=== PATIENT | male | born 1950 | race Caucasian/White ===

== ENCOUNTER 2023-05-04 10:33 | Outpatient (OUT) | payer MEDICARE, SELFPAY ==
--- NOTE | 2023-05-04 10:51 | XR_ITS ---
The [address] [address] Patient Name: RON LITTLE MRN: [id number] date: 1950 Sex: M Assigned Patient Location: RAD Current Patient Location: LAB Accession/Order Number: [id number] Exam Date: 05/04/2023 10:55 Report Date: 05/04/2023 13:53 At the request of: RADHA NESS Procedure: XR hand RT min 3V PROCEDURE: XR hand RT min 3V COMPARISON: None. HISTORY: Right Hand Pain M79.641 FINDINGS: BONES:No acute fracture or dislocation. Severe degenerative changes of the medial carpus most significant along the scaphoid trapezoid and scaphoid trapezial joints SOFT TISSUES:Negative. No visible soft tissue swelling. EFFUSION:None visible. OTHER: Negative. XR/XR hand RT min 3V IMPRESSION: Severe osteoarthritis medial carpus Electronically authenticated by: CLIFF OCHOA Date: 05/04/2023 13:53
== END 2023-05-04 10:34 | disposition home or self-care (01) ==
LOC: RAD 10:34
PROVIDERS: Visit Provider Orthopaedic Surgery
DX: M79.641 Pain in right hand (principal); M19.041 Primary osteoarthritis, right hand
CPT/HCPCS: 73130

== ENCOUNTER 2023-05-04 11:15 | Outpatient (OUT) | payer MEDICARE, SELFPAY ==
[2023-05-04 11:41] LABS: Basophils Percent Auto 0.6 % (0.2-2.0); Eosinophils Absolute Auto 0.1 10^3/uL (0.0-0.7); Eosinophils Percent Auto 1.7 % (0.9-7.0); Hematocrit 39.7 % (42.0-54.0); Hemoglobin 13.6 g/dL (14.0-18.0); Immature Granulocytes Abs Auto 0.01 10^3/uL (0.00-0.03); Immature Granulocytes Pct Auto 0.3 % (0.0-0.5); Lymphocytes Absolute Auto 0.8 10^3/uL (1.2-3.8); Lymphocytes Percent Auto 23.6 % (20.5-60.0); Mean Corpuscular HGB Conc 34.3 g/dL (29.9-35.2); Mean Corpuscular Hemoglobin 37.5 pg (25.9-34.0); Mean Corpuscular Volume 109.4 fL (80.0-94.0); Monocytes Absolute Auto 0.4 10^3/uL (0.3-0.8); Monocytes Percent Auto 11.2 % (1.7-12.0); Neutrophils Absolute Auto 2.2 10^3/uL (1.4-6.5); Neutrophils Percent Auto 62.6 % (43.0-75.0); Platelet Count 145 10^3/uL (150-450); Red Blood Count 3.63 10^6/uL (4.70-6.10); Red Cell Distribution Width 15.2 % (11.0-15.0); White Blood Count 3.5 10^3/uL (4.0-11.0)
[2023-05-04 12:21] LABS: Estimated Average Glucose 120 mg/dL; Glycohemoglobin A1C 5.8 % (4.5-6.2)
[2023-05-04 13:11] LABS: Alanine Aminotransferase 21 U/L (16-63); Albumin Globulin Ratio 0.9; Albumin Level 3.3 g/dL (3.4-5.0); Alkaline Phosphatase 47 U/L (46-116); Anion Gap 10.4; Aspartate Amino Transferase 29 U/L (15-37); BUN Creatinine Ratio 10.7; Calcium 8.8 mg/dL (8.5-10.1); Carbon Dioxide 28.8 mmol/L (21.0-32.0); Chloride 105 mmol/L (98-107); Chol HDL Ratio 3.3; Cholesterol 199 mg/dL (<=200); Estimated GFR (African America >60 (>=60); Estimated GFR (Non-African Ame 50 (>=60); Free T3 2.64 pg/mL (2.18-3.98); Globulin 3.8 g/dL; Glucose 104 mg/dL (74-106); HDL Cholesterol 60 mg/dL (40-60); LDL Cholesterol Calculated 115.6 mg/dL; Potassium 4.2 mmol/L (3.5-5.1); Sodium 140 mmol/L (136-145); Thyroid Stimulating Hormone 1.775 uIU/mL (0.358-3.740); Total Protein 7.1 g/dL (6.4-8.2); Triglycerides 117 mg/dL (<=150); Uric Acid 5.8 mg/dL (3.5-7.2); VLDL CHOLESTEROL 23.4 mg/dL
[2023-05-04 13:13] LABS: Prostate Specific Antigen Scrn 0.67 ng/mL (<=4.00)
[2023-05-05 20:44] LABS: Occult Blood Positive
== END 2023-05-04 11:16 | disposition home or self-care (01) ==
LOC: LAB 11:17
PROVIDERS: PCP Family Medicine; Visit Provider Family Medicine
DX: D64.9 Anemia, unspecified (principal); R79.9 Abnormal finding of blood chemistry, unspecified
CPT/HCPCS: 36415; 80053; 80061; 83036; 84436; 84443; 84481; 84550; 85025; G0103; G0328

== ENCOUNTER 2023-05-24 12:46 | Emergency (ER) | payer MEDICARE, SELFPAY ==
[2023-05-24 12:51] VITALS: BP 199/100; PULSE 70; RESP 20; TEMP 38.3; O2SAT 97; BMI 34.5
[2023-05-24 12:53] VITALS: BP 199/100; O2SAT 98
[2023-05-24 12:58] VITALS: BP 172/89; PULSE 74; RESP 21; O2SAT 96
--- NOTE | 2023-05-24 13:05 | XR_ITS ---
The [address] [address] Patient Name: RON LITTLE MRN: [id number] date: 1950 Sex: M Assigned Patient Location: ER Current Patient Location: ER Accession/Order Number: [id number] Exam Date: 05/24/2023 13:20 Report Date: 05/24/2023 13:52 At the request of: MELODIE MCELROY Procedure: XR chest 1V EXAMINATION: XR chest 1V HISTORY: fever, cough COMPARISON: XR chest 09/14/2021 FINDINGS: LUNGS: No significant pulmonary parenchymal abnormalities. VASCULATURE: No increased pulmonary vasculature. PLEURA: No pneumothorax, effusion, or pleural thickening. CARDIAC: No cardiomegaly or cardiac silhouette abnormality. MEDIASTINUM: No visible mass or adenopathy. BONES: No fracture or visible bone lesion. OTHER: Prior sternotomy. XR/XR chest 1V IMPRESSION: 1. No acute cardiopulmonary process. Electronically authenticated by: RADHA GRACE Date: 05/24/2023 13:52
--- NOTE | 2023-05-24 13:05 | ECG_ITS ---
The [facility] Test Date: 2023-05-24 Pat Name: RON LITTLE Department: Room: - Gender: Male [employer]: : 1950 Requested By: MIKE MACKAY Order Number: [id number] Reading MD: MIKE MACKAY Measurements Intervals [place] Rate: 70 P: 36 CT: 164 QRS: 24 QRSD: 116 T: 24 QT: 376 QTc: 396 Interpretive Statements 1100 Sinus rhythm 2320 Nonspecific intraventricular conduction delay [address] depression [address] & [place] abnormality 9150 abnormal ECG No previous ECG available for comparison Electronically Signed On 05-26-2023 6:27:59 EST by MIKE MACKAY
--- NOTE | 2023-05-24 13:07 | ED_ITS ---
HPI - Altered Mental Status General Chief Complaint: Altered Mental Status Stated Complaint: CONFUSION/ FEVER Time Seen by Provider: 05/24/23 12:56 Source: patient Mode of arrival: walk-in Limitations: no limitations History of Present Illness HPI narrative: 2 days ago the patient developed a cough. He also had some nasal congestion. He then developed a fever at home. This morning he became more confused than normal - he has dementia. No vomiting or diarrhea. said that he ate this morning but got confused and did not take his morning meds. No known ill exposures. No flank pain or abdominal pain. Related Data Allergies Allergy/AdvReac Type Severity Reaction Status Date / Time ciprofloxacin [From Cipro] Allergy Severe Verified 05/24/23 12:57 Penicillins Allergy Severe Verified 05/24/23 12:57 PFSH PFSH Social History Smoking status: Former smoker Exam Narrative Exam Narrative: Nurses notes and vital signs reviewed and patient is not hypoxic. febrile T100.9F General: Well-appearing and in no apparent distress. Skin: Warm, dry, no pallor noted. No rash. Head: Normocephalic, atraumatic. Neck: Supple, non-tender. No meningismus. No cervical lymphadenopathy. Eye: Pupils are equal, round and EOMI. No scleral icterus. Cardiovascular: Regular Rate and Rhythm without murmur, gallop or rub. Respiratory: No accessory muscle use or respiratory distress. Lungs are clear to auscultation, no wheezing, rales or rhonchi Chest Wall: no tenderness Back: No midline thoracic or lumbar vertebral tenderness. No CVA tenderness Musculoskeletal: normal ROM, no calf or popliteal tenderness, no lower extremity edema/swelling GI: Abdomen is soft, non-distended. Normal bowel sounds. No masses appreciated. No tenderness to palpation. No rebound, guarding, or rigidity noted. Neurological: Awake and alert. Disoriented to time. Understands that he is in the hospital and why. No cranial nerve dysfunction observed. No truncal ataxia. Moves all extremities. Sensation intact. Psychiatric: Cooperative and interactive. Normal mood and affect. Constitutional Vital Signs, click to edit/add: Last Vital Signs Temp 100.9 F H 05/24/23 12:51 Pulse 74 05/24/23 12:58 Resp 21 05/24/23 12:58 BP 172/89 H 05/24/23 12:58 Pulse Ox 96 05/24/23 12:58 O2 Del Method Room Air 05/24/23 12:51 Course Vital Signs Vital signs: Vital Signs Temperature 100.9 F H 05/24/23 12:51 Pulse Rate 70 05/24/23 12:51 Respiratory Rate 20 05/24/23 12:51 Blood Pressure 199/100 H 05/24/23 12:51 Pulse Oximetry 97 05/24/23 12:51 Oxygen Delivery Method Room Air 05/24/23 12:51 Temperature 100.9 F H 05/24/23 12:51 Pulse Rate 74 05/24/23 12:58 Respiratory Rate 21 05/24/23 12:58 Blood Pressure 172/89 H 05/24/23 12:58 Pulse Oximetry 96 05/24/23 12:58 Oxygen Delivery Method Room Air 05/24/23 12:51 MDM - Altered Mental Status MDM Narrative Medical decision making narrative: Patient was placed on hospital monitor and EKG obtained. Blood drawn and sent for evaluation, including blood cultures and lactate per sepsis protocol. CXR obtained along with swabs for Covid and influenza. Patient tested positive for Covid. CXR unremarkable. Blood testing without any worrisome findings. Results explained to the patient's . Will discharge home Patient advised to rest, stay at home, practice social distancing, take Motrin and Tylenol for pain and fever if not allergic, stay well hydrated with Gatorade or similar drinks if vomiting or eat as tolerated if not and take any meds as prescribed. Reviewed reasons to return including rapid increase in respiratory rate, shortness of breath, confusion, inability to keep down sips of swallowed liquids for more than 24 hours. Asked patient to encourage any ill contacts to stay home and practice similar advice. Lab Data Attestation: I reviewed the patient's lab results. Labs: Lab Results 05/24/23 05/24/23 Range/Units 13:20 13:41 WBC 5.7 (4.0-11.0) 10^3/uL RBC 3.58 L (4.70-6.10) 10^6/uL Hgb 13.6 L (14.0-18.0) g/dL Hct 39.9 L (42.0-54.0) % MCV 111.5 H (80.0-94.0) fL MCH 38.0 H (25.9-34.0) pg MCHC 34.1 (29.9-35.2) g/dL RDW 15.8 H (11.0-15.0) % Plt Count 146 L (150-450) 10^3/uL MPV 11.2 (9.5-13.5) fL Neut % (Auto) 83.6 H (43.0-75.0) % Lymph % (Auto) 5.3 L (20.5-60.0) % [place] % (Auto) 10.1 (1.7-12.0) % Eos % (Auto) 0.4 L (0.9-7.0) % Baso % (Auto) 0.2 (0.2-2.0) % Neut # (Auto) 4.7 (1.4-6.5) 10^3/uL Lymph # (Auto) 0.3 L (1.2-3.8) 10^3/uL [place] # (Auto) 0.6 (0.3-0.8) 10^3/uL Eos # (Auto) 0.0 (0.0-0.7) 10^3/uL Baso # (Auto) 0.0 (0.0-0.1) 10^3/uL Abs Immat Gran (auto) 0.02 (0.00-0.03) 10^3/uL Imm/Tot Granulo (auto) 0.4 (0.0-0.5) % Sodium 139 (136-145) mmol/L Potassium 3.6 (3.5-5.1) mmol/L Chloride 104 (98-107) mmol/L Carbon Dioxide 25.8 (21.0-32.0) mmol/L Anion Gap 12.8 BUN 16.0 (7.0-18.0) mg/dL Creatinine 1.61 H (0.70-1.30) mg/dL Est GFR ( Amer) 51 L (>=60) Est GFR (Non-Af Amer) 42 L (>=60) BUN/Creatinine Ratio 9.9 Glucose 117 H (74-106) mg/dL Lactate 1.0 (0.4-2.0) mmol/L Calcium 8.9 (8.5-10.1) mg/dL Total Bilirubin 1.2 H (0.2-1.0) mg/dL AST 24 (15-37) U/L ALT 20 (16-63) U/L Alkaline Phosphatase 52 (46-116) U/L Total Protein 7.3 (6.4-8.2) g/dL Albumin 3.3 L (3.4-5.0) g/dL Globulin 4.0 g/dL Albumin/Globulin Ratio 0.8 Procalcitonin <0.05 (0.00-0.50) ng/mL SARS-CoV-2 (PCR) Positive A (NEGATIVE) Influenza Type A Ag Negative Influenza Type B Ag Negative Imaging Data Chest x-ray: Radiologist's impression: Patient Name: RON LITTLE MRN: [facility]:[id number] date: 1950 Sex: M Assigned Patient Location: ER Current Patient Location: ER Accession/Order Number: [id number] Exam Date: 05/24/2023 13:20 Report Date: 05/24/2023 13:52 At the request of: MELODIE MCELROY Procedure: XR chest 1V EXAMINATION: XR chest 1V HISTORY: fever, cough COMPARISON: XR chest 09/14/2021 FINDINGS: LUNGS: No significant pulmonary parenchymal abnormalities. VASCULATURE: No increased pulmonary vasculature. PLEURA: No pneumothorax, effusion, or pleural thickening. CARDIAC: No cardiomegaly or cardiac silhouette abnormality. MEDIASTINUM: No visible mass or adenopathy. BONES: No fracture or visible bone lesion. OTHER: Prior sternotomy. IMPRESSION: 1. No acute cardiopulmonary process. Electronically authenticated by: RADHA GRACE Date: 05/24/2023 13:52 ECG Data Attestation: I personally reviewed and interpreted this ECG as follows: Interpretation: EKG interpretation: Emergency Department physician interpretation. Normal sinus rhythm at 70bpm. Nonspecific T wave changes. No ST segment elevation or depression. Discharge Plan Discharge Chief Complaint: Altered Mental Status Clinical Impression: COVID Patient Disposition: Home, Self-Care Time of Disposition Decision: 14:50 Instructions: COVID-19 (Coronavirus Disease 2019) (ED), Face Coverings (Masks) and COVID-19 (ED) Stand Alone Forms: Portal Instructions Referrals: Guevara Montoya MD [Primary Care Provider] - 1 week
[2023-05-24] MEDS: 0.9 % SODIUM CHLORIDE 1,000 ML 1000 ML IV (13:35)
[2023-05-24] MEDS: ACETAMINOPHEN 500 MG TABLET 1000 MG PO (13:36)
[2023-05-24 13:55] LABS: Alanine Aminotransferase 20 U/L (16-63); Albumin Globulin Ratio 0.8; Albumin Level 3.3 g/dL (3.4-5.0); Alkaline Phosphatase 52 U/L (46-116); Anion Gap 12.8; Aspartate Amino Transferase 24 U/L (15-37); BUN Creatinine Ratio 9.9; Bilirubin Total 1.2 mg/dL (0.2-1.0); Calcium 8.9 mg/dL (8.5-10.1); Carbon Dioxide 25.8 mmol/L (21.0-32.0); Chloride 104 mmol/L (98-107); Estimated GFR (African America 51 (>=60); Estimated GFR (Non-African Ame 42 (>=60); Glucose 117 mg/dL (74-106); Potassium 3.6 mmol/L (3.5-5.1); Sodium 139 mmol/L (136-145); Total Protein 7.3 g/dL (6.4-8.2)
[2023-05-24 13:57] LABS: Basophils Percent Auto 0.2 % (0.2-2.0); Eosinophils Percent Auto 0.4 % (0.9-7.0); Hematocrit 39.9 % (42.0-54.0); Hemoglobin 13.6 g/dL (14.0-18.0); Immature Granulocytes Abs Auto 0.02 10^3/uL (0.00-0.03); Immature Granulocytes Pct Auto 0.4 % (0.0-0.5); Lymphocytes Absolute Auto 0.3 10^3/uL (1.2-3.8); Lymphocytes Percent Auto 5.3 % (20.5-60.0); Mean Corpuscular HGB Conc 34.1 g/dL (29.9-35.2); Mean Corpuscular Volume 111.5 fL (80.0-94.0); Mean Platelet Volume 11.2 fL (9.5-13.5); Monocytes Absolute Auto 0.6 10^3/uL (0.3-0.8); Monocytes Percent Auto 10.1 % (1.7-12.0); Neutrophils Absolute Auto 4.7 10^3/uL (1.4-6.5); Neutrophils Percent Auto 83.6 % (43.0-75.0); Platelet Count 146 10^3/uL (150-450); Red Blood Count 3.58 10^6/uL (4.70-6.10); Red Cell Distribution Width 15.8 % (11.0-15.0); White Blood Count 5.7 10^3/uL (4.0-11.0)
[2023-05-24 14:15] LABS: Influenza Virus A Antigen Negative; Influenza Virus B Antigen Negative; Internal Control Within Normal Limits; SARS-CoV-2 Ag POSITIVE (NEGATIVE)
[2023-05-24 14:39] LABS: PROCALCITONIN <0.05 ng/mL (0.00-0.50)
--- OUTSIDE RECORDS SUMMARY | 2023-05-24 15:03 | XMS_ITS | CCD ---
Author Name Unknown Address [address] [place] [address] Organization [facility] Care Team Providers Care Overlock Operator Name Role Phone Guevara Mackay Primary Care Provider ÁNGEL FENTON Referring Unavailab GUEVARA Calvo Primary Care Unavailable ÁNGEL FENTON Admitting Unavailab ÁNGEL Alvarado Attending Unavailab GUEVARA Calvo Primary Care Unavailable DOC HART Referring Unavailable GUEVARA MACKAY Primary Care Unavailable Guevara Carrasco Unavailable Unavailable Guevara Mackay Unavailable Unavailable Guevara Mackay Primary Care Provider Guevara Mackay Unavailable Unavailable Unavailable Guevara Mackay Primary Care Physician Guevara Mackay MD Primary Care Provider Cliff Leon Unavailable Guevara Mackay MD Primary Care Provider [phone] Guevara Mackay MD Primary Care Provider [phone] Guevara Mackay MD Primary Care Provider Guevara Mackay MD Primary Care Provider THOMPSON ., DR MCKEON Admitting Unavailable HOY ., DR MCKEON Attending Unavailable HOY ., DR MCKEON Primary Care Unavailable HOY ., DR MCKEON Consulting Unavailable HOY ., DR MCKEON Admitting Unavailable HOY ., DR MCKEON Attending Unavailable HOY ., DR MCKEON Primary Care Unavailable HOY ., DR MCKEON Consulting Unavailable HOY ., DR MCKEON Admitting Unavailable HOY ., DR MCKEON Attending Unavailable HOY ., DR MCKEON Primary Care Unavailable HOY ., DR MCKEON Consulting Unavailable HOY ., DR MCKEON Admitting Unavailable HOY ., DR MCKEON Attending Unavailable HOY ., DR MCKEON Primary Care Unavailable HOY ., DR MCKEON Consulting Unavailable [place], DR CLIFF Downs Consulting Unavailable TORRES JR ., DR TERE Moyer Admitting Unavaila ble TORRES JR ., DR TERE Moyer Attending Unavaila ble HOY ., DR MCKEON Primary Care Unavailable TORRES JR ., DR TERE Moyer Consulting Unavaila ble HOY ., DR MCKEON Primary Care Unavailable TORRES, DR ASHA Manuel Admitting Unavailable TORRES, DR ASHA Manuel Attending Unavailable TORRES, DR ASHA Manuel Consulting Unavailable HOY ., DR MCKEON Admitting Unavailable HOY ., DR MCKEON Attending Unavailable HOY ., DR MCKEON Primary Care Unavailable HOY ., DR MCKEON Admitting Unavailable HOY ., DR MCKEON Attending Unavailable HOY ., DR MCKEON Primary Care Unavailable HOY ., DR MCKEON Consulting Unavailable Guevara Carrasco Attending Unavailable Thompson, Dr. Guevara Manzanares Primary Care Unavail able Guevara Carrasco Referring Unavailable Guevara Carrasco Attending Unavailable Thompson, Dr. Guevara Manzanares Primary Care Unavail able Guevara Carrasco Referring Unavailable Guevara Carrasco Attending Unavailable Thompson, Dr. Guevara Manzanares Primary Care Unavail able Guevara Carrasco Referring Unavailable Thompson, Dr. Guevara Manzanares Primary Care Unavail able Guevara aCrrasco Attending Unavailable Guevara Carrasco Referring Unavailable ADAMSLAUREN Raman Attending Unavailable THOMPSON, GUEVARA M Primary Care Unavailable ADAMSLAUREN Referring Unavailable HOY GUEVARA M Primary Care Unavailable ADAMSVIOLETLAUREN Referring Unavailable HOY, GUEVARA M Primary Care Unavailable ARASELI CAMACHO Attending Unavailable ADAMS, LAUREN Referring Unavailable HOY, GUEVARA M Primary Care Unavailable CHANDNI METZGER Attending Unavailable HOY, GUEVARA M Primary Care Unavailable CHANDNI METZGER Referring Unavailable CHANDNI METZGER Attending Unavailable ADAMS, LAUREN Referring Unavailable HOY, GUEVARA M Primary Care Unavailable HOY, GUEVARA M Primary Care Unavailable KATIA JEREZ Attending Unavailable ADAMS, LAUREN Referring Unavailable INGA TOURE Attending Unavailable GELY BLAKE Attending Unavailable GELY BLAKE Attending Unavailable Leighton MARIE Attending Unavailable Hoy, Guevara Referring Unavailable GELY BLAKE Attending Unavailable GUEVARA CARRASCO Attending Unavailable GUEVARA MACKAY Primary Care Unavailable GUEVARA CARRASCO Attending Unavailable GUEVARA MACKAY Primary Care Unavailable GUEVARA CARRASCO Attending Unavailable GUEVARA MACKAY Primary Care Unavailable Allergies Allergy Classification Reported Allergen(s) Allergy Type Date of Onset Reaction(s) Facility (20 sources) Ciprofloxacin; Translations: [ciprofloxacin] Drug Allergy 04-04-20 12 Rash, Eruption of skin (disorder), Unknown -[facility] Work Phone: (10 sources) Penicillins; Translations: [penicillins] Propensity to adverse reactions to drug 01-22-20 04 Rash, Eruption of skin (disorder) [place], [place] (7 sources) Penicillins; Translations: [facility] ([facility] sources) Penicillins Propensity to adverse reactions 01-22-20 04 [facility] (17 sources) Penicillins Propensity to adverse reactions 01-22-20 04 [facility] (1 source) Penicillin G Drug Allergy Unknown [employer] Other (1 source) Ciprofloxacin Drug Allergy 09-12-19 14 [facility] (1 source) Penicillins Drug allergy (disorder) 09-12-19 14 [facility] Medications Current Medications Medication Drug Class(es) Dates Sig (Normalized) Sig (Original) Acetaminophen / HYDROcodone (1 source) Opioid Agonist Start: 10-16-2019 End: 10-16-2019 HYDROcodone-aceta minophen (NORCO) 5-325 MG per tablet 1 tablet acetaminophen 325 mg / oxyCODONE hydrochloride 5 mg oral tablet (2 sources) Opioid Agonist Start: 10-16-2019 End: 10-23-2019 take 1 tablet by mouth every six hours as needed for pain, then take 1 tablet by mouth as needed for pain oxyCODONE-acetami nophen (PERCOCET) 5-325 MG per tablet Indications: Basal cell carcinoma (BCC) of left side of nose Take 1 tablet by mouth every 6 hours as needed for Pain for up to 7 days. Intended supply: 7 days. Take lowest dose possible to manage pain 28 tablet 0 10/16/2019 10/23/2019 Active azaTHIOprine 50 mg oral tablet (20 sources) Purine Antimetabolite Start: 12-05-2022 End: 12-05-2023 take 1 tablet by mouth twice daily azaTHIOprine (IMURAN) 50 mg tablet Indications: Myasthenia gravis (HCC) Take 1 tablet by mouth twice daily. 180 tablet 3 12/05/2022 12/05/2023 Active Start: 07-16-2018 End: 02-14-2020 azaTHIOprine (IMURAN) 50 MG tablet Take 25 mg by mouth 2 times daily 0 07/16/2018 02/14/2020 Active Start: 04-29-2016 End: 02-14-2020 azaTHIOprine 50 MG Oral Tabl et Quantity: 100 Refills: 0 Ordered: 29-Apr-2016 DO Start : 29-Apr-2016 Active Start: 04-29-2016 End: 11-23-2022 azaTHIOprine 50 MG Oral Tabl et Quantity: 100 Refills: 0 Ordered: 29-Apr-2016 DO Start : 29-Apr-2016 Active azaTHIOprine 100 MG Orally Active Comment on above: Take 1 tablet by [facility] twice daily. calcium chloride 0.0014 meq/ml / potassium chloride 0.004 meq/ml / sodium chloride 0.103 meq/ml / sodium lactate 0.028 meq/ml injectable solution (1 source) Start: 10-16-2019 lactated ringers infusion celecoxib 200 mg oral capsule (20 sources) Nonsteroidal Anti-inflammatory Drug Start: 11-05-2018 take 1 capsule by mouth once daily CeleBREX 200 mg Cap 200 mg = 1 cap(s), Oral, Daily Start Date: 04/03/19 Status: Ordered take 1 capsule by mouth twice da fatimah celecoxib (CELEBREX) 200 mg capsule Take 200 mg by mouth twice daily. 0 Active Comment on above: Take 200 mg by mouth twice daily. cephalexin 500 mg oral capsule (2 sources) Cephalosporin Antibacterial Start: End: take 1 capsule by mouth three times daily, then take 1 capsule by mouth three times daily cephALEXin (KEFLEX) 500 MG capsule Take 1 capsule by mouth 3 times daily for 15 doses Take 1 tablet 3 times a day for 5 days 15 capsule 0 10/16/2019 10/21/2019 Active Copper Sulfate (1 source) Start: copper sulfate See Instructions, Refills(s) 0 Start Date: 09/28/21 Status: Ordered 1 ml diphenhydrAMINE hydrochloride 50 mg/ml cartridge (1 source) Histamine-1 Receptor Antagonist Start: End: diphenhydrAMINE (BENADRYL) injection 12.5 mg 2 ml fentaNYL 0.05 mg/ml injection (1 source) Opioid Agonist Start: fentaNYL (SUBLIMAZE) injection 25 mcg 1 ml hydrALAZINE hydrochloride 20 mg/ml injection (1 source) Arteriolar Vasodilator Start: hydrALAZINE (APRESOLINE) injection 5 mg 1 ml HYDROmorphone hydrochloride 1 mg/ml cartridge (1 source) Opioid Agonist Start: HYDROmorphone (DILAUDID) injection 0.5 mg 0.5 ml meperidine hydrochloride 50 mg/ml injection (1 source) Opioid Agonist Start: meperidine (DEMEROL) injection SOLN 12.5 mg 2 ml midazolam 1 mg/ml injection (1 source) Benzodiazepine Start: End: midazolam (VERSED) injection 2 mg 30 ml morphine sulfate 1 mg/ml injection (1 source) Opioid Agonist Start: morphine (PF) injection 1 mg ondansetron 4 mg disintegrating oral tablet (2 sources) Serotonin-3 Receptor Antagonist Start: take 1 tablet by mouth every eight hours as needed Ondansetron 4 MG 1 tablet on the tongue and allow to dissolve Orally every 8 hours as needed for 7 days Apr, Active Start: 10-16-2019 End: 10-16-2019 ondansetron (ZOFRAN) injecti on 4 mg pantoprazole 40 mg extended release oral tablet (8 sources) Proton Pump Inhibitor Start: 09-28-2021 take 1 tablet by mouth once daily pantoprazole 40 mg Oral EC Tab 40 mg = 1 tab(s), Oral, Daily Start Date: 09/28/21 Status: Ordered Start: 06-18-2021 take 2 tablets by [facility] once daily Pantoprazole Sodium 40 MG Oral Tablet Delayed Release TAKE 2 TABLETS BY MOUTH ONCE DAILY Quantity: 60 Refills: 0 Ordered: 27-Jan-2022 DO Start : 18-Jun-2021 Active take 1 tablet by zulma th every twenty-four hours Protonix 40 MG 1 tablet Orally Once a day Active 1 ml promethazine hydrochloride 25 mg/ml injection (1 source) Phenothiazine Start: 10-16-2019 End: 10-16-2019 promethazine (PHENERGAN) injection 6.25 mg pyridostigmine bromide 60 mg oral tablet (20 sources) Start: 09-28-2021 take 1 tablet by mouth twice daily pyridostigmine 60 mg Tab 60 mg = 1 tab(s), Oral, BID Start Date: 09/28/21 Status: Ordered Start: 07-12-2021 End: 04-15-2023 take 1 tablet by mouth three times daily pyridostigmine (MESTINON) 60 mg tablet Take 1 tablet by mouth three times daily. 90 tablet 11 04/15/2022 04/15/2023 Active take 1 tablet by zulma th every four hours Pyridostigmine Maxatawny 60 MG 1 tablet Orally every 4 hrs Active Comment on above: Take 1 tablet by zulma th three times daily. 1000 ml sodium chloride 9 mg/ml injection (3 sources) Start: 10-16-2019 0.9 % sodium chloride infusion Start: 10-16-2019 sodium chlorid e flush 0.9 % injection 10 mL sucralfate 1000 mg oral tablet (1 source) Aluminum Complex Start: 09-08-2021 take 1 tablet by mouth every six hours Sucralfate 1 GM 1 tablet on an empty stomach Orally qid for 30 day(s) Aug, Active Timolol (20 sources) beta-Adrenergic Michael Start: 09-28-2021 Betimol 0.5% ophthalmic solution See Instructions, Refill(s) 0, 1 drop(s) Start Date: 09/28/21 Status: Ordered take 1 drop(s) into the eye(s) once daily timolol 0.5 % ophthalmic solution Use 1 Drop in both eyes once daily. 0 Active take 1 drop(s) into the eye(s) once daily timolol 0.5 % ophthalmic solution Use 1 Drop in both eyes once daily. 0 Active take 1 drop(s) into the eye(s) once daily Timolol Hemihydrate 0.5 % 1 drop into affected eye Ophthalmic Once a day Active Comment on above: Use 1 Drop in both e yes once daily. Completed/Discontinued Medications Medication Drug Class(es) Dates Sig (Normalized) Sig (Original) carvedilol 12.5 mg oral tablet (20 sources) alpha-Adrenergic Michael, beta-Adrenergic Michael Start: 05-05-2021 take 1 tablet by mouth twice daily Carvedilol 12.5 MG Oral Tablet TAKE 1 TABLET BY MOUTH TWICE DAILY Quantity: 180 Refills: 0 Ordered: 05-Feb-2022 DO Start : 05-May-2021 Active Start: 04-03-2019 carvedilol 6.2 5 mg Tab 12.5 mg = 2 tab(s), Oral Start Date: 04/03/19 Status: Ordered Start: 03-08-2017 Carvedilol 6.2 5 MG Oral Tablet Quantity: 60 Refills: 0 Start : 08-Mar-2017 Active Start: 03-08-2017 Carvedilol 6.2 5 MG Oral Tablet Quantity: 60 Refills: 0 Ordered: 08-Mar-2017 DO Start : 08-Mar-2017 Active Comment on above: Take 6.25 mg by mout h twice daily with meals. Take 12.5 mg by mout h twice daily with meals. 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 0 08/04/2022 Active Donepezil HCl - 10 MG Oral Tablet Quantity: 0 Refills: 0 Ordered: 31-Oct-2022 DO Active Comment on above: Take half a tablet d aily in the morning (can be with food) for 4 weeks, if tolerating, can increase to one tablet a day. ezetimibe 10 mg oral tablet (20 sources) Dietary Cholesterol Absorption Inhibitor Start: 07-07-2019 take 1 tablet by mouth once daily ezetimibe (ZETIA) 10 mg tablet Take 1 tablet by mouth once daily. 0 07/26/2019 Active Ezetimibe 10 MG Oral Tablet Quantity: 0 Refills: 0 Ordered: 14-Jun-2019 DO Active Ezetimibe Active Ezetimibe 10 MG Oral Tablet Refills: 0 Active Comment on above: Take 1 tablet by zulma once daily. hydroCHLOROthiazide 25 mg oral tablet (2 sources) Thiazide Diuretic Start: 09-06-19 17 hydroCHLOROthiazide 25 MG Oral Tablet Quantity: 90 Refills: 0 Start : 05-Sep-2016 Active ibuprofen 800 mg oral tablet (5 sources) Nonsteroidal Anti-inflammatory Drug Start: 07-22-19 17 Ibuprofen 800 MG Oral Tablet Quantity: 100 Refills: 0 Ordered: 22-Jul-2016 DO Start : 22-Jul-2016 Active Start: 07-22-2016 Ibuprofen 800 MG Oral Tablet Quantity: 100 Refills: 0 Start : 22-Jul-2016 Active imipramine hydrochloride 50 mg oral tablet (20 sources) Tricyclic Antidepressant Start: 06-07-2022 take 1 tablet by mouth twice daily at bedtime imipramine 50 mg oral tablet 50 mg = 1 tab(s), Oral, BID, Take 1 tablet in the morning, and 1 tablet at bedtime., # 60 tab(s), Refills(s) 11, Pharmacy: [id number], 168, cm, 06/07/22 10:05:00 EST, Height/Length Dosing, 105, kg, 06/07/22 10:05:00 EST, Weight Dosing Start Date: 06/07/22 Status: Ordered Start: 04-23-2022 take 1 tablet by zulma th twice daily imipramine HCl (TOFRANIL) 25 mg tablet Take 25 mg by mouth twice daily. 0 04/23/2022 Active Start: 09-28-2021 take 1 tablet by zulma th twice daily imipramine 25 mg Tab 25 mg = 1 tab(s), Oral, BID, # 60 tab(s), Refills(s) 5, Pharmacy: [id number], 168, cm, 09/28/21 10:51:00 EDT, Height/Length Dosing, 105.1, kg, 09/28/21 10:51:00 EDT, Weight Dosing Start Date: 09/28/21 Status: Ordered Imipramine HCl - 25 MG Oral Tablet Quantity: 0 Refills: 0 Ordered: 28-Dec-2017 DO Active imipramine (TOFR DEONDRE) 25 MG tablet Take 25 mg by mouth 0 Active Comment on above: Take 25 mg by mouth twice daily. irbesartan 300 mg oral tablet (1 source) Angiotensin 2 Receptor Michael Start: 12-12-2016 Irbesartan 300 MG Oral Tablet Quantity: 30 Refills: 0 Start : 12-Dec-2016 Active latanoprost (20 sources) Prostaglandin Analog Start: 09-28-2021 latanoprost ophthalmic 0.005% solution 1 drop(s), OPTH, Once a day (at bedtime) Start Date: 09/28/21 Status: Ordered Start: 08-21-2021 take 1 drop(s) into the eye(s) at bedtime Latanoprost 0.005 % Ophthalmic Solution Instill 1 drop into left eye at bedtime Quantity: 9 Refills: 2 Ordered: 21-Nov-2022 Guevara Carrasco MD Start : 21-Aug-2021 Active latanoprost (XAL ATAN) 0.005 % ophthalmic solution Use in both eyes daily at bedtime. 0 Active take 1 drop(s) into the eye(s) at bedtime Latanoprost 0.005 % Ophthalmic Solution INSTILL 1 DROP TO THE LEFT EYE AT BEDTIME. Quantity: 3 Refills: 3 Ordered: 17-Aug-2020 Guevara Carrasco MD Active Comment on above: Use in both eyes tg ly at bedtime. lifitegrast 50 mg/ml ophthalmic solution (5 sources) Lymphocyte Function-Associated Antigen-1 Antagonist Start: 02-09-2016 take 1 drop(s) into the eye(s) every week Xiidra 5 % Ophthalmic Solution Instill 1 (ONE) drop IN BOTH EYES ONCE A WEEK Quantity: 60 Refills: 0 Ordered: 10-Feb-2016 DO Start : 09-Feb-2016 Active lovastatin 20 mg oral tablet (20 sources) HMG-CoA Reductase Inhibitor Start: 04-06-2016 Lovastatin 20 MG Oral Tablet Quantity: 30 Refills: 0 Ordered: 06-Apr-2016 DO Start : 06-Apr-2016 Active Start: 05-08-2007 lovastatin(MEV ACOR 20 MG TAB) Take one(1) tablet daily at bedtime. 0 05/08/2007 Active Comment on above: Take one(1) tablet d aily at bedtime. Metoclopramide (4 sources) Dopamine-2 Receptor Antagonist Metoclopramide HCl TABS Quantity: 0 Refills: 0 Ordered: 09-Jul-2021 DO Active terbinafine 250 mg oral tablet (20 sources) Allylamine Antifungal Start: 07-07-19 End: 07-20-19 23 take 1 tablet by mouth once daily terbinafine HCl (LAMISIL) 250 mg tablet Take 1 tablet by mouth once daily. 0 07/26/2019 07/20/2022 Discontinued Terbinafine HCl - 250 MG Oral Tablet Quantity: 0 Refills: 0 Ordered: 14-Jun-2019 DO Active Terbinafine HCl - 250 MG Oral Tablet Refills: 0 Active Comment on above: Take 1 tablet by zulma th once daily. True Metrix Meter w/Device Kit (1 source) Start: 03-15-2016 True Metrix Meter w/Device Kit use to test BLOOD SUGAR DAILY Quantity: 1 Refills: 0 Start : 15-Mar-2016 Active Problems Active Problems Problem Classification Problem Date Documented Date Episodic/Chronic Allergic reactions (4 sources) Eczema 04-03-2019 Episodic Cataract (20 sources) Nuclear sclerotic cataract; Translations: [Pseudophakia] Onset: 11-20-2017 Chronic Congestive heart failure; nonhypertensive (1 source) Unspecified diastolic (congestive) heart failure; Translations: [UNSPECIFIED DIASTOLIC HEART FAILURE] Onset: 09-02-2022 Chronic Delirium, dementia, and amnestic and other cognitive disorders (15 sources) Cognitive disorder; Translations: [Unspecified mental disorder due to known physiological condition] Onset: 06-17-2022 Chronic Diabetes mellitus without complication (20 sources) Steroid-induced diabetes; 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] Onset: 07-03-2012 07-03-2012 Chronic Diabetes mellitus without complication (1 source) Other abnormal glucose; Translations: [OTHER ABNORMAL GLUCOSE] Onset: 09-02-2022 Episodic Disorders of lipid metabolism (5 sources) Hyperlipidemia, unspecified; Translations: [HYPERLIPIDEMIA UNSPECIFIED] Onset: 08-18-2022 Chronic Esophageal disorders (1 source) Gastro-esophageal reflux disease with esophagitis; Translations: [Gastroesophageal reflux disease with esophagitis without hemorrhage] Chronic Essential hypertension (20 sources) Hypertensive disorder; Translations: [Benign essential hypertension] Onset: 03-23-2005 04-03-2019 Chronic Genitourinary symptoms and ill-defined conditions (7 sources) Urge incontinence of urine; Translations: [Urge incontinence] Onset: 06-07-2022 08-27-2020 Chronic Genitourinary symptoms and ill-defined conditions (17 sources) Urgent desire to urinate; Translations: [Urgency of urination] Onset: 09-28-2021 Episodic Glaucoma (20 sources) Primary open angle glaucoma; Translations: [Primary open angle glaucoma] Onset: 06-21-2017 04-03-2019 Chronic Heart valve disorders (1 source) Combined rheumatic disorders of mitral, aortic and tricuspid valves; Translations: [COMB RHEUMAT D/O MITRL AORTC TRICSP] Onset: 10-09-2022 Chronic Hyperplasia of prostate (20 sources) Benign prostatic hypertrophy with outflow obstruction; Translations: [Benign prostatic hyperplasia with lower urinary tract symptoms] Onset: 06-26-2012 Chronic Hypertension with complications and secondary hypertension (1 source) Hypertensive heart disease with heart failure; Translations: [HTN HEART DISEASE W/HEART FAIL] Onset: 09-02-2022 Chronic Inflammation; infection of eye (except that caused by tuberculosis or sexually transmitteddisease) (7 sources) Blepharitis; Translations: [Blepharitis, unspecified] Episodic Melanomas of skin (4 sources) Malignant melanoma 06-23-2020 Chronic Mood disorders (1 source) Depressive disorder; Translations: [Depression, unspecified depression type] Chronic Noninfectious gastroenteritis (4 sources) Gastroenteritis 04-03-2019 Episodic Nutritional deficiencies (1 source) Vitamin D deficiency, unspecified; Translations: [VITAMIN D DEFICIENCY UNSPECIFIED] Onset: 08-26-2022 Chronic Osteoarthritis (20 sources) Osteoarthritis; Translations: [Unspecified osteoarthritis, unspecified site] Onset: 03-23-2005 03-18-2010 Chronic Other aftercare (5 sources) Other residential (current) drug therapy; Translations: [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 THERAPY] Onset: 08-21-2022 Episodic Other and ill-defined heart disease (4 sources) Cardiomegaly; Translations: [CARDIOMEGALY] Onset: 10-06-2022 Chronic Other circulatory disease (7 sources) H/O: hypertension; Translations: [Personal history of other diseases of circulatory system] Episodic Other diseases of kidney and ureters (2 sources) Urinary tract obstruction; Translations: [Other obstructive and reflux uropathy] Onset: 09-28-2021 Episodic Other diseases of kidney and ureters (4 sources) Cyst of kidney 04-03-2019 Episodic Other disorders of stomach and duodenum (3 sources) Gastroparesis syndrome; Translations: [Gastroparesis] Episodic Other eye disorders (14 sources) Chalazion left upper eyelid; Translations: [Chalazion of left upper eyelid] Onset: 11-20-2017 Episodic Other eye disorders (7 sources) Dry eyes; Translations: [Tear film insufficiency, unspecified] Episodic Other eye disorders (2 sources) Dry eye syndrome of bilateral lacrimal glands; Translations: [Dry eye syndrome of bilateral lacrimal glands] Onset: 01-16-2023 Episodic Other male genital disorders (6 sources) Male erectile dysfunction, unspecified; Translations: [Erectile dysfunction] Onset: 06-07-2022 Chronic Other nervous system disorders (8 sources) Myasthenia gravis; Translations: [Myasthenia gravis without (acute) exacerbation] 04-03-2019 Chronic Other nervous system disorders (20 sources) Myasthenia gravis with exacerbation; Translations: [Myasthenia gravis with (acute) exacerbation] Onset: 10-22-2003 Chronic Other nervous system disorders (1 source) Disorder of autonomic nervous system; Translations: [Disorder of the autonomic nervous system, unspecified] Chronic Other nervous system disorders (5 sources) Myasthenia gravis without (acute) exacerbation; Translations: [MYASTHENIA GRAVIS W/O AC EXACERBAT] Onset: 09-08-2021 Resolved: 09-08-2021 Chronic Other nervous system disorders (1 source) Cognitive deficit in communication skills; Translations: [Cognitive communication deficit] Chronic Other nervous system disorders (1 source) Myasthenia gravis with (acute) exacerbation; Translations: [Myasthenia gravis with exacerbation (HCC)] Onset: 05-24-2021 Chronic Other non-epithelial cancer of skin (1 source) Basal cell carcinoma of nose; Translations: [Basal cell carcinoma (BCC) of left side of nose] Chronic Other non-epithelial cancer of skin (4 sources) Basal cell carcinoma of skin 04-03-2019 Episodic Other nutritional; endocrine; and metabolic disorders (3 sources) Obese class II; Translations: [Obesity, unspecified] Onset: 10-13-2022 10-13-2022 Chronic Other nutritional; endocrine; and metabolic disorders (7 sources) History of hypercholesterolemia; Translations: [Personal history of other endocrine, metabolic, and immunity disorders] Episodic Other screening for suspected conditions (not mental disorders or infectious disease) (11 sources) Raised prostate specific antigen; Translations: [Encounter for screening for malignant neoplasm of prostate] Onset: 04-04-2022 04-03-2019 Episodic Other upper respiratory disease (4 sources) Seasonal allergy 04-03-2019 Chronic Residual codes; unclassified (20 sources) Obstructive sleep apnea syndrome; Translations: [Obstructive sleep apnea (adult) (pediatric)] Onset: 04-11-2012 Chronic Residual codes; unclassified (2 sources) Obstructive sleep apnea (adult) (pediatric); Translations: [ERIS on CPAP] Onset: 04-17-2012 Chronic Residual codes; unclassified (1 source) Dependence on other enabling machines and devices; Translations: [ERIS on CPAP] Onset: 04-17-2012 Chronic Residual codes; unclassified (1 source) Amnesia; Translations: [Other amnesia] Episodic Residual codes; unclassified (4 sources) Altered mental status, unspecified; Translations: [ALTERED MENTAL STATUS UNSPECIFIED] Onset: 08-26-2022 Episodic Residual codes; unclassified (1 source) Other amnesia; Translations: [OTHER AMNESIA] Onset: 09-02-2022 Episodic Spondylosis; intervertebral disc disorders; other back problems (20 sources) Lumbar spondylosis; Translations: [Spondylosis without myelopathy or radiculopathy, lumbar region] Onset: 04-10-2012 Chronic Unclassified (20 sources) ASA CLASS III Onset: 08-10-2004 03-18-2010 Unclassified (3 sources) Patient encounter status 06-07-2022 Past or Other Problems Problem Classification Problem Date Documented Da te Episodic/Chronic Cataract (1 source) Pseudophakia of right eye; Translations: [History of Pseudophakia of right eye] E Codes: Fall (1 source) Fall on same level from slipping, tripping and stumbling with subsequent striking against other object, initial encounter; Translations: [FALL SAME LVL SLIP STRK OTH OBJ INT] Onset: 01-10-2022 Episodic Esophageal disorders (1 source) Esophageal disorders Onset: 09-08-2021 Resolved: 09-08-2021 Immunizations and screening for infectious disease (1 source) Encounter for immunization; Translations: [ENCOUNTER FOR IMMUNIZATION] Onset: 01-10-2022 Episodic Open wounds of head; neck; and trunk (5 sources) Facial laceration ; Translations: [Facial laceration] Onset: 01-06-2022 Episodic Other acquired deformities (20 sources) Spondylolisthesis; Translations: [Spondylolisthesis, site unspecified] Onset: 11-09-2011 11-09-2011 Episodic Other disorders of stomach and duodenum (1 source) Gastroparesis Onset: 09-08-2021 Resolved: 09-08-2021 Episodic Other gastrointestinal disorders (20 sources) Dysphagia; Translations: [Dysphagia, unspecified] Onset: 06-29-2012 Episodic Other nervous system disorders (20 sources) H/O: musculoskeletal disease; Translations: [Personal history of other diseases of the nervous system and sense organs] Onset: 04-10-2012 Episodic Spondylosis; intervertebral disc disorders; other back problems (20 sources) Backache; Translations: [Back pain, lumbosacral] Onset: 12-13-2011 12-13-2011 Episodic NEGATED: Highlighted row has not occurred!Residual codes; unclassified (15 sources) Disease Episodic Results Test Name Value Interpretation Reference Range Facility Physician Referralon 023 Physician Referral [id number]#1.0 0TIFF [facility] Transfer Inon 05-18-2023 Transfer In [id number]. 00TIFF [facility] CNPNon 05-10-2023 CNPN Telephone (NENMMN) RON WELCH ([id number]) 1950 M Date Time Provider Department 05/10/23 DAYSI URIBE NENMMN During your visit today, we recorded the following information about you: Teja Bower 05/10/2023 2:49 PM Signed Lab results received and scanned in for review. Lore Maynard RN 05/10/2023 3:[address] Uribe aware of outside medical records available in scanned documents Lore Maynard RN BSN [facility] Daysi Uribe MD 05/11/2023 9:01 AM Signed Labs Reviewed: Na+ 140 K+ 4.2 Cr 1.4 (nl 0.7-1.3) Glucose 104 AST 29 ALT 21 WBC 3.5 (nl 4-11) Hgb 13.6 (nl 14-18) Plt 145 (nl 150-450) Uric acid 5.8 TSH 1.775 T4 6.7 Free T3 2.64 HbA1c 5.8 Allergies As of Date: 05/10/2023 Noted Allergy Reaction CIPROFLOXACIN 04/04/2012 16 - Unknown PENICILLINS 01/22/2004 4 - Hives Date Reviewed: 01/11/2023 Reviewed by: Viky Carias LPN - Fully Assessed Reason for Visit: Received Outside Medical Records [[id number]] Prescriptions as of 05/11/2023 - azaTHIOprine (IMURAN) 50 mg tablet Take 1 tablet by mouth twice daily. - donepezil (ARICEPT) 10 mg tablet Take half a tablet daily in the morning (can be with food) for 4 weeks, if tolerating, can increase to one tablet a day. - imipramine HCl (TOFRANIL) 25 mg tablet Take 25 mg by mouth twice daily. - ezetimibe (ZETIA) 10 mg tablet Take 1 tablet by mouth once daily. - celecoxib (CELEBREX) 200 mg capsule Take 200 mg by mouth twice daily. - carvedilol (COREG) 6.25 mg tablet Take 12.5 mg by mouth twice daily with meals. - latanoprost (XALATAN) 0.005 % ophthalmic solution Use in both eyes daily at bedtime. - timolol 0.5 % ophthalmic solution Use 1 Drop in both eyes once daily. - lovastatin(MEVACOR 20 MG TAB) Take one(1) tablet daily at bedtime. Meds Comments as of 07/31/2012: r Problem List As Of Date 05/10/2023 Noted Resolved MYASTHENIA GRAVIS [G70.01] 10/22/2003 ASA CLASS III [1003] 08/10/2004 OSTEOARTHROS NOS-OTHER SITE [M19.90] 03/23/2005 BENIGN HYPERTENSION [I10] 03/23/2005 NEONAT MYASTHENIA GRAVIS [P94.0] 01/24/2006 05/08/2007 Spondylolisthesis [M43.10] 11/09/2011 Back pain, lumbosacral [M54.50] 12/13/2011 Spinal stenosis [M48.00] 02/17/2012 Anterolisthesis [M43.10] 04/10/2012 Lumbar spondylosis [M47.816] 04/10/2012 Bulging lumbar disc [M51.36] 04/10/2012 History of myasthenia gravis [Z86.69] 04/10/2012 ERIS on CPAP [G47.33] 04/11/2012 Acute postoperative pain [G89.18] 04/11/2012 04/17/2012 HTN (hypertension) [I10] 04/17/2012 06/29/2012 Acute respiratory failure (HCC) [J96.00] 06/23/2012 06/26/2012 Obstructive sleep apnea [G47.33] 06/25/2012 Swallowing impairment [R13.10] 06/25/2012 06/29/2012 BPH (benign prostatic hyperplasia) [N40.0] 06/26/2012 Dysphagia [R13.10] 06/29/2012 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, T38.0X5A] 07/03/2012 Obesity, Class II, BMI 35-39.9 [E66.9] 10/13/2022 Encounter Status:Closed by DAYSI URIBE on 05/11/23 [facility] [place] 01-11-2023 CNOV Office Visit (NEBT ) RON WELCH ([id number]) 1950 M Date Time Provider Department 01/11/23 1:00 PM CHANDNI METZGER During your visit today, we recorded the following information about you: Pulse Blood pressure Weight 56/minute 152/79 101.2 kg Chandni Metzger APRN.PUBLIC INFORMATION SPECIALIST 01/17/2023 1:01 PM Signed [facility] - Follow-up Visit Date: January 11, 2023 Patient Name: Ron Welch Reason for Visit: follow-up visit Accompanied by: SUBJECTIVE: HPI/interval history: Patient is a 72 year old male being followed for vascular dementia, possibly mixed AD with history of Myasthenia Gravis and ERIS (on CPAP), HTN, and HLD. MRI brain on 06/17/2022 showed mild to moderate cortical atrophy, with hippocampal volume loss, and significant chronic small vessel ischemic disease. Neuropsychology testing on 06/17/2022 showed deficits in memory, processing speed, executive function and visuospatial difficulties, meeting criteria for dementia. Last seen in September 2022. At that time, patient had been doing well on donepezil, some sundowning and wandering prior to starting cholinesterase inhibitor. 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 Today, they report for a follow up. He is still confused, but no Capgras syndrome. Has not been confused about who people are once donepezil was started. Trying to keep busy this summer with going camping in the camper. Driving golf carts in controlled area, did get lost once but it was OK. During the night, if he gets up and goes to the bathroom, he will occasionally get confused and think he is somewhere else but is very easily direct able. Not napping as much throughout the day. Some difficulty occasionally with getting dressed. Having difficulty with remote and phone. Re-started wearing CPAP. Going on cruise in July. OBJECTIVE: Current Outpatient Medications on File Prior to Visit Medication Sig azaTHIOprine (IMURAN) 50 mg tablet Take 1 tablet by mouth twice daily. donepezil (ARICEPT) 10 mg tablet Take half a tablet daily in the morning (can be with food) for 4 weeks, if tolerating, can increase to one tablet a day. imipramine HCl (TOFRANIL) 25 mg tablet Take 25 mg by mouth twice daily. (Patient not taking: Reported on 10/07/2022) pyridostigmine (MESTINON) 60 mg tablet Take 1 tablet by mouth three times daily. (Patient taking differently: Take 60 mg by mouth once daily.) ezetimibe (ZETIA) 10 mg tablet Take 1 tablet by mouth once daily. celecoxib (CELEBREX) 200 mg capsule Take 200 mg by mouth twice daily. (Patient not taking: Reported on 04/29/2022) carvedilol (COREG) 6.25 mg tablet Take 12.5 mg by mouth twice daily with meals. latanoprost (XALATAN) 0.005 % ophthalmic solution Use in both eyes daily at bedtime. timolol 0.5 % ophthalmic solution Use 1 Drop in both eyes once daily. lovastatin(MEVACOR 20 MG TAB) Take one(1) tablet daily at bedtime. No current facility-administered medications on file prior to visit. MoCA Past Scores MoCA 04/29/2022 MOCA TOTAL SCORE 18 out of 30 Visuospatial/ Executive 0 Naming 3 Attention 6 Language 2 Abstraction 0 Delayed Recall 0 Orientation 6 Education Level 1 Vital Signs: BP 152/79 Pulse (!) 56 Wt 101.2 kg (223 lb) BMI 35.99 kg/m? General Medical Exam: General: Well-nourished appearing, NAD. Awake, alert. HEENT: Normocephalic/atraumat ic. Neurological Exam: Cognition: alert and cooperative Orientation: alert, confused Appearance: well-groomed Eye contact: normal Facial expression: appropriate Psychomotor: normal Speech/Language: unremarkable -can name, repeat with no dysarthria Affect: pleasant Emotional state: calm, cooperative Thought Process: logical Thought Content: delusions: possible? Hallucinations:unsure but possible, denies auditory or visual Judgment: impaired due to lack of insight Insight: poor LABS/DATA: NPT 06/17/2022: IMPRESSIONS/SUMMARY Abnormal cognitive profile with deficits in memory, processing speed, executive functions, and visuospatial abilities. Dementia Unclear/multifactorial etiology: vascular disease, myasthenia gravis, r/o a movement disorder. Ron Welch is a 72-year-old male with a history of myasthenia gravis, sleep apnea (on BiPAP), hypertension, hyperlipidemia, lumbar spondylosis, and steroid-induced diabetes who presents with an approximately 2-year history of cognitive concerns with insidious onset and declining course. Functionally, his has begun to manage iADLs and he occasionally requires assistance with trimming his rosen. He drives, though this is (more content not included)... Normal [facility] [place] 11-16-2022 Screens [id number]. 00CD:127 Normal [facility] Ambulatory Visit Summaryon 0 11-15-2022 Ambulatory Visit Summary RON WELCH :1950 Visit Date:11/15/2022 Ambulatory Visit Instructions Your Diagnosis Urge incontinence Elevated PSA ED (erectile dysfunction) Tests Performed Urnls Dip Stick Auto w/o Microscopy POC 55295 Your Care Team Attending Physician - GELY BLAKE PA-C Primary Care Physician - Guevara Mackay MD This Is Your Medications List Contact prescribing physician if questions or concerns azathioprine (azaTHIOprine 50 mg Tab) carvedilol (carvedilol 6.25 mg Tab) donepezil (donepezil 10 mg Tab) ezetimibe (ezetimibe 10 mg Tab) latanoprost ophthalmic (latanoprost ophthalmic 0.005% solution) pantoprazole (pantoprazole 40 mg Oral EC Tab) pyridostigmine (pyridostigmine 60 mg Tab) timolol ophthalmic (Betimol 0.5% ophthalmic solution) Procedures Performed Cystoscopy (10/25/2017), Green laser light (07/12/2017), Urodynamics (08/16/2012), Arthroscopy of knee, Back, Cataract, Knee replacement, Melanoma, Thymectomy. Discharge Vitals Heart Rate (Peripheral) 68 Blood Pressure 130/68 Height 168 cm Height 66 in Weight 102 kg Weight 224.4 lb BMI 36.14 What to do next You Need to Schedule the Following Appointments Follow Up with REEMA CRUM, PORTER MCKEE When: Only if needed Where: [address] [place] [address] Business (1) Medications What How Much When Instructions Unchanged azathioprine (azaTHIOprine 50 mg Tab) 1 Tablets By Mouth Every day Contact prescribing physician if questions or concerns Unchanged carvedilol (carvedilol 6.25 mg Tab) 2 Tablets By Mouth Contact prescribing physician if questions or concerns Unchanged donepezil (donepezil 10 mg Tab) Contact prescribing physician if questions or concerns Unchanged ezetimibe (ezetimibe 10 mg Tab) Contact prescribing physician if questions or concerns Unchanged latanoprost ophthalmic (latanoprost ophthalmic 0.005% solution) 1 Drops Ophthalmic Once a day (at bedtime) Contact prescribing physician if questions or concerns Unchanged pantoprazole (pantoprazole 40 mg Oral EC Tab) 1 Tablets By Mouth Every day Contact prescribing physician if questions or concerns Unchanged pyridostigmine (pyridostigmine 60 mg Tab) 1 Tablets By Mouth 2 times a day Contact prescribing physician if questions or concerns Unchanged timolol ophthalmic (Betimol 0.5% ophthalmic solution) See instructions 1 drop(s) Contact prescribing physician if questions or concerns Test Results Urnls Dip Stick Auto w/o Microscopy POC 12565 (11/15/2022) Bilirubin Urine Dipstick - Negative Blood Urine Dipstick - Negative Glucose Urine Dipstick - Negative Ketones Urine Dipstick - Negative Leukocytes Urine Dipstick - Negative Nitrite Urine Dipstick - Negative Protein Urine Dipstick - 1+ (30 mg/dl) Specific Irvona Urine Dipstick - 1.020 Urine Appearance Urine Dipstick - Clear Urine Color Urine Dipstick - Yellow Urobilinogen Urine Dipstick - Normal 0.2-1 EU/dl pH Urine Dipstick - 5.5 Allergies ciprofloxacin (Rash) penicillins (Rash) Problems Ongoing - Any problem that you are currently receiving treatment for. Basal cell carcinoma (BCC) BPH with urinary obstruction Dementia Eczema ED (erectile dysfunction) Elevated PSA Frequency of urination Gastroenteritis Glaucoma History of urinary tract infection Hypertension Melanoma Microscopic hematuria Myasthenia gravis Prostate cancer screening Renal cyst Seasonal allergies Urge incontinence Urinary urgency Education Materials Erectile Dysfunction Erectile dysfunction (ED) is the inability to get or keep an erection in order to have sexual intercourse. ED is considered a symptom of an underlying disorder and is not considered a disease. ED may include: ? Inability to get an erection. ? Lack of enough hardness of the erection to allow penetration. ? Loss of erection before sex is finished. What are the causes? This condition may be caused by: ? Physical causes, such as: ? Artery problems. This may include heart disease, high blood pressure, atherosclerosis, and diabetes. ? Hormonal problems, such as low testosterone. ? Obesity. ? Nerve problems. This may include back or pelvic injuries, multiple sclerosis, Parkinson's disease, spinal cord injury, and stroke. ? Certain medicines, such as: ? Pain relievers. ? Antidepressants. ? Blood pressure medicines and water pills (diuretics). ? Cancer medicines. ? Antihistamines. ? Muscle relaxants. ? Lifestyle factors, such as: ? Use of drugs such as marijuana, cocaine, or opioids. ? Excessive use of alcohol. ? Smoking. ? Lack of physical activity or exercise. ? Psychological causes, such as: ? Anxiety or stress. ? Sadness or depression. ? Exhaustion. ? Fear about sexual performance. ? Guilt. What are the signs or symptoms? Symptoms of this condition include: (more content not included)... Normal [facility] Patient Educationon 11-16-19 Patient Education Urology Erectile Dysfunction Erectile dysfunction (ED) is the inability to get or keep an erection in order to have sexual intercourse. ED is considered a symptom of an underlying disorder and is not considered a disease. ED may include: ? Inability to get an erection. ? Lack of enough hardness of the erection to allow penetration. ? Loss of erection before sex is finished. What are the causes? This condition may be caused by: ? Physical causes, such as: ? Artery problems. This may include heart disease, high blood pressure, atherosclerosis, and diabetes. ? Hormonal problems, such as low testosterone. ? Obesity. ? Nerve problems. This may include back or pelvic injuries, multiple sclerosis, Parkinson's disease, spinal cord injury, and stroke. ? Certain medicines, such as: ? Pain relievers. ? Antidepressants. ? Blood pressure medicines and water pills (diuretics). ? Cancer medicines. ? Antihistamines. ? Muscle relaxants. ? Lifestyle factors, such as: ? Use of drugs such as marijuana, cocaine, or opioids. ? Excessive use of alcohol. ? Smoking. ? Lack of physical activity or exercise. ? Psychological causes, such as: ? Anxiety or stress. ? Sadness or depression. ? Exhaustion. ? Fear about sexual performance. ? Guilt. What are the signs or symptoms? Symptoms of this condition include: ? Inability to get an erection. ? Lack of enough hardness of the erection to allow penetration. ? Loss of the erection before sex is finished. ? Sometimes having normal erections, but with frequent unsatisfactory episodes. ? Low sexual satisfaction in either partner due to erection problems. ? A curved penis occurring with erection. The curve may cause pain, or the penis may be too curved to allow for intercourse. ? Never having nighttime or morning erections. How is this diagnosed? This condition is often diagnosed by: ? Performing a physical exam to find other diseases or specific problems with the penis. ? Asking you detailed questions about the problem. ? Doing tests, such as: ? Blood tests to check for diabetes mellitus or high cholesterol, or to measure hormone levels. ? Other tests to check for underlying health conditions. ? An ultrasound exam to check for scarring. ? A test to check blood flow to the penis. ? Doing a sleep study at home to measure nighttime erections. How is this treated? This condition may be treated by: ? Medicines, such as: ? Medicine taken by mouth to help you achieve an erection (oral medicine). ? Hormone replacement therapy to replace low testosterone levels. ? Medicine that is injected into the penis. Your health care provider may instruct you how to give yourself these injections at home. ? Medicine that is delivered with a short applicator tube. The tube is inserted into the opening at the tip of the penis, which is the opening of the urethra. A tiny pellet of medicine is put in the urethra. The pellet dissolves and enhances erectile function. This is also called MUSE (medicated urethral system for erections) therapy. ? Vacuum pump. This is a pump with a ring on it. The pump and ring are placed on the penis and used to create pressure that helps the penis become erect. ? Penile implant surgery. In this procedure, you may receive: ? An inflatable implant. This consists of cylinders, a pump, and a reservoir. The cylinders can be inflated with a fluid that helps to create an erection, and they can be deflated after intercourse. ? A semi-rigid implant. This consists of two silicone rubber rods. The rods provide some rigidity. They are also flexible, so the penis can both curve downward in its normal position and become straight for sexual intercourse. ? Blood vessel surgery to improve blood flow to the penis. During this procedure, a blood vessel from a different part of the body is placed into the penis to allow blood to flow around (bypass) damaged or blocked blood vessels. ? Lifestyle changes, such as exercising more, losing weight, and quitting smoking. Follow these instructions at home: Medicines ? Take ghzi-[id number]-rfybvnp and prescription medicines only as told by your health care provider. Do not increase the dosage without first discussing it with your health care provider. ? If you are using self-injections, do injections as directed by your health care provider. Make sure you avoid any veins that are on the surface of the penis. After giving an injection, apply pressure to the injection site for 5 minutes. ? Talk to your health care provider about how to prevent headaches while taking ED medicines. These medicines may cause a sudden headache due to the increase in blood flow in your body. General instructions ? Exercise regularly, as directed by your health care provider. Work with your health care provider to lose weight, if needed. ? Do not use any products that contain nicotine or tobacco. These products include cig (more content not included)... Normal [facility] Provider Letteron 11-15-2022 Provider Letter Guevara Mackay, [address] [place] [address] Re: RON WELCH Date of : [address] Thompson MARTINEZ, RON Neumann was evaluated at [facility] 11/15/2022 As this patient has been stable, they will be released back to your care. We request that you continue to check PSA annually for prostate cancer screening Should the patient develop new symptoms, worsening condition, or abnormal imaging/labs in the future, do not hesitate to refer them back. Thanks! Provider Signature: Gely Blake PA-C Physician Jet Man [facility] [address] [place] [address] Normal [facility] Urology Office/Clinic Noteon 11-15-2022 Urology Office/Clinic Note Chief Complaint 2m to medication change HPI Staff Former DLS pt Here today to follow up to weaning off of Imipramine therapy. DX: Urge Incontinence, BPH & ED Has been weaned off medication for the past 1m. For the past couple weeks, very minimal leaking. Leaking does increase with alcohol assumption. At the moment content with symptoms. Voiding q1-2hrs during day, occasionally 1-2x/night. Moderate intermittent urgency. Wearing 1 little pad, changes daily. Did take Immodium last weekend, noticed that the urgency improved. IPSS 10 Review of Systems PHQ Score Initial Depression Screen Score: 0 no fever, chills, malaise, myalgia. no rash/lesions. no chest pain, palpitations, or SOB. no abdominal pain, nausea, vomiting. no unilateral calf swelling, redness, pain Physical Exam Vitals & Measurements HR: 68(Peripheral) BP: 130/68 HT: 66 in HT: 168 cm WT: 102 kg WT: 224.4 lb BMI: 36.14 General: nontoxic, NAD Mouth: moist mucosa Lungs: normal respiratory effort Cardio: regular rate, good distal perfusion Abdomen: nondistended, no suprapubic distention or tenderness, no CVA tenderness Skin: No rashes or suspicious lesions Assessment/Plan 1. Urge incontinence (N39.41: Urge incontinence) weaned off imipramine following last visit. no significant changes in symptoms, IPSS was 11 at last visit and its 10 today. pt actually thinks things have been a little better the past couple weeks. down from 1-2 thicker pads daily to 1 thin pad daily. we discussed how fluid intake, sweating, etc can all affect incontinence. discussed bladder irritants and written education provided. overall pt is content currently and does not wish to pursue additional tx options at this time. will contact office if this changes. Ordered: E&M of Est. Patient Low 20-29 Min 66091 Urnls Dip Stick Auto w/o Microscopy POC 09819 2. Elevated PSA (R97.20: Elevated prostate specific antigen [PSA]) jumped to 2.97 in 2016 S/p PVP 06/2017 has been low/stable since 07/2020 - 0.56 04/04/22 -0.72 due again in Mar of this year. will have PCP continue to follow Ordered: E&M of Est. Patient Low 20-29 Min 83576 3. ED (erectile dysfunction) (N52.9: Male erectile dysfunction, unspecified) LORIE (5) at last visit pt & his did not want to pursue any medications. Penile pump was discussed and pamphlet provided at that time. Ordered: E&M of Est. Patient Low 20-29 Min 86067 offered scheduled follow up vs f/u PRN with urology and continue care with PCP. pt prefers the latter. will send letter to PCP so they are aware of the plan. pt understands if anything worsens or new symptoms arise to contact our office. Follow-up With When Contact Information REEMA CRUM, GELY Ch, URL Only if needed [address] [place] [address] Business (1) Additional Instructions: Patient Education Erectile Dysfunction Problem List/Past Medical History Ongoing Basal cell carcinoma (BCC) BPH with urinary obstruction Dementia Eczema ED (erectile dysfunction) Elevated PSA Frequency of urination Gastroenteritis Glaucoma History of urinary tract infection Hypertension Melanoma Microscopic hematuria Myasthenia gravis Prostate cancer screening Renal cyst Seasonal allergies Urge incontinence Urinary urgency Historical No qualifying data Procedure/Surgical History Cystoscopy (10/25/2017), Green laser light (07/12/2017), Urodynamics (08/16/2012), Arthroscopy of knee, Back, Cataract, Knee replacement, Melanoma, Thymectomy. Medications azaTHIOprine 50 mg Tab, 50 mg= 1 tab(s), Oral, Daily Betimol 0.5% ophthalmic solution, See Instructions carvedilol 6.25 mg Tab, 12.5 mg= 2 tab(s), Oral donepezil 10 mg Tab ezetimibe 10 mg Tab latanoprost ophthalmic 0.005% solution, 1 drop(s), OPTH, Once a day (at bedtime) pantoprazole 40 mg Oral EC Tab, 40 mg= 1 tab(s), Oral, Daily pyridostigmine 60 mg Tab, 60 mg= 1 tab(s), Oral, BID Allergies ciprofloxacin (Rash) penicillins (Rash) Social History Alcohol - Low Risk, 06/25/2019 Current, Beer, 1-2 times per month, 06/23/2020 Substance Abuse - Denies Substance Abuse, 06/23/2020 Tobacco - Denies Tobacco Use, 06/23/2020 Former smoker, quit more than 30 days ago Tobacco Use:. Never Smokeless Tobacco Use:. Cigarettes, Cigars, Household tobacco concerns: No. Yes, 11/15/2022 Family History Hypertension: Mother and Father. Stroke: Mother and Father. Immunizations Vaccine Date Status Comments SARS-CoV-2 (COVID-19) mRNAMUL.ORD![id number] 05/11/2022 Recorded influenza virus vaccine, inactivated 03/21/2022 Recorded SARSCoV2 mRNA(qkubqgjqx-ylao-mh cros) vac 09/23/2021 Recorded SARS-CoV-2 (COVID-19) mRNA-1273 vaccine 08/2021 Recorded SARS-CoV-2 (COVID-19) mRNA BNT-162b2 vax 03/14/2021 Recorded SARS-CoV-2 (COVID-19) mRNA-1273 vaccine 09/02/2020 Recorded SARS-CoV-2 (COVID-19) mRNA-1273 vaccine 08/05/2020 Recorded SARS-CoV-2 (COVID-19) mRN (more content not included)... Normal [facility] Comment on above: Result Comment: Elec tronically Signed By: GELY BLAKE PA-C\.br\Date and Time Signed: 11/15/22 13:46 EDT Ophthalmic Eye Examon 2022 Ophthalmic Eye Exam DOCUMENT REVIEWED BY : Guevara Carrasco MD DOCUMENT SIGNED ELECTRONICALLY BY Guevara Carrasco MD ON 10/31/2022 12:09:[address], [facility] [phone] THIS DOCUMENT WAS CREATED ON: 10/31/2022 12:09:27 PM BY: Guevara Carrasco MD Pooja Erick performed URFTJ-Sowh-sm Exam Date: Monday, October 31, 2022 PATIENT NAME: RON WELCH DATE: 1950 AGE: 72 GENDER: Male RACE: PRIMARY CARE PHYSICIAN: Guevara Mackay History Chief Complaint/Reason For Visit: 72yoM here for 4 month F/U for POAG OU, patient using latanoprost QHS OS and timolol Qam OU, no vision changes since LUCY, no floaters, no flahses, no pain, no irritation, no tearing, no discharge, HISTORY OF PRESENT ILLNESS: HPI was performed by Dr. Guevara Carrasco MD and scribed by Neeraj Carrasco MD PAST MEDICAL HISTORY: OCULAR: POAG, IOL OU PROCEDURES : , Yag Capsulotomy OS 10/15/2018 INFECTIOUS: No known previous infections OCULAR SIGNIFICANT: Myasthenia Gravis ILLNESSES: History of hypertension; History of hypercholesterolemia; History of Cataract, nuclear sclerotic, both eyes; History of Primary open angle glaucoma of both eyes, moderate stage; History of Pseudophakia of right eye; History of Primary open-angle glaucoma, bilateral, moderate stage; History of Primary open-angle glaucoma, bilateral, moderate stage; History of Primary open-angle glaucoma, bilateral, moderate stage; History of Primary open-angle glaucoma, bilateral, moderate stage; History of Blepharitis of both upper and lower eyelid; History of Primary open-angle glaucoma, bilateral, moderate stage; History of Chalazion left upper eyelid; SURGERIES: History of Knee Replacement; History of Back Surgery; HEAD/OCULAR TRAUMA: No known history of trauma SOCIAL HISTORY: NOTE: Retired; FAMILY HISTORY: MOTHER: Family history of hypertension CURRENT MEDICATIONS: azaTHIOprine 50 MG Oral Tablet - #100 Tablet, [Reported] Carvedilol 12.5 MG Oral Tablet - #180 Tablet, TAKE 1 TABLET BY MOUTH TWICE DAILY[Reported] Donepezil HCl - 10 MG Oral Tablet - Tablet, [Reported] Drug [facility] Lancets 28G - #100, use to test BLOOD SUGAR DAILY[Reported] Ezetimibe 10 MG Oral Tablet - Tablet, [Reported] Latanoprost 0.005 % Ophthalmic Solution - #9 Milliliter, Solution, INSTILL 1 DROP TO THE LEFT EYE AT BEDTIME, 2 refills, Evaluate: 25-Nov-2022 Lovastatin 20 MG Oral Tablet - #30 Tablet, [Reported] Pantoprazole Sodium 40 MG Oral Tablet Delayed Release - #60 Tablet Delayed Release, TAKE 2 TABLETS BY MOUTH ONCE DAILY[Reported] Pyridostigmine Max[place]wny 60 MG Oral Tablet - #90 Tablet, TAKE 1 TABLET BY MOUTH THREE TIMES DAILY[Reported] Timolol Maleate 0.5 % Ophthalmic Solution - #2 15 ML Bottle, Solution, INSTILL 1 DROP Every morning ou, 3 refills, Evaluate: 23-Feb-2023 True Metrix Blood Glucose Test In Vitro Strip - #100 Strip, use to test BLOOD SUGAR EVERY DAY[Reported] True Metrix Meter w/Device Kit - #1 Kit, use to test BLOOD SUGAR DAILY[Reported] ALLERGIES: ciprofloxacin, Penicillins REVIEW OF SYSTEMS: GENERAL:Denies symptoms All other Review Of Systems negative Exam ORIENTATION, MOOD AND AFFECT: Alert AND oriented x3 RIGHT EYE LEFT EYE UNCORRECTED VA N/A N/A WEARING +0.75 -0.50 x 097 add +2.50 -2.00 SPHER add +2.50 CORRECTED VA 20/20 20/40 PACHYMETRY 551 from 01/06/2017 570 from 01/06/2017 PRESSURE METHOD: Applanation Applanation PRESSURES: 12 15 DATE-TIME: 10/31/2022 11:45:52 AM 10/31/2022 11:45:52 AM 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: [email or web address] ADJUSTED IOP VALUE: 12 14 EXTERNAL EYE EXAM: LID: Good Position Good Position PUPIL: PRRL/no APD PERRL/no APD ADNEXA: Normal Normal MUSCLE BALANCE: Ortho OCULAR MOTILITY: Full ANTERIOR SEGMENT EXAM: TEARFILM: Good Good CONJUNCTIVA: White and quiet White and quiet CORNEA: Clear Clear ANTERIOR CHAMBER: Deep and quiet Deep and quiet IRIS: Round and reactive Round and reactive LENS: PC IOL PC IOL s/p YAG cap ANTERIOR VITREOUS: Clear Clear FUNDUS EXAM: CUP TO DISC: 0.7 0.7 OPTIC DISC: saucerized saucerized VITREOUS: Clear Clear MACULA: poor foveal reflex poor foveal reflex PERIPHERY: inf pavingstone inf pavingstone Impression Plan Last dilated: 02/04/22 1. Primary Open-Angle Glaucoma OU: CCT 550/570 Tm 38/33. h/o intolerance to brimonidine. S/p SLT OD 05/01/17: Pre-op VA 20/30, IOP: 17mmHg -> no effect. s/p combined with trabectome OD (08/02/17): pre-op VA 20/50, IOP 17 mmHg. s/p combined with trabectome OS (11/21/17): pre-op VA 20/30, IOP 23 mmHg. During the time between tests, IOP was not well controlled in early and mid 2018, but now controlled since surgery. IOP remains well controlled OD, bordelrine OS, but do not need to advance at this stage - will follow trend OS Plan: cont latanoprost OS QHS cont timolol OU Qam f/u 4 months (HVF, dilation, RNFL) 2. Pseudophakia (PCIOL) OU: s/p YAG Cap OS with improved VA Plan: monitor 3. Dry Eyes OD Plan: cont (more content not included)... Normal [facility] CNOVon 10-07-2022 CNOV Office Visit (MARICARMEN ) RON WELCH ([id number]) 1950 M Date Time Provider Department 10/07/22 1:30 PM CHANDNI METZGER During your visit today, we recorded the following information about you: Pulse Blood pressure Weight 53/minute 168/94 100.7 kg Chandni Metzger APRN.LUISITO 10/13[facility]20[facility] 12:[facility] Date: October 07, 2022 Patient Name: Ron Moyer Yuri Reason for Visit: follow-up visit Accompanied by: (Hyacinth) SUBJECTIVE: HPI/interval history: Patient is a 72 year old male being followed for vascular dementia, possibly mixed AD with history of Myasthenia Gravis and ERIS (on CPAP), HTN, and HLD. MRI brain on 06/17/2022 showed mild to moderate cortical atrophy, with hippocampal volume loss, and significant chronic small vessel ischemic disease. Neuropsychology testing on 06/17/2022 showed deficits in memory, processing speed, executive function and visuospatial difficulties, meeting criteria for dementia. Last seen by Dr. Lamas in June 2022, at that time, it was recommended he abstain from driving, family oversee medications and finances, cognitive therapy, social work consult and potential CSF analysis. It was also recommended that patient potentially start cholinesterase inhibitor (already on pyridostigmine)-follow up with Neuromuscular. Today, patient reports for a follow up. Doing well on donepezil. Some sundowning and wandering prior to starting donepezil. Had a difficult time noticing , had to show him wedding pictures. Asking to go home when he is home. Sometimes having conversation with someone that is not there, typically reminiscing about what she and his do during the day. Spouse gets his clothes ready (he put 's blouse on). He is rarely left alone (half hour at most). Sleeping about 8-10 hours per night. Wearing CPAP, but will take it off in the middle of the night. Occasionally will sleep in chair during the daytime. OBJECTIVE: Current Outpatient Medications on File Prior to Visit Medication Sig donepezil (ARICEPT) 10 mg tablet Take half a tablet daily in the morning (can be with food) for 4 weeks, if tolerating, can increase to one tablet a day. imipramine HCl (TOFRANIL) 25 mg tablet Take 25 mg by mouth twice daily. pyridostigmine (MESTINON) 60 mg tablet Take 1 tablet by mouth three times daily. (Patient taking differently: Take 60 mg by mouth once daily.) azaTHIOprine (IMURAN) 50 mg tablet Take 1 tablet by mouth twice daily. ezetimibe (ZETIA) 10 mg tablet Take 1 tablet by mouth once daily. celecoxib (CELEBREX) 200 mg capsule Take 200 mg by mouth twice daily. (Patient not taking: Reported on 04/29/2022) carvedilol (COREG) 6.25 mg tablet Take 12.5 mg by mouth twice daily with meals. latanoprost (XALATAN) 0.005 % ophthalmic solution Use in both eyes daily at bedtime. timolol 0.5 % ophthalmic solution Use 1 Drop in both eyes once daily. lovastatin(MEVACOR 20 MG TAB) Take one(1) tablet daily at bedtime. No current facility-administered medications on file prior to visit. MoCA Past Scores MoCA 04/29/2022 MOCA TOTAL SCORE 18 out of 30 Visuospatial/ Executive 0 Naming 3 Attention 6 Language 2 Abstraction 0 Delayed Recall 0 Orientation 6 Education Level 1 Vital Signs: BP 168/94 Pulse (!) 53 Wt 100.7 kg (222 lb) BMI 35.83 kg/m? General Medical Exam: General: Well-nourished appearing, NAD. Awake, alert. Neurological Exam: Cognition: alert and cooperative Orientation: alert, oriented to person and place, 2019 Appearance: well-groomed Eye contact: normal, wearing corrective Facial expression: appropriate Psychomotor: normal Speech/Language: unremarkable -can name, repeat with no dysarthria Affect: pleasant Emotional state: calm, cooperative Thought Process: logical Thought Content: delusions-possible Hallucinations: possible? Judgment: impaired due to lack of insight Insight: poor LABS/DATA: NPT 06/17/2022: IMPRESSIONS/SUMMARY Abnormal cognitive profile with deficits in memory, processing speed, executive functions, and visuospatial abilities. Dementia Unclear/multifactorial etiology: vascular disease, myasthenia gravis, r/o a movement disorder. Ron Welch is a 72-year-old male with a history of myasthenia gravis, sleep apnea (on BiPAP), hypertension, hyperlipidemia, lumbar spondylosis, and steroid-induced diabetes who presents with an approximately 2-year history of cognitive concerns with insidious onset and declining course. Functionally, his has begun to manage iADLs and h (more content not included)... Normal [facility] ECHOCARDIO M/2D COMPLETEon 0 10-06-2022 ECHOCARDIO M/2D COMPLETE Patient: RON WELCH. Exam Date: 10/06/2022 : 1950 Gender:M Ordering : DR GUEVARA MACKAY . Admission #: [id number] Family : Order #: [id number] CLICK HERE TO VIEW EXAM ECHOCARDIOGRAM REPORT PROCEDURE: CARDIO PULMONARY ECHOCARDIO M/2D COMP INDICATIONS: Cardiomegaly, hypertension COMPARISON: None. DESCRIPTION: COMPLETE ECHOCARDIOGRAM Real-time transthoracic echocardiography with 2D, M-mode, spectral and color flow Doppler performed. QUALITY: Technical quality was good. LEFT VENTRICLE: Normal chamber size. Moderate concentric left ventricular hypertrophy. LV EF: Normal left ventricular ejection fraction, (>55%). DIASTOLIC: Grade I, mild diastolic dysfunction. ATRIAL SEPTUM: Visually appears intact. LEFT ATRIUM: Moderate dilatation. RIGHT ATRIUM: Normal chamber size. RIGHT VENTRICLE: Normal chamber size. Normal right ventricular systolic function. TRICUSPID VALVE: Normal mobility and thickness. No stenosis with mild regurgitation. Doppler studies reveal mildly (35-45) elevated right sided pressures. RVSP 42 mmHg MITRAL VALVE: Mildly thickened with normal mobility. No evidence of mitral valve stenosis. Mild mitral annular calcification. Mild mitral regurgitation. AORTIC VALVE: Normal trileaflet appearance. Thickened aortic valve. Normal leaflet mobility. Mild aortic regurgitation. AORTIC ROOT: Normal diameter and appearance. PULMONIC VALVE: Normal thickness and mobility. No stenosis. Trivial regurgitation. PERICARDIUM: No evidence of pericardial effusion. IVC: Collapses with inspirations. CONCLUSION: 1. Global left ventricular systolic function is normal; visually estimated ejection fraction is 60-65%. No significant wall motion abnormalities. 2. Moderately increased left ventricular wall thickness. 3. Grade I, mild diastolic dysfunction. 4. The left atrium is moderately dilated. 5. The right ventricle is normal in size and systolic function. 6. Mild tricuspid regurgitation. 7. Mildly elevated right-sided pressures; RVSP 42 mmHg. 8. Mild mitral regurgitation. 9. Mild aortic regurgitation. Adult Echocardiography Procedure Report Left Ventricle LVEDD (3.7 - 5.6 cm): 4.82 cm LVESD (2.2 - 4.0 cm): 2.82 cm LVIVS thickness (0.6 - 1.2 cm): 1.48 cm LVPW thickness (0.5 - 1.0 cm): 1.35 cm e': 0.07 m/s E - e': 4.38 LVOT Max Gradient: 1.36 mm[Hg] Peak Velocity (LVOT): 0.58 m/s LVOT Diameter 2.46 cm Left Ventricular Ejection Fraction: 72.29 %, 72.29 % Left Atrium LA Volume Index (2D A2C): 89.81 ml, 89.81 ml Left Atrium Systolic Dimension: 4.44 cm Mitral Valve MV E to A Ratio: 0.59 Mitral Valve A-Wave Peak Velocity: 0.55 m/s Mitral Valve E-Wave Peak Velocity: 0.32 m/s Right Ventricle Aorta AO Root Diam: 3.46 cm Ascending Ao Diam: 3.30 cm Aortic Valve AoV Area (Peak Jimbo): 2.12 cm2, 2.12 cm2 Peak Velocity(Antegrade Flow): 1.30 m/s Peak Gradient(Antegrade Flow): 6.81 mm[Hg] Tricuspid Valve Peak Velocity (Regurgitant Flow): 3.11 m/s Peak Velocity: 0.68 m/s Pulmonic Valve Mean Gradient: 3.16 mm[Hg] Mean Velocity: 0.83 m/s Peak Velocity: 1.35 m/s, 1.19 m/s Peak Gradient: 7.32 mm[Hg], 5.68 mm[Hg] Right Atrium Right Atrium Systolic Pressure: 21.39 ml, 21.39 ml Dictated by: Hue Godinez M.D. on 10/06/2022 at 15:17 Approved by: Hue Godinez M.D. on 10/06/2022 at 15:22 Normal [facility] 09-14-2022 Screens [id number] Normal [facility] Ambulatory Visit Summaryon 0 09-06-2022 Ambulatory Visit Summary RON WELCH :1950 Visit Date:09/06/2022 Ambulatory Visit Instructions Your Diagnosis Urge incontinence BPH with urinary obstruction ED (erectile dysfunction) Tests Performed Urnls Dip Stick Auto w/o Microscopy POC 18170 Your Care Team Attending Physician - GELY BLAKE PA-C Primary Care Physician - Guevara Mackay MD This Is Your Medications List Contact prescribing physician if questions or concerns azathioprine (azaTHIOprine 50 mg Tab) carvedilol (carvedilol 6.25 mg Tab) donepezil (donepezil 10 mg Tab) ezetimibe (ezetimibe 10 mg Tab) latanoprost ophthalmic (latanoprost ophthalmic 0.005% solution) lovastatin (lovastatin 20 mg Tab) pantoprazole (pantoprazole 40 mg Oral EC Tab) pyridostigmine (pyridostigmine 60 mg Tab) timolol ophthalmic (Betimol 0.5% ophthalmic solution) [Image Removed: STOP]Stop taking these medications imipramine (imipramine 50 mg oral tablet) Procedures Performed Cystoscopy (10/25/2017), Green laser light (07/12/2017), Urodynamics (08/16/2012), Arthroscopy of knee, Back, Cataract, Knee replacement, Melanoma, Thymectomy. Discharge Vitals Heart Rate (Peripheral) 68 Respiratory Rate 16 Blood Pressure 129/78 Height 168 cm Height 66 in Weight 105 kg Weight 231 lb BMI 37.2 What to do next Scheduled Follow-Up Appointments Monday 1:00 PM EDT With: GELY BLAKE PA-C Where: [facility] Patient Educationon 09-07-19 23 Patient Education Urology Urinary Incontinence Urinary incontinence refers to a condition in which a person is unable to control where and when to pass urine. A person with this condition will urinate when he or she does not mean to (involuntarily). What are the causes? This condition may be caused by: ? Medicines. ? Infections. ? Constipation. ? Overactive bladder muscles. ? Weak bladder muscles. ? Weak pelvic floor muscles. These muscles provide support for the bladder, intestine, and, in women, the uterus. ? Enlarged prostate in men. The prostate is a gland near the bladder. When it gets too big, it can pinch the urethra. With the urethra blocked, the bladder can weaken and lose the ability to empty properly. ? Surgery. ? Emotional factors, such as anxiety, stress, or post-traumatic stress disorder (PTSD). ? Pelvic organ prolapse. This happens in women when organs shift out of place and into the vagina. This shift can prevent the bladder and urethra from working properly. What increases the risk? The following factors may make you more likely to develop this condition: ? Older age. ? Obesity and physical inactivity. ? and childbirth. ? Menopause. ? Diseases that affect the nerves or spinal cord (neurological diseases). ? Long-term (chronic) coughing. This can increase pressure on the bladder and pelvic floor muscles. What are the signs or symptoms? Symptoms may vary depending on the type of urinary incontinence you have. They include: ? A sudden urge to urinate, but passing urine involuntarily before you can get to a bathroom (urge incontinence). ? Suddenly passing urine with any activity that forces urine to pass, such as coughing, laughing, exercise, or sneezing (stress incontinence). ? Needing to urinate often, but urinating only a small amount, or constantly dribbling urine (overflow incontinence). ? Urinating because you cannot get to the bathroom in time due to a physical disability, such as arthritis or injury, or communication and thinking problems, such as Alzheimer disease (functional incontinence). How is this diagnosed? This condition may be diagnosed based on: ? Your medical history. ? A physical exam. ? Tests, such as: ? Urine tests. ? X-rays of your kidney and bladder. ? Ultrasound. ? CT scan. ? Cystoscopy. In this procedure, a health care provider inserts a tube with a light and camera (cystoscope) through the urethra and into the bladder in order to check for problems. ? Urodynamic testing. These tests assess how well the bladder, urethra, and sphincter can store and release urine. There are different types of urodynamic tests, and they vary depending on what the test is measuring. To help diagnose your condition, your health care provider may recommend that you keep a log of when you urinate and how much you urinate. How is this treated? Treatment for this condition depends on the type of incontinence that you have and its cause. Treatment may include: ? Lifestyle changes, such as: ? Quitting smoking. ? Maintaining a healthy weight. ? Staying active. Try to get 150 minutes of moderate-intensity exercise every week. Ask your health care provider which activities are safe for you. ? Eating a healthy diet. ? Avoid high-fat foods, like fried foods. ? Avoid refined carbohydrates like white bread and white rice. ? Limit how much alcohol and caffeine you drink. ? Increase your fiber intake. Foods such as fresh fruits, vegetables, beans, and whole grains are healthy sources of fiber. ? Pelvic floor muscle exercises. ? Bladder training, such as lengthening the amount of time between bathroom breaks, or using the bathroom at regular intervals. ? Using techniques to suppress bladder urges. This can include distraction techniques or controlled breathing exercises. ? Medicines to relax the bladder muscles and prevent bladder spasms. ? Medicines to help slow or prevent the growth of a man's prostate. ? Botox injections. These can help relax the bladder muscles. ? Using pulses of electricity to help change bladder reflexes (electrical nerve stimulation). ? For women, using a medical laboratory technician to prevent urine leaks. This is a small, tampon-like, disposable device that is inserted into the urethra. ? Injecting collagen or carbon beads (bulking agents) into the urinary sphincter. These can help thicken tissue and close the bladder opening. ? Surgery. Follow these instructions at home: Lifestyle ? Limit alcohol and caffeine. These can fill your bladder quickly and irritate it. ? Keep yourself clean to help prevent odors and skin damage. Ask your doctor about special skin creams and cleansers that can protect the skin from urine. ? Consider wearing pads or adult diapers. Make sure to change them regularly, and always change them right after experiencing incontinence. General instructions ? Take [id number]-[id number] and prescription medicines only as (more content not included)... Normal [facility] Urology Office/Clinic Noteon 09-06-2022 Urology Office/Clinic Note Chief Complaint 3m HPI Staff Former DLS pt here for 3m follow up to increasing Imipramine dosage from 25mg BID to 50mg BID for Tx of urge incontinence. Additional DX: BPH & ED Pt has been DX'd w/Dementia since last encounter. States he has not noticed a change since increase in medication. Pt's has questions about medication. Still going through 2 pads/day. Biggest urinary concern is the leaking, would like to see it improve without having to have operation. Still having urgency. Ongoing weak stream. Still getting up 3x/night to void. Denies all other urinary complaints. IPSS 11 PVR 56ml History of Present Illness staff HPI reviewed and agree. Review of Systems PHQ Score Initial Depression Screen Score: 0 no fever, chills, malaise, myalgia. no rash/lesions. no chest pain, palpitations, or SOB. no abdominal pain, nausea, vomiting. no unilateral calf swelling, redness, pain Physical Exam Vitals & Measurements HR: 68(Peripheral) RR: 16 BP: 129/78 HT: 66 in HT: 168 cm WT: 105 kg WT: 231 lb BMI: 37.2 General: nontoxic, NAD Mouth: moist mucosa Lungs: normal respiratory effort Cardio: regular rate, good distal perfusion Abdomen: nondistended, no suprapubic distention or tenderness, no CVA tenderness Skin: No rashes or suspicious lesions Assessment/Plan Patient has been diagnosed with dementia since last encounter. 1. Urge incontinence (N39.41: Urge incontinence) PVR 56 cc has been on imipramine for several years. increase to 50mg BID at last visit. still going through 1-2 pads daily, has not noticed a major improvement since change w/ medication. shares leakage is most bothersome to him. states amount of leakage changes, intermittently pads will be saturated. has noticed his confusion has worsened over the last few months, which we discussed can certainly be a side effect from medication. pt directed to wean off medication to eventually d/c altogether -reduce by 25mg each week (start with 50mg in the AM and 25mg PM, 25am & 25pm, and 25mg once) re-visit other options after staying off medication for at least one month. follow up in 8 weeks to reassess (avoid anticholinergics due to dementia dx. could try to get myrbetriq covered. or could discuss botox) 2. BPH with urinary obstruction (N40.1: Benign prostatic hyperplasia with lower urinary tract symptoms) PSA 07/2020 - 0.56 04/04/22 -0.72 S/p PVP 06/2017 IPSS (11) QOL (3) ongoing weak stream, nocturia x3, and urgency Currently not on any BPH medications at this time. UA today neg for infection or blood -Patient due for PSA in fall of this year 3. ED (erectile dysfunction) (N52.9: Male erectile dysfunction, unspecified) LORIE (5) at last visit pt & his did not want to pursue any medications. Penile pump was discussed and pamphlet provided at that time. Follow-up With When Contact Information REEMA CRUM, GELY Ch, URL [address] [place] [address] Additional Instructions: 8 weeks Patient Education Urinary Incontinence Documentation recorded by the oscar Steen accurately reflects the services(s) I performed and decisions made by me. Authenticated by Gely Blake PA-C on 09/06/2022 13:49:34. I, Arianna Steen, personally scribed for Gely Blake PA-C on 09/06/2022 13:37:01. . Problem List/Past Medical History Ongoing Basal cell carcinoma (BCC) BPH with urinary obstruction Dementia Eczema ED (erectile dysfunction) Elevated PSA Frequency of urination Gastroenteritis Glaucoma History of urinary tract infection Hypertension Melanoma Microscopic hematuria Myasthenia gravis Prostate cancer screening Renal cyst Seasonal allergies Urge incontinence Urinary urgency Historical No qualifying data Procedure/Surgical History Cystoscopy (10/25/2017), Green laser light (07/12/2017), Urodynamics (08/16/2012), Arthroscopy of knee, Back, Cataract, Knee replacement, Melanoma, Thymectomy. Medications azaTHIOprine 50 mg Tab, 50 mg= 1 tab(s), Oral, Daily Betimol 0.5% ophthalmic solution, See Instructions carvedilol 6.25 mg Tab, 12.5 mg= 2 tab(s), Oral donepezil 10 mg Tab ezetimibe 10 mg Tab imipramine 50 mg oral tablet, 50 mg= 1 tab(s), Oral, BID, 11 refills latanoprost ophthalmic 0.005% solution, 1 drop(s), OPTH, Once a day (at bedtime) lovastatin 20 mg Tab pantoprazole 40 mg Oral EC Tab, 40 mg= 1 tab(s), Oral, Daily pyridostigmine 60 mg Tab, 60 mg= 1 tab(s), Oral, BID Allergies ciprofloxacin (Rash) penicillins (Rash) Social History Alcohol - Low Risk, 06/25/2019 Current, Beer, 1-2 times per month, 06/23/2020 Substance Abuse - Denies Substance Abuse, 06/23/2020 Tobacco - Denies Tobacco Use, 06/23/2020 Former smoker, quit more than 30 days ago Tobacco Use:. Never Smokeless Tobacco Use:. Cigarettes, Cigars, 09/06/2022 Family History Hypertension: Mother (more content not included)... Normal [facility] Comment on above: Result Comment: Elec tronically Signed By: GELY BLAKE PA-C\.br\Date and Time Signed: 09/06/22 13:49 EDT\.br\Electronically Co-Signed By: Arianna Steen\.br\Date and Time Co-Signed: 09/06/22 13:37 EDT CREATININEon 09-01-2022 Creatinine [Mass/Vol] 1.49 mg/dL Critically high 0.70-1.30 [facility] Comment on above: Performed By: #### C NGHIA #### [facility] [address] [address] [address] Ragini Storm EGFR-AF [place] 56 mL/min/1.73m2 Critically low >=60 [facility] Comment on above: Performed By: #### C NGHIA #### [facility] [address] [address] [address] Ragini Storm EGFR-NON AF [place] 46 mL/min/1.73m2 Critically low >=60 [facility] Comment on above: Performed By: #### C NGHIA #### [facility] [address] [address] CHEST W CONon 09-01-2022 CT CHEST W CON EXAMINATION: CT CHES T W CON HISTORY: Myasthenia gravis without exacerbation COMPARISON: No relevant comparison available. TECHNIQUE: Multi-planar CT images were created with IV contrast. Axial, Coronal, and Sagittal images. Dose reduction techniques were achieved by using automated exposure control and/or adjustment of mA and/or kV according to patient size and/or use of iterative reconstruction technique. FINDINGS: LUNGS: Mild scattered opacities most significant along the left major fissure, atelectasis and/or scar is favored. No significant pulmonary nodule or mass. PLEURA: No mass, effusion, or pneumothorax. VASCULATURE: No abnormality. HAZEL: No mass or adenopathy. MEDIASTINUM: No mass or adenopathy. CARDIAC: Moderate cardiomegaly. Pericardial calcifications. Abnormal extension of contrast cranially from the expected location of the right atrium anterior and separate from the descending thoracic aorta is is seen on axial images 39 through 50. AORTA: Moderate atherosclerosis. No dissection CHEST WALL: No mass or axillary adenopathy. BONES: No bone lesion or fracture. LIMITED ABDOMEN: Contracted gallbladder with layering calcifications likely cholelithiasis without CT evidence of acute cholecystitis. Bilateral renal cortical hypodensities likely cysts. OTHER: Negative. IMPRESSION: Extension of contrast beyond the expected margin of the right atrium, this is indeterminate. The differential diagnosis would include aneurysm/pseudoaneurys m versus developmental variant Extensive pericardial calcifications Cholelithiasis without evidence of acute cholecystitis Electronically authenticated by: CLIFF OCHOA Date: 2022-09-01 15:45 Normal [facility] AMMONIAon 08-26-2022 Ammonia (P) [Moles/Vol] 27 umol/L Normal 11-32 [facility] Comment on above: Performed By: #### A MM #### [facility] [address] [address] [address] Ragini Storm BNPon 08-26-2022 Natriuretic peptide B (Bld) [Mass/Vol] 284.0 pg/mL Normal <=900.0 [facility] Comment on above: Performed By: #### C NGHIA #### [facility] [address] [address] [address] Ragini Storm CBC AUTO DIFFon 08-26-2022 BASO # 0.0 103/ul Normal 0.0-0.1 [facility] Comment on above: Performed By: #### C BC #### [facility] [address] [place] [address] Dr. Ragini Storm Basophils/100 WBC (Bld) 0.5 % Normal 0.2-2.0 [facility] Comment on above: Performed By: #### C BC #### [facility] [address] [place] [address] Dr. Ragini Storm EO # 0.1 103/ul Normal 0.0-0.7 [facility] Comment on above: Performed By: #### C BC #### [facility] [address] [place] [address] Dr. Ragini Storm Eosinophils/100 WBC (Bld) 1.8 % Normal 0.9-7.0 [facility] Comment on above: Performed By: #### C BC #### [facility] [address] [place] [address] Dr. Ragini Storm Erythrocyte distribution width (RBC) [Ratio] 14.4 % Normal 11.0-15.0 [facility] Comment on above: Performed By: #### C BC #### [facility] [address] [place] [address] Dr. Ragini Storm Hematocrit (Bld) [Volume fraction] 46.7 % Normal 42.0-54.0 [facility] Comment on above: Performed By: #### C BC #### [facility] [address] [place] [address] Dr. Ragini Storm Hemoglobin (Bld) [Mass/Vol] 16.2 g/dL Normal 14.0-18.0 [facility] Comment on above: Performed By: #### C BC #### [facility] [address] [place] [address] Dr. Ragini Storm IG # 0.01 10e3/ul Normal 0.00-0.03 [facility] Comment on above: Performed By: #### C BC #### [facility] [address] [place] [address] Dr. Ragini Storm IG % 0.2 % Normal 0.0-0.5 [facility] Comment on above: Performed By: #### C BC #### [facility] [address] [place] [address] Dr. Ragini Storm LYMPH # 0.9 103/ul Critically low 1.2-3.8 [facility] Comment on above: Performed By: #### C BC #### [facility] [address] [place] [address] Dr. Ragini Storm Lymphocytes/100 WBC (Bld) 19.4 % Critically low 20.5-60.0 [facility] Comment on above: Performed By: #### C BC #### [facility] [address] [place] [address] Dr. Ragini Storm MANUAL DIFF REQ NO Normal [facility] Comment on above: Performed By: #### C BC #### [facility] [address] [place] [address] Dr. Ragini Storm MCH (RBC) [Entitic mass] 36.7 pg Critically high 25.9-34.0 [facility] Comment on above: Performed By: #### C BC #### [facility] [address] [place] [address] Dr. Ragini Storm MCHC (RBC) [Mass/Vol] 34.7 g/dL Normal 29.9-35.2 [facility] Comment on above: Performed By: #### C BC #### [facility] [address] [place] [address] Dr. Ragini Storm MCV (RBC) [Entitic vol] 105.7 fL Critically high 80.0-94.0 [facility] Comment on above: Performed By: #### C BC #### [facility] [address] [place] [address] Dr. Ragini Storm MONO # 0.5 103/ul Normal 0.3-0.8 [facility] Comment on above: Performed By: #### C BC #### [facility] [address] [place] [address] Dr. Ragini Storm Monocytes/100 WBC (Bld) 11.2 % Normal 1.7-12.0 [facility] Comment on above: Performed By: #### C BC #### [facility] [address] [place] [address] Dr. Ragini Storm NEUT # 2.9 103/ul Normal 1.4-6.5 [facility] Comment on above: Performed By: #### C BC #### [facility] [address] [place] [address] Dr. Ragini Storm Neutrophils/100 WBC (Bld) 66.9 % Normal 43.0-75.0 [facility] Comment on above: Performed By: #### C BC #### [facility] [address] [place] [address] Dr. Ragini Storm Platelet mean volume (Bld) [Entitic vol] 10.1 fL Normal 9.5-13.5 [facility] Comment on above: Performed By: #### C BC #### [facility] [address] [place] [address] Dr. Ragini Storm PLT 230 103/ul Normal 150-450 [facility] Comment on above: Performed By: #### C BC #### [facility] [address] [place] [address] Dr. Ragini Storm RBC 4.42 106/ul Critically low 4.70-6.10 [facility] Comment on above: Performed By: #### C BC #### [facility] [address] [place] [address] Dr. Ragini Storm WBC 4.4 103/ul Normal 4.0-11.0 [facility] Comment on above: Performed By: #### C BC #### [facility] [address] [place] [address] Dr. Ragini Storm FREE THYROXINE INDEX T7on FTI 2.52 Normal 1.30-4.50 [facility] Comment on above: Performed By: #### C NGHIA #### [facility] [address] [place] [address] Dr. Ragini Storm T3U 35.0 % Normal 33.0-40.0 [facility] Comment on above: Performed By: #### C NGHIA #### [facility] [address] [address] [address] Rgaini Storm T4 [Mass/Vol] 7.20 ug/dL Normal 4.50-12.10 [facility] Comment on above: Performed By: #### C NGHIA #### [facility] [address] [address] [address] Ragini Storm GLYCOHEMOGLOBIN A1Con 2022 ADA RECOMMENDATION SEE BELOW Normal [facility] Comment on above: Result Comment: ADA RECOMMENDED LIMIT 4.0 - 6.0 ADA THERAPEUTIC TARGET < 7.0 ACTION SUGGESTED > 7.0 Performed By: #### A 1C #### [facility] [address] [place] [address] Dr. Ragini Storm Glucose [Mass/Vol] 120 mg/dL Normal [facility] Comment on above: Performed By: #### A 1C #### [facility] [address] [place] [address] Dr. Ragini Storm HbA1c (Bld) [Mass fraction] 5.8 % Normal 4.5-6.2 [facility] Comment on above: Performed By: #### A 1C #### [facility] [address] [place] [address] Dr. Ragini Storm Physician Referralon 023 Physician Referral [id number] Normal [facility] TSHon 08-26-2022 TSH 1.618 uIU/mL Normal 0.358-3.740 [facility] Comment on above: Performed By: #### C NGHIA #### [facility] [address] [place] [address] Dr. Ragini Storm OCC BLD IMMUNO SCREENon 07-28 OCCULT BLOOD Positive Abnormal NEGATIVE [facility] Comment on above: Performed By: #### O BSCRN #### [facility] [address] [place] [address] Dr. Ragini Storm GLYCOHEMOGLOBIN A1Con 2022 ADA RECOMMENDATION SEE BELOW Normal [facility] Comment on above: Result Comment: ADA RECOMMENDED LIMIT 4.0 - 6.0 ADA THERAPEUTIC TARGET < 7.0 ACTION SUGGESTED > 7.0 Performed By: #### C NGHIA #### [facility] [address] [place] [address] Dr. Ragini Storm Glucose [Mass/Vol] 120 mg/dL Normal [facility] Comment on above: Performed By: #### C NGHIA #### [facility] [address] [place] [address] Dr. Ragini Storm HbA1c (Bld) [Mass fraction] 5.8 % Normal 4.5-6.2 [facility] Comment on above: Performed By: #### C NGHIA #### [facility] [address] [place] [address] Dr. Ragini Storm LIPID PROFILEon 08-18-2022 CHOL-HDL RATIO NORM SEE BELOW Normal [facility] Comment on above: Result Comment: 3.3 - 4.4 LOW RISK 4.4 - 7.1 AVERAGE RISK 7.1 - 11.0 MODERATE RISK >11.0 HIGH RISK Performed By: #### C NGHIA #### [facility] [address] [place] [address] Dr. Ragini Storm Cholesterol [Mass/Vol] 161 mg/dL Normal <=200 [facility] Comment on above: Performed By: #### C NGHIA #### [facility] [address] [place] [address] Dr. Ragini Storm Cholesterol in HDL [Mass/Vol] 58 mg/dL Normal 40-60 [facility] Comment on above: Performed By: #### C NGHIA #### [facility] [address] [place] [address] Dr. Ragini Storm Cholesterol in LDL [Mass/Vol] 84.2 mg/dL Normal [facility] Comment on above: Performed By: #### C NGHIA #### [facility] [address] [place] [address] Dr. Ragini Storm Cholesterol.total/Ch olesterol in HDL [Mass ratio] 2.8 {ratio} Normal [facility] Comment on above: Performed By: #### C NGHIA #### [facility] [address] [address] [address] Ragini Storm HDL NORMAL > or = 60 mg/dl - LO W CARDIOVASCULAR RISK <40 mg/dl - HIGH CARDIOVASCULAR RISK Normal [facility] Comment on above: Performed By: #### C NGHIA #### [facility] [address] [place] [address] Dr. Ragini Storm LDL CALC NORMAL SEE BELOW Normal [facility] Comment on above: Result Comment: <100 mg/dl OPTIMAL 100 - 129 mg/dl NEAR OR ABOVE OPTIMAL 130 - 159 mg/dl BORDERLINE HIGH 160 - 189 mg/dl HIGH >190 mg/dl VERY HIGH Performed By: #### C NGHIA #### [facility] [address] [place] [address] Dr. Ragini Storm Triglyceride [Mass/Vol] 94 mg/dL Normal <=150 [facility] Comment on above: Performed By: #### C NGHIA #### [facility] [address] [place] [address] Dr. Ragini Storm VLDL CALC 18.8 mg/dL Normal [facility] Comment on above: Performed By: #### C NGHIA #### [facility] [address] [place] [address] Dr. Ragini Storm VITAMIN D 25 OHon 08-18-2022 VIT D 25-OH 36.3 ng/mL Normal [facility] Comment on above: Performed By: #### P WILEY VITAD #### [facility] [address] [place] [address] Dr. Ragini Storm VIT D RANGES SEE BELOW Normal [facility] Comment on above: Result Comment: <20 ng/mL Vit D deficient 20 - <30 ng/mL Vit D insufficient 30 - 100 ng/mL Vit D sufficient >100 ng/mL Potential Toxicity Performed By: #### P WILEY, VITAD #### [facility] [address] [place] [address] Dr. Ragini Storm CNSWon 08-04-2022 [facility] Social Work ([facility]) RON WELCH ([id number]) 1950 Date Time Provider Department 08/04/22 1:00 PM KATIA JEREZ During your visit today, we recorded the following information about you: YONATAN Frances 08/04/2022 2:05 PM Signed SOCIAL WORK NOTE Ron Welch [address] [place] [address] INFORMATION/REFERRAL: Referral Source: Lauren Lamas MD Pt information: Ron Welch is a 72 year old year old male referred to [facility] social work for the following reason(s): community services/resources Pt present for appointment: Yes Additional Participants: Hyacinth Functional Status: With overall regard to patient functioning, Difficulty with IADL's, independant with ADL's. Living Situation AND Setting: pt and spouse reside in single level with basement. [place], but decided to downsize 6 years ago. Safety Assessment: Is the patient driving? NO Driving Concerns: N/A Is the patient taking medications as prescribed? YES Is the patient left alone? NO Aware of 911: Yes Medical Alert System: No Are there concerns about safety in the home? NO Has the patient gotten lost in familiar places or wandered? NO Are firearms present in the home? NO. If yes, how are they stored? N/A Has the patient experienced unsteadiness or sustained falls? NO Falls: negative EMPLOYMENT/FINANCIAL/I NSURANCE: DPOA health: Yes DPOA finance: Yes Guardian: No Is patient a ?: No LTC Policy: No Agencies involved: PROBLEMS/NEEDS IDENTIFIED: Continue to assess/collaborate Education Information Long-term care plan DISCUSSION: Initial SW assessment to discuss resources and offer support. Spouse reported she feels pt has declined in recent weeks. He does not believe their house is their own, he asks to go home frequently and will get dressed and attempt to leave for work. Discussed communication and sundowning at length. INTERVENTION/PLAN: -Discussed PICK UP WORKER supportive role/availability as member of [facility] care team. -Supportive counseling offered to address caregiver stress, adjustment to caregiver role, caregiver guilt. Discussed the process of identifying a new normal since dementia diagnosis. -Encouraged family to utilize the services offered by The Alzheimer's Association, which is an organization that provides education and support to individuals/caregivers affected by Alzheimer's disease and all forms of dementia. -Discussed potential benefits available through the VA. Provided information for local veterans commission who can assist. For assistance navigating local resources such as entry rep care/caregiver support contact The [place] Office on Aging. -Private Duty Home Health Agencies can provide supportive services. These services may include companionship, assistance with meals, medication management, water quality analyst, transportation and personal care if needed. Services are typically an out of pocket expense. Some long-term care policies or VA benefits may offer reimbursement for services. Local resources provided. [facility] can assist with meals, transportation, home maintenance and activities. Tel: -Obtained copy of pt's healthcare advance directives, Will be faxed to HIM to add to EMR. IMPRESSION: Pleasant 72 year old year old patient. Pt and family appear able and motivated to follow up on recommendations as discussed. PICK UP WORKER will remain available to address any questions/concerns. Contact information was provided. I spent a total of 40 minutes with the patient. Social work assessment/interventio ns rendered under the supervision of Dr. Hyacinth Bernal. YONATAN Frances [facility] YONATAN Frances 08/04/2022 1:37 PM Signed When there is a diagnosis of dementia, no matter the type, we encourage families to educate themselves, learn communication tips, and learn ways to adjust expectations over time. There are many resources available online. Three excellent resources are: The Alzheimer's Association (web site: alz.org) Help Line available 24 hours a day, 7 days per week: 724.329.4210. Call Help Line to learn of local options for support groups and to register. Family Caregiver [place] (web site: Caregiver.org) [facility]- a secure online solution for quality information, support, and resources for family caregivers. Contact: Alzheimers.gov Find Alzheimer disease and related dementias information, resources, research and more We would like to inform you of potential benefits available from the VA. If your family member or the spouse served as active duty during war time, they may be eligible for financial assistance for assisted living. The [place] [employer] Commission of [facility] is an organization that can (more content not included)... 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 - imipramine HCl (TOFRANIL) 25 mg tablet Take 25 mg by mouth twice daily. - pyridostigmine (MESTINON) 60 mg tablet Take 1 tablet by mouth three times daily. - azaTHIOprine (IMURAN) 50 mg tablet Take 1 tablet by mouth twice daily. - ezetimibe (ZETIA) 10 mg tablet Take 1 tablet by mouth once daily. - celecoxib (CELEBREX) 200 mg capsule Take 200 mg by mouth twice daily. - carvedilol (COREG) 6.25 mg tablet Take 12.5 mg by mouth twice daily with meals. - latanoprost (XALATAN) 0.005 % ophthalmic solution Use in both eyes daily at bedtime. - timolol 0.5 % ophthalmic solution Use 1 Drop in both eyes once daily. - lovastatin(MEVACOR 20 MG TAB) Take one(1) tablet daily at bedtime. Meds Comments as of 07/31/2012: r Normal [facility] CNOVon 07-08-2022 CNOV Office Visit ([facility] ) YURIELMERY Comfort ([id number]) 1950 M Date Time Provider Department 07/08/22 3:00 PM LAUREN LAMAS During your visit today, we recorded the following information about you: Pulse Blood pressure Weight 61/minute 137/82 102.1 kg Lauren Lamas MD 07/08/2022 5:13 PM Signed Neurology Return, [facility] Ronrafaela Welch is a 72 year old male whom we initially saw on 04/29/2022 for cognitive concerns. Please see our consultation note for detail. Patient has history of antibody positive Myasthesia gravis, followed by Dr. Uribe at neuromuscular clinic. PMH also includes ERIS on BiPAP, HTN, HLD Patient with about 2years progressive cognitive decline, with short term memory, confusion, not able to do things he used to be able to do, and needs assistance with iADLs, including managing his medications. MoCA was 18/30 Suspect his cognitive changes are multifactorial, with possible vascular burden, poor sleep with sleep apnea, cannot rule out neurodegenerative process due to progressive nature. At his last visit, we had recommended: Serological studies for reversible dementia etiology MRI brain with volumetric analysis Neuropsychology testing Speech pathology for cognitive training Will appreciate if we could have his latest sleep study report, may need to repeat another study, depending on download Will request for BiPAP download; DME: Bettie Bone [phone] Encourage regular physical and mental activity His BiPAP download AirCurve 10 VAuto device From 04/03/2022 to 05/02/2022 Of the30 days, patient used the device every day. Over 4 hour per day usage compliance ratio was 67% Average usage per day used was 5 hous 59 minutes Setting was 19/15 Air leak was frequent and significant, with median 44.8, 95th 72.3 Average AHI 6.7 (5.7 unknown) We have conveyed the information to patient via Propablet, and recommended him to follow up with his sleep provider for residual sleep apnea and also the excessive air leakage. Serological studies 04/29/2022 Creatinine 1.42, otherwise unremarkable CMP, CBC (MCV and MCH elevated) B12 313 TSH 0.972, free T4 6.4 MRI brain with volumetric analysis was performed on 06/17/2022. It did not show any acute process. It showed mild to moderate cortical atrophy, with moderate central and hippocampal volume loss. There is bilateral confluent and patchy white matter abnormalities consistent with moderate chronic small vessel ischemic disease. No significant remote microhemorrhage noted. Total brain volume was at 9th percentile, total hippocampal volume at 1st percentile, temporal lobe 1st, frontal lobe 38th, parietal lobe 52nd, occipital lobe 28th percentile. Inferior lateral ventricular volume 99th (exaggerated), and superior lateral ventricular volume 99th percentile (exaggerated). Neuropsychology study was performed on 06/17/2022. The study showed an abnormal cognitive profile with deficits in memory, processing speed, executive functions and visuospatial abilities, with presentation meeting criteria for dementia. Results of neuropsychological testing revealed an abnormal cognitive profile with deficits in memory, processing speed, executive functions, and visuospatial abilities. Specifically, his memory profile was notable for deficits at the stages of learning and retention with minimal to mild benefit from recognition cues. Processing speed was a consistent weakness. Within executive functions, he was unable to complete tasks of inhibition and divided attention, though everyday problem solving was intact. Visuospatial abilities were also a consistent weakness. Verbal fluencies were low, which was likely related to processing speed/executive functioning demands. Otherwise, language and attention were better preserved. The patient currently meets criteria for dementia. The pattern of his profile is most indicative of frontal-subcortical systems inefficiencies, though this is somewhat complicated by the degree or cognitive impairment. Etiology is unclear. First, his history of movement changes (I.e. wide-based/shuffled gait, imbalance, falls) with cognitive findings, raises concern for a movement disorder. Defer to medical providers to better characterize his movement changes in the context of orthopedic concerns. Second, vascular contributions are also likely based on the severity of white matter disease, vascular risks, and cognitive profile. Myasthenia gravis, sleep apnea, and chronic pain can also be contributory. Finally, another neurodegenerative condition, such as Alzheimer's is less favored based on his language profile but cannot be entirely ruled out, particularly in light of memory concerns and hippocampal volumes. Driving is cognitively contraindicated. Patient-Reported No flowsheet data found. Activi (more content not included)... Normal [facility] Ophthalmic Eye Examon 2022 Ophthalmic Eye Exam DOCUMENT REVIEWED BY : Guevara Carrasco MD DOCUMENT SIGNED ELECTRONICALLY BY Guevara Carrasco MD ON 07/04/2022 11:35:[address], [address] [phone] THIS DOCUMENT WAS CREATED ON: 07/04/2022 11:35:29 AM BY: MD Eliza Kirkland COT performed JKIAR-Mtbs-nm Exam Date: Monday, July 04, 2022 PATIENT NAME: RON WELCH DATE: 1950 AGE: 72 GENDER: Male RACE: PRIMARY CARE PHYSICIAN: Guevara Mackay History Chief Complaint/Reason For Visit: Qdnrueh-Ijkjcy-ll visit for POAG Using Latnaoprost OS PM and timolol AM OU No vision changes or concerns voiced, Context/Onset-several months ago, Location-both eyes, HISTORY OF PRESENT ILLNESS: PROBLEM: Follow-up visit for POAG Using Latnaoprost OS PM and timolol AM OU No vision changes or concerns voiced CONTEXT/ONSET: several months ago LOCATION: both eyes HPI was performed by Dr. Guevara Carrasco MD and scribed by Neeraj Carrasco MD PAST MEDICAL HISTORY: ILLNESSES: History of hypertension; History of hypercholesterolemia; History of Cataract, nuclear sclerotic, both eyes; History of Primary open angle glaucoma of both eyes, moderate stage; History of Pseudophakia of right eye; History of Primary open-angle glaucoma, bilateral, moderate stage; History of Primary open-angle glaucoma, bilateral, moderate stage; History of Primary open-angle glaucoma, bilateral, moderate stage; History of Primary open-angle glaucoma, bilateral, moderate stage; History of Blepharitis of both upper and lower eyelid; History of Primary open-angle glaucoma, bilateral, moderate stage; History of Chalazion left upper eyelid SURGERIES: History of Knee Replacement; History of Back Surgery SOCIAL HISTORY: NOTE: Retired FAMILY HISTORY: MOTHER: Family history of hypertension CURRENT MEDICATIONS: azaTHIOprine 50 MG Oral Tablet - Tablet, [Reported] , Evaluate Carvedilol 12.5 MG Oral Tablet - #180 Tablet, TAKE 1 TABLET BY MOUTH TWICE DAILY[Reported] Carvedilol 6.25 MG Oral Tablet - #60 Tablet, [Reported] Drug [place] Lancets 28G - #100, use to test BLOOD SUGAR DAILY[Reported] Ezetimibe 10 MG Oral Tablet - Tablet, [Reported] Ibuprofen 800 MG Oral Tablet - #100 Tablet, [Reported] Imipramine HCl - 25 MG Oral Tablet - Tablet, [Reported] Latanoprost 0.005 % Ophthalmic Solution - #9 Milliliter, Solution, INSTILL 1 DROP TO THE LEFT EYE AT BEDTIME, 2 refills, Evaluate: 25-Nov-2022 Lovastatin 20 MG Oral Tablet - #30 Tablet, [Reported] Metoclopramide HCl TABS - Tablet, [Reported] Pantoprazole Sodium 40 MG Oral Tablet Delayed Release - #60 Tablet Delayed Release, TAKE 2 TABLETS BY MOUTH ONCE DAILY[Reported] Pyridostigmine Maxatawny 60 MG Oral Tablet - #90 Tablet, TAKE 1 TABLET BY MOUTH THREE TIMES DAILY[Reported] Terbinafine HCl - 250 MG Oral Tablet - Tablet, [Reported] Timolol Maleate 0.5 % Ophthalmic Solution - #2 15 ML Bottle, Solution, INSTILL 1 DROP Every morning ou, 3 refills, Evaluate: 23-Feb-2023 True Metrix Blood Glucose Test In Vitro Strip - #100 Strip, use to test BLOOD SUGAR EVERY DAY[Reported] True Metrix Meter w/Device Kit - #1 Kit, use to test BLOOD SUGAR DAILY[Reported] Xiidra 5 % Ophthalmic Solution - #60 SOLN, Solution, Instill 1 (ONE) drop IN BOTH EYES ONCE A WEEK[Reported] , Evaluate ALLERGIES: ciprofloxacin, Penicillins Exam ORIENTATION, MOOD AND AFFECT: Appropriate for age RIGHT EYE LEFT EYE UNCORRECTED VA N/A N/A WEARING +0.75 -0.50 x 097 add +2.50 -2.00 SPHER add +2.50 CORRECTED VA 20/25 +2 20/30 -2 PACHYMETRY 551 from 01/06/2017 570 from 01/06/2017 PRESSURE METHOD: Applanation Applanation PRESSURES: 14 14 DATE-TIME: 07/04/2022 11:24:57 AM 07/04/2022 11:24:57 AM 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: Santhosh Trevizo ADJUSTED IOP VALUE: 14 13 EXTERNAL EYE EXAM: LID: Good Position Good Position PUPIL: PRRL/no APD PERRL/no APD ADNEXA: Normal Normal MUSCLE BALANCE: Ortho OCULAR MOTILITY: Full ANTERIOR SEGMENT EXAM: TEARFILM: Good Good CONJUNCTIVA: White and quiet White and quiet CORNEA: Clear Clear ANTERIOR CHAMBER: Deep and quiet Deep and quiet IRIS: Round and reactive Round and reactive LENS: PC IOL PC IOL s/p YAG cap ANTERIOR VITREOUS: Clear Clear FUNDUS EXAM: CUP TO DISC: 0.7 0.7 OPTIC DISC: saucerized saucerized VITREOUS: Clear Clear MACULA: poor foveal reflex poor foveal reflex PERIPHERY: inf pavingstone inf pavingstone Impression Plan Last dilated: 02/04/22 1. Primary Open-Angle Glaucoma OU: CCT 550/570 Tm 38/33. h/o intolerance to brimonidine. S/p SLT OD 05/01/17: Pre-op VA 20/30, IOP: 17mmHg -> no effect. s/p combined with trabectome OD (08/02/17): pre-op VA 20/50, IOP 17 mmHg. s/p combined with trabectome OS (11/21/17): pre-op VA 20/30, IOP 23 mmHg. VF OS is a little worse than 2017, but this is the new baseline. During the time between tests, IOP was not well controlled in early and mid 2018, but now controlled since surgery. IOP remains well contro (more content not included)... 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 The assessment consisted of a brief interview with the patient and his (Hyacinth), neurobehavioral examination, and administration of standardized neuropsychological assessments. This report is intended to be considered as only one part of the comprehensive examination. The results will be communicated to the referring physician via shared electronic medical record and in a consensus conference meeting. Of note, the current evaluation took place during the COVID-19 pandemic and thus several safety precautions were in place, including use of a facemask, which can limit the evaluation. ? RELEVANT BACKGROUND: Ron Welch is a 72-year-old male with a history of myasthenia gravis, sleep apnea (on BiPAP), hypertension, hyperlipidemia, lumbar spondylosis, and steroid-induced diabetes who was referred for a neuropsychological evaluation due to cognitive concerns (04/29/2022 MoCA= 18/30). COGNITIVE CONCERNS: The patient and his reported an approximately 2-year history of cognitive concerns with insidious onset and declining course. Specific concerns include confusion, more so within the past week. It was noted that his imipramine dose was increased in the same time frame. His described a few instances where he cannot remember how to use the remote control or play cards. He has had instances at home where he thinks he is on vacation and will make comments that the bedroom looks just like their own bedroom. At one point he thought he and his had not moved in together. He thought his step-daugther was living with him, though she had moved out. They were recently on a cruise ship and he had a hard time understanding that he was on a ship. Other cognitive concerns include poor recall for recent events, conversations, upcoming appointments, and misplacing items. He has word-finding problems. He has difficulty with concentration, indecision, organization, impulsivity, and multitasking. Navigation is poor. Activities of Daily Living: Hygiene: His occasionally helps trim his rosen. There have been instances where has has put his clothes on backwards. 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 Appointments: Reliant on his for the past 2 years . Medications: Reliant on his for the past 6-12 months . It was taking him a very long time to sort his medications and there was confusion surrounding the pills/doses. Finances: Historically managed by his . Driving: Significantly limited over the past 6-12 months. He occasionally drives to a familiar places with his , though it was noted that sometimes he forgets intended destinations or how to get to familiar locations. MEDICAL HISTORY: See records for full review. Relevant diagnoses include myasthenia gravis (well-controlled with medications), sleep apnea (on BiPAP), hypertension, hyperlipidemia, lumbar spondylosis, and steroid-induced diabetes. Neurological history: The patient reported no history of head injury with loss of consciousness, stroke, or seizure. Review of select systems is notable for: Vision: Adequate with glasses. Hearing: Adequate with hearing aids. Gait: uses a cane due to back and knee issues. They described his gait as shuffled. There is imbalance with falls. His most recent fall was approximately 6 months ago. Frequency of falls has reduced since he reduced his typical activities. Swallowing: Occasional difficulties, attributed to myasthenia gravis. Bladder incontinence occurs approximately once per week Chronic pain in his back, which he described as manageable. He sometimes takes tylenol. Sleep: more than in the past, approximately 8-12 hours per night. He has sleep apnea and uses his BiPAP, but they reported some issues and it wakes him at night. Daytime fatigue and he often sleeps throughout much of the day unintentionally. He naps less when there are more activities. Substance use: Consumes alcohol primarily on special occasions and while camping. In the summer, they camp most weekends and he consumes 3-4 beers per day then. He has not consumed alcohol in months. No current recreatio (more content not included)... Normal [facility] MRI 3D POST PROCESSINGon MRI 3D POST PROCESSING * * *Final Report* * * DATE OF EXAM: Jun 17 2022 2:34PM [facility] 0280 - MRI 3D POST PROCESSING / PROCEDURE REASON: multiple diagnoses * * * * Physician Interpretation * * * * EXAMINATION: MRI BRAIN W QUANT WO IVCON, MRI 3D POST PROCESSING CLINICAL HISTORY: Myasthenia gravis, cognitive dysfunction, obstructive sleep apnea TECHNIQUE: Axial HENRIK FLAIR, HENRIK T2, diffusion and susceptibility weighted imaging without contrast, using the ADNI dementia protocol and 3-D post-processing using the NeuroQuant software at an independent workstation with concurrent physician supervision and images were created, reviewed and archived. MQ: [id number] COMPARISON: None RESULT: QUALITATIVE: Acute Intracranial Process: None. Chronic Intracranial Process: There is a moderate-severe burden of nonspecific white matter change, likely the sequela of chronic small vessel ischemia.. Age related white matter changes (ARWMC) rating: White matter lesions: 3 Basal ganglia lesions: 2 Prior intracranial hemorrhage: Parenchymal microhemorrhages: 0 Other (siderosis/macrohemorr hages (>10mm): Not Applicable Amyloid Related Imaging Abnormalities: ARIA-E: None ARIA-H Microhemorrhage: None ARIA-H Siderosis: None Qualitative brain and hippocampal volume: There is mild cortical volume loss in view of the enlargement of the cortical sulci for age. There is mild central white matter volume loss in view of the enlargement of the ventricular system for age. There is mild hippocampal volume loss relative to the parenchymal volume loss elsewhere based on visual inspection. Ventricles: Commensurate with volume loss. Brain Parenchymal Signal and Morphology: The brain parenchyma is otherwise within normal limits of signal and morphology. There is no evidence of an intracranial mass or extraaxial fluid collection. Other Significant Findings: None. QUANTITATIVE: Exam Quality: Adequate for volumetric analysis. Segmentation: Considerable mismapping by visual inspection. Also segmentation for the hippocampi are adequate, there are segmentation errors of the lateral ventricles extending into adjacent periventricular white matter. There are some segmentation air is similarly with cortex into White matter change. Quantitative Data: Total Hippocampal Volume: Percentile for Age: 9 Asymmetry Index: -2.44 Inferior Lateral Vent Volume: Percentile for age: 99 (exaggerated due to segmentation errors) Asymmetry Index: -25.43 Superior Lateral Vent Volume: Percentile for age: 99 (exaggerated due to segmentation errors) Asymmetry Index: 7.18 Temporal Lobe Volume: Temporal Lobe Percentile for Age: 1 Temporal Lobe Asymmetry Percentile: 82 Frontal Lobe Volume: Frontal Lobe Percentile for Age: 38 Frontal Lobe Asymmetry Percentile: 89 Parietal Lobe Volume: Parietal Lobe Percentile for Age: 52 Occipital Lobe Volume: Occipital Lobe Percentile for Age: 28 Whole Brain Volume Brain Percentile for Age: 1 Concordance between qualitative and quantitative hippocampal volume assessment: Concordant Change in brain volumes:No previous volumetric study for comparison Brain Volume Change: N/A Hippocampal Volume Change: N/A Superior Lateral Ventricle Volume Change: N/A Inferior Lateral Ventricle Volume Change: N/A Mean hippocampal volume loss among normal elderly: 0.7% per year, (-0.3 to 1.7; Ani 2008; also Jc 2010). IMPRESSION: 1. WHOLE BRAIN VOLUME LOSS WITH TREND TOWARDS ABNORMAL HIPPOCAMPAL VOLUME LOSS, ACCOUNTING FOR SOME SEGMENTATION ERRORS 2. SEVERE NONSPECIFIC WHITE MATTER CHANGE 3. NO CHRONIC MICROHEMORRHAGES REFERENCES: White Matter Lesions: 0 = No lesions, including symmetrical, well-defined caps or bands 1 = Focal Lesions 2 = Beginning of [place] 3 = Diffuse Involvement of Entire Region Basal Ganglia Lesions: 0 = No Lesions 1 = 1 Focal Lesion (>5mm) 2 = >1 Focal Lesion (>5mm) 3 = Confluent Lesions Jc Lomeli, et al. The clinical use of structural MRI in Alzheimer disease. Nature Reviews Neurology 6;67 (2009). Ani et al. Validation of a fully automated 3D hippocampal segmentation method using subjects with Alzheimer's disease mild cognitive impairment, and elderly controls. Neuroimage 43;59 (2008). Tate et al. A New Rating Scale for Age-Related White Matter Changes Applicable to MRI and CT. Stroke. 32:1318 (2001). * Asymmetry index defined as difference between left and right volumes divided by mean or [(L-R/Mean) x 100] (%). Age-matched reference charts measure total hippocampal volume (% of intracranial volume). See results from the analysis charts for details. Hydrotherapist: PSCB Transcribe Date/Time: Jun 17 2022 2:50P Dictated by : ANTONIO GUILLERMO MD This examination was interpreted and the report reviewed and electronically signed by: ANTONIO GUILLERMO MD on Jun 17 2022 3:16PM EST [id number] Normal [facility] MRI BRAIN W QUANT WO IVCONon 06-17-2022 MRI BRAIN W QUANT WO IVCON * * *Final Report* * * DATE OF EXAM: Jun 17 2022 2:34PM [facility] 3015 - MRI BRAIN W QUANT WO IVCON / PROCEDURE REASON: multiple diagnoses * * * * Physician Interpretation * * * * EXAMINATION: MRI BRAIN W QUANT WO IVCON, MRI 3D POST PROCESSING CLINICAL HISTORY: Myasthenia gravis, cognitive dysfunction, obstructive sleep apnea TECHNIQUE: Axial HENRIK FLAIR, HENRIK T2, diffusion and susceptibility weighted imaging without contrast, using the ADNI dementia protocol and 3-D post-processing using the NeuroQuant software at an independent workstation with concurrent physician supervision and images were created, reviewed and archived. MQ: [id number] COMPARISON: None RESULT: QUALITATIVE: Acute Intracranial Process: None. Chronic Intracranial Process: There is a moderate-severe burden of nonspecific white matter change, likely the sequela of chronic small vessel ischemia.. Age related white matter changes (ARWMC) rating: White matter lesions: 3 Basal ganglia lesions: 2 Prior intracranial hemorrhage: Parenchymal microhemorrhages: 0 Other (siderosis/macrohemorr hages (>10mm): Not Applicable Amyloid Related Imaging Abnormalities: ARIA-E: None ARIA-H Microhemorrhage: None ARIA-H Siderosis: None Qualitative brain and hippocampal volume: There is mild cortical volume loss in view of the enlargement of the cortical sulci for age. There is mild central white matter volume loss in view of the enlargement of the ventricular system for age. There is mild hippocampal volume loss relative to the parenchymal volume loss elsewhere based on visual inspection. Ventricles: Commensurate with volume loss. Brain Parenchymal Signal and Morphology: The brain parenchyma is otherwise within normal limits of signal and morphology. There is no evidence of an intracranial mass or extraaxial fluid collection. Other Significant Findings: None. QUANTITATIVE: Exam Quality: Adequate for volumetric analysis. Segmentation: Considerable mismapping by visual inspection. Also segmentation for the hippocampi are adequate, there are segmentation errors of the lateral ventricles extending into adjacent periventricular white matter. There are some segmentation air is similarly with cortex into White matter change. Quantitative Data: Total Hippocampal Volume: Percentile for Age: 9 Asymmetry Index: -2.44 Inferior Lateral Vent Volume: Percentile for age: 99 (exaggerated due to segmentation errors) Asymmetry Index: -25.43 Superior Lateral Vent Volume: Percentile for age: 99 (exaggerated due to segmentation errors) Asymmetry Index: 7.18 Temporal Lobe Volume: Temporal Lobe Percentile for Age: 1 Temporal Lobe Asymmetry Percentile: 82 Frontal Lobe Volume: Frontal Lobe Percentile for Age: 38 Frontal Lobe Asymmetry Percentile: 89 Parietal Lobe Volume: Parietal Lobe Percentile for Age: 52 Occipital Lobe Volume: Occipital Lobe Percentile for Age: 28 Whole Brain Volume Brain Percentile for Age: 1 Concordance between qualitative and quantitative hippocampal volume assessment: Concordant Change in brain volumes:No previous volumetric study for comparison Brain Volume Change: N/A Hippocampal Volume Change: N/A Superior Lateral Ventricle Volume Change: N/A Inferior Lateral Ventricle Volume Change: N/A Mean hippocampal volume loss among normal elderly: 0.7% per year, (-0.3 to 1.7; Ani 2008; also Jc 2010). IMPRESSION: 1. WHOLE BRAIN VOLUME LOSS WITH TREND TOWARDS ABNORMAL HIPPOCAMPAL VOLUME LOSS, ACCOUNTING FOR SOME SEGMENTATION ERRORS 2. SEVERE NONSPECIFIC WHITE MATTER CHANGE 3. NO CHRONIC MICROHEMORRHAGES REFERENCES: White Matter Lesions: 0 = No lesions, including symmetrical, well-defined caps or bands 1 = Focal Lesions 2 = Beginning of [place] 3 = Diffuse Involvement of Entire Region Basal Ganglia Lesions: 0 = No Lesions 1 = 1 Focal Lesion (>5mm) 2 = >1 Focal Lesion (>5mm) 3 = Confluent Lesions Jc Lomeli et al. The clinical use of structural MRI in Alzheimer disease. Nature Reviews Neurology 6;67 (2010). Ani et al. Validation of a fully automated 3D hippocampal segmentation method using subjects with Alzheimer's disease mild cognitive impairment, and elderly controls. Neuroimage 43;59 (2008). Tate et al. A New Rating Scale for Age-Related White Matter Changes Applicable to MRI and CT. Stroke. 32:1318 (2001). * Asymmetry index defined as difference between left and right volumes divided by mean or [(L-R/Mean) x 100] (%). Age-matched reference charts measure total hippocampal volume (% of intracranial volume). See results from the analysis charts for details. Hydrotherapist: PSCYani Transcribe Date/Time: Jun 17 2022 2:50P Dictated by : ANTONIO GUILLERMO MD This examination was interpreted and the report reviewed and electronically signed by: ANTONIO GUILLERMO MD on Jun 17 2022 3:16PM EST [id number] Normal [facility] No Panel Informationon 06-17 [facility] Screenson 06-08-2022 Screens [id number]:127 Normal [facility] Screens [id number]:127 Normal [facility] Ambulatory Visit Summaryon 0 06-07-2022 Ambulatory Visit Summary RON WELCH :1950 Visit Date:06/07/2022 Ambulatory Visit Instructions Your Diagnosis Urge incontinence BPH with urinary obstruction ED (erectile dysfunction) Other obstructive and reflux uropathy Your Care Team Attending Physician - GELY BLAKE PA-C Primary Care Physician - Guevara Mackay MD This Is Your Medications List imipramine (imipramine 25 mg Tab) Contact prescribing physician if questions or concerns azathioprine (azaTHIOprine 50 mg Tab) carvedilol (carvedilol 6.25 mg Tab) ezetimibe (ezetimibe 10 mg Tab) latanoprost ophthalmic (latanoprost ophthalmic 0.005% solution) lovastatin (lovastatin 20 mg Tab) pantoprazole (pantoprazole 40 mg Oral EC Tab) pyridostigmine (pyridostigmine 60 mg Tab) timolol ophthalmic (Betimol 0.5% ophthalmic solution) Procedures Performed Cystoscopy (10/25/2017), Green laser light (07/12/2017), Urodynamics (08/16/2012), Arthroscopy of knee, Back, Cataract, Knee replacement, Melanoma, Thymectomy. Discharge Vitals Height 168 cm Height 66 in Weight 105 kg Weight 231 lb BMI 37.2 What to do next Scheduled Follow-Up Appointments Monday 1:00 PM EDT With: GELY BLAKE PA-C Where: [facility] Patient Educationon 06-07-19 Patient Education Obstetrics and Gynecology Kegel Exercises Kegel exercises can help strengthen your pelvic floor muscles. The pelvic floor is a group of muscles that support your rectum, small intestine, and bladder. In females, pelvic floor muscles also help support the womb (uterus). These muscles help you control the flow of urine and stool. Kegel exercises are painless and simple, and they do not require any equipment. Your provider may suggest Kegel exercises to: ? Improve bladder and bowel control. ? Improve sexual response. ? Improve weak pelvic floor muscles after surgery to remove the uterus (hysterectomy) or (females). ? Improve weak pelvic floor muscles after prostate gland removal or surgery (males). Kegel exercises involve squeezing your pelvic floor muscles, which are the same muscles you squeeze when you try to stop the flow of urine or keep from passing gas. The exercises can be done while sitting, standing, or lying down, but it is best to vary your position. Exercises How to do Kegel exercises: 1. Squeeze your pelvic floor muscles tight. You should feel a tight lift in your rectal area. If you are a female, you should also feel a tightness in your vaginal area. Keep your stomach, buttocks, and legs relaxed. 2. Hold the muscles tight for up to 10 seconds. 3. Breathe normally. 4. Relax your muscles. 5. Repeat as told by your health care provider. Repeat this exercise daily as told by your health care provider. Continue to do this exercise for at least 4?6 weeks, or for as long as told by your health care provider. You may be referred to a physical therapist who can help you learn more about how to do Kegel exercises. Depending on your condition, your health care provider may recommend: ? Varying how long you squeeze your muscles. ? Doing several sets of exercises every day. ? Doing exercises for several weeks. ? Making Kegel exercises a part of your regular exercise routine. This information is not intended to replace advice given to you by your health care provider. Make sure you discuss any questions you have with your health care provider. Document Released: 05/01/2013 Document Revised: 01/02/2019 Document Reviewed: 01/02/2019 [employer] Patient Education ? 2019 [employer]. [facility] Urology Office/Clinic Noteon 06-07-2022 Urology Office/Clinic Note Chief Complaint 8m PSA HPI Staff DLS pt here for 8m PSA. DX Urgency & BPH *Imipramine was increased to 25mg BID at last encounter. PSA done 04/04/22- 0.72 Pt unable to provide urine specimen today. Pt is concerned with current medication. Some discrepancy in dosage. Since he has been taking 25mg BID, urgency has increased. Occasional incontinence when he can't get there quick enough. Does wear a pad, changes 2x/a day. PVR today is 20ml. IPSS 20 History of Present Illness staff HPI reviewed and agree. Review of Systems PHQ Score Initial Depression Screen Score: 0 no fever, chills, malaise, myalgia. no rash/lesions. no chest pain, palpitations, or SOB. no abdominal pain, nausea, vomiting. no unilateral calf swelling, redness, pain Physical Exam Vitals & Measurements HT: 66 in HT: 168 cm WT: 105 kg WT: 231 lb BMI: 37.2 General: nontoxic, NAD Mouth: moist mucosa Lungs: normal respiratory effort Cardio: regular rate, good distal perfusion Abdomen: nondistended, no suprapubic distention or tenderness, no CVA tenderness Neurologic: Grossly normal Skin: No rashes or suspicious lesions Assessment/Plan PVR 20mL no issues w BMs. soft and regular. Pt was unable to leave a urine sample today. 1. Urge incontinence (N39.41: Urge incontinence) c/o bothersome leakage - changes pads 2x a day. There was some confusion at previous visit. Pt had been taking 50mg am and 25mg pm. was still having bothersome sx so DLS was going to increase the dose. however the script and note had him increasing to 25mg BID instead of 50mg BID. so actually for the past 8 mos pt has been at a *reduced* dose of 25mg BID. His sx have worsened significantly. Therefore we will increase to 50mg BID today. new Rx sent. f/u in 3 mo to reassess sx. Ordered: Measure Post Void residual urine and/or bladder capacity by US- non-imaging [id number] 2. BPH with urinary obstruction (N40.1: Benign prostatic hyperplasia with lower urinary tract symptoms) IPSS(20) QoL(4) - noct (5), freq (3), urge (3), incom emptying (4), weak stream (1), intermittency (1), straining (3) s/p PVP Jun 2017 Currently not on any BPH medications at this time. see #1. Ordered: PSA Total 3. ED (erectile dysfunction) (N52.9: Male erectile dysfunction, unspecified) LORIE(5) Discussed options for ED - pt/ don't want to pursue any medications. We did discuss penile pumps and provided pamphlet to review at home. 4. Prostate cancer screening (Z12.5: Encounter for screening for malignant neoplasm of prostate) PSA 04/04/22-0.72 07/2020- 0.56 PSA is stable within normal range. We will continue to monitor with a repeat PSA in a year. Both pt and his agrees with this plan. Follow-up With When Contact Information REEMA CRUM, GELY Ch, URL Within 3 months [address] [place] [address] Additional Instructions: Lmipramine f/u Patient Education Kegel Maya Gautam, Margi Lopez, personally scribed for Gely Blake PA-C on 06/07/2022 10:52:13. . Documentation recorded by the scribdima Lopez accurately reflects the services(s) I performed and decisions made by me. Authenticated by Gely Blake PA-C on 06/07/2022 11:07:29. Problem List/Past Medical History Ongoing Basal cell carcinoma (BCC) BPH with urinary obstruction Eczema ED (erectile dysfunction) Elevated PSA Frequency of urination Gastroenteritis Glaucoma History of urinary tract infection Hypertension Melanoma Microscopic hematuria Myasthenia gravis Renal cyst Seasonal allergies Urge incontinence Urinary urgency Historical No qualifying data Procedure/Surgical History Cystoscopy (10/25/2017), Green laser light (07/12/2017), Urodynamics (08/16/2012), Arthroscopy of knee, Back, Cataract, Knee replacement, Melanoma, Thymectomy. Medications azaTHIOprine 50 mg Tab, 50 mg= 1 tab(s), Oral, Daily Betimol 0.5% ophthalmic solution, See Instructions carvedilol 6.25 mg Tab, 12.5 mg= 2 tab(s), Oral ezetimibe 10 mg Tab imipramine 25 mg Tab, 25 mg= 1 tab(s), Oral, BID, 5 refills latanoprost ophthalmic 0.005% solution, 1 drop(s), OPTH, Once a day (at bedtime) lovastatin 20 mg Tab pantoprazole 40 mg Oral EC Tab, 40 mg= 1 tab(s), Oral, Daily pyridostigmine 60 mg Tab, 60 mg= 1 tab(s), Oral, BID Allergies ciprofloxacin (Rash) penicillins (Rash) Social History Alcohol - Low Risk, 06/25/2019 Current, Beer, 1-2 times per month, 06/23/2020 Substance Abuse - Denies Substance Abuse, 06/23/2020 Tobacco - Denies Tobacco Use, 06/23/2020 Former smoker, quit more than 30 days ago Tobacco Use:. Never Smokeless Tobacco Use:. Cigarettes, Cigars, 06/07/2022 Family History Hypertension: Mother and Father. Stroke: Mother and Father. Immunizations Vaccine Date Status Comments SARS-CoV-2 (COVID-19) [id number] 05/11/2022 Recorded influenza virus vaccine, (more content not included)... Normal [facility] Comment on above: Result Comment: Elec tronically Signed By: GELY BLAKE PA-C\.br\Date and Time Signed: 06/07/22 11:11 EST\.br\Electronically Co-Signed By: Margi Lopez\.br\Date and Time Co-Signed: 06/07/22 10:52 EST Ophthalmic Eye Examon 2021 Ophthalmic Eye Exam DOCUMENT REVIEWED BY : Guevara Carrasco MD DOCUMENT SIGNED ELECTRONICALLY BY Guevara Carrasco MD ON 02/28/2022 11:45:50 AM [place] [id number] [phone] THIS DOCUMENT WAS CREATED ON: 02/28/2022 11:45:43 AM BY: MD Lainey Kirklande Silvina performed [id number] Exam Date: Monday, February 28, 2022 PATIENT NAME: RON WELCH DATE: 1950 AGE: 71 GENDER: Male RACE: PRIMARY CARE PHYSICIAN: Guevara Mackay History Chief Complaint/Reason For Visit: 71 year old male presents for 1 month IOP check (POAG management) per Dr. Carrasco. At the last visit, patient was told to restart Latanoprost in the OS instead of OD. Pt states vision is unchanged, denies any pain, watering or irritation. Ocular meds: Latanoprost: QHS OS Timolol: QAM OU HISTORY OF PRESENT ILLNESS: PROBLEM: IOP check (POAG mgmt) CONTEXT/ONSET: gradual LOCATION: both eyes QUALITY: stable vision TIMING: constant HPI was performed by Dr. Guevara Carrasco MD and scribed by Neeraj Carrasco MD PAST MEDICAL HISTORY: OCULAR: POAG, IOL OU PROCEDURES : , Yag Capsulotomy OS 10/15/2018 INFECTIOUS: No known previous infections OCULAR SIGNIFICANT: Myasthenia Gravis ILLNESSES: History of hypertension; History of hypercholesterolemia; History of Cataract, nuclear sclerotic, both eyes; History of Primary open angle glaucoma of both eyes, moderate stage; History of Pseudophakia of right eye; History of Primary open-angle glaucoma, bilateral, moderate stage; History of Primary open-angle glaucoma, bilateral, moderate stage; History of Primary open-angle glaucoma, bilateral, moderate stage; History of Primary open-angle glaucoma, bilateral, moderate stage; History of Blepharitis of both upper and lower eyelid; History of Primary open-angle glaucoma, bilateral, moderate stage; History of Chalazion left upper eyelid; SURGERIES: History of Knee Replacement; History of Back Surgery; HEAD/OCULAR TRAUMA: No known history of trauma SOCIAL HISTORY: NOTE: Retired; FAMILY HISTORY: MOTHER: Family history of hypertension CURRENT MEDICATIONS: azaTHIOprine 50 MG Oral Tablet - Tablet, [Reported] , Evaluate Carvedilol 6.25 MG Oral Tablet - #60 Tablet, [Reported] Drug [place] [facility] Lancets 28G - #100, use to test BLOOD SUGAR DAILY[Reported] Ezetimibe 10 MG Oral Tablet - Tablet, [Reported] Ibuprofen 800 MG Oral Tablet - #100 Tablet, [Reported] Imipramine HCl - 25 MG Oral Tablet - Tablet, [Reported] Latanoprost 0.005 % Ophthalmic Solution - #9 Milliliter, Solution, INSTILL 1 DROP TO THE LEFT EYE AT BEDTIME, 2 refills, Evaluate: 01-Nov-2022 Lovastatin 20 MG Oral Tablet - #30 Tablet, [Reported] Metoclopramide HCl TABS - Tablet, [Reported] Terbinafine HCl - 250 MG Oral Tablet - Tablet, [Reported] Timolol Maleate 0.5 % Ophthalmic Solution - #2 15 ML Bottle, Solution, INSTILL 1 DROP Every morning ou, 3 refills, Evaluate: 30-Jan-2023 True Metrix Blood Glucose Test In Vitro Strip - #100 Strip, use to test BLOOD SUGAR EVERY DAY[Reported] True Metrix Meter w/Device Kit - #1 Kit, use to test BLOOD SUGAR DAILY[Reported] Xiidra 5 % Ophthalmic Solution - #60 SOLN, Solution, Instill 1 (ONE) drop IN BOTH EYES ONCE A WEEK[Reported] , Evaluate ALLERGIES: ciprofloxacin, Penicillins REVIEW OF SYSTEMS: GENERAL:Denies symptoms All other Review Of Systems negative Exam ORIENTATION, MOOD AND AFFECT: Alert AND oriented x3 RIGHT EYE LEFT EYE UNCORRECTED VA N/A N/A WEARING +0.75 -0.50 x 097 add +2.50 -2.00 SPHER add +2.50 CORRECTED VA 20/25+1 20/25 PACHYMETRY 551 from 01/06/2017 570 from 01/06/2017 PRESSURE METHOD: Applanation Applanation PRESSURES: 15 18 DATE-TIME: 02/28/2022 11:44:04 AM 02/28/2022 11:44:04 AM 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: [email or web address] ADJUSTED IOP VALUE: 15 17 EXTERNAL EYE EXAM: LID: Good Position Good Position PUPIL: PRRL/no APD PERRL/no APD ADNEXA: Normal Normal MUSCLE BALANCE: Ortho OCULAR MOTILITY: Full ANTERIOR SEGMENT EXAM: TEARFILM: Good Good CONJUNCTIVA: White and quiet White and quiet CORNEA: Clear Clear ANTERIOR CHAMBER: Deep and quiet Deep and quiet IRIS: Round and reactive Round and reactive LENS: PC IOL PC IOL s/p YAG cap ANTERIOR VITREOUS: Clear Clear FUNDUS EXAM: CUP TO DISC: 0.7 0.7 OPTIC DISC: saucerized saucerized VITREOUS: Clear Clear MACULA: poor foveal reflex poor foveal reflex PERIPHERY: inf pavingstone inf pavingstone Impression Plan Last dilated: 02/04/22 1. Primary Open-Angle Glaucoma OU: CCT 550/570 Tm 38/33. h/o intolerance to brimonidine. S/p SLT OD 05/01/17: Pre-op VA 20/30, IOP: 17mmHg -> no effect. s/p combined with trabectome OD (08/02/17): pre-op VA 20/50, IOP 17 mmHg. s/p combined with trabectome OS (11/21/17): pre-op VA 20/30, IOP 23 mmHg. VF OS is a little worse than 2017, but this is the new baseline. During the time between tests, IOP was not well controlled in early and mid 2018, but now controlled since surg (more content not included)... Normal [facility] Ophthalmic Eye Examon 2021 Ophthalmic Eye Exam DOCUMENT REVIEWED BY : Guevara Carrasco MD DOCUMENT SIGNED ELECTRONICALLY BY Guevara Carrasco MD ON 02/04/2022 11:47:57 AM [facility] [address] [id number] [facility] [place], [address] THIS DOCUMENT WAS CREATED ON: 02/04/2022 11:47:46 AM BY: MD Pooja Kirkland performed [id number] Exam Date: Friday, February 04, 2022 PATIENT NAME: RON WELCH DATE: 1950 AGE: 71 GENDER: Male RACE: PRIMARY CARE PHYSICIAN: Guevara Mackay History Chief Complaint/Reason For Visit: 71yoM here for 4 month F/U for POAG OU, patient using latanoprost QHS OS and timolol Qam OU, patient needs refills of both drops, no vision changes since LUCY, no floaters, no flashes, no pain, no irritation, no tearing, no discharge, HISTORY OF PRESENT ILLNESS: HPI was performed by Dr. Guevara Carrasco MD and scribed by Neeraj Carrasco MD PAST MEDICAL HISTORY: OCULAR: POAG, IOL OU PROCEDURES : , Yag Capsulotomy OS 10/15/2018 INFECTIOUS: No known previous infections OCULAR SIGNIFICANT: Myasthenia Gravis ILLNESSES: History of hypertension; History of hypercholesterolemia; History of Cataract, nuclear sclerotic, both eyes; History of Primary open angle glaucoma of both eyes, moderate stage; History of Pseudophakia of right eye; History of Primary open-angle glaucoma, bilateral, moderate stage; History of Primary open-angle glaucoma, bilateral, moderate stage; History of Primary open-angle glaucoma, bilateral, moderate stage; History of Primary open-angle glaucoma, bilateral, moderate stage; History of Blepharitis of both upper and lower eyelid; History of Primary open-angle glaucoma, bilateral, moderate stage; History of Chalazion left upper eyelid; SURGERIES: History of Knee Replacement; History of Back Surgery; HEAD/OCULAR TRAUMA: No known history of trauma SOCIAL HISTORY: NOTE: Retired; FAMILY HISTORY: MOTHER: Family history of hypertension CURRENT MEDICATIONS: azaTHIOprine 50 MG Oral Tablet - Tablet, [Reported] , Evaluate Carvedilol 6.25 MG Oral Tablet - #60 Tablet, [Reported] Drug [place] [facility] Lancets 28G - #100, use to test BLOOD SUGAR DAILY[Reported] Ezetimibe 10 MG Oral Tablet - Tablet, [Reported] Ibuprofen 800 MG Oral Tablet - #100 Tablet, [Reported] Imipramine HCl - 25 MG Oral Tablet - Tablet, [Reported] Latanoprost 0.005 % Ophthalmic Solution - #9 Milliliter, Solution, INSTILL 1 DROP TO THE LEFT EYE AT BEDTIME, 2 refills, Evaluate: 18-May-2022 Lovastatin 20 MG Oral Tablet - #30 Tablet, [Reported] Metoclopramide HCl TABS - Tablet, [Reported] Terbinafine HCl - 250 MG Oral Tablet - Tablet, [Reported] Timolol Maleate 0.5 % Ophthalmic Solution - #2 15 ML Bottle, Solution, INSTILL 1 DROP Every morning ou, 3 refills, Evaluate: 12-Aug-2021 True Metrix Blood Glucose Test In Vitro Strip - #100 Strip, use to test BLOOD SUGAR EVERY DAY[Reported] True Metrix Meter w/Device Kit - #1 Kit, use to test BLOOD SUGAR DAILY[Reported] Xiidra 5 % Ophthalmic Solution - #60 SOLN, Solution, Instill 1 (ONE) drop IN BOTH EYES ONCE A WEEK[Reported] , Evaluate ALLERGIES: ciprofloxacin, Penicillins REVIEW OF SYSTEMS: GENERAL:Denies symptoms All other Review Of Systems negative Exam ORIENTATION, MOOD AND AFFECT: Alert AND oriented x3 RIGHT EYE LEFT EYE UNCORRECTED VA N/A N/A WEARING +0.75 -0.50 x 097 add +2.50 -2.00 SPHER add +2.50 PINHOLE 20/25-2 CORRECTED VA 20/25 20/40-1 PACHYMETRY 551 from 01/06/2017 570 from 01/06/2017 PRESSURE METHOD: Applanation Applanation PRESSURES: 11 22 DATE-TIME: 02/04/2022 10:43:27 AM 02/04/2022 10:43:27 AM 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: kyle [email or web address] ADJUSTED IOP VALUE: 11 21 CONFRONTATION VF see HVF see HVF EXTERNAL EYE EXAM: LID: Good Position Good Position PUPIL: PRRL/no APD PERRL/no APD ADNEXA: Normal Normal MUSCLE BALANCE: Ortho OCULAR MOTILITY: Full ANTERIOR SEGMENT EXAM: TEARFILM: Good Good CONJUNCTIVA: White and quiet White and quiet CORNEA: Clear Clear ANTERIOR CHAMBER: Deep and quiet Deep and quiet IRIS: Round and reactive Round and reactive LENS: PC IOL PC IOL s/p YAG cap ANTERIOR VITREOUS: Clear Clear FUNDUS EXAM: CUP TO DISC: 0.7 0.7 OPTIC DISC: saucerized saucerized VITREOUS: Clear Clear MACULA: poor foveal reflex poor foveal reflex VESSELS: Normal Normal PERIPHERY: inf pavingstone inf pavingstone Impression Plan TODAY (OU) - OCT RNFL By:Guevara Carrasco MD TODAY (OU) - Visual Field 24-2 SMITHA STD By:Guevara Carrasco MD Last dilated: 02/04/22 HVF OD: dense inf arcuate - stable from 2019 and 2018 OS: dense inf nasal step - stable RNFL OD: sup and inf loss OS: sup and inf loss 1. Primary Open-Angle Glaucoma OU: CCT 550/570 Tm 38/33. h/o intolerance to brimonidine. S/p SLT OD 05/01/17: Pre-op VA 20/30, IOP: 17mmHg -> no effect. s/p combined with trabectome OD (08/02/17): pre-op VA 20/50, IOP 17 mmHg. s/p combined with trabectome OS (11/21/17): pre-op VA 20/30, IOP 23 mmHg. VF OS is a little wors (more content not included)... Normal [facility] OPERATIVE REPORTon 0 OPERATIVE REPORT [address] [address] OPERATIVE REPORT PATIENT NAME: RON WELCH : 1950 MED REC NO: [id number] ROOM: ACCOUNT NO: [id number] ADMIT DATE: 10/16/2019 PROVIDER: Ángel Fenton DATE OF PROCEDURE: 10/16/2019 PREOPERATIVE DIAGNOSIS: Basal cell carcinoma, left nasal ala. POSTOPERATIVE DIAGNOSIS: Basal cell carcinoma, left nasal ala. PROCEDURES: 1. Excision of left nasal ala basal cell carcinoma with frozen section control. 2. Dorsal nasal sliding flap, V-Y flap advancement closure. SURGEON: nÁgel Fenton MD ANESTHESIA: General. INDICATIONS: This is a 69-year-old gentleman with biopsy-positive basal cell carcinoma, left side of the nose. He was scheduled for removal of this with frozen section control and closure of the defect. FINDINGS: First frozen section was positive between the 2 and 4 o'clock position, requiring a second excision and re-examination. DESCRIPTION OF PROCEDURE: With the patient supine, general anesthesia was induced via posterior pharyngeal LMA intubation. The patient's face was prepped and draped in sterile fashion. A complete informal time-out was performed. The perinasal area was injected 0.5% Marcaine, 1:200,000 epinephrine local. After appropriate prep and drape, this lesion was marked for oval excision paralleling the nasal alar crease. This was removed at the lower lateral cartilage-perichondriu m level and sent for frozen section, which proved to have positive margins along the 3 and 4 o'clock area. A re-excision was performed and proved to be completely negative on the re-excision. This was approximately a dime-sized defect that was oblong, paralleling the alar crease in an ovoid configuration. Using gentian juanito, dorsal nasal sliding V-Y flap was designed and checked for its accuracy. This was then incised and elevated as a nasal skin flap based laterally. The flap, itself, was then elevated with Burow's triangle removed at the rotation point. The area was sculpted and inset with deep sutures of 4-0 Monocryl followed by interrupted and running 6-0 Prolene with excellent configuration and re-draping. Steri-Strips were applied. Tolerated the procedure well. Went to recovery in excellent condition. No complication. Needle and sponge counts correct. Estimated blood loss was 5 mL. ÁNGEL FENTON [id number] Doc#: [id number] CC: Normal [facility] Surgical Pathologyon 020 Surgical Pathology (NOTE) -- Diagnosis -- 1. SKIN, NOSE (LEFT), EXCISION: - NODULAR BASAL CELL CARCINOMA, EXTENDING TO 12 TO 3:00 (SUPERIOR LATERAL) PERIPHERAL MARGINS. 2. SKIN, LEFT NOSE, ADDITIONAL 9:00-4:00 EDGE, RE-EXCISION: - NEW TRUE MARGIN NEGATIVE FOR MALIGNANCY. Juan C Pagan M.D. Electronically Signed Out 10/17/2019 Clinical Information Pre-op Diagnosis: HISTORY OF NODULAR BASAL CELL CARCINOMA WITH POSITIVE MARGINS Operative Findings: BASAL CELL NOSE SUTURE TAG SHORT AT SUPERIOR AND LONG AT LATERAL; RE-EXCISION BASAL CELL CARCINOMA LEFT NOSE (ANGLE IS LATERAL) (PER DR. FENTON, SPECIMEN IS 9:00-4:00 EDGE, NEW MARGIN. ANGLE IS 3:00) Operation Performed: NASAL LESION BIOPSY EXCISION (LEFT PER EMR OPERATIVE NOTE), BASAL CELL NOSE WITH FLAP CLOSURE AND FROZEN SECTION Source of Specimen 1: BASAL CELL - NOSE (LEFT) 2: RE-EXCISION BASAL CELL LEFT NOSE (ANGLE IS LATERAL) Gross Description 1. RON WELCH, BASAL CELL NOSE Received fresh is an oriented jenkins-pink skin ellipse, 1.0 x 0.5 x 0.3 cm with short suture superior (12:00), long suture lateral (3:00). The 9-12-3:00 half is inked blue, 3-6-9:00 black. Serially sectioned from 9:00 tip towards 3:00 tip. FS x 2. Cassette summary: FSA 9:00 half, FSB 3:00 half. Tissue exhausted for frozen section. 2. RON WELCH, RE-EXCISION BASAL CELL CARCINOMA LEFT NOSE Received fresh and oriented per surgeon is a 1.5 x 1.0 x 0.3 cm jenkins upside down L-shaped excision representing new 9-3-4:00 margin. The angle of the L of the excision is 3:00. The 9-3:00 new margin is inked blue, 3-4:00 inked black. 3:00 angle is over-inked red. The 9-3:00 en face true margin in FSA. 3-4:00 en face true margin in FSB, 2cs. tm Intraoperative Diagnosis 1. FSDX: Nodular basal cell carcinoma 12:00-3:00 (superior lateral margin) peripheral margin positive for tumor. (9:49) 2. FSDX: Negative for malignancy. (JET) Microscopic Description 1. The frozen section levels show a nodular basal cell carcinoma extending into the dermis and focally extending to the inked 12 to 3:00 peripheral margins (1B). The tissue is submitted entirely for frozen section and no permanent remnant remains. 2. Sections show skin to the skeletal muscle and fat with sebaceous hyperplasia. The new true margin appears negative for malignancy. (En face true margins are represented in initial levels, with deeper levels extending towards old margin). SURGICAL PATHOLOGY CONSULTATION Patient Name: RON WELCH [facility] Rec: [id number] Path Number: [id number] [facility] [employer] [facility] ANATOMIC PATHOLOGY [address] [place] [id number] Normal [facility] Comment on above: Performed By: #### P PPVDP #### [facility] [employer] [address] [place] [id number] Clinical Investigator: Gilles Chahal MD COVID-19on 10-15-2019 SARS-CoV-2 [place], [place] SARS-CoV-2, PCR Not Detected Not Detected [place], [place] Comment on above: (NOTE) The [employer] RealTime SARS-CoV-2 assay is a real-time (rt) reverse transcriptase (RT) polymerase chain reaction (PCR) test intended for the Parkya[employer] system. The SARS-CoV-2 primer and probe sets are designed to detect RNA from SARS-CoV-2 in nasopharyngeal (OUTCOMES ANALYST) and oropharyngeal (OP) swabs from patients with signs and symptoms of infection who are suspected of COVID-19. Results are for the identification of SARS-CoV-2 RNA. The SARS-CoV-2 RNA is generally detectable in a nasopharyngeal and oropharyngeal swabs during the acute phase of infection. The [employer] RealTime SARS-CoV-2 assay is intended for use by qualified and trained clinical laboratory personnel specifically instructed and trained in the techniques of real-time PCR and in vitro diagnostic procedures. The [employer] RealTime SARS-CoV-2 assay is only for use under the Food and Drug Administration Emergency Use Authorization. Testing is limited to laboratories certified under the Clinical Laboratory Improvement Amendments of 1988 (CLIA), 42 U.S.C. 263a, to perform high complexity tests. Not Detected: Not detected does not preclude SARS-CoV-2 infection and should not be used as the sole basis for patient management decisions. Not detected results must be combined with clinical observations, patient history, and epidemiological information. The above 1 analytes were performed by [address] [place] [address] SARS-CoV-2, [place], [place] Source .NASOPHARYNGEAL SWAB [place], [place] [id number] 10-15-2019 SARS-CoV-2 Not Detected Normal Not Detected [facility] Comment on above: Result Comment: (NOT E) The [employer]agland RealTime SARS-CoV-2 assay is a real-time (rt) reverse transcriptase (RT) polymerase chain reaction (PCR) test intended for the Parkya000 system. The SARS-CoV-2 primer and probe sets are designed to detect RNA from SARS-CoV-2 in nasopharyngeal (OUTCOMES ANALYST) and oropharyngeal (OP) swabs from patients with signs and symptoms of infection who are suspected of COVID-19. Results are for the identification of SARS-CoV-2 RNA. The SARS-CoV-2 RNA is generally detectable in a nasopharyngeal and oropharyngeal swabs during the acute phase of infection. The [employer]agland RealTime SARS-CoV-2 assay is intended for use by qualified and trained clinical laboratory personnel specifically instructed and trained in the techniques of real-time PCR and in vitro diagnostic procedures. The Ragland RealTime SARS-CoV-2 assay is only for use under the Food and Drug Administration Emergency Use Authorization. Testing is limited to laboratories certified under the Clinical Laboratory Improvement Amendments of 1988 (CLIA), 42 U.S.C. 263a, to perform high complexity tests. Not Detected: Not detected does not preclude SARS-CoV-2 infection and should not be used as the sole basis for patient management decisions. Not detected results must be combined with clinical observations, patient history, and epidemiological information. The above 1 analytes were performed by [address] [address] Performed By: #### C OVID #### [facility] [address] [place] [address] Clinical Investigator: Antonio Hodgson MD [address] [address] Clinical Investigator: Gilles Chahal MD [facility] [address] [place] [address] Clinical Investigator: Dontrell James MD [id number] 10-14-2019 SARS-CoV-2,Rapid Normal [facility] Comment on above: Performed By: #### C OVID #### [facility] [address] [place] [address] Clinical Investigator: Antonio Hodgson MD [address] [address] Clinical Investigator: Gilles Chahal MD [facility] [address] [place] [address] Clinical Investigator: Dontrell James MD SARS-CoV-2 [facility] Comment on above: Performed By: #### C OVID #### [facility] [address] [place] [address] Clinical Investigator: Antonio Hodgson MD [address] [place] [address] Clinical Investigator: Gilles Chahal MD [facility] [address] [place] [address] Clinical Investigator: Dontrell James MD SARS-CoV-2 Source .NASOPHARYNGEAL SWAB Normal [facility] Comment on above: Performed By: #### C OVID #### [facility] [address] [place] [address] Clinical Investigator: Antonio Hodgson MD [facility] [employer] [address] [place] [address] Clinical Investigator: Gilles Chahal MD [facility] [address] [place] [address] Clinical Investigator: Dontrell James MD EKG 12 [place] 08-01-2019 Atrial Rate 67 BPM [facility], [place] 39 degrees [facility], [place] P-R Interval 170 ms [facility] Q-T Interval 384 ms [facility] QRS Duration 110 ms [facility] QTc Calculation (Bazett) 405 ms [facility], [place] R [place] -22 degrees [facility]- [place], [place] 7 degrees [facility], [place] Ventricular Rate 67 BPM [facility] Sinus rhythm with occasional Premature ventricular complexes Possible Left atrial enlargement Left ventricular hypertrophy Abnormal ECG No previous ECGs available [facility], [place] Jonh, Mhpn Incoming E kg Results From [facility] [place] - 08/01/2019 1:29 PM EST Sinus rhythm with occasional Premature ventricular complexes Possible Left atrial enlargement Left ventricular hypertrophy Abnormal ECG No previous ECGs available [facility], [place] Vital Signs Date Time Vital Sign Value Performing Clinician Facility 01-11-2023 12:50-0400 Body weight 101.15 kg Chandni Metzger APRN.CNP Work Phone: [facility] 01-11-2023 12:50-0400 Diastolic blood pressure 79 mm[Hg] Chandni Metzger APRN.CNP Work Phone: [facility] 01-11-2023 12:50-0400 Heart rate 56 /min Chandni Rhoten MOBILE MARKETING SPECIALIST.PUBLIC INFORMATION SPECIALIST Work Phone: [facility] 01-11-2023 12:50-0400 Systolic blood pressure 152 mm[Hg] Chandni Rhoten MOBILE MARKETING SPECIALIST.PUBLIC INFORMATION SPECIALIST Work Phone: [facility] 11-15-2022 12:54-0400 Blood Pressure Location GELY BLAKE [facility] 11-15-2022 12:54-0400 Diastolic blood pressure 68 mm[Hg] GELY REEMA [facility] 11-15-2022 12:54-0400 Heart rate 68 /min GELY REEMA [facility] 11-15-2022 12:54-0400 Systolic blood pressure 130 mm[Hg] GELY REEMA [facility] 10-07-2022 13:25-0400 Body weight 100.7 kg Chandni Rhoten MOBILE MARKETING SPECIALIST.PUBLIC INFORMATION SPECIALIST Work Phone: [facility] 10-07-2022 13:25-0400 Diastolic blood pressure 94 mm[Hg] Chandni Rhoten MOBILE MARKETING SPECIALIST.PUBLIC INFORMATION SPECIALIST Work Phone: [facility] 10-07-2022 13:25-0400 Heart rate 53 /min Chandni Rhoten MOBILE MARKETING SPECIALIST.PUBLIC INFORMATION SPECIALIST Work Phone: [facility] 10-07-2022 13:25-0400 Systolic blood pressure 168 mm[Hg] Chandni Rhoten MOBILE MARKETING SPECIALIST.PUBLIC INFORMATION SPECIALIST Work Phone: [facility] 09-06-2022 13:03-0400 Blood Pressure Location GELY BLAKE [facility] 09-06-2022 13:03-0400 Diastolic blood pressure 78 mm[Hg] GELY BLAKE [facility] 09-06-2022 13:03-0400 Heart rate 68 /min GELY BLAKE [facility] 09-06-2022 13:03-0400 Respiratory rate 16 /min GELY BLAKE [facility] 09-06-2022 13:03-0400 Systolic blood pressure 129 mm[Hg] GELY BLAKE [facility] 04-27-2022 14:58-0500 Body height 167.6 cm Daysi Uribe MD Work Phone: [facility] 04-27-2022 14:58-0500 Body weight 101.15 kg Daysi Uribe MD Work Phone: [facility] 04-27-2022 14:58-0500 Diastolic blood pressure 73 mm[Hg] Daysi Uribe MD Work Phone: [facility] 04-27-2022 14:58-0500 Heart rate 68 /min Daysi Uribe MD Work Phone: [facility] 04-27-2022 14:58-0500 SaO2% (BldA) [Mass fraction] 98 % Daysi Uribe MD Work Phone: [facility] 04-27-2022 14:58-0500 Systolic blood pressure 139 mm[Hg] Daysi Uribe MD Work Phone: [facility] 10-21-2021 10:50-0400 Body height 167.6 cm Daysi Uribe MD Work Phone: [facility] 10-21-2021 10:50-0400 Body weight 97.52 kg Daysi Uribe MD Work Phone: [facility] 10-21-2021 10:50-0400 Diastolic blood pressure 86 mm[Hg] Daysi Uribe MD Work Phone: [facility] 10-21-2021 10:50-0400 Heart rate 83 /min Daysi Uribe MD Work Phone: [facility] 10-21-2021 10:50-0400 Systolic blood pressure 163 mm[Hg] Daysi Uribe MD Work Phone: [facility] 09-28-2021 10:47-0400 Blood Pressure Location Tere Torres Jr. [facility] 09-28-2021 10:47-0400 Diastolic blood pressure 64 mm[Hg] Tere Torres Jr. [facility] 09-28-2021 10:47-0400 Heart rate 62 /min Tere Torres Jr. [facility] 09-28-2021 10:47-0400 Respiratory rate 18 /min Tere Torres . [facility] 09-28-2021 10:47-0400 Systolic blood pressure 129 mm[Hg] Tere Torres Jr. [facility] 09-08-2021 14:00-0400 Body height 170.18 cm Cliff Leon Other [employer] Other 09-08-2021 14:00-0400 Body mass index (BMI) [Ratio] 35.39 kg/m2 Cliff Leon Other [employer] Other 09-08-2021 14:00-0400 Body weight 102.51 kg Cliff Leon Other [employer] Other 10-16-2019 11:15-0400 Body Temperature 99.1 [degF] [facility]ngel [facility] [place] 10-16-2019 11:15-0400 BP Diastolic 80 mm[Hg] Ángel [facility] [place] , [place] 10-16-2019 11:15-0400 BP Systolic 119 mm[Hg] Ángel [facility] [place] , [place] 10-16-2019 11:15-0400 Pulse (Heart Rate) 86 /min [facility]ngel [facility] [place] 10-16-2019 11:15-0400 Pulse Oximetry 96 % Ángel [facility] [place], [place] 10-16-2019 11:15-0400 Respiratory Rate 25 /min Ángel [employer] [place] 10-16-2019 08:12-0400 BMI (Body Mass Index) 36.26 kg/m2 [facility]ngel [facility] [place] 10-16-2019 08:12-0400 Body weight 105.01 kg [facility]ngel [facility] [place] 10-16-2019 08:12-0400 Height 170.2 cm [facility] 07-31-2019 11:58-0500 BMI (Body Mass Index) 37.06 kg/m2 [facility] [place] [place] 07-31-2019 11:58-0500 Body Temperature 97.9 [degF] Stvz Schedule [facility], [place] 07-31-2019 11:58-0500 Body weight 104.15 kg [facility] [place] [facility] [place] 07-31-2019 11:58-0500 Height 167.6 cm Stvz Schedule [employer] [place] Encounters Encounter Date Encounter Type Care Provider Facility Start: 05-31-2023 ambulatory Leighton MARIE Facility : [facility] Start: 05-17-2023 End: 05-17-2023 ambulatory [facility] Start: 05-11-2023 End: 05-11-2023 ambulatory INGA TOURE Not Available Start: 05-08-2023 ambulatory Daysi flannery MD Work Phone: [facility] Start: 05-08-2023 Patient encounter procedure Daysi Uribe MD Work Phone: Neurology Comment on above: Appointment request because of blood test results Start: 04-14-2023 End: 04-14-2023 ambulatory [facility] Start: 02-27-2023 End: 02-27-2023 ambulatory [facility] Start: 01-11-2023 End: 01-11-2023 ambulatory GUEVARA MACKAY Facility:[facility] Start: 01-11-2023 End: 01-11-2023 Patient encounter procedure Chandni Metzger APRN.PUBLIC INFORMATION SPECIALIST Work Phone: Neurology Comment on above: 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 (HCC) (Primary Dx); ERIS on CPAP Start: 12-02-2022 Refill Penny Kaufman MD Work Phone: Neurology Comment on above: Refill Request Start: 11-21-2022 Rx Renewal Guevara Mackay Work Phone: DY-Lhokfwbkrzgzc-Lyeaxoux ook Work Phone: Start: 11-15-2022 End: 11-16-2022 ambulatory GELY BLAKE Facility:[facility] Start: 11-15-2022 End: 11-15-2022 Patient encounter procedure GELY BLAKE [facility] Start: 10-31-2022 Patient encounter procedure Guevara Mackay Work Phone: QY-Rqfiengzlbhsu-Tltbkynd B102 Work Phone: Start: 10-31-[address] 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 Facility: Start: 09-06-2022 End: 09-07-2022 ambulatory GELY BLAKE Facility:[facility] Start: 09-06-2022 End: 09-06-2022 Patient encounter procedure GELY BLAKE [facility] Start: 09-01-2022 End: 09-02-[address] GUEVARA MACKAY . Facility: Start: 08-26-2022 End: 08-27-[address] GUEVARA MACKAY . Facility: Start: 08-24-2022 ambulatory GELY BLAKE Facility :[facility] Start: 08-23-2022 End: 08-23-[address] GUEVARA MACKAY . Facility: Start: 08-18-2022 End: 08-19-[address] GUEVARA MACKAY . Facility: Start: 08-04-2022 End: 08-04-2022 Social Work Katia CALDERONW Work Phone: Neurology Comment on above: Dementia due to medi sherrill condition without behavioral disturbance (HCC) (Primary Dx) Orders (Starting paxton cept) Cognitive communicat ion deficit (Primary Dx); 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); MYASTHENIA GRAVIS; ERIS on CPAP; Vascular dementia without behavioral disturbance, psychotic disturbance, mood disturbance, or anxiety, unspecified dementia severity (HCC) Start: 07-19-2022 ambulatory Daysi flannery MD Work Phone: Neurology Comment on above: Adding Aricept for d ementia Start: 07-08-2022 End: 07-08-2022 ambulatory LAUREN LAMAS Facility:[facility] Start: 07-04-2022 ambulatory Guevara Carrasco Facility:[id number] Start: 06-17-2022 End: 06-17-2022 Subsequent hospital visit by physician Cesilia Bustillos (I-Stat/3t) Work Phone: Radiology Comment on above: Myasthenia gravis wi th exacerbation (HCC) [G70.01] Start: 06-17-2022 End: 06-17-2022 ambulatory GUEVARA MACKAY Facility:[facility] Start: 06-17-2022 End: 06-17-2022 Patient encounter procedure Araseli Camacho PhD Work Phone: Neuropyschology Comment on above: Major neurocognitive disorder (HCC) (Primary Dx); Obstructive sleep apnea; MYASTHENIA GRAVIS; Depression, unspecified depression type Start: 06-07-2022 End: 06-08-2022 ambulatory GELY BLAKE Facility:[facility] Start: 06-07-2022 End: 06-07-2022 Patient encounter procedure GELY BLAKE [facility] Start: 05-30-[address] GUEVARA MACKAY . Facili ty:H1 Start: 05-12-2022 Chart abstracting Lauren Granda Work Phone: Neurology Comment on above: Results (BiPAP downl oad 04/03-05/02/2022) Start: 05-03-2022 Telephone encounter Lauren Lamas MD Work Phone: Neurology Comment on above: PAP Therapy Follow U p (DOWNLOAD) Start: 04-29-2022 Telephone encounter Lauren Lamas MD Work Phone: Neurology Comment on above: 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 - O ther (Download MSC) Start: 04-27-2022 End: 04-27-2022 Patient encounter procedure Daysi Uribe MD Work Phone: Neurology Comment on above: Myasthenia gravis (H CC) (Primary Dx); Memory loss Start: 04-14-2022 Refill Daysi flannery MD Work Phone: Neurology Comment on above: Refill Request Start: 04-04-2022 End: 04-05-[address] TERE Hare Facility: Start: 02-28-2022 Patient encounter procedure Guevara Mackay Work Phone: BR-Ovvwziemhlhef-Ozvrubrx B102 Work Phone: Start: 02-28-2022 ambulatory Guevara Danilo Facility:[id number] Start: 02-04-2022 Patient encounter procedure Guevara Mackay Work Phone: UH-Lnhlnvthfuzra-Lcsmadoi B102 Work Phone: Start: 02-04-2022 ambulatory Guevara Carrasco Facility:[id number] Start: 01-06-2022 End: 01-06-[address] GUEVARA MACKAY . 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 [facility] Start: 09-08-2021 End: 09-08-2021 ambulatory Cliff Leon Other [facility] [employer] Other Start: 09-08-2021 Office outpatient ne w 45 minutes Cliff Leon [facility] Gastroenterology Start: 08-21-2021 Rx Renewal Guevara Mackay Work Phone: UX-Ywahbpvvyxdcr-Scfpactl B102 Work Phone: Start: 08-06-2021 Telephone encounter Leighton Brambila Work Phone: Gastroenterology Comment on above: Appointment Start: 07-09-2021 Patient encounter procedure Guevara Mackay Work Phone: FG-Lhagurzpilhyc-Ewaexhrf B102 Work Phone: Start: 10-16-2019 End: 10-16-2019 [facility] Start: 10-16-2019 End: 10-16-2019 Subsequent hospital visit by physician Ángel Fenton Work Phone: [facility] [place] Comment on above: Basal cell carcinoma (BCC) of left side of nose (Primary Dx) Start: 10-14-2019 End: 10-19-2019 Patient encounter procedure [facility] Start: 10-14-2019 End: 10-18-2019 Subsequent hospital visit by physician Brigido Potts 4 DEYSI PRE-ADMIT TESTING Start: 07-31-2019 End: 08-05-2019 Patient encounter procedure ÁNGEL FENTON [facility] Start: 07-31-2019 End: 08-04-2019 Subsequent hospital visit by physician Sukhwinder [facility] Pat Schedule [facility] Pre-Admit Testing Start: 06-14-2019 Patient encounter procedure Guevara Carrasco YK-Cbvsscwznieko-Pjnodbnd B102 Work Phone: Start: 02-08-2019 Patient encounter procedure Guevara Carrasco JE-Kmorsxharmzpa-Zvukubea B102 Work Phone: Start: 11-01-2018 Patient encounter procedure Guevara Danilo DE-Etrnusmvntpqg-Tslbboht B102 Work Phone: Start: 10-15-2018 Patient encounter procedure Guevara Danilo SJ-Itslezxdisgfq-Ypvujpfu B102 Work Phone: Start: 09-07-2018 Patient encounter procedure Guevara Danilo LT-Quodlkgqfpehs-Jroiztal B102 Work Phone: Start: 12-28-2017 Patient encounter procedure Guevara Danilo IZ-Ntwfpirqjxhpq-Mcsijznt B102 Work Phone: Start: 12-22-2017 Patient encounter procedure Guevara Danilo PJ-Itnckljmyrpyg-Wawfyrkj B102 Work Phone: Start: 12-01-2017 Patient encounter procedure Guevara Danilo ZI-Wimdvblmsxbsv-Atlyurmp B102 Work Phone: Start: 11-22-2017 Patient encounter procedure Guevara Danilo SR-Qzmicasbejcxm-Qyqcsiwy B102 Work Phone: Start: 11-20-2017 Patient encounter procedure Guevara Danilo QB-Olkgypzqgoptu-Vllhjxmo B102 Work Phone: Start: 11-08-2017 Patient encounter procedure Guevara Danilo AF-Fhprpvmnrjaux-Kkththgd B102 Work Phone: Start: 09-06-2017 Patient encounter procedure Guevara Danilo UH-Fzkhwgprmrppo-Pslkycuw B102 Work Phone: Start: 08-11-2017 Patient encounter procedure Guevara Danilo MP-Tefdbbhtckbja-Ozrrcjxu B102 Work Phone: Start: 08-02-2017 Patient encounter procedure Guevara Danilo UV-Kggehjuvhivhe-Yyhacrps B102 Work Phone: Start: 06-21-2017 Patient encounter procedure Guevara Danilo BP-Iwbyzkolmxofu-Apwouvfb B102 Work Phone: Procedures Date Procedure Procedure Detail Performing Clinician Start: 02-27-2023 DE LEON VISUAL FIEL D - OU - BOTH EYES GUEVARA DANILO Start: 02-27-2023 OCT, OPTIC NERVE - O U - BOTH EYES GUEVARA DANILO Start: 08-18-[address] RADHA MACKAY . Comment on above: Performed By: #### P SASC, VITAD #### [facility] [id number] Ragini Storm Start: 06-17-2022 MRI 3D POST PROCESSING Lauren Lamas MD Work Phone: Start: 06-17-2022 Mri brain brain stem w/o contrast material Lauren Lamas MD Work Phone: Start: 04-04-[address] RADHA MACKAY . Comment on above: Performed By: #### P SAD #### [facility] [address] [address] [address] Ragini Storm Start: 10-16-2019 DISCHARGE PATIENT ÁNGEL FENTON Start: 10-16-2019 Level iv surg pathol ogy gross&microscopic exam ÁNGEL FENTON Start: 10-16-2019 ASSESS ÁNGEL Manuel Start: 10-16-2019 BEDREST ÁNGEL Manuel Start: 10-16-2019 ENCOURAGE DEEP BREAT CEASAR AND COUGHING ÁNGEL FENTON Start: 10-16-2019 INITIATE OXYGEN THER APY PROTOCOL ÁNGEL FENTON Start: 10-16-2019 NEURO/VASCULAR CHECKS C MAGNUS FENTON Start: 10-16-2019 NURSING COMMUNICATION C MAGNUS FENTON Start: 10-16-2019 REMOVE IV ÁNGEL Manuel Start: 10-16-2019 NOTIFY PHYSICIAN (SPECIFY) ÁNGEL FENTON Start: 10-16-2019 TELEMETRY MONITORING CA RL ELICEO Start: 10-16-2019 Gluc bld gluc mntr d ev cleared fda spec home use ÁNGEL FENTON Start: 10-16-2019 Urine test visual color cmprsn meths ÁNGEL FENTON Start: 10-16-2019 VITAL SIGNS ÁNGEL Manuel Start: 10-14-2019 COVID-19 DOCLEOPOLDO SERRANO RAVEN Start: 10-14-2019 COVID-19 Doc garcia Work Phone: Start: 10-14-2019 COVID-19 DOC SERRANO RAVEN Start: 07-31-2019 Ecg routine ecg w/le ast 12 lds w/i&r ÁNGEL FENTON Start: 07-31-2019 EKG REPORT ÁNGEL Manuel Start: 07-31-2019 Ecg routine ecg w/le ast 12 lds trcg only w/o i&r Ángel Leivasler Work Phone: Start: 07-31-2019 EKG REPORT Hpf Elias ng Start: 07-26-2019 Adult depression scr eening assessment [facility] Start: 12-13-2018 Colonoscopy [facility] Start: 10-25-2017 Cystoscopy Tere salas Jr. Comment on above: 08/13/2012 Start: 07-12-2017 Green laser light (p hysical force) Tere Torres Jr. Start: 08-16-2012 Urodynamic studies Margarita Torres Jr. Arthroplasty of knee Tere Torres Jr. Arthroscopy of knee Tere augustine Jr. Back structure, excl uding neck (body structure) Tere Torres Jr. Cataract (disorder) Tere augustine Jr. History of Back Surgery Pablo las Danilo Malignant melanoma, no ICD-O subtype (morphologic abnormality) Tere Torres Jr. Comment on above: removal from nose Total knee replacement Dougl as Danilo Total thymectomy Tere mittal Jr. Plan of Treatment Date Care Activity Detail Author Start: 01-07-2032 Urine microalbumin profile DTaP,Tdap,Td Vaccine (2 - Tdap) [facility] Start: 04-29-2025 DIABETES SCREEN DIABETES SCREEN [facility] Start: 04-29-2025 Diabetes Screening Diabetes Screenin g [facility] Start: 09-10-2023 DIABETES SCREEN DIABETES SCREEN [facility] Start: 02-27-2023 EPVDILATED, Provider : Guevara Carrasco, Status: Pen, Time: 9:00 AM EPVDILATED, Provider: Guevara Carrasco, Status: Pen, Time: 9:00 AM GZ-Cdwzvsqwpvjou-Bgl tlake B102 Work Phone: Start: 01-27-2023 Covid-19 Vaccine ( season) Covid-19 Vaccine ( season) [facility] Start: 01-27-2023 Influenza vaccination [facility] Start: 07-06-2022 COVID-19 VACCINE (8 - Mixed Product risk series) COVID-19 VACCINE (8 - Mixed Product risk series) [facility] Start: 07-04-2022 EPVGLAUC, Provider: Guevara Carrasco, Status: Pen, Time: 11:15 AM EPVGLAUC, Provider: Guevara Carrasco, Status: Pen, Time: 11:15 AM NU-Yxlfagqihsgbp-Jvw tlake B102 Work Phone: Start: 05-29-2022 ADVANCE DIRECTIVE DISCUSSION ADVANCE DIRECTIVE DISCUSSION [facility] Start: 05-29-2022 [facility] Start: 02-28-2022 EPVGLAUC, Provider: Guevara Carrasco, Status: Pen, Time: 10:30 AM EPVGLAUC, Provider: Guevara Carrasco, Status: Pen, Time: 10:30 AM UX-Yhfzlakgghjls-Izn tlake B102 Work Phone: Start: 01-27-2022 Influenza vaccination [facility] Start: 09-27-2021 EPVGLAUC, Provider: Guevara Carrasco, Status: Pen, Time: 11:15 AM EPVGLAUC, Provider: Guevara Carrasco, Status: Pen, Time: 11:15 AM MC-Emksauwtojssw-Xfm tlake B102 Work Phone: Start: 05-29-2021 ADVANCE DIRECTIVE DISCUSSION ADVANCE DIRECTIVE DISCUSSION [facility] Start: 05-29-2021 DEPRESSION ASSESSMENT DEPRESSION ASS ESSMENT [facility] Start: 07-26-2020 Adult depression screening assessment DEPRESSION SCREENING [facility] Start: 01-28-2020 Influenza vaccination Flu vacc ine (Season Ended) [facility] [place] Start: 12-14-2019 Colonoscopy COLONOSCOPY [facility] Start: 12-14-2019 COLORECTAL CANCER SCREENING COLORECTAL CANCER SCREENING [facility] Start: 12-14-2019 Screening for malign ant neoplasm of colon [facility] Start: 10-23-2019 End: 10-23-2019 Office Visit 10/23/2019 Office Visit Plastic Surgery Ángel Fenton MD [address] [place] [address] [phone] Verified [facility] Start: 08-28-2019 End: 08-28-2019 Office Visit 08/28/2019 Office Visit Plastic Surgery Ángel Fenton MD [address] [place] [address] [phone] Verified Person [facility] Start: 08-14-2019 End: 08-14-2019 Hospital Encounter [facility] [place] Comment on above: NASAL LESION BIOPSY EXCISION - BASAL CELL WITH FROZEN SECTION REQUIRED AND FLAP CLOSURE Start: 07-03-2019 Annual Wellness Visi t (AWV) Annual Wellness Visit (AWV) [place], [place] Start: 01-27-2019 Influenza vaccination Flu vaccine (# 1) [place], [place] Start: 2016 Pneumococcal 65+ yea rs Vaccine (1 of 1 - PPSV23) Pneumococcal 65+ years Vaccine (1 of 1 - PPSV23) [place] Start: 06-29-2013 Pneumococcal Vaccine : 65+ (2 - PCV) Pneumococcal Vaccine: 65+ (2 - PCV) [facility] Start: 06-29-2013 PNEUMOCOCCAL: 65+ (2 - PCV) PNEUMOCOCCAL: 65+ (2 - PCV) [facility] Start: 2011 RSV Vaccine (1 - 1-d ose 60+ series) RSV Vaccine (1 - 1-dose 60+ series) [facility] Start: 2001 Colon cancer screen colonoscopy Colon cancer screen colonoscopy [place], [place] Start: 2001 Screening for malign ant neoplasm of colon Colon cancer screen colonoscopy [place] Start: 2001 Shingles Vaccine (1 of 2) Shingles Vaccine (1 of 2) [place] Start: 2001 SHINGRIX VACCINE (1 of 2) SHINGRIX VACCINE (1 of 2) [facility] Start: 1996 COLOGUARD (FIT-DNA) COLOGUARD (FIT-D NA) [facility] Start: [address] [facility] Start: 1996 FECAL OCCULT BLOOD FECAL OCCULT BLOO D [facility] Start: 1996 Screening for malign ant neoplasm of colon [facility] Start: 1996 [facility] Start: 1991 Diabetes screen Diabetes screen [place], [place] Start: 1986 Lipid panel Lipid Screening [facility] Start: 1986 LIPID SCREEN LIPID SCREEN [facility] Start: 1970 DTaP/Tdap/Td vaccine (1 - Tdap) DTaP/Tdap/Td vaccine (1 - Tdap) [place] Start: 1970 SHINGRIX VACCINE (1 of 2) SHINGRIX VACCINE (1 of 2) [facility] Start: 1970 Urine microalbumin profile DTAP,TDAP,TD (1 - Tdap) [facility] Start: 1969 ANNUAL PCP TEAM HOOKER UP JORDYN DISEASE VISIT ANNUAL PCP TEAM CHRONIC DISEASE VISIT [facility] Start: 1969 BP CONTROLLED (<130/80) BP CONTROLLE D (<130/80) [facility] Start: 1969 HEPATITIS C SCREENING HEPATITIS C [facility] Start: 1969 Hepatitis C screening Hepatitis C [facility] Start: 1962 DTaP/Tdap/Td vaccine (1 - Tdap) DTaP/Tdap/Td vaccine (1 - Tdap) [place] Start: 1961 Lipid panel Lipid screen [place], [place] Start: 1961 Lipid screen Lipid screen [place], [place] Start: 1951 AAA screen AAA screen [place] Start: 1951 Abdominal aortic aneurysm screening [facility] Start: 1951 ABDOMINAL AORTIC ANEURYSM SCREENING ABDOMINAL AORTIC ANEURYSM SCREENING [facility] Start: 1951 Hepatitis C screen Hepatitis C ellen davis [place], [place] Start: 1951 Hepatitis C screening Hepatitis C michelle sykes [place] End: 10-16-2019 Blood glucose - POCT Blood glucose - POCT Point of Care Testing Routine One Time for 1 Occurrences starting 10/16/2019 until 10/16/2019 [place] Comment on above: One Time for 1 Occur rences starting 10/16/2019 until 10/16/2019 End: 10-14-2019 COVID-19 COVID-19 Lab Routine One Time for 1 Occurrences starting 10/14/2019 until 10/14/2019 [place] Comment on above: One Time for 1 Occur rences starting 10/14/2019 until 10/14/2019 Initiate Oxygen Ther apy Protocol Initiate Oxygen Therapy Protocol Respiratory Care Routine Daily until discontinued starting 10/16/2019 [place] Comment on above: Daily until disconti nued starting 10/16/2019 Phase I & II - meter ed glucose Phase I & II - metered glucose Point of Care Testing Routine As Needed until discontinued starting 10/16/2019 [place] Comment on above: As Needed until disc ontinued starting 10/16/2019 End: 10-16-2019 , urine POCT , urine POCT Point of Care Testing Routine One Time for 1 Occurrences starting 10/16/2019 until 10/16/2019 [place] Comment on above: One Time for 1 Occur rences starting 10/16/2019 until 10/16/2019 SPEECH PLAN OF CARE CERTIFICATION SPEECH PLAN OF CARE CERTIFICATION Procedures Routine 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) MYASTHENIA GRAVIS ERIS on CPAP Vascular dementia without behavioral disturbance, psychotic disturbance, mood disturbance, or anxiety, unspecified dementia severity (HCC) Cognitive communication deficit Ordered: 08/04/2022 [facility] Work Phone: Comment on above: Ordered: 08/04/2022 Surgical Pathology Surgical Path ology Lab Routine Release Upon Ordering for 1 Occurrences starting 10/16/2019 [place] Comment on above: Release Upon Orderin g for 1 Occurrences starting 10/16/2019 [facility] Immunizations Immunization Date Immunization Notes Care Provider Ulises fong 05-11-2022 SARS-CoV-2 (COVID-19 ) [id number] GELY BLAKE [facility] 03-21-2022 influenza virus vacc ine, unspecified formulation GELY BLAKE [facility] 09-23-2021 SARS-CoV-2 mRNA (buxpyliwxam-pbdo-yidthb e) vaccine GELY BLAKE [facility] 08-27-2021 SARS-CoV-2 (COVID-19 ) mRNA-1273 vaccine Tere Torres Jr. [facility] 03-14-2021 SARS-CoV-2 (COVID-19 ) mRNA BNT-162b2 vax GELY BLAKE [facility] 09-02-2020 SARS-CoV-2 (COVID-19 ) mRNA-1273 vaccine Tere Torres Jr. [facility] 08-05-2020 SARS-CoV-2 (COVID-19 ) mRNA-1273 vaccine Tere Torres Jr. [facility] 07-26-2020 SARS-CoV-2 (COVID-19 ) mRNA BNT-162b2 vax GELY BLAKE [facility] Comment on above: Result Comment: 2022: [id number] 07-04-2020 SARS-CoV-2 (COVID-19 ) mRNA BNT-162b2 vax GELY BLAKE [facility] Comment on above: Result Comment: 2022: [id number] 03-03-2020 influenza virus vacc ine, unspecified formulation GELY BLAKE [facility] 02-27-2020 influenza virus vacc ine, unspecified formulation Tere Torres [facility] 03-08-2017 influenza virus vacc ine, unspecified formulation GELY BLAKE [facility] 03-07-2016 influenza, unspecifi ed formulation GELY BLAKE [facility] 05-10-2013 influenza virus vacc ine, unspecified formulation [facility] 06-29-2012 pneumococcal polysaccharide vaccine, 23 valent [facility] 04-11-2012 influenza virus vacc ine, unspecified formulation [facility] Payers Date Payer Category Payer Medicare [id number] 2017 Private Health Insurance [facility] AARP SUPPLEMENT [id number] 2017-Present [phone] [address] [place] [address] Indemnity [id number] 2017 Private Health Insurance [facility] [facility] A[employer] SUPPLEMENT [id number] 2017-Present [phone] [address] [place] [address] Indemnity [id number] 2016 Medicare MEDICARE MEDICAR E A AND B [id number] 2016-Present [phone] [address] [address] [place] [address] Medicare [id number] 2016 Medicare MEDICARE MEDICAR E A AND B [id number] 2016-Present [phone] [place] [address] Medicare [id number] 1959 Medicare [id number] 1959 Private Health Insurance [facility] [id number] 1959 Self-pay 1950 Unknown [id number] [id number] .175 1951 Unknown [id number] 2.16.840.1.611113.3.579.2 .175 1951 Unknown [id number] 2.16.840.1.997993.3.579.2 .177 1951 Unknown [id number] 2.16.840.1.428024.3.579.2 .593 1951 Unknown [id number] 2.16.840.1.815073.3.579.2 .593 1951 Unknown [id number] 2.16.840.1.364356.3.579.2 .593 1951 Unknown [id number] 2.16.840.1.005675.3.579.2 .593 1951 Unknown [id number] 2.16.840.1.090277.3.579.2 .593 1951 Unknown [id number] 2.16.840.1.939358.3.579.2 .593 1951 Unknown [id number] 2.16.840.1.775021.3.579.2 .593 1951 Unknown [id number] 2.16.840.1.690974.3.579.2 .593 1951 Unknown [id number] 2.16.840.1.022290.3.579.2 .356 1951 Unknown [id number] 2.16.840.1.090136.3.579.2 .356 1951 Unknown [id number] 2.16.840.1.363496.3.579.2 .356 1951 Unknown [id number] 2.16.840.1.043439.3.579.2 .356 1951 Unknown [id number] 2.16.840.1.066927.3.579.2 .1259 1951 Unknown [id number] 2.16.840.1.821925.3.579.2 .727 1951 Unknown [id number] 2.16.840.1.214547.3.579.2 .727 1951 Unknown [id number] 2.16.840.1.464079.3.579.2 .727 1951 Unknown [id number] 2.16.840.1.096798.3.579.2 .727 1951 Unknown [id number] 2.16.840.1.214620.3.579.2 .1244 1951 Unknown [id number] 2.16.840.1.018793.3.579.2 .1244 1950 Unknown [id number] 2.16.840.1.608194.3.579.2 .1244 Medicare [id number] Unknown Unknown [id number] 2.16.840.1.412379.19 Social History Date Type Detail Facility Start: 07-31-2019 End: 04-27-2022 Tobacco smoking status NHIS Former smoker [facility] End: 05-29-1990 History of tobacco use Current smoker [place] End: 05-29-1990 History of tobacco use Cigar [place] Start: 07-31-2019 End: 01-11-2023 Alcohol intake Current drinker of alcohol (finding) [place] Start: 07-17-2019 History SDOH [facility] Start: 07-31-2019 Alcohol Comment Occas beer [facility] Start: 1950 Sex Assigned At Not on file [facility] Exposure to SARS-CoV -2 (event) Unable to assess [facility] Start: 07-26-2019 End: 10-07-2022 Retired Retired [facility] Start: 10-01-2020 Tobacco smoking status Never s moked tobacco (finding) [facility] Tobacco smoking status Never [facility] Start: 07-26-2019 End: 10-07-2022 Sex Assigned At Male [facility]ly [facility] [employer] Other Start: 10-11-2021 End: 04-29-2022 Exposure to SARS-CoV-2 (event) Not sure [facility] Start: 04-04-2012 End: 04-27-2022 Tobacco use and exposure Smokeless tobacco non-user [facility] Medical Equipment Procedure Code Equipment Code Equipment Origin al Text Equipment Identifier Dates Drug [place] Unilet Lancets 28G use to test BLOOD SUGAR DAILY Quantity: 100 Refills: 0 Start : 15-Mar-2016 Active Start: 03-15-2016 True Metrix Bloo d Glucose Test In Vitro Strip use to test BLOOD SUGAR EVERY DAY Quantity: 100 Refills: 0 Start : 31-Mar-2016 Active Start: 03-31-2016 Graft Bn Infs Rgbmp Lg Kt Cspn - [id number] Start: 04-10-2012 Xlz-Ns-H-Kind Implant - [id number] Start: 04-10-2012 Comment on above: Description: taryn scr ew [id number] Michael Taryn 3 Ti - [id number] Start: 04-10-2012 Comment on above: Description: Michael s Rrn-Sq-Z-Kind Implant - [id number] Start: 04-10-2012 Comment on above: Description: taryn scr ew 8.5x50mm Qmt-Ag-T-Kind Implant - [id number] Start: 04-10-2012 Comment on above: Description: Emerson 5.5 x110mm Aie-Zt-P-Kind Implant - [id number] Start: 04-10-2012 Comment on above: Description: Emerson 5.5 x120mm Pff-St-A-Kind Implant - [id number] Start: 04-10-2012 Comment on above: Description: screw 6 .[id number] Skz-Xa-S-Kind Implant - [id number] Start: 04-10-2012 Comment on above: Description: screw 7 .[id number] Tit-Xo-V-Kind Implant - [id number] Start: 04-10-2012 Comment on above: Description: neutral offset Screw Taryn 3 Ti P a 5.5x50 Mm - [id number] Start: 04-10-2012 Functional Status Date Assessment Result Facility 11-15-2022 Functional Status N/A [facility] 09-06-2022 Functional Status N/A [facility] 06-07-2022 Functional Status N/A [facility] NEGATED: Highlighted row Functional performance Functional status health issues are not documented Disease [facility] [place] [address] Work Phone: Mental Status Date Assessment Result Facility NEGATED: Highlighted row Cognitive function [Interpretation] Cognitive status health issues are not documented Disease FI-G[facility]ry[facility]q-[facility] [address] Work Phone: Clinical Notes 06-25-2012 to 01-11-2023 Patient InstructionsViky Carias LPN - 01/11/2023 12:53 PM Chandni Guerrero APRN.CNP - 01/11/2023 12:33 PM EDTTelephone Luis Antonio - Daysi Uribe MD - 12/05/2022 12:13 PM EDT Note Date & Type Note Facility 01-11-2023 Note HNO ID: [id number] Author: Chandni Metzger APRN.PUBLIC INFORMATION SPECIALIST Service: ? Author Type: Nurse Practitioner Type: Progress Notes Filed: 01/17/2023 1:01 PM Note Text: [facility] - Follow-up Visit Date: January 11, 2023 Patient Name: Ron Welch Reason for Visit: follow-up visit Accompanied by: ------- - SUBJECTIVE: HPI/interval history: Patient is a 72 year old male being followed for vascular dementia, possibly mixed AD with history of Myasthenia Gravis and ERIS (on CPAP), HTN, and HLD. MRI brain on 06/17/2022 showed mild to moderate cortical atrophy, with hippocampal volume loss, and significant chronic small vessel ischemic disease. Neuropsychology testing on 06/17/2022 showed deficits in memory, processing speed, executive function and visuospatial difficulties, meeting criteria for dementia. Last seen in September 2022. At that time, patient had been doing well on donepezil, some sundowning and wandering prior to starting cholinesterase inhibitor. 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 Today, they report for a follow up. He is still confused, but no Capgras syndrome. Has not been confused about who people are once donepezil was started. Trying to keep busy this summer with going camping in the [facility]. Driving golf carts in controlled area, did get lost once but it was OK. During the night, if he gets up and goes to the bathroom, he will occasionally get confused and think he is somewhere else but is very easily direct able. Not napping as much throughout the day. Some difficulty occasionally with getting dressed. Having difficulty with remote and phone. Re-started wearing CPAP. Going on cruise in July. ------- - ------- - OBJECTIVE: Current Outpatient Medications on File Prior to Visit Medication Sig azaTHIOprine (IMURAN) 50 mg tablet Take 1 tablet by mouth twice daily. donepezil (ARICEPT) 10 mg tablet Take half a tablet daily in the morning (can be with food) for 4 weeks, if tolerating, can increase to one tablet a day. imipramine HCl (TOFRANIL) 25 mg tablet Take 25 mg by mouth twice daily. (Patient not taking: Reported on 10/07/2022) pyridostigmine (MESTINON) 60 mg tablet Take 1 tablet by mouth three times daily. (Patient taking differently: Take 60 mg by mouth once daily.) ezetimibe (ZETIA) 10 mg tablet Take 1 tablet by mouth once daily. celecoxib (CELEBREX) 200 mg capsule Take 200 mg by mouth twice daily. (Patient not taking: Reported on 04/29/2022) carvedilol (COREG) 6.25 mg tablet Take 12.5 mg by mouth twice daily with meals. latanoprost (XALATAN) 0.005 % ophthalmic solution Use in both eyes daily at bedtime. timolol 0.5 % ophthalmic solution Use 1 Drop in both eyes once daily. lovastatin(MEVACOR 20 MG TAB) Take one(1) tablet daily at bedtime. No current facility-administered medications on file prior to visit. [facility] Past Scores [facility] 04/29/2022 MOCA TOTAL SCORE 18 out of 30 Visuospatial/ Executive 0 Naming 3 Attention 6 Language 2 Abstraction 0 Delayed Recall 0 Orientation 6 Education Level 1 Vital Signs: BP 152/79 Pulse (!) 56 Wt 101.2 kg (223 lb) BMI 35.99 kg/m? General Medical Exam: General: Well-nourished appearing, NAD. Awake, alert. HEENT: Normocephalic/atraumatic. Neurological Exam: Cognition: alert and cooperative Orientation: alert, confused Appearance: well-groomed Eye contact: normal Facial expression: appropriate Psychomotor: normal Speech/Language: unremarkable -can name, repeat with no dysarthria Affect: pleasant Emotional state: calm, cooperative Thought Process: logical Thought Content: delusions: possible? Hallucinations:unsure but possible, denies auditory or visual Judgment: impaired due to lack of insight Insight: poor LABS/DATA: NPT 06/17/2022: IMPRESSIONS/SUMMARY Abnormal cognitive profile with deficits in memory, processing speed, executive functions, and visuospatial abilities. Dementia Unclear/multifactorial etiology: vascular disease, myasthenia gravis, r/o a movement disorder. Ron Welch is a 72-year-old male with a history of myasthenia gravis, sleep apnea (on BiPAP), hypertension, hyperlipidemia, lumbar spondylosis, and steroid-induced diabetes who presents with an approximately 2-year history of cognitive concerns with insidious onset and declining course. Functionally, his has begun to manage iADLs and he occasionally requires assistance with trimming his rosen. He drives, though this is significantly limited. Results of neuropsychological testing revealed an abnormal cognitive profile with deficits in memory, processing speed, executive functions, and visuospatial abilities. Specifically, his memory profil (more content not included)... [facility] 01-11-2023 Instructions Chandni Metzger APRN.[facility] - 01/11/2023 1:38 PM EDT PLAN: -Wear CPAP every night! -Please make sure to incorporate walking or some sort of physical activity on a weekly basis! -Continue to be mindful of any delusions or hallucinations and/or sundowning. Let me know if it is getting worse! -Follow up before your cruise trip in July! Ways to keep your brain healthy: -Stay social. Staying social and connected is extremely important for brain health. Having a rich social network has been shown to provide sources of support as well as reduce stress, combat depression, and enhance intellectual stimulation. Some studies have shown that those with significant social interaction have experienced a slower rate of memory decline. -Stay active. Regular exercise has been shown to be helpful for the brain as well as the body! There is no specific activity in particular (ex. walking, swimming, elliptical machine, cycling, Fermin Chi, etc.). We recommend maintaining your target heart rate for about 30 minutes with aerobic exercise, three or more days per week. Even regular walking is good exercise! Working out with other people may help you stay on track and allow you to maintain being social! -Eat a healthy diet. Poor nutrition may contribute to problems with thinking. Make sure you get a balanced diet with fruits and vegetables, not too much red meat, and some fish (Mediterranean diet has proven to be very effective). Eating meals with others is a great social activity. -Keep your brain active. Brain activity is very important and may help your nerve cell connect with each other better. It also makes for a healthier, happier lifestyle. Some things that can keep your brain active include: Reading Playing cards Brain games or apps such as [employer] Puzzles, word Tianshengmble games Hobbies Listening to music, going to concerts (if able) Going to art museums and galleries -Get good sleep. Sleep is important in forming new memories. We recommend avoiding medicines for sleep due to side effects. If you snore excessively, if your body jerks at night, or if you have what appears to be bad dreams frequently, getting a sleep evaluation may be useful. Some of these problems of sleep can be treated. -Keeping a daily calendar in one place may be helpful, especially having a standard schedule that does not change too much. -Learning something new. Learning something new can help create new neural pathways in your brain. Some examples can be learning a new language, taking up painting, gardening, knitting, etc. documented in this encounter [facility] 01-11-2023 Nurse Note Ron Welch is a 72 year old year old man accompanied by: spouse. Do you have any changes or new concerns you would like to address at the visit today? No new issues or concerns. Vital Signs: BP 152/79 Pulse (!) 56 Wt 101.2 kg (223 lb) BMI 35.99 kg/m documented in this encounter [facility] 01-11-2023 History of Present illness Narrative Images from the original note were not included. [facility] - Follow-up Visit Date: January 11, 2023 Patient Name: Ron Welch Reason for Visit: follow-up visit Accompanied by: -------- SUBJECTIVE: HPI/interval history: Patient is a 72 year old male being followed for vascular dementia, possibly mixed AD with history of Myasthenia Gravis and ERIS (on CPAP), HTN, and HLD. MRI brain on 06/17/2022 showed mild to moderate cortical atrophy, with hippocampal volume loss, and significant chronic small vessel ischemic disease. Neuropsychology testing on 06/17/2022 showed deficits in memory, processing speed, executive function and visuospatial difficulties, meeting criteria for dementia. Last seen in September 2022. At that time, patient had been doing well on donepezil, some sundowning and wandering prior to starting cholinesterase inhibitor. 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 Today, they report for a follow up. He is still confused, but no Capgras syndrome. Has not been confused about who people are once donepezil was started. Trying to keep busy this summer with going camping in the [place]. Driving golf carts in controlled area, did get lost once but it was OK. During the night, if he gets up and goes to the bathroom, he will occasionally get confused and think he is somewhere else but is very easily direct able. Not napping as much throughout the day. Some difficulty occasionally with getting dressed. Having difficulty with remote and phone. Re-started wearing CPAP. Going on cruise in July. -------- -------- OBJECTIVE: Current Outpatient Medications on File Prior to Visit Medication Sig azaTHIOprine (IMURAN) 50 mg tablet Take 1 tablet by mouth twice daily. donepezil (ARICEPT) 10 mg tablet Take half a tablet daily in the morning (can be with food) for 4 weeks, if tolerating, can increase to one tablet a day. imipramine HCl (TOFRANIL) 25 mg tablet Take 25 mg by mouth twice daily. (Patient not taking: Reported on 10/07/2022) pyridostigmine (MESTINON) 60 mg tablet Take 1 tablet by mouth three times daily. (Patient taking differently: Take 60 mg by mouth once daily.) ezetimibe (ZETIA) 10 mg tablet Take 1 tablet by mouth once daily. celecoxib (CELEBREX) 200 mg capsule Take 200 mg by mouth twice daily. (Patient not taking: Reported on 04/29/2022) carvedilol (COREG) 6.25 mg tablet Take 12.5 mg by mouth twice daily with meals. latanoprost (XALATAN) 0.005 % ophthalmic solution Use in both eyes daily at bedtime. timolol 0.5 % ophthalmic solution Use 1 Drop in both eyes once daily. lovastatin(MEVACOR 20 MG TAB) Take one(1) tablet daily at bedtime. No current facility-administered medications on file prior to visit. MoCA Past Scores MoCA 04/29/2022 MOCA TOTAL SCORE 18 out of 30 Visuospatial/ Executive 0 Naming 3 Attention 6 Language 2 Abstraction 0 Delayed Recall 0 Orientation 6 Education Level 1 Vital Signs: BP 152/79 Pulse (!) 56 Wt 101.2 kg (223 lb) BMI 35.99 kg/m General Medical Exam: General: Well-nourished appearing, NAD. Awake, alert. HEENT: Normocephalic/atraumatic. Neurological Exam: Cognition: alert and cooperative Orientation: alert, confused Appearance: well-groomed Eye contact: normal Facial expression: appropriate Psychomotor: normal Speech/Language: unremarkable -can name, repeat with no dysarthria Affect: pleasant Emotional state: calm, cooperative Thought Process: logical Thought Content: delusions: possible? Hallucinations:unsure but possible, denies auditory or visual Judgment: impaired due to lack of insight Insight: poor LABS/DATA: NPT 06/17/2022: IMPRESSIONS/SUMMARY Abnormal cognitive profile with deficits in memory, processing speed, executive functions, and visuospatial abilities. Dementia Unclear/multifactorial etiology: vascular disease, myasthenia gravis, r/o a movement disorder. Ron Welch is a 72-year-old male with a history of myasthenia gravis, sleep apnea (on BiPAP), hypertension, hyperlipidemia, lumbar spondylosis, and steroid-induced diabetes who presents with an approximately 2-year history of cognitive concerns with insidious onset and declining course. Functionally, his has begun to manage iADLs and he occasionally requires assistance with trimming his rosen. He drives, though this is significantly limited. Results of neuropsychological testing revealed an abnormal cognitive profile with deficits in memory, processing speed, executive functions, and visuospatial abilities. Specifically, his memory profile was notable for deficits at the stages of learning and retention with minimal to mild benefit from recognition cues. Processing speed was a consistent weakness. Within executive functions, he was unable to complete tasks of inhibition and divided attention, though everyday problem solving was intact. Visuospatial abilities were also a consistent weakness. Verbal fluencies were low, which was likely related to processing speed/executive functioning demands. Otherwise, language and attention were better preserved. The patient currently meets criteria for dementia. The pattern of his profile is most indicative of frontal-subcortical systems inefficiencies, though this is somewhat complicated by the degree or cognitive impairment. Etiology is unclear. First, his history of movement changes (I.e. wide-based/shuffled gait, imbalance, falls) with cognitive findings, raises concern for a movement disorder. Defer to medical providers to better characterize his movement changes in the context of orthopedic concerns. Second, vascular contributions are also likely based on the severity of white matter disease, vascular risks, and cognitive profile. Myasthenia gravis, sleep apnea, and chronic pain can also be contributory. Finally, another neurodegenerative condition, such as Alzheimer's is less favored based on his language profile but cannot be entirely ruled out, particularly in light of memory concerns and hippocampal volumes. OVERVIEW The graph below shows performance in different areas of cognitive function. The shaded area in the middle represents average range performance for individuals of similar age. Very Superior Superior High Average Average X Low Average X X Moderately Low X X X X X Fluencies Extremely Low X Estimated IQ Learning Recall Recognition Attention Processing Speed Executive Language Visuospatial Memory *see description IMAGING REVIEW: MRI BRAIN 05/2022: IMPRESSION: 1. WHOLE BRAIN VOLUME LOSS WITH TREND TOWARDS ABNORMAL HIPPOCAMPAL VOLUME LOSS, ACCOUNTING FOR SOME SEGMENTATION ERRORS 2. SEVERE NONSPECIFIC WHITE MATTER CHANGE 3. NO CHRONIC MICROHEMORRHAGES QUANTITATIVE: Exam Quality: Adequate for volumetric analysis. Segmentation: Considerable mismapping by visual inspection. Also segmentation for the hippocampi are adequate, there are segmentation errors of the lateral ventricles extending into adjacent periventricular white matter. There are some segmentation air is similarly with cortex into White matter change. Quantitative Data: Total Hippocampal Volume: Percentile for Age: 9 Asymmetry Index: -2.44 Inferior Lateral Vent Volume: Percentile for age: 99 (exaggerated due to segmentation errors) Asymmetry Index: -25.43 Superior Lateral Vent Volume: Percentile for age: 99 (exaggerated due to segmentation errors) Asymmetry Index: 7.18 Temporal Lobe Volume: Temporal Lobe Percentile for Age: 1 Temporal Lobe Asymmetry Percentile: 82 Frontal Lobe Volume: Frontal Lobe Percentile for Age: 38 Frontal Lobe Asymmetry Percentile: 89 Parietal Lobe Volume: Parietal Lobe Percentile for Age: 52 Occipital Lobe Volume: Occipital Lobe Percentile for Age: 28 Whole Brain Volume Brain Percentile for Age: 1 Concordance between qualitative and quantitative hippocampal volume assessment: Concordant Change in brain volumes:No previous volumetric study for comparison Brain Volume Change: N/A Hippocampal Volume Change: N/A Superior Lateral Ventricle Volume Change: N/A Inferior Lateral Ventricle Volume Change: N/A INTERNAL RECORDS: The patient's electronic medical record was reviewed. The relevant details are summarized as above. -------- ASSESSMENT: (F01.B18) 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) (primary encounter diagnosis) (G47.33) ERIS on CPAP PLAN: -Wear CPAP every night! -Please make sure to incorporate walking or some sort of physical activity on a weekly basis! -Continue to be mindful of any delusions or hallucinations and/or sundowning. Let me know if it is getting worse! -Follow up before your cruise trip in July! Ways to keep your brain healthy: -Stay social. Staying social and connected is extremely important for brain health. Having a rich social network has been shown to provide sources of support as well as reduce stress, combat depression, and enhance intellectual stimulation. Some studies have shown that those with significant social interaction have experienced a slower rate of memory decline. -Stay active. Regular exercise has been shown to be helpful for the brain as well as the body! There is no specific activity in particular (ex. walking, swimming, elliptical machine, cycling, Fermin Chi, etc.). We recommend maintaining your target heart rate for about 30 minutes with aerobic exercise, three or more days per week. Even regular walking is good exercise! Working out with other people may help you stay on track and allow you to maintain being social! -Eat a healthy diet. Poor nutrition may contribute to problems with thinking. Make sure you get a balanced diet with fruits and vegetables, not too much red meat, and some fish (Mediterranean diet has proven to be very effective). Eating meals with others is a great social activity. -Keep your brain active. Brain activity is very important and may help your nerve cell connect with each other better. It also makes for a healthier, happier lifestyle. Some things that can keep your brain active include: Reading Playing cards Brain games or apps such as Lumosity Puzzles, word jumble games Hobbies Listening to music, going to concerts (if able) Going to art museums and galleries -Get good sleep. Sleep is important in forming new memories. We recommend avoiding medicines for sleep due to side effects. If you snore excessively, if your body jerks at night, or if you have what appears to be bad dreams frequently, getting a sleep evaluation may be useful. Some of these problems of sleep can be treated. -Keeping a daily calendar in one place may be helpful, especially having a standard schedule that does not change too much. -Learning something new. Learning something new can help create new neural pathways in your brain. Some examples can be learning a new language, taking up painting, gardening, knitting, etc. I spent a total of 30 minutes on the date of the service which included preparing to see the patient, [id number] patient care, obtaining and/or reviewing separately obtained history, and counseling and educating the patient/family/caregiver. -------- Chandni Metzger APRN.[facility], [place], [facility] 01/11/2023 12:33 PM CC: Referring Physician: SELF PCP: Guevara Mackay [address] [place] [id number] Patient Entered Data: Patient-Reported No flowsheet data found. Activities of Daily Living (ADL) No flowsheet data found. PROMIS-10 No flowsheet data found. PHQ-9 PHQ-9 All Questions 07/26/2019 12/11/2017 Little interest or pleasure in doing things 1 0 Feeling down, depressed, or hopeless 0 0 Trouble falling or staying asleep, or sleeping too much 1 1 Feeling tired or having little energy 1 1 Poor appetite or overeating 1 0 Feeling bad about yourself - or that you are a failure or have let yourself or your family down 0 0 Trouble concentrating on things, such as reading the newspaper or watching television 1 1 Moving or speaking so slowly that other people could have noticed. Or the opposite - being so fidgety or restless that you have been moving around a lot more than usual 0 0 Thoughts that you would be better off , or of hurting yourself in some way 0 0 PHQ-9 Score 5 3 (0-4) minimal depression (5-9) mild depression (10-14) moderate depression (15-19) moderately severe depression (20-27) severe depression Full History of PHQ-9 Scores PHQ-9 Score 07/26/2019 5 12/11/2017 3 12/13/2016 4 06/15/2016 8 06/22/2015 4 06/22/2015 4 06/22/2015 4 03/04/2015 4 03/04/2015 4 09/08/2014 2 Sleep No flowsheet data found. No flowsheet data found. Caregiver-Reported No flowsheet data found. Dementia Severity Rating Scale (DSRS) No flowsheet data found. documented in this encounter [facility] 12-05-2022 Miscellaneous Notes The following approved medication requests have been transmitted electronically. Requested Prescriptions Signed Prescriptions Disp Refills azaTHIOprine (IMURAN) 50 mg tablet 180 tablet 3 Sig: Take 1 tablet by mouth twice daily. Authorizing Provider: DAYSI URIBE MD documented in this encounter [facility] 11-15-2022 Hospital Discharge instructions Patient Education 11/15/2022 13:46:22 Erectile Dysfunction Erectile Dysfunction Erectile dysfunction (ED) is the inability to get or keep an erection in order to have sexual intercourse. ED is considered a symptom of an underlying disorder and is not considered a disease. ED may include: Inability to get an erection. Lack of enough hardness of the erection to allow penetration. Loss of erection before sex is finished. What are the causes? This condition may be caused by: Physical causes, such as: ?Artery problems. This may include heart disease, high blood pressure, atherosclerosis, and diabetes. ?Hormonal problems, such as low testosterone. ?Obesity. ?Nerve problems. This may include back or pelvic injuries, multiple sclerosis, Parkinson's disease, spinal cord injury, and stroke. Certain medicines, such as: ?Pain relievers. ?Antidepressants. ?Blood pressure medicines and water pills (diuretics). ?Cancer medicines. ?Antihistamines. ?Muscle relaxants. Lifestyle factors, such as: ?Use of drugs such as marijuana, cocaine, or opioids. ?Excessive use of alcohol. ?Smoking. ?Lack of physical activity or exercise. Psychological causes, such as: ?Anxiety or stress. ?Sadness or depression. ?Exhaustion. ?Fear about sexual performance. ?Guilt. What are the signs or symptoms? Symptoms of this condition include: Inability to get an erection. Lack of enough hardness of the erection to allow penetration. Loss of the erection before sex is finished. Sometimes having normal erections, but with frequent unsatisfactory episodes. Low sexual satisfaction in either partner due to erection problems. A curved penis occurring with erection. The curve may cause pain, or the penis may be too curved to allow for intercourse. Never having nighttime or morning erections. How is this diagnosed? This condition is often diagnosed by: Performing a physical exam to find other diseases or specific problems with the penis. Asking you detailed questions about the problem. Doing tests, such as: ?Blood tests to check for diabetes mellitus or high cholesterol, or to measure hormone levels. ?Other tests to check for underlying health conditions. ?An ultrasound exam to check for scarring. ?A test to check blood flow to the penis. Doing a sleep study at home to measure nighttime erections. How is this treated? This condition may be treated by: Medicines, such as: ?Medicine taken by mouth to help you achieve an erection (oral medicine). ?Hormone replacement therapy to replace low testosterone levels. ?Medicine that is injected into the penis. Your health care provider may instruct you how to give yourself these injections at home. ?Medicine that is delivered with a short applicator tube. The tube is inserted into the opening at the tip of the penis, which is the opening of the urethra. A tiny pellet of medicine is put in the urethra. The pellet dissolves and enhances erectile function. This is also called MUSE (medicated urethral system for erections) therapy. Vacuum pump. This is a pump with a ring on it. The pump and ring are placed on the penis and used to create pressure that helps the penis become erect. Penile implant surgery. In this procedure, you may receive: ?An inflatable implant. This consists of cylinders, a pump, and a reservoir. The cylinders can be inflated with a fluid that helps to create an erection, and they can be deflated after intercourse. ?A semi-rigid implant. This consists of two silicone rubber rods. The rods provide some rigidity. They are also flexible, so the penis can both curve downward in its normal position and become straight for sexual intercourse. Blood vessel surgery to improve blood flow to the penis. During this procedure, a blood vessel from a different part of the body is placed into the penis to allow blood to flow around (bypass) damaged or blocked blood vessels. Lifestyle changes, such as exercising more, losing weight, and quitting smoking. Follow these instructions at home: Medicines Take llyy-pel-hldiivd and prescription medicines only as told by your health care provider. Do not increase the dosage without first discussing it with your health care provider. If you are using self-injections, do injections as directed by your health care provider. Make sure you avoid any veins that are on the surface of the penis. After giving an injection, apply pressure to the injection site for 5 minutes. Talk to your health care provider about how to prevent headaches while taking ED medicines. These medicines may cause a sudden headache due to the increase in blood flow in your body. General instructions Exercise regularly, as directed by your health care provider. Work with your health care provider to lose weight, if needed. Do not use any products that contain nicotine or tobacco. These products include cigarettes, chewing tobacco, and vaping devices, such as e-cigarettes. If you need help quitting, ask your health care provider. Before using a vacuum pump, read the instructions that come with the pump and discuss any questions with your health care provider. Keep all follow-up visits. This is important. Contact a health care provider if: You feel nauseous. You are vomiting. You get sudden headaches while taking ED medicines. You have any concerns about your sexual health. Get help right away if: You are taking oral or injectable medicines and you have an erection that lasts longer than 4 hours. If your health care provider is unavailable, go to the nearest emergency room for evaluation. An erection that lasts much longer than 4 hours can result in permanent damage to your penis. You have severe pain in your groin or abdomen. You develop redness or severe swelling of your penis. You have redness spreading at your groin or lower abdomen. You are unable to urinate. You experience chest pain or a rapid heartbeat (palpitations) after taking oral medicines. These symptoms may represent a serious problem that is an emergency. Do not wait to see if the symptoms will go away. Get medical help right away. Call your local emergency services (911 in the [place] Do not drive yourself to the hospital. Summary Erectile dysfunction (ED) is the inability to get or keep an erection during sexual intercourse. This condition is diagnosed based on a physical exam, your symptoms, and tests to determine the cause. Treatment varies depending on the cause and may include medicines, hormone therapy, surgery, or a vacuum pump. You may need follow-up visits to make sure that you are using your medicines or devices correctly. Get help right away if you are taking or injecting medicines and you have an erection that lasts longer than 4 hours. This information is not intended to replace advice given to you by your health care provider. Make sure you discuss any questions you have with your health care provider. Document Revised: 08/11/2021 Document Reviewed: 08/11/2021 [employer] Patient Education 2022 [employer]. Follow Up Care 09/06/2022 13:43:11 With:REEMA CRUM, GELY Ch, URL Address: [address] [place] [address] Business (1) When: only if needed [facility] [employer] 10-07-2022 Note HNO ID: [id number] Author: Chandni Metzger APRN.PUBLIC INFORMATION SPECIALIST Service: ? Author Type: Nurse Practitioner Type: Progress Notes Filed: 10/13/2022 12:33 PM Note Text: [facility] - Follow-up Visit Date: October 07, 2022 Patient Name: Ron Welch Reason for Visit: follow-up visit Accompanied by: (Hyacinth) ------- - SUBJECTIVE: HPI/interval history: Patient is a 72 year old male being followed for vascular dementia, possibly mixed AD with history of Myasthenia Gravis and ERIS (on CPAP), HTN, and HLD. MRI brain on 06/17/2022 showed mild to moderate cortical atrophy, with hippocampal volume loss, and significant chronic small vessel ischemic disease. Neuropsychology testing on 06/17/2022 showed deficits in memory, processing speed, executive function and visuospatial difficulties, meeting criteria for dementia. Last seen by Dr. Lamas in June 2022, at that time, it was recommended he abstain from driving, family oversee medications and finances, cognitive therapy, social work consult and potential CSF analysis. It was also recommended that patient potentially start cholinesterase inhibitor (already on pyridostigmine)-follow up with Neuromuscular. Today, patient reports for a follow up. Doing well on donepezil. Some sundowning and wandering prior to starting donepezil. Had a difficult time noticing , had to show him wedding pictures. Asking to go home when he is home. Sometimes having conversation with someone that is not there, typically reminiscing about what she and his do during the day. Spouse gets his clothes ready (he put 's blouse on). He is rarely left alone (half hour at most). Sleeping about 8-10 hours per night. Wearing CPAP, but will take it off in the middle of the night. Occasionally will sleep in chair during the daytime. ------- - ------- - OBJECTIVE: Current Outpatient Medications on File Prior to Visit Medication Sig donepezil (ARICEPT) 10 mg tablet Take half a tablet daily in the morning (can be with food) for 4 weeks, if tolerating, can increase to one tablet a day. imipramine HCl (TOFRANIL) 25 mg tablet Take 25 mg by mouth twice daily. pyridostigmine (MESTINON) 60 mg tablet Take 1 tablet by mouth three times daily. (Patient taking differently: Take 60 mg by mouth once daily.) azaTHIOprine (IMURAN) 50 mg tablet Take 1 tablet by mouth twice daily. ezetimibe (ZETIA) 10 mg tablet Take 1 tablet by mouth once daily. celecoxib (CELEBREX) 200 mg capsule Take 200 mg by mouth twice daily. (Patient not taking: Reported on 04/29/2022) carvedilol (COREG) 6.25 mg tablet Take 12.5 mg by mouth twice daily with meals. latanoprost (XALATAN) 0.005 % ophthalmic solution Use in both eyes daily at bedtime. timolol 0.5 % ophthalmic solution Use 1 Drop in both eyes once daily. lovastatin(MEVACOR 20 MG TAB) Take one(1) tablet daily at bedtime. No current facility-administered medications on file prior to visit. [facility] Past Scores [facility] 04/29/2022 MOCA TOTAL SCORE 18 out of 30 Visuospatial/ Executive 0 Naming 3 Attention 6 Language 2 Abstraction 0 Delayed Recall 0 Orientation 6 Education Level 1 Vital Signs: BP 168/94 Pulse (!) 53 Wt 100.7 kg (222 lb) BMI 35.83 kg/m? General Medical Exam: General: Well-nourished appearing, NAD. Awake, alert. Neurological Exam: Cognition: alert and cooperative Orientation: alert, oriented to person and place, 2019 Appearance: well-groomed Eye contact: normal, wearing corrective Facial expression: appropriate Psychomotor: normal Speech/Language: unremarkable -can name, repeat with no dysarthria Affect: pleasant Emotional state: calm, cooperative Thought Process: logical Thought Content: delusions-possible Hallucinations: possible? Judgment: impaired due to lack of insight Insight: poor LABS/DATA: NPT 06/17/2022: IMPRESSIONS/SUMMARY Abnormal cognitive profile with deficits in memory, processing speed, executive functions, and visuospatial abilities. Dementia Unclear/multifactorial etiology: vascular disease, myasthenia gravis, r/o a movement disorder. Ron Welch is a 72-year-old male with a history of myasthenia gravis, sleep apnea (on BiPAP), hypertension, hyperlipidemia, lumbar spondylosis, and steroid-induced diabetes who presents with an approximately 2-year history of cognitive concerns with insidious onset and declining course. Functionally, his has begun to manage iADLs and he occasionally requires assistance with trimming his rosen. He drives, though this is significantly limited. Results of neuropsychological testing revealed an abnormal cognitive profile with deficits in memory, processing spe (more content not included)... [facility] 10-07-2022 Instructions Chandni Metzger APRN.[facility] - 10/07/2022 1:55 PM EDT PLAN: -Try to limit naps after 3 PM! -Sent prescription for donepezil for 90 days with refills! -Increase physical exercise! This is so good for you! -Keep an eye on the wandering, let me know if this is becoming an issue! -Also--keep an eye on the delusions/hallucinations/ and behavior. If it seems to be worsening or seems distressing, please let me know!! -Follow up with me in the fall! Ways to keep your brain healthy: -Stay social. Staying social and connected is extremely important for brain health. Having a rich social network has been shown to provide sources of support as well as reduce stress, combat depression, and enhance intellectual stimulation. Some studies have shown that those with significant social interaction have experienced a slower rate of memory decline. -Stay active. Regular exercise has been shown to be helpful for the brain as well as the body! There is no specific activity in particular (ex. walking, swimming, elliptical machine, cycling, Fermin Chi, etc.). We recommend maintaining your target heart rate for about 30 minutes with aerobic exercise, three or more days per week. Even regular walking is good exercise! Working out with other people may help you stay on track and allow you to maintain being social! -Eat a healthy diet. Poor nutrition may contribute to problems with thinking. Make sure you get a balanced diet with fruits and vegetables, not too much red meat, and some fish (Mediterranean diet has proven to be very effective). Eating meals with others is a great social activity. -Keep your brain active. Brain activity is very important and may help your nerve cell connect with each other better. It also makes for a healthier, happier lifestyle. Some things that can keep your brain active include: Reading Playing cards Brain games or apps such as Lumosity Puzzles, word jumble games Hobbies Listening to music, going to concerts (if able) Going to art museums and galleries -Get good sleep. Sleep is important in forming new memories. We recommend avoiding medicines for sleep due to side effects. If you snore excessively, if your body jerks at night, or if you have what appears to be bad dreams frequently, getting a sleep evaluation may be useful. Some of these problems of sleep can be treated. -Keeping a daily calendar in one place may be helpful, especially having a standard schedule that does not change too much. -Learning something new. Learning something new can help create new neural pathways in your brain. Some examples can be learning a new language, taking up painting, gardening, knitting, etc. documented in this encounter [facility] 10-07-2022 Nurse Note Ron Welch is a 72 year old year old man accompanied by: spouse. Do you have any changes or new concerns you would like to address at the visit today? I think he has gotten a little worse, not remembering our house, or that we are . Vital Signs: BP 168/94 Pulse (!) 53 Wt 100.7 kg (222 lb) BMI 35.83 kg/m documented in this encounter [facility] 10-07-2022 History of Present illness Narrative Images from the original note were not included. [facility] - Follow-up Visit Date: October 07, 2022 Patient Name: Ron Welch Reason for Visit: follow-up visit Accompanied by: (Hyacinth) -------- SUBJECTIVE: HPI/interval history: Patient is a 72 year old male being followed for vascular dementia, possibly mixed AD with history of Myasthenia Gravis and ERIS (on CPAP), HTN, and HLD. MRI brain on 06/17/2022 showed mild to moderate cortical atrophy, with hippocampal volume loss, and significant chronic small vessel ischemic disease. Neuropsychology testing on 06/17/2022 showed deficits in memory, processing speed, executive function and visuospatial difficulties, meeting criteria for dementia. Last seen by Dr. Lamas in June 2022, at that time, it was recommended he abstain from driving, family oversee medications and finances, cognitive therapy, social work consult and potential CSF analysis. It was also recommended that patient potentially start cholinesterase inhibitor (already on pyridostigmine)-follow up with Neuromuscular. Today, patient reports for a follow up. Doing well on donepezil. Some sundowning and wandering prior to starting donepezil. Had a difficult time noticing , had to show him wedding pictures. Asking to go home when he is home. Sometimes having conversation with someone that is not there, typically reminiscing about what she and his do during the day. Spouse gets his clothes ready (he put 's blouse on). He is rarely left alone (half hour at most). Sleeping about 8-10 hours per night. Wearing CPAP, but will take it off in the middle of the night. Occasionally will sleep in chair during the daytime. -------- -------- OBJECTIVE: Current Outpatient Medications on File Prior to Visit Medication Sig donepezil (ARICEPT) 10 mg tablet Take half a tablet daily in the morning (can be with food) for 4 weeks, if tolerating, can increase to one tablet a day. imipramine HCl (TOFRANIL) 25 mg tablet Take 25 mg by mouth twice daily. pyridostigmine (MESTINON) 60 mg tablet Take 1 tablet by mouth three times daily. (Patient taking differently: Take 60 mg by mouth once daily.) azaTHIOprine (IMURAN) 50 mg tablet Take 1 tablet by mouth twice daily. ezetimibe (ZETIA) 10 mg tablet Take 1 tablet by mouth once daily. celecoxib (CELEBREX) 200 mg capsule Take 200 mg by mouth twice daily. (Patient not taking: Reported on 04/29/2022) carvedilol (COREG) 6.25 mg tablet Take 12.5 mg by mouth twice daily with meals. latanoprost (XALATAN) 0.005 % ophthalmic solution Use in both eyes daily at bedtime. timolol 0.5 % ophthalmic solution Use 1 Drop in both eyes once daily. lovastatin(MEVACOR 20 MG TAB) Take one(1) tablet daily at bedtime. No current facility-administered medications on file prior to visit. MoCA Past Scores MoCA 04/29/2022 MOCA TOTAL SCORE 18 out of 30 Visuospatial/ Executive 0 Naming 3 Attention 6 Language 2 Abstraction 0 Delayed Recall 0 Orientation 6 Education Level 1 Vital Signs: BP 168/94 Pulse (!) 53 Wt 100.7 kg (222 lb) BMI 35.83 kg/m General Medical Exam: General: Well-nourished appearing, NAD. Awake, alert. Neurological Exam: Cognition: alert and cooperative Orientation: alert, oriented to person and place, 2019 Appearance: well-groomed Eye contact: normal, wearing corrective Facial expression: appropriate Psychomotor: normal Speech/Language: unremarkable -can name, repeat with no dysarthria Affect: pleasant Emotional state: calm, cooperative Thought Process: logical Thought Content: delusions-possible Hallucinations: possible? Judgment: impaired due to lack of insight Insight: poor LABS/DATA: NPT 06/17/2022: IMPRESSIONS/SUMMARY Abnormal cognitive profile with deficits in memory, processing speed, executive functions, and visuospatial abilities. Dementia Unclear/multifactorial etiology: vascular disease, myasthenia gravis, r/o a movement disorder. Ron Welch is a 72-year-old male with a history of myasthenia gravis, sleep apnea (on BiPAP), hypertension, hyperlipidemia, lumbar spondylosis, and steroid-induced diabetes who presents with an approximately 2-year history of cognitive concerns with insidious onset and declining course. Functionally, his has begun to manage iADLs and he occasionally requires assistance with trimming his rosen. He drives, though this is significantly limited. Results of neuropsychological testing revealed an abnormal cognitive profile with deficits in memory, processing speed, executive functions, and visuospatial abilities. Specifically, his memory profile was notable for deficits at the stages of learning and retention with minimal to mild benefit from recognition cues. Processing speed was a consistent weakness. Within executive functions, he was unable to complete tasks of inhibition and divided attention, though everyday problem solving was intact. Visuospatial abilities were also a consistent weakness. Verbal fluencies were low, which was likely related to processing speed/executive functioning demands. Otherwise, language and attention were better preserved. The patient currently meets criteria for dementia. The pattern of his profile is most indicative of frontal-subcortical systems inefficiencies, though this is somewhat complicated by the degree or cognitive impairment. Etiology is unclear. First, his history of movement changes (I.e. wide-based/shuffled gait, imbalance, falls) with cognitive findings, raises concern for a movement disorder. Defer to medical providers to better characterize his movement changes in the context of orthopedic concerns. Second, vascular contributions are also likely based on the severity of white matter disease, vascular risks, and cognitive profile. Myasthenia gravis, sleep apnea, and chronic pain can also be contributory. Finally, another neurodegenerative condition, such as Alzheimer's is less favored based on his language profile but cannot be entirely ruled out, particularly in light of memory concerns and hippocampal volumes. OVERVIEW The graph below shows performance in different areas of cognitive function. The shaded area in the middle represents average range performance for individuals of similar age. Very Superior Superior High Average Average X Low Average X X Moderately Low X X X X X Fluencies Extremely Low X Estimated IQ Learning Recall Recognition Attention Processing Speed Executive Language Visuospatial Memory *see description IMAGING REVIEW: MRI BRAIN 05/2022: IMPRESSION: 1. WHOLE BRAIN VOLUME LOSS WITH TREND TOWARDS ABNORMAL HIPPOCAMPAL VOLUME LOSS, ACCOUNTING FOR SOME SEGMENTATION ERRORS 2. SEVERE NONSPECIFIC WHITE MATTER CHANGE 3. NO CHRONIC MICROHEMORRHAGES QUANTITATIVE: Exam Quality: Adequate for volumetric analysis. Segmentation: Considerable mismapping by visual inspection. Also segmentation for the hippocampi are adequate, there are segmentation errors of the lateral ventricles extending into adjacent periventricular white matter. There are some segmentation air is similarly with cortex into White matter change. Quantitative Data: Total Hippocampal Volume: Percentile for Age: 9 Asymmetry Index: -2.44 Inferior Lateral Vent Volume: Percentile for age: 99 (exaggerated due to segmentation errors) Asymmetry Index: -25.43 Superior Lateral Vent Volume: Percentile for age: 99 (exaggerated due to segmentation errors) Asymmetry Index: 7.18 Temporal Lobe Volume: Temporal Lobe Percentile for Age: 1 Temporal Lobe Asymmetry Percentile: 82 Frontal Lobe Volume: Frontal Lobe Percentile for Age: 38 Frontal Lobe Asymmetry Percentile: 89 Parietal Lobe Volume: Parietal Lobe Percentile for Age: 52 Occipital Lobe Volume: Occipital Lobe Percentile for Age: 28 Whole Brain Volume Brain Percentile for Age: 1 Concordance between qualitative and quantitative hippocampal volume assessment: Concordant Change in brain volumes:No previous volumetric study for comparison Brain Volume Change: N/A Hippocampal Volume Change: N/A Superior Lateral Ventricle Volume Change: N/A Inferior Lateral Ventricle Volume Change: N/A INTERNAL RECORDS: The patient's electronic medical record was reviewed. The relevant details are summarized as above. 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 Seemed to improve with donepezil. --improvement seen with donepezil in regards to confusion, wandering, sundowning --follow up in three months can be virtual PLAN: -Try to limit naps after 3 PM! -Sent prescription for donepezil for 90 days with refills! -Increase physical exercise! This is so good for you! -Keep an eye on the wandering, let me know if this is becoming an issue! -Also--keep an eye on the delusions/hallucinations/ and behavior. If it seems to be worsening or seems distressing, please let me know!! -Follow up with me in the fall! Ways to keep your brain healthy: -Stay social. Staying social and connected is extremely important for brain health. Having a rich social network has been shown to provide sources of support as well as reduce stress, combat depression, and enhance intellectual stimulation. Some studies have shown that those with significant social interaction have experienced a slower rate of memory decline. -Stay active. Regular exercise has been shown to be helpful for the brain as well as the body! There is no specific activity in particular (ex. walking, swimming, elliptical machine, cycling, Fermin Chi, etc.). We recommend maintaining your target heart rate for about 30 minutes with aerobic exercise, three or more days per week. Even regular walking is good exercise! Working out with other people may help you stay on track and allow you to maintain being social! -Eat a healthy diet. Poor nutrition may contribute to problems with thinking. Make sure you get a balanced diet with fruits and vegetables, not too much red meat, and some fish (Mediterranean diet has proven to be very effective). Eating meals with others is a great social activity. -Keep your brain active. Brain activity is very important and may help your nerve cell connect with each other better. It also makes for a healthier, happier lifestyle. Some things that can keep your brain active include: Reading Playing cards Brain games or apps such as [employer] Puzzles, word Tianshengmble games Hobbies Listening to music, going to concerts (if able) Going to art museums and galleries -Get good sleep. Sleep is important in forming new memories. We recommend avoiding medicines for sleep due to side effects. If you snore excessively, if your body jerks at night, or if you have what appears to be bad dreams frequently, getting a sleep evaluation may be useful. Some of these problems of sleep can be treated. -Keeping a daily calendar in one place may be helpful, especially having a standard schedule that does not change too much. -Learning something new. Learning something new can help create new neural pathways in your brain. Some examples can be learning a new language, taking up painting, gardening, knitting, etc. I spent a total of 30 minutes on the date of the service which included preparing to see the patient, [id number] patient care, obtaining and/or reviewing separately obtained history, counseling and educating the patient/family/caregiver, and communicating results to the patient/family/caregiver. -------- Chandni Metzger APRN.[facility] 10/07/2022 1:15 PM CC: Referring Physician: Chandni Metzger [address] [facility] [id number] PCP: Guevara Mackay [address] [place] [address] Patient Entered Data: Patient-Reported No flowsheet data found. Activities of Daily Living (ADL) No flowsheet data found. PROMIS-10 No flowsheet data found. PHQ-9 PHQ-9 All Questions 07/26/2019 12/11/2017 Little interest or pleasure in doing things 1 0 Feeling down, depressed, or hopeless 0 0 Trouble falling or staying asleep, or sleeping too much 1 1 Feeling tired or having little energy 1 1 Poor appetite or overeating 1 0 Feeling bad about yourself - or that you are a failure or have let yourself or your family down 0 0 Trouble concentrating on things, such as reading the newspaper or watching television 1 1 Moving or speaking so slowly that other people could have noticed. Or the opposite - being so fidgety or restless that you have been moving around a lot more than usual 0 0 Thoughts that you would be better off , or of hurting yourself in some way 0 0 PHQ-9 Score 5 3 (0-4) minimal depression (5-9) mild depression (10-14) moderate depression (15-19) moderately severe depression (20-27) severe depression Full History of PHQ-9 Scores PHQ-9 Score 07/26/2019 5 12/11/2017 3 12/13/2016 4 06/15/2016 8 06/22/2015 4 06/22/2015 4 06/22/2015 4 03/04/2015 4 03/04/2015 4 09/08/2014 2 Sleep No flowsheet data found. No flowsheet data found. Caregiver-Reported No flowsheet data found. Dementia Severity Rating Scale (DSRS) No flowsheet data found. documented in this encounter [facility] 09-06-2022 Hospital Discharge instructions Patient Education 09/06/2022 13:06:12 Urinary Incontinence Urinary Incontinence Urinary incontinence refers to a condition in which a person is unable to control where and when to pass urine. A person with this condition will urinate when he or she does not mean to (involuntarily). What are the causes? This condition may be caused by: Medicines. Infections. Constipation. Overactive bladder muscles. Weak bladder muscles. Weak pelvic floor muscles. These muscles provide support for the bladder, intestine, and, in women, the uterus. Enlarged prostate in men. The prostate is a gland near the bladder. When it gets too big, it can pinch the urethra. With the urethra blocked, the bladder can weaken and lose the ability to empty properly. Surgery. Emotional factors, such as anxiety, stress, or post-traumatic stress disorder (PTSD). Pelvic organ prolapse. This happens in women when organs shift out of place and into the vagina. This shift can prevent the bladder and urethra from working properly. What increases the risk? The following factors may make you more likely to develop this condition: Older age. Obesity and physical inactivity. and childbirth. Menopause. Diseases that affect the nerves or spinal cord (neurological diseases). Long-term (chronic) coughing. This can increase pressure on the bladder and pelvic floor muscles. What are the signs or symptoms? Symptoms may vary depending on the type of urinary incontinence you have. They include: A sudden urge to urinate, but passing urine involuntarily before you can get to a bathroom (urge incontinence). Suddenly passing urine with any activity that forces urine to pass, such as coughing, laughing, exercise, or sneezing (stress incontinence). Needing to urinate often, but urinating only a small amount, or constantly dribbling urine (overflow incontinence). Urinating because you cannot get to the bathroom in time due to a physical disability, such as arthritis or injury, or communication and thinking problems, such as Alzheimer disease (functional incontinence). How is this diagnosed? This condition may be diagnosed based on: Your medical history. A physical exam. Tests, such as: ?Urine tests. ?X-rays of your kidney and bladder. ?Ultrasound. ?CT scan. ?Cystoscopy. In this procedure, a health care provider inserts a tube with a light and camera (cystoscope) through the urethra and into the bladder in order to check for problems. ?Urodynamic testing. These tests assess how well the bladder, urethra, and sphincter can store and release urine. There are different types of urodynamic tests, and they vary depending on what the test is measuring. To help diagnose your condition, your health care provider may recommend that you keep a log of when you urinate and how much you urinate. How is this treated? Treatment for this condition depends on the type of incontinence that you have and its cause. Treatment may include: Lifestyle changes, such as: ?Quitting smoking. ?Maintaining a healthy weight. ?Staying active. Try to get 150 minutes of moderate-intensity exercise every week. Ask your health care provider which activities are safe for you. ?Eating a healthy diet. ?Avoid high-fat foods, like fried foods. ?Avoid refined carbohydrates like white bread and white rice. ?Limit how much alcohol and caffeine you drink. ?Increase your fiber intake. Foods such as fresh fruits, vegetables, beans, and whole grains are healthy sources of fiber. Pelvic floor muscle exercises. Bladder training, such as lengthening the amount of time between bathroom breaks, or using the bathroom at regular intervals. Using techniques to suppress bladder urges. This can include distraction techniques or controlled breathing exercises. Medicines to relax the bladder muscles and prevent bladder spasms. Medicines to help slow or prevent the growth of a man's prostate. Botox injections. These can help relax the bladder muscles. Using pulses of electricity to help change bladder reflexes (electrical nerve stimulation). For women, using a medical laboratory technician to prevent urine leaks. This is a small, tampon-like, disposable device that is inserted into the urethra. Injecting collagen or carbon beads (bulking agents) into the urinary sphincter. These can help thicken tissue and close the bladder opening. Surgery. Follow these instructions at home: Lifestyle Limit alcohol and caffeine. These can fill your bladder quickly and irritate it. Keep yourself clean to help prevent odors and skin damage. Ask your doctor about special skin creams and cleansers that can protect the skin from urine. Consider wearing pads or adult diapers. Make sure to change them regularly, and always change them right after experiencing incontinence. General instructions Take [id number]-ehhsevc and prescription medicines only as told by your health care provider. Use the bathroom about every 3 4 hours, even if you do not feel the need to urinate. Try to empty your bladder completely every time. After urinating, wait a minute. Then try to urinate again. Make sure you are in a relaxed position while urinating. If your incontinence is caused by nerve problems, keep a log of the medicines you take and the times you go to the bathroom. Keep all follow-up visits as told by your health care provider. This is important. Contact a health care provider if: You have pain that gets worse. Your incontinence gets worse. Get help right away if: You have a fever or chills. You are unable to urinate. You have redness in your groin area or down your legs. Summary Urinary incontinence refers to a condition in which a person is unable to control where and when to pass urine. This condition may be caused by medicines, infection, weak bladder muscles, weak pelvic floor muscles, enlargement of the prostate (in men), or surgery. The following factors increase your risk for developing this condition: older age, obesity, and childbirth, menopause, neurological diseases, and chronic coughing. There are several types of urinary incontinence. They include urge incontinence, stress incontinence, overflow incontinence, and functional incontinence. This condition is usually treated first with lifestyle and behavioral changes, such as quitting smoking, eating a healthier diet, and doing regular pelvic floor exercises. Other treatment options include medicines, bulking agents, medical devices, electrical nerve stimulation, or surgery. This information is not intended to replace advice given to you by your health care provider. Make sure you discuss any questions you have with your health care provider. Document Released: 06/22/2005 Document Revised: 05/25/2018 Document Reviewed: 08/24/2017 [employer] Patient Education 2020 [employer]. Follow Up Care 06/07/2022 10:48:01 With:GELY BLAKE PA-C, URL Address: [address] [place] [address] When: Unknown [facility] 08-04-2022 Note HNO ID: [id number] Author: Lauren Lamas MD Service: ? Author Type: Physician Type: Progress Notes Filed: 08/04/2022 2:25 PM Note Text: Patient's informed us that his neurologist treating his myasthenia gravis is fine with him starting aricept. Will start with 5 mg daily in the morning for 4 weeks, if tolerating then 10 mg daily. Will have our nursing staff communicate and discuss with patient's about medication side effects first, which include but not limited to GI problem, nocturnal leg cramps, nightmares, can potentially affect heart rhythm, and they need to let us know if his heart rate is below 50 This might also help with his confusion, or even wandering. He is to return to see our [facility] as planned. [facility] 08-04-2022 Note HNO ID: [id number] Author: Love Toure CCC-POLLS OR SURVEYS INTERVIEWER Service: ? Author Type: Speech Language Pathologist Type: Progress Notes Filed: 08/04/2022 3:38 PM Note Text: Episode Visit Count: 1 Therapist That Will Accept/Oversee The Plan Of Care: Love Toure MA CCC-POLLS OR SURVEYS INTERVIEWER Start of Care Date: 08/04/22 Onset Date: 07/08/22 Plan of Care Certification Date: 08/04/22 Next Certification Due Date: 08/04/22 Patient Identified by Name and Date of : Yes [facility] COGNITIVE LINGUISTIC EVALUATION PLAN OF CARE: Impression: Communication deficits identified: Cognitive deficits RECOMMENDATION: 1.) Outpatient speech therapy recommended for cognitive-linguistic re-education. Patient plans to receive services closer to home. 2.) Initiate home exercise program: -implement external memory strategies, such as: use of sticky notes, calendar/project planner, timer/alarm, etc. To facilitate improved recall of functional information -implement internal memory strategies, such as: association, visualization, and active repetition /spaced retrieval -implement expressive language skills, such as: trying to describe a word or identify a synonym/antonym of a target word when having difficulties retrieving the word you want to use -daily cognitive-linguistic stimulation tasks, such as reading, crossword puzzles, word searches, or cognitive tasks/exercises on your phone/computer, such as Lumosity, Elevate, and Brain HQ. -create a memory book to review important information, such as address, important dates, friends/family, etc. -review and discuss pictures from important events for reminiscing Results and Recommendations Discussed With: Significant Other, Patient Goals for Episode of Care: created on 08/04/2022 through 08/04/22 COGNITIVE GOALS 1.) Patient and caregiver will demonstrate understanding of recommendations related to treatment/plan of care, compensatory strategies, and home programming in 95% of opportunities. GOAL MET. Planned Interventions, Frequency, and Duration: Current Frequency: Discontinue Therapy Services Patient demonstrates good understanding of plan of care and treatment. The above goals and plan of care were discussed and agreed upon by patient/family. SUBJECTIVE: Ron Welch is a 72 year old male seen today for a diagnostic. He was referred by Dr. Lamas for a cognitive-linguistic evaluation. Pertinent medical diagnoses include: antibody positive Myasthenia Gravis, ERIS on BiPap, HTN, HLD. Neuropsychological testing completed 06/17/22, which revealed: abnormal cognitive profile with deficits in memory, processing speed, executive function, and visuospatial abilities . Brain MRI done on 06/17/22, which revealed: whole brain volume loss with trend towards abnormal hippocampal volume loss, accounting for some segmentation errors; severe nonspecific white matter change; no chronic or microhemorrhages . He is accompanied to visit by his spouse. They both report progressive memory difficulties. He will think that their house belongs to someone else and will sometimes forget that he retired. He did not remember much from his wedding, but was able to jog his memory some by looking at old pictures. . OBJECTIVE MEASURES WITH LEVEL OF FUNCTION: Portions of the following standardized testing were utilized in the evaluation of the patient: Clinician directed non-standardized probes along with portions of standardized assessments were utilized to assess patient. . Speech/Voice/Language Expressive and Receptive Language: Within Functional Limits Except Verbal Expression Deficits: Verbal Expression Deficit Comments Verbal Expression Deficit Comments: Patient presents with anomia at the conversational level, characterized by delayed and failed word selection. COGNITIVE-LINGUISTIC SKILLS Cognition Cognitive Status: Within Functional Limits For Current Session Except Cognitive Deficits: Attention Deficit, Memory Deficits, Executive Function Deficit, Orientation Deficits Orientation Deficits: Time Attention Deficit: Alternating, Divided, Selective, Sustained Memory Deficits: Functional, Short Term, Immediate, Correction Executive Function Deficits: Math Calculations, Time/Money Management, Divergent Naming, Problem Solving (Insight) Cognitive Clinical Tests and Screens: SLUMS SLUMS Level of Education: High school Orientation (week): 0 Orientation (year): 1 Orientation (state): 1 Calculations: 0 Namin Short-Term Memory: 1 Attention/Sequencin Visual-Spatial Skills (clock): 0 Visual-Spatial Skills: 2 Attention/Memory: 2 SLUMS Total Score ( /30): 9 Patient completed the Multifactorial Memory Questionnaire a self report tool to measure patient complaints and benchmark progress as a result of therapy. Scale Raw Score T-Score Interpretation Memory Mistakes 38 40 Average Use of Strateges 37 50 Average *There i (more content not included)... [facility] 08-04-2022 Note HNO ID: [id number] Author: YONATAN Frances Service: ? Author Type: Insole Coverer Type: Progress Notes Filed: 08/04/2022 2:05 PM Note Text: SOCIAL WORK NOTE Ron Welch [address] [place] [id number] INFORMATION/REFERRAL: Referral Source: Lauren Lamas MD Pt information: Ron Welch is a 72 year old year old male referred to [facility] for the following reason(s): community services/resources Pt present for appointment: Yes Additional Participants: Hyacinth Functional Status: With overall regard to patient functioning, Difficulty with IADL's, independant with ADL's. Living Situation AND Setting: pt and spouse reside in single level with basement. [place], but decided to downsize 6 years ago. Safety Assessment: Is the patient driving? NO Driving Concerns: N/A Is the patient taking medications as prescribed? YES Is the patient left alone? NO Aware of 911: Yes Medical Alert System: No Are there concerns about safety in the home? NO Has the patient gotten lost in familiar places or wandered? NO Are firearms present in the home? NO. If yes, how are they stored? N/A Has the patient experienced unsteadiness or sustained falls? NO Falls: negative EMPLOYMENT/FINANCIAL/INSURANCE: DPOA health: Yes DPOA finance: Yes Guardian: No Is patient a ?: No LTC Policy: No Agencies involved: PROBLEMS/NEEDS IDENTIFIED: Continue to assess/collaborate Education Information Long-term care plan DISCUSSION: Initial SW assessment to discuss resources and offer support. Spouse reported she feels pt has declined in recent weeks. He does not believe their house is their own, he asks to go home frequently and will get dressed and attempt to leave for work. Discussed communication and sundowning at length. INTERVENTION/PLAN: -Discussed PICK UP WORKER supportive role/availability as member of [facility] care team. -Supportive counseling offered to address caregiver stress, adjustment to caregiver role, caregiver guilt. Discussed the process of identifying a new normal since dementia diagnosis. -Encouraged family to utilize the services offered by The Alzheimer's Association, which is an organization that provides education and support to individuals/caregivers affected by Alzheimer's disease and all forms of dementia. -Discussed potential benefits available through the VA. Provided information for local veterans commission who can assist. For assistance navigating local resources such as entry rep care/caregiver support contact The [place] Office on Aging. -Private Duty Home Health Agencies can provide supportive services. These services may include companionship, assistance with meals, medication management, water quality analyst, transportation and personal care if needed. Services are typically an out of pocket expense. Some long-term care policies or VA benefits may offer reimbursement for services. Local resources provided. [facility] can assist with meals, transportation, home maintenance and activities. Tel: -Obtained copy of pt's healthcare advance directives, Will be faxed to HIM to add to EMR. IMPRESSION: Pleasant 72 year old year old patient. Pt and family appear able and motivated to follow up on recommendations as discussed. PICK UP WORKER will remain available to address any questions/concerns. Contact information was provided. I spent a total of 40 minutes with the patient. Social work assessment/interventions rendered under the supervision of Dr. Hyacinth Bernal. YONATAN Frances [facility] 08-04-2022 History of Present illness Narrative Patient's informed us that his neurologist treating his myasthenia gravis is fine with him starting aricept. Will start with 5 mg daily in the morning for 4 weeks, if tolerating then 10 mg daily. Will have our nursing staff communicate and discuss with patient's about medication side effects first, which include but not limited to GI problem, nocturnal leg cramps, nightmares, can potentially affect heart rhythm, and they need to let us know if his heart rate is below 50 This might also help with his confusion, or even wandering. He is to return to see our [facility] MARYANN as planned. documented in this encounter [facility] 08-04-2022 History of Present illness Narrative Episode Visit Count: 1 Therapist That Will Accept/Oversee The Plan Of Care: Love Toure MA CCC-POLLS OR SURVEYS INTERVIEWER Start of Care Date: 08/04/22 Onset Date: 07/08/22 Plan of Care Certification Date: 08/04/22 Next Certification Due Date: 08/04/22 Patient Identified by Name and Date of : Yes [facility] THERAP[facility] COGNITIVE LINGUISTIC EVALUATION PLAN OF CARE: Impression: Communication deficits identified: Cognitive deficits RECOMMENDATION: 1.) Outpatient speech therapy recommended for cognitive-linguistic re-education. Patient plans to receive services closer to home. 2.) Initiate home exercise program: -implement external memory strategies, such as: use of sticky notes, calendar/project planner, timer/alarm, etc. To facilitate improved recall of functional information -implement internal memory strategies, such as: association, visualization, and active repetition /spaced retrieval -implement expressive language skills, such as: trying to describe a word or identify a synonym/antonym of a target word when having difficulties retrieving the word you want to use -daily cognitive-linguistic stimulation tasks, such as reading, crossword puzzles, word searches, or cognitive tasks/exercises on your phone/computer, such as Lumosity, Elevate, and Brain HQ. -create a memory book to review important information, such as address, important dates, friends/family, etc. -review and discuss pictures from important events for reminiscing Results and Recommendations Discussed With: Significant Other, Patient Goals for Episode of Care: created on 08/04/2022 through 08/04/22 COGNITIVE GOALS 1.) Patient and caregiver will demonstrate understanding of recommendations related to treatment/plan of care, compensatory strategies, and home programming in 95% of opportunities. GOAL MET. Planned Interventions, Frequency, and Duration: Current Frequency: Discontinue Therapy Services Patient demonstrates good understanding of plan of care and treatment. The above goals and plan of care were discussed and agreed upon by patient/family. SUBJECTIVE: Ron Welch is a 72 year old male seen today for a diagnostic. He was referred by Dr. Lamas for a cognitive-linguistic evaluation. Pertinent medical diagnoses include: antibody positive Myasthenia Gravis, ERIS on BiPap, HTN, HLD. Neuropsychological testing completed 06/17/22, which revealed: abnormal cognitive profile with deficits in memory, processing speed, executive function, and visuospatial abilities . Brain MRI done on 06/17/22, which revealed: whole brain volume loss with trend towards abnormal hippocampal volume loss, accounting for some segmentation errors; severe nonspecific white matter change; no chronic or microhemorrhages . He is accompanied to visit by his spouse. They both report progressive memory difficulties. He will think that their house belongs to someone else and will sometimes forget that he retired. He did not remember much from his wedding, but was able to jog his memory some by looking at old pictures. . OBJECTIVE MEASURES WITH LEVEL OF FUNCTION: Portions of the following standardized testing were utilized in the evaluation of the patient: Clinician directed non-standardized probes along with portions of standardized assessments were utilized to assess patient. . Speech/Voice/Language Expressive and Receptive Language: Within Functional Limits Except Verbal Expression Deficits: Verbal Expression Deficit Comments Verbal Expression Deficit Comments: Patient presents with anomia at the conversational level, characterized by delayed and failed word selection. COGNITIVE-LINGUISTIC SKILLS Cognition Cognitive Status: Within Functional Limits For Current Session Except Cognitive Deficits: Attention Deficit, Memory Deficits, Executive Function Deficit, Orientation Deficits Orientation Deficits: Time Attention Deficit: Alternating, Divided, Selective, Sustained Memory Deficits: Functional, Short Term, Immediate, Correction Executive Function Deficits: Math Calculations, Time/Money Management, Divergent Naming, Problem Solving (Insight) Cognitive Clinical Tests and Screens: SLUMS SLUMS Level of Education: High school Orientation (week): 0 Orientation (year): 1 Orientation (state): 1 Calculations: 0 Namin Short-Term Memory: 1 Attention/Sequencin Visual-Spatial Skills (clock): 0 Visual-Spatial Skills: 2 Attention/Memory: 2 SLUMS Total Score ( /30): 9 Patient completed the Multifactorial Memory Questionnaire a self report tool to measure patient complaints and benchmark progress as a result of therapy. Scale Raw Score T-Score Interpretation Memory Mistakes 38 40 Average Use of Strateges 37 50 Average *There is a significant discrepancy in objective measures versus patient reported outcome measures, which may indicate poor insight into deficits/abilities. Education: Education Learning Preferences: Explanation, Demonstration, Performance, Printed Materials Barriers: Cognitive Limitations Learning/Educational Needs: Compensatory Strategies, Disease Process, Equipment, Family Education/Training, Plan of Care, Rehabilitation Techniques and Procedures, Cognitive Skills, Home Exercise Program Education Provided: Yes, see treatment interventions for education provided Education Provided To: Patient, Family Education Mode/Type: Demonstration, Explanation/Discussion, Literature/Printed Materials, Performance, Teach Back Response to Education/Teach Back: States/Identifies, Return Demonstration TREATMENT: Evaluation: Eval Sound Production with Language Expression and Gas Cutting Machine Operator (71794) Speech/Language Therapy (12191): Skilled Intervention: reviewed results of evaluation with patient/spouse; provided recommendations related to treatment/plan of care, compensatory strategies, and home programming; assessed the type/frequency of supports required to facilitate accurate return demonstration of information. Current Home Program: see recommendations Billing: Eval Sound Production with Language Expression and Gas Cutting Machine Operator (27251) and Speech Treatment (64379) Total time / Length of visit: 45 minutes Love Toure CCC-POLLS OR SURVEYS INTERVIEWER documented in this encounter [facility] 08-04-2022 Instructions YONATAN Frances - 08/04/2022 1:37 PM EST When there is a diagnosis of dementia, no matter the type, we encourage families to educate themselves, learn communication tips, and learn ways to adjust expectations over time. There are many resources available online. Three excellent resources are: The Alzheimer's Association (web site: alz.org) Help Line available 24 hours a day, 7 days per week: 825.671.7074. Call Help Line to learn of local options for support groups and to register. Family Caregiver [place] (web site: Caregiver.org) [facility]- a secure online solution for quality information, support, and resources for family caregivers. Contact: Alzheimers.gov Find Alzheimer disease and related dementias information, resources, research and more We would like to inform you of potential benefits available from the VA. If your family member or the spouse served as active duty during war time, they may be eligible for financial assistance for assisted living. The [place] [employer] Commission of [facility] is an organization that can give information regarding this benefit. Their number is: 550-808-0794. [facility] Service [address] [place] [address] For assistance navigating local resources such as entry rep care/caregiver support: The [facility] Office on Aging [address] [address] Private Duty Home Health Agencies can provide supportive services. These services may include companionship, assistance with meals, medication management, water quality analyst, transportation and personal care if needed. Services are typically an out of pocket expense. Some long-term care policies or VA benefits may offer reimbursement for services. Local resources provided. When selecting & introducing a caregiver: -Share information about your loved one, this can include their interests, routine, or their views on having care in the home (this can be a hard transition for many). -Refrain from over explaining the reason for the visit. -Allow time for the person living with dementia to build a relationship with the caregiver. -Recognize that it may take time for your loved one to become comfortable with receiving assistance with personal care. -Consider introducing the caregiver alongside a close family member or friend. Other considerations: -Be direct with your expectations for care. -Ask if their staff are trained in working with individuals with memory loss. -Ask how the agency handles scheduling if a caregiver calls off. -Ask about the minimum amount of hours they require. [facility] can assist with meals, transportation, home maintenance and activities. Tel: Please feel free to call or schedule a follow up visit with any questions or concerns. THOMAS Frances LISW Lou Ruvo [facility] [phone] documented in this encounter [facility] 08-04-2022 History of Present illness Narrative Images from the original note were not included. SOCIAL WORK NOTE Ron Welch [address] [place] [id number] INFORMATION/REFERRAL: Referral Source: Lauren Lamas MD Pt information: Ron Welch is a 72 year old year old male [facility] for the following reason(s): community services/resources Pt present for appointment: Yes Additional Participants: Hyacinth Functional Status: With overall regard to patient functioning, Difficulty with IADL's, independant with ADL's. Living Situation & Setting: pt and spouse reside in single level with basement. They previously lived on a large farm, but decided to downsize 6 years ago. Safety Assessment: Is the patient driving? NO Driving Concerns: N/A Is the patient taking medications as prescribed? YES Is the patient left alone? NO Aware of 911: Yes Medical Alert System: No Are there concerns about safety in the home? NO Has the patient gotten lost in familiar places or wandered? NO Are firearms present in the home? NO. If yes, how are they stored? N/A Has the patient experienced unsteadiness or sustained falls? NO Falls: negative EMPLOYMENT/FINANCIAL/INSURANCE: DPOA health: Yes DPOA finance: Yes Guardian: No Is patient a ?: No LTC Policy: No Agencies involved: PROBLEMS/NEEDS IDENTIFIED: Continue to assess/collaborate Education Information Long-term care plan DISCUSSION: Initial SW assessment to discuss resources and offer support. Spouse reported she feels pt has declined in recent weeks. He does not believe their house is their own, he asks to go home frequently and will get dressed and attempt to leave for work. Discussed communication and sundowning at length. INTERVENTION/PLAN: -Discussed PICK UP WORKER supportive role/availability as member of [facility] care team. -Supportive counseling offered to address caregiver stress, adjustment to caregiver role, caregiver guilt. Discussed the process of identifying a new normal since dementia diagnosis. -Encouraged family to utilize the services offered by The Alzheimer's Association, which is an organization that provides education and support to individuals/caregivers affected by Alzheimer's disease and all forms of dementia. -Discussed potential benefits available through the VA. Provided information for local veterans commission who can assist. For assistance navigating local resources such as entry rep care/caregiver support contact The Area Office on Aging. -Private Duty Home Health Agencies can provide supportive services. These services may include companionship, assistance with meals, medication management, water quality analyst, transportation and personal care if needed. Services are typically an out of pocket expense. Some long-term care policies or VA benefits may offer reimbursement for services. Local resources provided. [facility] can assist with meals, transportation, home maintenance and activities. Tel: -Obtained copy of pt's healthcare advance directives, Will be faxed to HIM to add to EMR. IMPRESSION: Pleasant 72 year old year old patient. Pt and family appear able and motivated to follow up on recommendations as discussed. PICK UP WORKER will remain available to address any questions/concerns. Contact information was provided. I spent a total of 40 minutes with the patient. Social work assessment/interventions rendered under the supervision of Dr. Hyacinth Bernal. YONATAN Frances [facility] documented in this encounter [facility] 07-20-2022 Miscellaneous Notes RMK, Pt to saw Dr. Lauren Lamas at [facility] for cognitive issues. Was dx with dementia and would like him started on Aricept. Asks if this is ok with MG or the meds he takes (imuran and mestinon)? Per Lex[employer]: Aricept and imuran do not have any known interactions Aricept and Mestinon have a monitor therapy symbol as they can both cause bradycardia. Fara Kaur RN, BSN, BA documented in this encounter [facility] 07-08-2022 Note HNO ID: [id number] Author: Lauren Lamas MD Service: ? Author Type: Physician Type: Progress Notes Filed: 07/08/2022 5:13 PM Note Text: Neurology Return, [facility] Ron Welch is a 72 year old male whom we initially saw on 04/29/2022 for cognitive concerns. Please see our consultation note for detail. Patient has history of antibody positive Myasthesia gravis, followed by Dr. Uribe at neuromuscular clinic. PMH also includes ERIS on BiPAP, HTN, HLD Patient with about 2years progressive cognitive decline, with short term memory, confusion, not able to do things he used to be able to do, and needs assistance with iADLs, including managing his medications. MoCA was 18/30 Suspect his cognitive changes are multifactorial, with possible vascular burden, poor sleep with sleep apnea, cannot rule out neurodegenerative process due to progressive nature. At his last visit, we had recommended: Serological studies for reversible dementia etiology MRI brain with volumetric analysis Neuropsychology testing Speech pathology for cognitive training Will appreciate if we could have his latest sleep study report, may need to repeat another study, depending on download Will request for BiPAP download; DME: Jasen Martinez [facility] [phone] Encourage regular physical and mental activity His BiPAP download AirCurve 10 VAuto device From 04/03/2022 to 05/02/2022 Of the30 days, patient used the device every day. Over 4 hour per day usage compliance ratio was 67% Average usage per day used was 5 hous 59 minutes Setting was 19/15 Air leak was frequent and significant, with median 44.8, 95th 72.3 Average AHI 6.7 (5.7 unknown) We have conveyed the information to patient via [place], and recommended him to follow up with his sleep provider for residual sleep apnea and also the excessive air leakage. Serological studies 04/29/2022 Creatinine 1.42, otherwise unremarkable CMP, CBC (MCV and MCH elevated) B12 313 TSH 0.972, free T4 6.4 MRI brain with volumetric analysis was performed on 06/17/2022. It did not show any acute process. It showed mild to moderate cortical atrophy, with moderate central and hippocampal volume loss. There is bilateral confluent and patchy white matter abnormalities consistent with moderate chronic small vessel ischemic disease. No significant remote microhemorrhage noted. Total brain volume was at 9th percentile, total hippocampal volume at 1st percentile, temporal lobe 1st, frontal lobe 38th, parietal lobe 52nd, occipital lobe 28th percentile. Inferior lateral ventricular volume 99th (exaggerated), and superior lateral ventricular volume 99th percentile (exaggerated). Neuropsychology study was performed on 06/17/2022. The study showed an abnormal cognitive profile with deficits in memory, processing speed, executive functions and visuospatial abilities, with presentation meeting criteria for dementia. Results of neuropsychological testing revealed an abnormal cognitive profile with deficits in memory, processing speed, executive functions, and visuospatial abilities. Specifically, his memory profile was notable for deficits at the stages of learning and retention with minimal to mild benefit from recognition cues. Processing speed was a consistent weakness. Within executive functions, he was unable to complete tasks of inhibition and divided attention, though everyday problem solving was intact. Visuospatial abilities were also a consistent weakness. Verbal fluencies were low, which was likely related to processing speed/executive functioning demands. Otherwise, language and attention were better preserved. The patient currently meets criteria for dementia. The pattern of his profile is most indicative of frontal-subcortical systems inefficiencies, though this is somewhat complicated by the degree or cognitive impairment. Etiology is unclear. First, his history of movement changes (I.e. wide-based/shuffled gait, imbalance, falls) with cognitive findings, raises concern for a movement disorder. Defer to medical providers to better characterize his movement changes in the context of orthopedic concerns. Second, vascular contributions are also likely based on the severity of white matter disease, vascular risks, and cognitive profile. Myasthenia gravis, sleep apnea, and chronic pain can also be contributory. Finally, another neurodegenerative condition, such as Alzheimer's is less favored based on his language profile but cannot be entirely ruled out, particularly in light of memory concerns and hippocampal volumes. Driving is cognitively contraindicated. Patient-Reported No flowsheet data found. Activities of Daily Living (ADL) No flowsheet data found. PROMIS-10 No flowsheet data found. PHQ-9 PHQ-9 All Questions 07/26/2019 12/11/2017 Little interest or pleasure in doing things 1 0 Feeling down, depressed, or hopeless 0 0 Tr (more content not included)... [facility] 06-17-2022 Note HNO ID: [id number] Author: RT Sara(R) Service: Radiology Author Type: Technologist Type: Progress Notes Filed: 06/17/2022 2:28 PM Note Text: Radiology Service Progress Note PATIENT NAME: Ron Welch DATE OF SERVICE: June 17, 2022 TIME: 2:27 PM PATIENT IDENTITY VERIFICATION COMPLETED USING TWO (2) IDENTIFIERS: Name and Date of confirmed by patient verbally. FALL SCREENING: Has the patient had 2 falls in the last year or 1 fall with injury or currently using an Ambulatory Assistive Device (Walker, Cane, Wheelchair, Crutches, etc.)? No PATIENT GENDER DATA: Male PATIENT RELEVANT IMPLANT DATA REVIEWED: Yes RADIOLOGY DEPARTMENT: Memory Loss/ADNI PERIPHERAL IV DATA: Not applicable SIGNED BY: RT Sara(R) June 17, 2022 2:27 PM [facility] 06-17-2022 History of Present illness Narrative Radiology Service Progress Note PATIENT NAME: Ron Welch DATE OF SERVICE: June 17, 2022 TIME: 2:27 PM PATIENT IDENTITY VERIFICATION COMPLETED USING TWO (2) IDENTIFIERS: Name and Date of confirmed by patient verbally. FALL SCREENING: Has the patient had 2 falls in the last year or 1 fall with injury or currently using an Ambulatory Assistive Device (Walker, Cane, Wheelchair, Crutches, etc.)? No PATIENT GENDER DATA: Male PATIENT RELEVANT IMPLANT DATA REVIEWED: Yes RADIOLOGY DEPARTMENT: Memory Loss/ADNI PERIPHERAL IV DATA: Not applicable SIGNED BY: RT Sara(R) June 17, 2022 2:27 PM documented in this encounter [facility] 06-17-2022 Note HNO ID: [id number] Author: Araseli Camacho, PhD Service: ? 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 The assessment consisted of a brief interview with the patient and his (Hyacinth), neurobehavioral examination, and administration of standardized neuropsychological assessments. This report is intended to be considered as only one part of the comprehensive examination. The results will be communicated to the referring physician via shared electronic medical record and in a consensus conference meeting. Of note, the current evaluation took place during the COVID-19 pandemic and thus several safety precautions were in place, including use of a facemask, which can limit the evaluation. ? RELEVANT BACKGROUND: Ron Welch is a 72-year-old male with a history of myasthenia gravis, sleep apnea (on BiPAP), hypertension, hyperlipidemia, lumbar spondylosis, and steroid-induced diabetes who was referred for a neuropsychological evaluation due to cognitive concerns (04/29/2022 MoCA= 18/30). COGNITIVE CONCERNS: The patient and his reported an approximately 2-year history of cognitive concerns with insidious onset and declining course. Specific concerns include confusion, more so within the past week. It was noted that his imipramine dose was increased in the same time frame. His described a few instances where he cannot remember how to use the remote control or play cards. He has had instances at home where he thinks he is on vacation and will make comments that the bedroom looks just like their own bedroom. At one point he thought he and his had not moved in together. He thought his step-daugther was living with him, though she had moved out. They were recently on a cruise ship and he had a hard time understanding that he was on a ship. Other cognitive concerns include poor recall for recent events, conversations, upcoming appointments, and misplacing items. He has word-finding problems. He has difficulty with concentration, indecision, organization, impulsivity, and multitasking. Navigation is poor. Activities of Daily Living: Hygiene: His occasionally helps trim his rosen. There have been instances where has has put his clothes on backwards. 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 Appointments: Reliant on his for the past 2 years . Medications: Reliant on his for the past 6-12 months . It was taking him a very long time to sort his medications and there was confusion surrounding the pills/doses. Finances: Historically managed by his . Driving: Significantly limited over the past 6-12 months. He occasionally drives to a familiar places with his , though it was noted that sometimes he forgets intended destinations or how to get to familiar locations. MEDICAL HISTORY: See records for full review. Relevant diagnoses include myasthenia gravis (well-controlled with medications), sleep apnea (on BiPAP), hypertension, hyperlipidemia, lumbar spondylosis, and steroid-induced diabetes. Neurological history: The patient reported no history of head injury with loss of consciousness, stroke, or seizure. Review of select systems is notable for: Vision: Adequate with glasses. Hearing: Adequate with hearing aids. Gait: uses a cane due to back and knee issues. They described his gait as shuffled. There is imbalance with falls. His most recent fall was approximately 6 months ago. Frequency of falls has reduced since he reduced his typical activities. Swallowing: Occasional difficulties, attributed to myasthenia gravis. Bladder incontinence occurs approximately once per week Chronic pain in his back, which he described as manageable. He sometimes takes tylenol. Sleep: more than in the past, approximately 8-12 hours per night. He has sleep apnea and uses his BiPAP, but they reported some issues and it wakes him at night. Daytime fatigue and he often sleeps throughout much of the day unintentionally. He naps less when there are more activities. Substance use: Consumes alcohol primarily on special occasions and while camping. In the summer, they camp most weekends and he consumes 3-4 beers per day then. He has not consumed alcohol in months. No current recreational drug use. No history of alcohol or drug abuse. Pertinent negatives: tremor, dizziness, headaches, dream-enactment behaviors. Brain MRI (06/17/2022): 1. WHOLE BRAIN VOLU (more content not included)... 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 The assessment consisted of a brief interview with the patient and his (Hyacinth), neurobehavioral examination, and administration of standardized neuropsychological assessments. This report is intended to be considered as only one part of the comprehensive examination. The results will be communicated to the referring physician via shared electronic medical record and in a consensus conference meeting. Of note, the current evaluation took place during the COVID-19 pandemic and thus several safety precautions were in place, including use of a facemask, which can limit the evaluation. ? RELEVANT BACKGROUND: Ron Welch is a 72-year-old male with a history of myasthenia gravis, sleep apnea (on BiPAP), hypertension, hyperlipidemia, lumbar spondylosis, and steroid-induced diabetes who was referred for a neuropsychological evaluation due to cognitive concerns (04/29/2022 MoCA= 18/30). COGNITIVE CONCERNS: The patient and his reported an approximately 2-year history of cognitive concerns with insidious onset and declining course. Specific concerns include confusion, more so within the past week. It was noted that his imipramine dose was increased in the same time frame. His described a few instances where he cannot remember how to use the remote control or play cards. He has had instances at home where he thinks he is on vacation and will make comments that the bedroom looks just like their own bedroom. At one point he thought he and his had not moved in together. He thought his step-daugther was living with him, though she had moved out. They were recently on a cruise ship and he had a hard time understanding that he was on a ship. Other cognitive concerns include poor recall for recent events, conversations, upcoming appointments, and misplacing items. He has word-finding problems. He has difficulty with concentration, indecision, organization, impulsivity, and multitasking. Navigation is poor. Activities of Daily Living: Hygiene: His occasionally helps trim his rosen. There have been instances where has has put his clothes on backwards. 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 Appointments: Reliant on his for the past 2 years . Medications: Reliant on his for the past 6-12 months . It was taking him a very long time to sort his medications and there was confusion surrounding the pills/doses. Finances: Historically managed by his . Driving: Significantly limited over the past 6-12 months. He occasionally drives to a familiar places with his , though it was noted that sometimes he forgets intended destinations or how to get to familiar locations. MEDICAL HISTORY: See records for full review. Relevant diagnoses include myasthenia gravis (well-controlled with medications), sleep apnea (on BiPAP), hypertension, hyperlipidemia, lumbar spondylosis, and steroid-induced diabetes. Neurological history: The patient reported no history of head injury with loss of consciousness, stroke, or seizure. Review of select systems is notable for: Vision: Adequate with glasses. Hearing: Adequate with hearing aids. Gait: uses a cane due to back and knee issues. They described his gait as shuffled. There is imbalance with falls. His most recent fall was approximately 6 months ago. Frequency of falls has reduced since he reduced his typical activities. Swallowing: Occasional difficulties, attributed to myasthenia gravis. Bladder incontinence occurs approximately once per week Chronic pain in his back, which he described as manageable. He sometimes takes tylenol. Sleep: more than in the past, approximately 8-12 hours per night. He has sleep apnea and uses his BiPAP, but they reported some issues and it wakes him at night. Daytime fatigue and he often sleeps throughout much of the day unintentionally. He naps less when there are more activities. Substance use: Consumes alcohol primarily on special occasions and while camping. In the summer, they camp most weekends and he consumes 3-4 beers per day then. He has not consumed alcohol in months. No current recreational drug use. No history of alcohol or drug abuse. Pertinent negatives: tremor, dizziness, headaches, dream-enactment behaviors. Brain MRI (06/17/2022): 1. WHOLE BRAIN VOLUME LOSS WITH TREND TOWARDS ABNORMAL HIPPOCAMPAL VOLUME LOSS, ACCOUNTING FOR SOME SEGMENTATION ERRORS 2. SEVERE NONSPECIFIC WHITE MATTER CHANGE 3. NO CHRONIC MICROHEMORRHAGES Medication List: Current Outpatient Medications on File Prior to Visit Medication Sig imipramine HCl (TOFRANIL) 25 mg tablet Take 25 mg by mouth twice daily. pyridostigmine (MESTINON) 60 mg tablet Take 1 tablet by mouth three times daily. (Patient taking differently: Take 60 mg by mouth once daily.) azaTHIOprine (IMURAN) 50 mg tablet Take 1 tablet by mouth twice daily. terbinafine HCl (LAMISIL) 250 mg tablet Take 1 tablet by mouth once daily. (Patient not taking: Reported on 04/29/2022) ezetimibe (ZETIA) 10 mg tablet Take 1 tablet by mouth once daily. celecoxib (CELEBREX) 200 mg capsule Take 200 mg by mouth twice daily. (Patient not taking: Reported on 04/29/2022) carvedilol (COREG) 6.25 mg tablet Take 12.5 mg by mouth twice daily with meals. latanoprost (XALATAN) 0.005 % ophthalmic solution Use in both eyes daily at bedtime. timolol 0.5 % ophthalmic solution Use 1 Drop in both eyes once daily. lovastatin(MEVACOR 20 MG TAB) Take one(1) tablet daily at bedtime. No current facility-administered medications on file prior to visit. Family neurological history: Suspected memory problems in his father and brother with no known diagnoses. PSYCHIATRIC HISTORY: Currently, the patient and his reported mild irritability and less interest in his typical hobbies. It was also noted that he discontinued some hobbies (I.e. cards) due to cognitive difficulties. He reported no symptoms of sadness, anxiety, suicidal ideation, or auditory/visual hallucinations. They reported no historical concerns with anxiety, depression, or engagement in psychiatric treatment. PSYCHOSOCIAL HISTORY: Education: Completed a high school degree with no early attention/learning concerns. 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 Family: The patient is and has 2 step-children. Living situation: Lives with his . BEHAVIORAL OBSERVATIONS: The patient was accompanied by his , Hyacinth. He was oriented to person, date, past/current president, and aspects of place. However, he incorrectly listed the day as Monday for Monday and the current city as [facility]; however, he listed the current location as [facility]. With glasses and hearing aids, vision and hearing were adequate for testing purposes. Posture was stooped. Gait was wide-based and somewhat shuffled. He appeared unsteady while walking. He forgot his cane in the car. He had difficulty picking up a pencil with his dominant hand. Speech was fluent with no observed word-finding problems or paraphasias in casual conversation. Thought processes were logical and goal-oriented. Affect appeared full in range. Task engagement appeared adequate based on embedded effort measures and the current results are valid for interpretation. COGNITIVE RESULTS: Premorbid abilities are estimated to fall in the low average range based on education/occupational histories and word reading. Memory: Immediate and delayed recall for stories was moderately low and extremely low, respectively. Possible confabulations were observed on delayed recall. Delayed recognition was extremely low. Learning of a word list presented over repeated trials was moderately low (5,5,5 words encoded over the 3 learning trials, respectively). Delayed recall of the list was extremely low (1 word). Delayed recognition was moderately low (correctly identified 9/12 targets and incorrectly endorsed 1 false positive). Learning of designs presented over repeated trials was extremely low. Delayed recall was extremely low. Delayed recognition was moderately low. Attention/working memory: Overall digit repetition was moderately low; forward span was average, backward span was average, and sequencing span was extremely low. Processing speed: Number to symbol transcoding was moderately low. Visual scanning was extremely low. Speeded color naming and word reading were low average and moderately low, respectively. Executive functions: Tasks of inhibition and divided attention were both discontinued. Everyday problem solving was average. Verbal abilities: Verbal abstraction was average. Object naming was average with benefit from phonemic cues (+7/10). Letter and category fluencies were extremely low and moderately low, respectively. Visuospatial abilities: Pattern recognition was extremely low. Judgment of line angles was moderately low. Simple figure copy was grossly intact. A copy of a complex figure revealed multiple visuospatial inaccuracies, including spatial distortions, missing and duplicated items, and inaccuracies. His approach was highly piecemeal with minimal appreciation for the overall gestalt. Mood: The patient endorsed minimal levels of both depression (BDI-II=9) and anxiety (ART=3). IMPRESSIONS/SUMMARY Abnormal cognitive profile with deficits in memory, processing speed, executive functions, and visuospatial abilities. Dementia Unclear/multifactorial etiology: vascular disease, myasthenia gravis, r/o a movement disorder. Ron Welch is a 72-year-old male with a history of myasthenia gravis, sleep apnea (on BiPAP), hypertension, hyperlipidemia, lumbar spondylosis, and steroid-induced diabetes who presents with an approximately 2-year history of cognitive concerns with insidious onset and declining course. Functionally, his has begun to manage iADLs and he occasionally requires assistance with trimming his rosen. He drives, though this is significantly limited. Results of neuropsychological testing revealed an abnormal cognitive profile with deficits in memory, processing speed, executive functions, and visuospatial abilities. Specifically, his memory profile was notable for deficits at the stages of learning and retention with minimal to mild benefit from recognition cues. Processing speed was a consistent weakness. Within executive functions, he was unable to complete tasks of inhibition and divided attention, though everyday problem solving was intact. Visuospatial abilities were also a consistent weakness. Verbal fluencies were low, which was likely related to processing speed/executive functioning demands. Otherwise, language and attention were better preserved. The patient currently meets criteria for dementia. The pattern of his profile is most indicative of frontal-subcortical systems inefficiencies, though this is somewhat complicated by the degree or cognitive impairment. Etiology is unclear. First, his history of movement changes (I.e. wide-based/shuffled gait, imbalance, falls) with cognitive findings, raises concern for a movement disorder. Defer to medical providers to better characterize his movement changes in the context of orthopedic concerns. Second, vascular contributions are also likely based on the severity of white matter disease, vascular risks, and cognitive profile. Myasthenia gravis, sleep apnea, and chronic pain can also be contributory. Finally, another neurodegenerative condition, such as Alzheimer's is less favored based on his language profile but cannot be entirely ruled out, particularly in light of memory concerns and hippocampal volumes. RECOMMENDATIONS Daily activities: To ensure safety, the patient's family is encouraged to monitor medication management, use of appliances, etc. Driving is cognitively contraindicated based on his neuropsychological evaluation and it is encouraged that he discontinue. Should the patient or his family wish for him to continue driving, his medical providers can place a referral for a formal driving evaluation. Advanced planning: If not already in place, the patient and his family may consider planning for the future with advanced directives to document his wishes related to healthcare, finances, etc. in the event that his cognitive concerns are progressive. Social work can assist with completing advanced directives, assessing resources, etc. as needed. Healthy aging practices to maintain cognitive functioning and promote overall wellness: Cognitive: Engage in cognitively stimulating activities that challenge and aid in learning (e.g., reading, puzzle games) while cultivating particular interests. Social: Reconnect and/or maintain relationships with family and friends by scheduling regular meeting times and planned activities around a common interest. Engage in meaningful community activities by volunteering or joining a community group or club. Physical: Regular physical exercise (e.g., walking, stretching), to the extent possible, can bolster cardiovascular health and may provide relief from or prevent worsening of symptoms of chronic pain, arthritis, and depression. Nutrition: Consume a balanced diet of nutrient-dense foods, while avoiding highly sweet, salty, and processed foods. Sleep: Establish a sleep routine waking and going to bed at similar times attaining 7-9 hours of sleep each night. OVERVIEW The graph below shows performance in different areas of cognitive function. The shaded area in the middle represents average range performance for individuals of similar age. Very Superior Superior High Average Average X Low Average X X Moderately Low X X X X X Fluencies Extremely Low X Estimated IQ Learning Recall Recognition Attention Processing Speed Executive Language Visuospatial Memory *see description This table should not be presented separate from the Neuropsychological Evaluation Report dated June 17, 2022. The table is intended to serve as a summary of the data and may not include each individual test score derived. See 'Test Results' and 'Impressions/Summary' section for a comprehensive discussion of all test scores. The current evaluation was performed in the context of medical care and in response to specific internal referral question. It is not meant to constitute a legal or disability evaluation. This report is meant to be considered as only one part of the comprehensive examination. The results will be communicated to the referring physician via shared electronic medical record. Araseli Camacho, Ph.D. Staff Neuropsychologist Time testing and scoring (immigration associate): 3 hours Time completing additional tests, analyzing, interpreting and incorporating other available medical information, clinical data review, and report writing (by neuropsychologist): 3 hours Tests Administered: Nash Anxiety Inventory Nash Depression Inventory [place] Naming Test Brief Visuospatial Memory Test-Revised DKEFS Subtests: Color-Word Interference, Verbal Fluency Rucker Verbal Learning Test Judgment of Line Orientation- Short Form Woody Complex Figure Mulberry Making Test WAIS-IV subtests: Coding, Digit Span, Matrix Reasoning, Similarities WMS-IV Logical Memory WRAT-IV Reading documented in this encounter [facility] 06-07-2022 Hospital Discharge instructions Patient Education 06/07/2022 10:28:02 Kegel Exercises Kegel Exercises Kegel exercises can help strengthen your pelvic floor muscles. The pelvic floor is a group of muscles that support your rectum, small intestine, and bladder. In females, pelvic floor muscles also help support the womb (uterus). These muscles help you control the flow of urine and stool. Kegel exercises are painless and simple, and they do not require any equipment. Your provider may suggest Kegel exercises to: Improve bladder and bowel control. Improve sexual response. Improve weak pelvic floor muscles after surgery to remove the uterus (hysterectomy) or (females). Improve weak pelvic floor muscles after prostate gland removal or surgery (males). Kegel exercises involve squeezing your pelvic floor muscles, which are the same muscles you squeeze when you try to stop the flow of urine or keep from passing gas. The exercises can be done while sitting, standing, or lying down, but it is best to vary your position. Exercises How to do Kegel exercises: 1.Squeeze your pelvic floor muscles tight. You should feel a tight lift in your rectal area. If you are a female, you should also feel a tightness in your vaginal area. Keep your stomach, buttocks, and legs relaxed. 2.Hold the muscles tight for up to 10 seconds. 3.Breathe normally. 4.Relax your muscles. 5.Repeat as told by your health care provider. Repeat this exercise daily as told by your health care provider. Continue to do this exercise for at least 4 6 weeks, or for as long as told by your health care provider. You may be referred to a physical therapist who can help you learn more about how to do Kegel exercises. Depending on your condition, your health care provider may recommend: Varying how long you squeeze your muscles. Doing several sets of exercises every day. Doing exercises for several weeks. Making Kegel exercises a part of your regular exercise routine. This information is not intended to replace advice given to you by your health care provider. Make sure you discuss any questions you have with your health care provider. Document Released: 05/01/2013 Document Revised: 01/02/2019 Document Reviewed: 01/02/2019 [employer] Patient Education 2020 [employer]. Follow Up Care 09/28/2021 11:41:06 With:REEMA CRUM, GELY Ch, URL Address: [address] [place] [address] When:3 months Comments:Travis f/u [facility] 05-12-2022 History of Present illness Narrative We received patient's BiPAP download. It is an AirCurve 10 VAuto device From 04/03/2022 to 05/02/2022 Of the30 days, patient used the device every day. Over 4 hour per day usage compliance ratio was 67% Average usage per day used was 5 hous 59 minutes Settin was Air leak was frequent and significant, with median 44.8, 95th 72.3 Average AHI 6.7 (5.7 unknown) Patient's airleak is known to him. He has tried different masks in the past. Patient will benefit from discussing with his local sleep provider and undergo mask fitting. We will send patient a message via [employer]. documented in this encounter [facility] 05-03-2022 Miscellaneous Notes Images from the original note were not included. documented in this encounter [facility] 04-29-2022 Miscellaneous Notes Images from the original note were not included. Requested download from [employer] to be faxed to office. documented in this encounter [facility] 04-27-2022 Instructions Kaleigh Lance MD - 04/27/2022 4:27 PM EST Continue Mestinon and Azathioprine (Imuran) as prescribed. Referral placed for neuropsychology testing and [facility]. Follow up in 9 months. 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 Will maintain this. Previously discussed taper but patient preferred to stay on this since he has been doing well. Mr. Welch completed autonomic testing today to assess for an etiology of his gastroparesis. Note made that patient was taking Mestinon when he had recent gastric emptying study. Prior AchR ganglionic was negative. QSART today shows minimally reduced sweat response in the foot. ANS shows cardiovagal abnormalities. In absence of significant peripheral changes on QSART, etiology of autonomic issues would be central. No exam findings concerning for Parkinsonism (as would be seen in Multiple Systems Atrophy). Will continue pyridostigmine for symptom management. He is currently taking 30 mg twice daily but could increase up to 60 mg three times daily as needed. Follow up in 6 months. S: Today Ron presents with his . He is tolerating his medications well and has no side effects. No recent infections. Regarding the Mestinon, he takes 1/2 tablet twice a day. MG - Activities of Daily Living (MG-ADL) 1. Talkin=Normal 2. Chewin=Normal 3. Swallowin=Normal 4. Breathin=Normal 5. Impairment of ability to brush teeth or comb hair: 0=None 6. Impairment of ability to arise from a chair: 1=Mild, sometimes uses arms 7. Double vision: 1=Occurs, but not daily When turning head while driving 8. Eyelid droop: 0=None MG-ADL Total Score: 2 His also reports memory issues, which started about 1.5 years ago and are worsening. He doesn't drive frequently. He got lost in a movie theater recently. Today, he did not remember that he had eye surgery in the past. He cannot remember which friends have . He had [employer] testing in 2020, which showed 93% likelihood of dementia. At that time, serum copper was low, so he was started on a copper supplement. Repeat serum studies showed adequate serum copper levels. Since starting copper supplement, memory has continued to worsen. He sleeps 10-11 hours per night and wears his CPAP nightly. No concerns for depression from the patient or his . O: BP 139/73 Pulse 68 Ht 167.6 cm (5' 6 ) Wt 101.2 kg (223 lb) SpO2 98% BMI 35.99 kg/m GENERAL: No acute distress HEENT: Normocephalic, atraumatic RESPIRATORY: No respiratory distress CARDIOVASCULAR: Warm and well-perfused ABDOMEN: Nondistended, no guarding EXTREMITIES: No cyanosis or clubbing SKIN: No visible rashes Detailed neurologic examination: Mental status: Behavior: Appropriate Orientation: Oriented to person and location. Not oriented to date. Affect: Appropriate Cranial Nerves: II: Visual amato intact in all quadrants bilaterally III/IV/: Extraocular movements intact throughout, no nystagmus, consentual light reflex present; no RAPD. V: Facial sensation intact and equal bilaterally VII: Facial movements symmetric; no facial droop or ptosis. No lid lag with upgaze after one minute. VIII: Hearing diminished to voice and finger rub bilaterally IX, X: Symmetric evaluation of palate XI: Shoulder shrug and sternocleidomastoid strength full bilaterally XII: Symmetric protrusion of tongue; symmetric lateral motion of tongue bilaterally Motor: Inspection: Normal bulk, No atrophy, No fasciculations noted throughout. No tremor at rest. Tone: Unremarkable throughout all four extremities. Muscle (Innervation) Left Right Neck Flexors (C1-6) 5/5 5/5 Neck Extensors (C1-T1) 5/5 5/5 Deltoid (C5-6, Axillary n.) 5/5 5/5 Brachioradialis (C5-6, Radial n.) 5/5 5/5 Biceps (C5-6, Musculocutaneous n.) 5/5 5/5 Triceps (C6-8, Radial n.) 5/5 5/5 Wrist extensors (C6-8, Radial n.) 5/5 5/5 Wrist flexors (C6-7, Median/Ulnar n.) 5/5 5/5 Digit Extensors (C6-8, Radial n.) 5/5 5/5 Digit flexors (C7-T1) 5/5 5/5 Finger abductors (C8, T1) 5/5 5/5 Hip Flexors 5/5 5/5 Hip Extensors 5/5 5/5 Knee Flexion 5/5 5/5 Knee Extension 5/5 5/5 Foot Dorsiflexion 5/5 5/5 Foot Plantarflexion 5/5 5/5 Ankle Eversion 5/5 5/5 Ankle Inversion 5/5 5/5 Reflexes: Muscle (Innervation) Left Right Biceps 1+ 0 Triceps 0 0 Brachioradialis 0 0 Patellar tendon 2+ 2+ Ankle 2+ 2+ Cerebellar testing: Krpkak-ad-[id number]: No dysmetria Cgih-dq-Qflk: Deferred Gait: Ability to rise from chair unassisted Normal-based, slightly spastic gait Can walk on heels and toes, but unable to tandem walk Sensory Examination: Light touch: Intact in all extremities Pinprick: Intact in all extremities Vibration: Intact in all extremities Temperature: Intact in all extremities Proprioception: Intact in all extremities Romberg: Negative A/P: Ron Welch is a 72 year-old man with antibody-positive myasthenia gravis, started on Imuran 06/2012 for steroid-sparing effect. He was noted to have low WBC of 2.9 in 02/2015 and Imuran dose was decreased from 200 mg daily to 150 mg daily. He is doing well on his current regimen and reports no subjective symptoms since 07/2012. He has been off prednisone since 03/2013. On AZA 50 mg BID. Will maintain this. Previously discussed taper but patient preferred to stay on this since he has been doing well. Additionally, placed referrals for neuropsychology testing and [facility] due to cognitive issues. Follow up in 6-9 months (so that they can return during the warmer season); after that, consider following up annually. Kaleigh Lance MD Adult Neurology PGY-2 April 27, 2022 Patient was seen with Dr. Uribe. Staff Addendum: I have seen and evaluated the patient and discussed the case with the resident physician. I agree with the assessment and plan as documented in the resident s note. MG is stable - no med changes. Will refer for neuropsych testing and [facility] consult as copper supplementation has not improved cognitive issues. Follow up in late summer 2022, then annually. Daysi Uribe MD documented in this encounter [facility] 04-15-2022 Miscellaneous Notes The following approved medication requests have been transmitted electronically. Requested Prescriptions Signed Prescriptions Disp Refills pyridostigmine (MESTINON) 60 mg tablet 90 tablet 11 Sig: Take 1 tablet by mouth three times daily. 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 Will maintain this. Discussed taper but patient prefers to stay on this since he has been doing well. Etiology of gastroparesis unclear. Will check AchR ganglionic as well as QSART and ANS to assess for autonomic dysfunction. Will also place consult to GI for additional assessment. Patient will consider trial of pyridostigmine for symptom management. Follow up to be determined. S: Met with patient after autonomic studies done this morning. He reports that he is taking Mestinon 30 mg twice daily. He has noted in the last 6 weeks he has less bloating, burping, and vomiting. He had a gastric motility study done locally and he was told this was normal and he says he was taking Mestinon at the time. No MG symptoms. feels memory is still a problem but not changing. He had an episode when he was confused and he was taken to ED. This may have been related to a medication change (something for the stomach) and reduced fluid and food intake. He is using his cane more in the last few months which he reports is due to back pain. He also had a fall when he was working on his deck and fell down 3 broad steps. O: BP 163/86 Pulse 83 Ht 167.6 cm (5' 6 ) Wt 97.5 kg (215 lb) BMI 34.70 kg/m MS: alert and responsive, language intact CN: EOMI Motor: no rigidity Cerebellar: FTN, HTS, and BARBARA intact bilaterally, mild low amplitude high frequency L>R finger tremors Gait: at baseline - slight waddling/hip drop R>L Interval Testing: QSART today: Sweat volumes as measured by QSART responses at the left forearm, proximal leg, and distal leg are normal while the response at the left foot is borderline. Overall there is no evidence of a significant postganglionic sympathetic sudomotor abnormality like that seen in peripheral autonomic/small fiber neuropathies. ANS without tilt today: This is a abnormal cardiovascular autonomic test panel. The reduce heart rate response with deep breathing is consistent with a mild cardiovagal abnormality. There is no evidence of a cardiovascular adrenergic abnormality on the autonomic reflex tests. Ganglionic nAChR Antibody (NOTE) Comment: INTERPRETATION NEGATIVE This test did not detect abnormal levels of anti-ganglionic neuronal acetylcholine receptor antibodies (alpha 3AChR). A/P: Ron Welch is a 71 year-old man with antibody-positive myasthenia gravis, started on Imuran 06/2012 for steroid-sparing effect. He was noted to have low WBC of 2.9 in 02/2015 and Imuran dose was decreased from 200 mg daily to 150 mg daily. He is doing well on his current regimen and reports no subjective symptoms since 07/2012. He has been off prednisone since 03/2013. On AZA 100 mg daily. Will maintain this. Previously discussed taper but patient preferred to stay on this since he has been doing well. Mr. Welch completed autonomic testing today to assess for an etiology of his gastroparesis. Note made that patient was taking Mestinon when he had recent gastric emptying study. Prior AchR ganglionic was negative. QSART today shows minimally reduced sweat response in the foot. ANS shows cardiovagal abnormalities. In absence of significant peripheral changes on QSART, etiology of autonomic issues would be central. No exam findings concerning for Parkinsonism (as would be seen in Multiple Systems Atrophy). Will continue pyridostigmine for symptom management. He is currently taking 30 mg twice daily but could increase up to 60 mg three times daily as needed. Follow up in 6 months. Daysi Uribe MD documented in this encounter [facility] 10-21-2021 History of Present illness Narrative UNIVERSAL PROTOCOL / SAFETY CHECKLIST Procedure to be Performed: Neuro Autonomic ANS without TILT Sign In: A Moment of CARE was completed. Personnel directly involved with the procedure wore the appropriate PPE (Personal Protective Equipment). Patient/Surrogate Stated/Verified: PATIENT VERIFIED(optional for EMERGENT procedures): Patient name, Date of , Relevant allergies and The intended procedure Time Out Communication: Intended patient and procedure match the source documents. Correct side/site marked and visible. Medications required for procedure verified. Sign Out: SIGN OUT (optional for EMERGENT procedures): Post-procedure follow-up management communicated and Plan of Care Visit completed when applicable. Carol Pepe documented in this encounter [facility] 09-28-2021 Hospital Discharge instructions Patient Education 09/28/2021 11:28:29 Benign Prostatic Hyperplasia Benign Prostatic Hyperplasia Benign prostatic hyperplasia (BPH) is an enlarged prostate gland that is caused by the normal aging process and not by cancer. The prostate is a walnut-sized gland that is involved in the production of semen. It is located in front of the rectum and below the bladder. The bladder stores urine and the urethra is the tube that carries the urine out of the body. The prostate may get bigger as a man gets older. An enlarged prostate can press on the urethra. This can make it harder to pass urine. The build-up of urine in the bladder can cause infection. Back pressure and infection may progress to bladder damage and kidney (renal) failure. What are the causes? This condition is part of a normal aging process. However, not all men develop problems from this condition. If the prostate enlarges away from the urethra, urine flow will not be blocked. If it enlarges toward the urethra and compresses it, there will be problems passing urine. What increases the risk? This condition is more likely to develop in men over the age of 50 years. What are the signs or symptoms? Symptoms of this condition include: Getting up often during the night to urinate. Needing to urinate frequently during the day. Difficulty starting urine flow. Decrease in size and strength of your urine stream. Leaking (dribbling) after urinating. Inability to pass urine. This needs immediate treatment. Inability to completely empty your bladder. Pain when you pass urine. This is more common if there is also an infection. Urinary tract infection (UTI). How is this diagnosed? This condition is diagnosed based on your medical history, a physical exam, and your symptoms. Tests will also be done, such as: A post-void bladder scan. This measures any amount of urine that may remain in your bladder after you finish urinating. A digital rectal exam. In a rectal exam, your health care provider checks your prostate by putting a lubricated, gloved finger into your rectum to feel the back of your prostate gland. This exam detects the size of your gland and any abnormal lumps or growths. An exam of your urine (urinalysis). A prostate specific antigen (PSA) screening. This is a blood test used to screen for prostate cancer. An ultrasound. This test uses sound waves to electronically produce a picture of your prostate gland. Your health care provider may refer you to a specialist in kidney and prostate diseases (urologist). How is this treated? Once symptoms begin, your health care provider will monitor your condition (active surveillance or watchful waiting). Treatment for this condition will depend on the severity of your condition. Treatment may include: Observation and yearly exams. This may be the only treatment needed if your condition and symptoms are mild. Medicines to relieve your symptoms, including: ?Medicines to shrink the prostate. ?Medicines to relax the muscle of the prostate. Surgery in severe cases. Surgery may include: ?Prostatectomy. In this procedure, the prostate tissue is removed completely through an open incision or with a laparoscope or robotics. ?Transurethral resection of the prostate (TURP). In this procedure, a tool is inserted through the opening at the tip of the penis (urethra). It is used to cut away tissue of the inner core of the prostate. The pieces are removed through the same opening of the penis. This removes the blockage. ?Transurethral incision (TUIP). In this procedure, small cuts are made in the prostate. This lessens the prostate's pressure on the urethra. ?Transurethral microwave thermotherapy (TUMT). This procedure uses microwaves to create heat. The heat destroys and removes a small amount of prostate tissue. ?Transurethral needle ablation (TUNA). This procedure uses radio frequencies to destroy and remove a small amount of prostate tissue. ?Interstitial laser coagulation (ILC). This procedure uses a laser to destroy and remove a small amount of prostate tissue. ?Transurethral electrovaporization (TUVP). This procedure uses electrodes to destroy and remove a small amount of prostate tissue. ?Prostatic urethral lift. This procedure inserts an implant to push the lobes of the prostate away from the urethra. Follow these instructions at home: Take [id number] and prescription medicines only as told by your health care provider. Monitor your symptoms for any changes. Contact your health care provider with any changes. Avoid drinking large amounts of liquid before going to bed or out in public. Avoid or reduce how much caffeine or alcohol you drink. Give yourself time when you urinate. Keep all follow-up visits as told by your health care provider. This is important. Contact a health care provider if: You have unexplained back pain. Your symptoms do not get better with treatment. You develop side effects from the medicine you are taking. Your urine becomes very dark or has a bad smell. Your lower abdomen becomes distended and you have trouble passing your urine. Get help right away if: You have a fever or chills. You suddenly cannot urinate. You feel lightheaded, or very dizzy, or you faint. There are large amounts of blood or clots in the urine. Your urinary problems become hard to manage. You develop moderate to severe low back or flank pain. The flank is the side of your body between the ribs and the hip. These symptoms may represent a serious problem that is an emergency. Do not wait to see if the symptoms will go away. Get medical help right away. Call your local emergency services (911 in the [place] Do not drive yourself to the hospital. Summary Benign prostatic hyperplasia (BPH) is an enlarged prostate that is caused by the normal aging process and not by cancer. An enlarged prostate can press on the urethra. This can make it hard to pass urine. This condition is part of a normal aging process and is more likely to develop in men over the age of 50 years. Get help right away if you suddenly cannot urinate. This information is not intended to replace advice given to you by your health care provider. Make sure you discuss any questions you have with your health care provider. Document Released: 05/15/2006 Document Revised: 04/09/2019 Document Reviewed: 06/19/2017 [employer] Patient Education 2020 [employer] Follow Up Care 05/13/2021 15:40:48 With:Brian Claire MD, Tere Moyer [facility] Address: [facility] [address], [place] [address]- When:03/31/2022 Comments:with PSA [facility] 09-28-2021 Miscellaneous Notes Mailed patient letter requesting to call office to schedule appointment. 2nd attempt to contact patient to scheduled New GP Consult with Dr. Brambila. Please assist in scheduling Left VM for patient to call office to scheduled with Dr. Brambila for New GP Consult. Per Dr. Brambila the patient can be set up with Steven or himself - Neurology request - no testing that we can find for GP New Consult. Given this is dr herzog patient we can see him either me or [facility] had patients call to set up appointment with you. I can find no testing and questionnaire states no testing can your review and advise? Summary: PSR Questionnaire Referring Physician: Dr Kaleb Uribe Has the patient had a Gastric Emptying Study? No Which facility or hospital was the Gastric Emptying Study done at (please list full name of hospital or facility)? N/A If the patient had a gastric emptying study were the results abnormally delayed? N/A Has the patient had a Smart Pill? No Has the patient had Gastric Bypass? No Has the patient had a Gastric Sleeve? No Has the patient had a Margarette/Hiatal Hernia/Repair? No Has the patient had POP/Pyloroplasty? No Is the patient currently on TPN? No Does the patient have a G/J Tube?No Preferred phone number for contact: [phone] - Ting documented in this encounter [facility] 09-08-2021 Evaluation note Encounter Date Diagnosis Assessment Notes Aug, Gastroparesis (ICD-10 - K31.84) Aug, Gastroesophageal reflux disease with esophagitis without hemorrhage (ICD-10 - K21.00) Aug, Myasthenia gravis (ICD-10 - G70.00) Aug, Other START TRIAL OF CARAFATE 1 GRAM QID GASTRIC EMPTYING STUDY FU HERE AFTER [employer] Other 01-28-2013 History of Past illness Narrative* Problem Noted Date Resolved Date Swallowing impairment 06/25/2012 06/29/2012 Overview: June 25, 2012--> Pt. with weak orobucal mm and unable to safely swallow a meal. Thus continuing enteral nutrition for now. 06/28 passed formal swallow eval for mechanical soft diet Acute respiratory failure 06/23/20122012 Overview: AMET called and intubated on 06/23 for failure to protect airway 06/24 - tolerating PSV, possible extubation today HTN (hypertension) 04/17/2012 06/29/2012 Overview: June 25, 2012--> continuing lisinopril 40/day for BP control. Acute postoperative pain 04/11/2012 012 myasthenia gravis 01/24/200605/08 documented as of this encounter (statuses as of 10/21/2021) [facility] History of Past illness Narrative* Problem Noted Date Resolved Date Swallowing impairment 06/25/2012 06/29/2012 Overview: June 25, 2012--> Pt. with weak orobucal mm and unable to safely swallow a meal. Thus continuing enteral nutrition for now. 06/28 passed formal swallow eval for mechanical soft diet Acute respiratory failure 06/23/20122012 Overview: AMET called and intubated on 06/23 for failure to protect airway 06/24 - tolerating PSV, possible extubation today HTN (hypertension) 04/17/2012 06/29/2012 Overview: June 25, 2012--> continuing lisinopril 40/day for BP control. Acute postoperative pain 04/11/2012 012 myasthenia gravis 01/24/200605/08 documented as of this encounter (statuses as of 10/21/2021) [facility] History of Past illness Narrative* Problem Noted Date Resolved Date Swallowing impairment 06/25/2012 06/29/2012 Overview: June 25, 2012--> Pt. with weak orobucal mm and unable to safely swallow a meal. Thus continuing enteral nutrition for now. 06/28 passed formal swallow eval for mechanical soft diet Acute respiratory failure 06/23/20122012 Overview: AMET called and intubated on 06/23 for failure to protect airway 06/24 - tolerating PSV, possible extubation today HTN (hypertension) 04/17/2012 06/29/2012 Overview: June 25, 2012--> continuing lisinopril 40/day for BP control. Acute postoperative pain 04/11/2012 012 myasthenia gravis 01/24/200605/08 documented as of this encounter (statuses as of 11/23/2021) [facility] History of Past illness Narrative* Problem Noted Date Resolved Date Swallowing impairment 06/25/2012 06/29/2012 Overview: June 25, 2012--> Pt. with weak orobucal mm and unable to safely swallow a meal. Thus continuing enteral nutrition for now. 06/28 passed formal swallow eval for mechanical soft diet Acute respiratory failure 06/23/20122012 Overview: AMET called and intubated on 06/23 for failure to protect airway 06/24 - tolerating PSV, possible extubation today HTN (hypertension) 04/17/2012 06/29/2012 Overview: June 25, 2012--> continuing lisinopril 40/day for BP control. Acute postoperative pain 04/11/2012 012 myasthenia gravis 01/24/200605/08 documented as of this encounter (statuses as of 02/02/2022) [facility] History of Past illness Narrative* Problem Noted Date Resolved Date Swallowing impairment 06/25/2012 06/29/2012 Overview: June 25, 2012--> Pt. with weak orobucal mm and unable to safely swallow a meal. Thus continuing enteral nutrition for now. 06/28 passed formal swallow eval for mechanical soft diet Acute respiratory failure 06/23/20122012 Overview: AMET called and intubated on 06/23 for failure to protect airway 06/24 - tolerating PSV, possible extubation today HTN (hypertension) 04/17/2012 06/29/2012 Overview: June 25, 2012--> continuing lisinopril 40/day for BP control. Acute postoperative pain 04/11/2012 012 myasthenia gravis 01/24/200605/08 documented as of this encounter (statuses as of 04/15/2022) [facility] History of Past illness Narrative* Problem Noted Date Resolved Date Swallowing impairment 06/25/2012 06/29/2012 Overview: June 25, 2012--> Pt. with weak orobucal mm and unable to safely swallow a meal. Thus continuing enteral nutrition for now. 06/28 passed formal swallow eval for mechanical soft diet Acute respiratory failure 06/23/20122012 Overview: AMET called and intubated on 06/23 for failure to protect airway 06/24 - tolerating PSV, possible extubation today HTN (hypertension) 04/17/2012 06/29/2012 Overview: June 25, 2012--> continuing lisinopril 40/day for BP control. Acute postoperative pain 04/11/2012 012 myasthenia gravis 01/24/200605/08 documented as of this encounter (statuses as of 04/28/2022) [facility] History of Past illness Narrative* Problem Noted Date Resolved Date Swallowing impairment 06/25/2012 06/29/2012 Overview: June 25, 2012--> Pt. with weak orobucal mm and unable to safely swallow a meal. Thus continuing enteral nutrition for now. 06/28 passed formal swallow eval for mechanical soft diet Acute respiratory failure 06/23/20122012 Overview: AMET called and intubated on 06/23 for failure to protect airway 06/24 - tolerating PSV, possible extubation today HTN (hypertension) 04/17/2012 06/29/2012 Overview: June 25, 2012--> continuing lisinopril 40/day for BP control. Acute postoperative pain 04/11/2012 012 myasthenia gravis 01/24/200605/08 documented as of this encounter (statuses as of 04/29/2022) [facility] History of Past illness Narrative* Problem Noted Date Resolved Date Swallowing impairment 06/25/2012 06/29/2012 Overview: June 25, 2012--> Pt. with weak orobucal mm and unable to safely swallow a meal. Thus continuing enteral nutrition for now. 06/28 passed formal swallow eval for mechanical soft diet Acute respiratory failure 06/23/20122012 Overview: AMET called and intubated on 06/23 for failure to protect airway 06/24 - tolerating PSV, possible extubation today HTN (hypertension) 04/17/2012 06/29/2012 Overview: June 25, 2012--> continuing lisinopril 40/day for BP control. Acute postoperative pain 04/11/2012 012 myasthenia gravis 01/24/200605/08 documented as of this encounter (statuses as of 05/03/2022) [facility] History of Past illness Narrative* Problem Noted Date Resolved Date Swallowing impairment 06/25/2012 06/29/2012 Overview: June 25, 2012--> Pt. with weak orobucal mm and unable to safely swallow a meal. Thus continuing enteral nutrition for now. 06/28 passed formal swallow eval for mechanical soft diet Acute respiratory failure 06/23/20122012 Overview: AMET called and intubated on 06/23 for failure to protect airway 06/24 - tolerating PSV, possible extubation today HTN (hypertension) 04/17/2012 06/29/2012 Overview: June 25, 2012--> continuing lisinopril 40/day for BP control. Acute postoperative pain 04/11/2012 012 myasthenia gravis 01/24/200605/08 documented as of this encounter (statuses as of 05/12/2022) [facility] History of Past illness Narrative* Problem Noted Date Resolved Date Swallowing impairment 06/25/2012 06/29/2012 Overview: June 25, 2012--> Pt. with weak orobucal mm and unable to safely swallow a meal. Thus continuing enteral nutrition for now. 06/28 passed formal swallow eval for mechanical soft diet Acute respiratory failure 06/23/20122012 Overview: AMET called and intubated on 06/23 for failure to protect airway 06/24 - tolerating PSV, possible extubation today HTN (hypertension) 04/17/2012 06/29/2012 Overview: June 25, 2012--> continuing lisinopril 40/day for BP control. Acute postoperative pain 04/11/2012 012 myasthenia gravis 01/24/200605/08 documented as of this encounter (statuses as of 06/18/2022) [facility] History of Past illness Narrative* Problem Noted Date Resolved Date Swallowing impairment 06/25/2012 06/29/2012 Overview: June 25, 2012--> Pt. with weak orobucal mm and unable to safely swallow a meal. Thus continuing enteral nutrition for now. 06/28 passed formal swallow eval for mechanical soft diet Acute respiratory failure 06/23/20122012 Overview: AMET called and intubated on 06/23 for failure to protect airway 06/24 - tolerating PSV, possible extubation today HTN (hypertension) 04/17/2012 06/29/2012 Overview: June 25, 2012--> continuing lisinopril 40/day for BP control. Acute postoperative pain 04/11/2012 012 myasthenia gravis 01/24/200605/08 documented as of this encounter (statuses as of 06/24/2022) [facility] History of Past illness Narrative* Problem Noted Date Resolved Date Swallowing impairment 06/25/2012 06/29/2012 Overview: June 25, 2012--> Pt. with weak orobucal mm and unable to safely swallow a meal. Thus continuing enteral nutrition for now. 06/28 passed formal swallow eval for mechanical soft diet Acute respiratory failure 06/23/20122012 Overview: AMET called and intubated on 06/23 for failure to protect airway 06/24 - tolerating PSV, possible extubation today HTN (hypertension) 04/17/2012 06/29/2012 Overview: June 25, 2012--> continuing lisinopril 40/day for BP control. Acute postoperative pain 04/11/2012 012 myasthenia gravis 01/24/200605/08 documented as of this encounter (statuses as of 07/21/2022) [facility] History of Past illness Narrative* Problem Noted Date Resolved Date Swallowing impairment 06/25/2012 06/29/2012 Overview: June 25, 2012--> Pt. with weak orobucal mm and unable to safely swallow a meal. Thus continuing enteral nutrition for now. 06/28 passed formal swallow eval for mechanical soft diet Acute respiratory failure 06/23/20122012 Overview: AMET called and intubated on 06/23 for failure to protect airway 06/24 - tolerating PSV, possible extubation today HTN (hypertension) 04/17/2012 06/29/2012 Overview: June 25, 2012--> continuing lisinopril 40/day for BP control. Acute postoperative pain 04/11/2012 012 myasthenia gravis 01/24/200605/08 documented as of this encounter (statuses as of 08/04/2022) [facility] History of Past illness Narrative* Problem Noted Date Resolved Date Swallowing impairment 06/25/2012 06/29/2012 Overview: June 25, 2012--> Pt. with weak orobucal mm and unable to safely swallow a meal. Thus continuing enteral nutrition for now. 06/28 passed formal swallow eval for mechanical soft diet Acute respiratory failure 06/23/20122012 Overview: AMET called and intubated on 06/23 for failure to protect airway 06/24 - tolerating PSV, possible extubation today HTN (hypertension) 04/17/2012 06/29/2012 Overview: June 25, 2012--> continuing lisinopril 40/day for BP control. Acute postoperative pain 04/11/2012 012 myasthenia gravis 01/24/200605/08 documented as of this encounter (statuses as of 08/04/2022) [facility] History of Past illness Narrative* Problem Noted Date Resolved Date Swallowing impairment 06/25/2012 06/29/2012 Overview: June 25, 2012--> Pt. with weak orobucal mm and unable to safely swallow a meal. Thus continuing enteral nutrition for now. 06/28 passed formal swallow eval for mechanical soft diet Acute respiratory failure 06/23/20122012 Overview: AMET called and intubated on 06/23 for failure to protect airway 06/24 - tolerating PSV, possible extubation today HTN (hypertension) 04/17/2012 06/29/2012 Overview: June 25, 2012--> continuing lisinopril 40/day for BP control. Acute postoperative pain 04/11/2012 012 myasthenia gravis 01/24/200605/08 documented as of this encounter (statuses as of 08/04/2022) [facility] History of Past illness Narrative* Problem Noted Date Resolved Date Swallowing impairment 06/25/2012 06/29/2012 Overview: June 25, 2012--> Pt. with weak orobucal mm and unable to safely swallow a meal. Thus continuing enteral nutrition for now. 06/28 passed formal swallow eval for mechanical soft diet Acute respiratory failure 06/23/20122012 Overview: AMET called and intubated on 06/23 for failure to protect airway 06/24 - tolerating PSV, possible extubation today HTN (hypertension) 04/17/2012 06/29/2012 Overview: June 25, 2012--> continuing lisinopril 40/day for BP control. Acute postoperative pain 04/11/2012 012 myasthenia gravis 01/24/200605/08 documented as of this encounter (statuses as of 10/07/2022) [facility] History of Past illness Narrative* Problem Noted Date Diagnosed Date Resolved Date Swallowing impairment 06/25/20122012 Overview: June 25, 2012--> Pt. with weak orobucal mm and unable to safely swallow a meal. Thus continuing enteral nutrition for now. 06/28 passed formal swallow eval for mechanical soft diet Acute respiratory failure 06/23/2012 Overview: AMET called and intubated on 06/23 for failure to protect airway 06/24 - tolerating PSV, possible extubation today HTN (hypertension) 04/17/2012 3 Overview: June 25, 2012--> continuing lisinopril 40/day for BP control. Acute postoperative pain 04/11/2012 myasthenia gravis 01/24/2006 1 07/09/2006 documented as of this encounter (statuses as of 12/05/2022) [facility] History of Past illness Narrative* Problem Noted Date Diagnosed Date Resolved Date Swallowing impairment 06/25/20122012 Overview: June 25, 2012--> Pt. with weak orobucal mm and unable to safely swallow a meal. Thus continuing enteral nutrition for now. 06/28 passed formal swallow eval for mechanical soft diet Acute respiratory failure 06/23/2012 Overview: AMET called and intubated on 06/23 for failure to protect airway 06/24 - tolerating PSV, possible extubation today HTN (hypertension) 04/17/2012 3 Overview: June 25, 2012--> continuing lisinopril 40/day for BP control. Acute postoperative pain 04/11/2012 myasthenia gravis 01/24/2006 1 07/09/2006 documented as of this encounter (statuses as of 01/17/2023) [facility] of Past illness Narrative* Problem Noted Date Diagnosed Date Resolved Date Swallowing impairment 06/25/20122012 Overview: June 25, 2012--> Pt. with weak orobucal mm and unable to safely swallow a meal. Thus continuing enteral nutrition for now. 06/28 passed formal swallow eval for mechanical soft diet Acute respiratory failure 06/23/2012 Overview: AMET called and intubated on 06/23 for failure to protect airway 06/24 - tolerating PSV, possible extubation today HTN (hypertension) 04/17/2012 3 Overview: June 25, 2012--> continuing lisinopril 40/day for BP control. Acute postoperative pain 04/11/2012 myasthenia gravis 01/24/2006 1 07/09/2006 documented as of this encounter (statuses as of 05/10/2023) [facility] Appointment Date:04/12/2022 09:45:00 AM Scheduled Provider:Tere Torres Jr., MD Location:[facility] Appointment Type:URO Office Visit Diagnostic Tests Pending * PSA Total 09/28/21 [facility] evaluation + Plan note Future Appointments Appointment Date:09/06/2022 01:00:00 PM Scheduled Provider:GELY BLAKE PA-C Location:[facility] Appointment Type:URO Office Visit Diagnostic Tests Pending * PSA Total 06/07/22 [facility] evaluation + Plan note Future Appointments Appointment Date:11/15/2022 01:00:00 PM Scheduled Provider:GELY BLAKE PA-C Location:[facility] Appointment Type:URO Office Visit [facility] evaluation note* Diagnosis Gastroparesis- Primary [facility]ares[facility]- Primary [facility] Diagnosis Disorder of autonomic nervous system- Primary Unspecified disorder of autonomic nervous system [facility]* Diagnosis Myasthenia gravis (HCC) Myasthenia gravis without exacerbation [facility]* Diagnosis Myasthenia gravis (HCC)- Primary Myasthenia gravis without exacerbation Memory loss [facility]* Diagnosis MYASTHENIA GRAVIS Myasthenia gravis with exacerbation 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 [294.9AL] Unspecified persistent mental disorders due to conditions classified elsewhere Obstructive sleep apnea Obstructive sleep apnea (adult) (pediatric) [facility] Diagnosis Major neurocognitive disorder (HCC)- Primary Unspecified persistent mental disorders due to conditions classified elsewhere Obstructive sleep apnea Obstructive sleep apnea (adult) (pediatric) MYASTHENIA GRAVIS Myasthenia gravis with exacerbation Depression, unspecified depression type [facility]* Diagnosis 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)- Primary Other persistent mental disorders due to conditions classified elsewhere [facility] Diagnosis 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)- Primary Other persistent mental disorders due to conditions classified elsewhere [facility] Diagnosis Cognitive communication deficit- Primary 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) Other persistent mental disorders due to conditions classified elsewhere MYASTHENIA GRAVIS Myasthenia gravis with exacerbation ERIS on CPAP Obstructive sleep apnea (adult) (pediatric) Vascular dementia without behavioral disturbance, psychotic disturbance, mood disturbance, or anxiety, unspecified dementia severity (HCC) [facility] Diagnosis 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 MYASTHENIA GRAVIS Myasthenia gravis with exacerbation ERIS on CPAP Obstructive sleep apnea (adult) (pediatric) 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) Other persistent mental disorders due to conditions classified elsewhere [facility] Diagnosis Myasthenia gravis (HCC) Myasthenia gravis without exacerbation [facility] Diagnosis 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 ERIS on CPAP Obstructive sleep apnea (adult) (pediatric) [facility] [place] [facility] Narrative - Reported* Type Description Date Medical History HTN (hypertension) Medical History Hypercholesteremia Medical History Seasonal allergies Medical History OAB (overactive bladder) Medical History Glaucoma Surgical History cancer Surgical History knee replacement Surgical History heart surgery due to cancer pérez or removal Hospitalization History see above [employer] Other Hospital course Narrative No data available for this section [facility] No data available for this section [facility] Discharge Instructions * Instructions* Karen Murphy, HELEN - 07/31/2019 Nothing to eat or drink after 12 mid except take your Tofranil,Terbenefine,Zetia,Imuran Coreg with a sip of water & put your eye drops in the morning of surgery. No chewing gum,mints or smoking the morning of your surgery.Dress comfortably,preferably wear a button down shirt. Wear no jewelry & bring no valuables other than your ID & Ins card. Shower the night before or morning of surgery. If you are sick, notify Dr Fenton. Have your stay in the [facility].Report to [facility] 7:00 AM on August 13. documented in this encounter* Instructions* Susanna Torres RN - 10/16/2019 Activity You have had anesthesia today Do not drive, operate heavy equipment, consume alcoholic beverages, or make any important decisionsfor 24 hours If you are taking pain medication: Do not drive or consume alcohol. Take your time changing positions today. You may feel light headed or dizzy if you move too quickly. Continue your home medications as ordered by your physician. Diet You can eat your normal diet when you feel well. You should start off with bland foods like chickensoup, toast, or yogurt. Then advance as tolerated. Drink plenty of fluids (unless your doctor tells you not to). Your urine should be very lightly colored without a strong odor. Plastic Surgery Instructions: -Activity as tolerated -Keep dressing clean and dry. Maintain adhesive dressing to surgical site until follow up visit. Okif this were to fall off on own prior to office visit. -Call the office or come to Emergency Room if signs of infection appear (hot, swollen, red, draining pus, fever) -Take medications as prescribed. Don't drive, consume alcohol, or operate heavy machinery while taking pain medications. -Should urinate within 8 hours of surgery -Follow up with Dr. Fenton in 10-14 days after surgery, call [phone] to schedule an appointment. 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 Instr on NPO after 12 mid on 10-15-19, except take Imuran & Carvedilol with a sip of water the morning of surgery & use the Latanoprost eye drops,dress in a button down shirt,report any illness' wear no jewelry or bring any valuables other than Ins card & ID,shower the AM of surgery & report to [facility] On same meds & states his Myasthenia Gravis is well controlled. With Covid the importance of social distancing & good hand washing was stressed.Pt was informed his should stay in car with her cell phone turned on & she will be called by Dr Fenton after your surgery. Any questions, feel free to call Dr Fenton's office.Pt verbalizes comprehension. documented in this encounter Assessments Diagnosis Basal cell carcinoma (BCC) of left side of nose Summary Purpose Family History No Family History Records Found Mother Name Dates Details Family history of hypertensi on(V17.49, Z82.49) Status:Active Unknown Family Member Name Dates Details Family history of hypertensi on: Mother(V17.49, Z82.49) Status:Active Unknown Family Member Name Dates Details Family history of hypertensi on: Mother(V17.49, Z82.49) Status:Active Unknown Family Member Name Dates Details Family history of hypertensi on: Mother(V17.49, Z82.49) Status:Active Unknown Family Member Name Dates Details Family history of hypertensi on: Mother(V17.49, Z82.49) Status:Active Unknown Family Member Name Dates Details Family history of hypertensi on: Mother(V17.49, Z82.49) Status:Active Medications Administered Section Inactive Administered Medications - up to 3 most recent administrations Medication Order MAR Action Action Date Dose Rate Site acetylcholine 10% solution - cchs compounding 20 mL, IRRIGATION, ONE TIME, 1 dose, Starting on Mon07/14/21 at 1439, Until Swapna 10/21/21 at 0945, Protect from Light. Refrigerate Given 10/21/2021 9:45 AM EDT 20 mL Reason for Referral Specialty Diagnoses / Procedures Referred By Contac t Referred To Contact MR IMAGING Diagnoses Myasthenia gravis with exacerbation (HCC) Cognitive dysfunction Obstructive sleep apnea Procedures MRI 3D POST PROCESSING 3D RENDERING W/INTERP&POSTPROC DIFF WORK STATION Lauren Lamas MD [address] [place] [address] Mr Imaging Referral ID Status Reason Start Date Expiration Date V isits Requested Visits Authorized [id number] Closed Auto-Generate d Referral 04/29/2022 05/29/2023 1 1 Specialty Diagnoses / Procedures Referred By Contac t Referred To Contact MR IMAGING Diagnoses Myasthenia gravis with exacerbation (HCC) Cognitive dysfunction Obstructive sleep apnea Procedures MRI BRAIN W QUANT WO IVCON MRI BRAIN BRAIN STEM W/O CONTRAST MATERIAL Lauren Lamas MD [address] [place] [address] Mr Imaging Referral ID Status Reason Start Date Expiration Date V isits Requested Visits Authorized [id number] Closed Auto-Generate d Referral 04/29/2022 05/29/2023 1 1 Specialty Diagnoses / Procedures Referred By Contac t Referred To Contact Neurology Diagnoses Memory loss Procedures CONSULT TO NEUROLOGY OFFICE/OUTPATIENT NEW HIGH MDM 60-74 MINUTES Daysi Uribe MD [address] [place] [address] Referral ID Status Reason Start Date Expiration Date Visits Requested Visits Authorized [id number] Authorized PCP Requested Referral 04/27/2023 1 1 Additional Source Comments Reason for Visit (unrecogniz ed section and content) Status Reason Specialty Diagnoses / Procedures Referre d By Contact Referred To Contact Diagnoses Basal cell carcinoma of skin of nose BASAL CELL - NOSE Procedures ND OFFICE/OUTPT VISIT,PROCEDURE ONLY ND ADJ TISS XFER LID,NOS,EAR <10SQCM NASAL LESION BIOPSY EXCISION - BASAL CELL NOSE WITH FLAP CLOSURE ADN FROZEN SECTION *PATHOLOGY REQUIRED* Ángel Fenton MD [address] [place] [address] [facility] Reason Comments Procedure Reason Comments Follow Up Reason Onset Date Comments Refill Request 11/19/2021 Reason Comments Appointment Reason Onset Date Comments Refill Request 04/14/2022 Reason Comments Established Patient Reason Comments 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 - Other Download MSC Reason Comments PAP Therapy Follow Up DOWNLOAD Reason Comments Results BiPAP download 04/03- 05/02/2022 Specialty Diagnoses / Procedures Referred By Liliana jesus Referred To Contact MR IMAGING Diagnoses Myasthenia gravis with exacerbation (HCC) Cognitive dysfunction Obstructive sleep apnea Procedures MRI BRAIN W QUANT WO IVCON MRI BRAIN BRAIN STEM W/O CONTRAST MATERIAL Lauren Lamas MD [address] [place] [address] Mr Imaging Referral ID Status Reason Start Date Expiration Date V isits Requested Visits Authorized [id number] Closed Auto-Generate d Referral 04/29/2022 05/29/2023 1 1 Reason Comments Orders Starting aricept Reason Comments Speech Evaluation Speech Discharge Specialty Diagnoses / Procedures Referred By Liliana jesus Referred To Contact [facility] Diagnoses 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) Myasthenia gravis with exacerbation (HCC) ERIS on CPAP Vascular dementia without behavioral disturbance, psychotic disturbance, mood disturbance, or anxiety, unspecified dementia severity (HCC) Procedures CONSULT TO SPEECH THERAPY OFFICE/OUTPATIENT [facility] MDM 60-74 MINUTES Lauren Lamas MD [address] [place] [address] [facility] [place] [address] [place] [address] Referral ID Status Reason Start Date Expiration Date Visits Requested Visits Authorized [id number] Authorized Auto-Generat ed Referral 07/08/2022 07/08/2023 99 99 Reason Comments Established Patient Reason Onset Date Comments Refill Request 12/02/2022 (unrecognized sect ion and content) No Status Records FoundNo Status Records FoundNo Status Records FoundNo Status Records FoundNo Status Records FoundNo Status Records FoundNo Status Records FoundNo Status Records FoundNo Status Records Found INFORMATION SOURCE (unrecogn ized section and content) DATE CREATED AUTHOR [facility] DATE CREATED AUTHOR AUTHOR'S ORGANIZ ATION 10/19[facility]2019 [facility] DATE CREATED AUTHOR AUTHOR'S ORGANIZ ATION 10/10/2022 [facility] DATE CREATED AUTHOR AUTHOR'S ORGANIZ ATION 11/06/2022 [employer] DATE CREATED AUTHOR AUTHOR'S ORGANIZ ATION 11/06/2022 [facility] DATE CREATED AUTHOR AUTHOR'S ORGANIZ ATION 05/13/2023 [facility] DATE CREATED AUTHOR AUTHOR'S ORGANIZ ATION 05/13/2023 [facility] EPIC DATE CREATED AUTHOR AUTHOR'S ORGANIZ ATION 05/19/2023 [facility] ical [facility] DATE CREATED AUTHOR AUTHOR'S ORGANIZ ATION 05/20/2023 [facility] Comments (unrecognize d section and content) In the event this informatio n is protected by the Federal Confidentiality of Alcohol and Drug Abuse Patient Records regulations: The Federal rules restrict any use of the information to criminally investigate or prosecute any alcohol or drug abuse patient.[facility] the event this information is protected by the Federal Confidentiality of Alcohol and Drug Abuse Patient Records regulations: The Federal rules restrict any use of the information to criminally investigate or prosecute any alcohol or drug abuse patient.[facility] Hospital[facility] the event this information is protected by the Federal Confidentiality of Alcohol and Drug Abuse Patient Records regulations: The Federal rules restrict any use of the information to criminally investigate or prosecute any alcohol or drug abuse patient.[facility] the event this information is protected by the Federal Confidentiality of Alcohol and Drug Abuse Patient Records regulations: The Federal rules restrict any use of the information to criminally investigate or prosecute any alcohol or drug abuse patient.[facility] Hospital[facility] the event this information is protected by the Federal Confidentiality of Alcohol and Drug Abuse Patient Records regulations: The Federal rules restrict any use of the information to criminally investigate or prosecute any alcohol or drug abuse patient.[facility] HospitalIn the event this information is protected by the Federal Confidentiality of Alcohol and Drug Abuse Patient Records regulations: The Federal rules restrict any use of the information to criminally investigate or prosecute any alcohol or drug abuse patient.[facility] Hospital[facility] the event this information is protected by the Federal Confidentiality of Alcohol and Drug Abuse Patient Records regulations: The Federal rules restrict any use of the information to criminally investigate or prosecute any alcohol or drug abuse patient.[facility] HospitalIn the event this information is protected by the Federal Confidentiality of Alcohol and Drug Abuse Patient Records regulations: The Federal rules restrict any use of the information to criminally investigate or prosecute any alcohol or drug abuse patient.[facility] HospitalIn the event this information is protected by the Federal Confidentiality of Alcohol and Drug Abuse Patient Records regulations: The Federal rules restrict any use of the information to criminally investigate or prosecute any alcohol or drug abuse patient.[facility] HospitalIn the event this information is protected by the Federal Confidentiality of Alcohol and Drug Abuse Patient Records regulations: The Federal rules restrict any use of the information to criminally investigate or prosecute any alcohol or drug abuse patient.[facility] HospitalIn the event this information is protected by the Federal Confidentiality of Alcohol and Drug Abuse Patient Records regulations: The Federal rules restrict any use of the information to criminally investigate or prosecute any alcohol or drug abuse patient.[facility] HospitalIn the event this information is protected by the Federal Confidentiality of Alcohol and Drug Abuse Patient Records regulations: The Federal rules restrict any use of the information to criminally investigate or prosecute any alcohol or drug abuse patient.[facility] HospitalIn the event this information is protected by the Federal Confidentiality of Alcohol and Drug Abuse Patient Records regulations: The Federal rules restrict any use of the information to criminally investigate or prosecute any alcohol or drug abuse patient.[facility] HospitalIn the event this information is protected by the Federal Confidentiality of Alcohol and Drug Abuse Patient Records regulations: The Federal rules restrict any use of the information to criminally investigate or prosecute any alcohol or drug abuse patient.[facility] HospitalIn the event this information is protected by the Federal Confidentiality of Alcohol and Drug Abuse Patient Records regulations: The Federal rules restrict any use of the information to criminally investigate or prosecute any alcohol or drug abuse patient.[facility] HospitalIn the event this information is protected by the Federal Confidentiality of Alcohol and Drug Abuse Patient Records regulations: The Federal rules restrict any use of the information to criminally investigate or prosecute any alcohol or drug abuse patient.[facility] HospitalIn the event this information is protected by the Federal Confidentiality of Alcohol and Drug Abuse Patient Records regulations: The Federal rules restrict any use of the information to criminally investigate or prosecute any alcohol or drug abuse patient.[facility] HospitalIn the event this information is protected by the Federal Confidentiality of Alcohol and Drug Abuse Patient Records regulations: The Federal rules restrict any use of the information to criminally investigate or prosecute any alcohol or drug abuse patient.[facility] HospitalIn the event this information is protected by the Federal Confidentiality of Alcohol and Drug Abuse Patient Records regulations: The Federal rules restrict any use of the information to criminally investigate or prosecute any alcohol or drug abuse patient.[facility] HospitalIn the event this information is protected by the Federal Confidentiality of Alcohol and Drug Abuse Patient Records regulations: The Federal rules restrict any use of the information to criminally investigate or prosecute any alcohol or drug abuse patient.[facility] Care Teams (unrecognized sec tion and content) Overlock Operator Relationship Specialty Start Date End Date Guevara Mackay MD [address] [phone] PCP - General 09/07/00 Overlock Operator Relationship Specialty Start Date End Date Guevara Mackay MD [address] [id number] PCP - General 09/07/00 Overlock Operator Relationship Specialty Start Date End Date Guevara Mackay MD [address] [id number] PCP - General 09/07/00 Overlock Operator Relationship Specialty Start Date End Date Guevara Mackay MD [address] [place] [address] PCP - General 09/07/00 Overlock Operator Relationship Specialty Start Date End Date Guevara Mackay MD [address] [place] [address] PCP - General 09/07/00 Overlock Operator Relationship Specialty Start Date End Date Guevara Mackay MD [address] [place] [address] PCP - General 09/07/00 Overlock Operator Relationship Specialty Start Date End Date Guevara Mackay MD [address] [place] [address] PCP - General 09/07/00 Overlock Operator Relationship Specialty Start Date End Date Guevara Mackay MD [address] [place] [address] PCP - General 09/07/00 Overlock Operator Relationship Specialty Start Date End Date Guevara Mackay MD [address] [place] [address] PCP - General 09/07/00 Overlock Operator Relationship Specialty Start Date End Date Guevara Mackay MD [address] [place] [address] PCP - General 09/07/00 FOR RECORDS PERTAINING TO PATIENTS WHO ARE OR HAVE BEEN ENROLLED IN A CHEMICAL DEPENDENCY/SUBSTANCEABUSE PROGRAM, SOME INFORMATION MAY BE OMITTED. This clinical summary was aggregated from multiple sources. Caution should be exercised in using it in the provision of clinical care. This summary normalizes information from multiple sources, and as a consequence, information in this document may materially change the coding, format and clinical context of patient data. In addition, data may be omitted in some cases. CLINICAL DECISIONS SHOULD BE BASED ON THE PRIMARY CLINICAL RECORDS. [facility] [employer] [facility]. provides no warranty or guarantee of the accuracy or completeness of information in this document.
== END 2023-05-24 15:18 | disposition home or self-care (01) ==
PROVIDERS: Emergency Provider Emergency Medicine; PCP Family Medicine
DX: U07.1 COVID-19 (principal); F03.90 Unspecified dementia, unspecified severity, without behavioral disturbance, psychotic disturbance, mood disturbance, and anxiety; Z87.891 Personal history of nicotine dependence; R50.9 Fever, unspecified
CPT/HCPCS: 36415; 71045; 80053; 83605; 84145; 85025; 87040; 87804; 87811; 93005; 99285

== ENCOUNTER 2023-07-11 14:01 | Outpatient (OUT) | payer MEDICARE, SELFPAY ==
--- OUTSIDE RECORDS SUMMARY | 2023-07-11 14:17 | XMS_ITS | CCD ---
Author Name Unknown Address [address] [place] [address] Organization [facility] Care Team Providers Care Radiological Engineer Name Role Phone Guevara Mackay Primary Care Provider ÁNGEL FENTON Referring Unavailab GUEVARA Calvo Primary Care Unavailable ÁNGEL FENTON Admitting Unavailab ÁNGEL Alvarado Attending Unavailab GUEVARA Calvo Primary Care Unavailable JERAMY HART Referring Unavailable GUEVARA MACKAY Primary Care Unavailable Guevara Carrasco Unavailable Unavailable Guevara Mackay Unavailable Unavailable Guevara Mackay Primary Care Provider Guevara Mackay Unavailable Unavailable Unavailable Gueavra Mackay Primary Care Physician Guevara Mackay MD Primary Care Provider Cliff Leon Unavailable Guevara Mackay MD Primary Care Provider Guevara Mackay MD Primary Care Provider [phone] [...] Unavailable HOY ., DR MCKEON Consulting Unavailable NAKNEK, DR CLIFF Downs Consulting Unavailable TORRES JR [...] Manzanares Primary Care Unavail able Guevara Carrasco Attending Unavailable Guevara Carrasco Referring Unavailable ADAMSLAUREN Raman Attending Unavailable GUEVARA MACKAY Primary Care Unavailable ADAMSLAUREN Referring Unavailable GUEVARA MACKAY Primary Care Unavailable ADAMS, LAUREN Referring Unavailable HOY GUEVARA M Primary Care Unavailable ARASELI CAMACHO Attending Unavailable ADAMS, LAUREN Referring Unavailable HOY, GUEVARA M Primary Care Unavailable CHANDNI METZGER Attending Unavailable MONICAY, GUEVARA M Primary Care Unavailable CHANDNI METZGER Referring Unavailable RHOTENCHANDNI Attending Unavailable ADAMS, LAUREN Referring Unavailable HOY, GUEVARA M Primary Care Unavailable HOY, GUEVARA M Primary Care Unavailable KATIA JEREZ Attending Unavailable ADAMS, LAUREN Referring Unavailable INGA TOURE Attending Unavailable GUEVARA CARRASCO Attending Unavailable GUEVARA MACKAY Primary Care Unavailable GUEVARA CARRASCO Attending Unavailable HOPABLO ChanelLAS SRINIVASAN Primary Care Unavailable GUEVARA CARRASCO Attending Unavailable GUEVARA MACKAY Primary Care Unavailable GELY BLAKE Attending Unavailable GELY BLAKE Attending Unavailable Srinivasan MARIE Attending Unavailable Guevara Mackay Unavailable GELY BLAKE Attending Unavailable Allergies Allergy Classification Reported Allergen(s) Allergy Type Date of Onset Reaction(s) Facility (20 sources) Ciprofloxacin; Translations: [ciprofloxacin] Drug Allergy 04-04-20 12 Rash, Eruption of skin (disorder), Unknown -[facility] [address] Work Phone: (11 sources) Penicillins; Translations: [penicillins] Propensity to adverse reactions to drug 01-22-20 04 Rash, Eruption of skin (disorder) [place] (7 sources) Penicillins; Translations: [Penicillins] [facility] Work Phone: (3 sources) Penicillins Propensity to adverse reactions 01-22-20 04 [facility] (17 sources) Penicillins Propensity to adverse reactions 01-22-20 04 [facility] (1 source) Penicillin G Drug Allergy Unknown [facility] Other (1 source) Ciprofloxacin Drug Allergy 09-12-19 14 [facility] (1 source) Penicillins Drug allergy (disorder) 09-12-19 14 [facility] Medications Current Medications Medication Drug [...] oral tablet (20 sources) Purine Antimetabolite Start: 07-16-2018 End: 02-14-2020 azaTHIOprine (IMURAN) 50 MG tablet Take 25 mg by mouth 2 times daily 0 07/16/2018 02/14/2020 Active Start: 04-29-2016 End: 12-05-2023 take 1 tablet by mouth twice daily azaTHIOprine (IMURAN) 50 mg tablet Indications: Myasthenia gravis (HCC) Take 1 tablet by mouth twice daily. 180 tablet 3 12/05/2022 12/05/2023 Active Start: 04-29-2016 End: 02-14-2020 azaTHIOprine 50 MG Oral Tabl et Quantity: 100 Refills: 0 Ordered: 29-Apr-2016 DO Start : 29-Apr-2016 Active azaTHIOprine 100 MG Orally Active Comment on above: Take 1 tablet by zulma th twice daily. calcium chloride 0.0014 meq/ml / potassium chloride 0.004 meq/ml / sodium chloride 0.103 meq/ml / sodium lactate 0.028 meq/ml injectable solution (1 source) Start: 10-16-2019 lactated ringers infusion carvedilol 12.5 mg oral tablet (20 sources) alpha-Adrenergic Michael, beta-Adrenergic Michael Start: 05-24-2023 take 1 tablet by mouth twice daily carvedilol 12.5 mg Tab 12.5 mg = 1 tab(s), Oral, BID, Refills(s) 0 Start Date: 05/24/23 Status: Ordered Start: 05-05-2021 take 1 tablet by zulma th twice daily Carvedilol 12.5 MG Oral Tablet [...] by mout h twice daily with meals. celecoxib 200 mg oral capsule (20 sources) [...] Start: End: diphenhydrAMINE (BENADRYL) injection 12.5 mg donepezil hydrochloride 10 mg oral tablet (12 sources) Start: End: take 1 tablet by mouth once daily at bedtime donepezil 10 mg Tab 10 mg = 1 tab(s), Oral, Once a day (at bedtime), Refills(s) 0 Start Date: 09/06/22 Status: Ordered Start: 08-04-2022 donepezil (PAXTON CEPT) 10 mg [...] can increase to one tablet a day. dorzolamide 20 mg/ml / timolol 5 mg/ml ophthalmic solution (1 source) Carbonic Anhydrase Inhibitor, beta-Adrenergic Michael Start: 05-24-2023 dorzolamide-timolo l Opth 2%-0.5% Glenna 1 drop(s), Eye-Both, BID, Refill(s) 0 Start Date: 05/24/23 Status: Ordered ezetimibe 10 mg oral tablet (20 sources) Dietary Cholesterol Absorption Inhibitor Start: 07-07-2019 take 1 tablet by mouth once daily ezetimibe 10 mg Tab 10 mg = 1 tab(s), Oral, Daily, Refills(s) 0 Start Date: 06/07/22 Status: Ordered Ezetimibe 10 MG Oral Tablet Quantity: 0 Refills: 0 Ordered: 14-Jun-2019 DO Active Ezetimibe Active Ezetimibe 10 MG Oral Tablet Refills: 0 Active Comment on above: Take 1 tablet by zulma th once daily. 2 ml fentaNYL 0.05 mg/ml injection (1 source) Opioid Agonist Start: 10-16-19 fentaNYL (SUBLIMAZE) injection 25 mcg 1 ml hydrALAZINE hydrochloride 20 mg/ml injection (1 source) Arteriolar Vasodilator Start: 10-16-19 hydrALAZINE (APRESOLINE) injection 5 mg 1 ml HYDROmorphone hydrochloride 1 mg/ml cartridge (1 source) Opioid Agonist Start: 10-16-19 HYDROmorphone (DILAUDID) injection 0.5 mg 0.5 ml meperidine hydrochloride 50 mg/ml injection (1 source) Opioid Agonist Start: 10-16-19 20 meperidine (DEMEROL) injection SOLN 12.5 mg 2 ml midazolam 1 mg/ml injection (1 source) Benzodiazepine Start: 10-16-19 End: 10-16-19 midazolam (VERSED) injection 2 mg 30 ml morphine sulfate 1 mg/ml injection (1 source) Opioid Agonist Start: 10-16-19 morphine (PF) injection 1 mg ondansetron 4 mg disintegrating oral tablet (2 sources) Serotonin-3 Receptor Antagonist Start: 05-27-20 take 1 tablet by mouth every eight hours as needed Ondansetron 4 MG 1 tablet on the tongue and allow to dissolve Orally every 8 hours as needed for 7 days Apr, Active Start: 10-16-2019 End: 10-16-2019 ondansetron (ZOFRAN) injecti on 4 mg pantoprazole 40 mg extended release oral tablet (9 sources) Proton Pump Inhibitor Start: 09-28-2021 take 1 tablet by mouth once daily pantoprazole 40 mg Oral EC Tab 40 mg = 1 tab(s), Oral, Daily Start Date: 09/28/21 Status: Ordered Start: 06-18-2021 take 2 tablets by mo [facility] once daily Pantoprazole Sodium 40 MG [...] tablet by mouth three times daily pyridostigmine 60 mg Tab 60 mg = 1 tab(s), Oral, TID Start Date: 09/28/21 Status: Ordered take 1 tablet by zulma th every four hours Pyridostigmine [place] 60 MG 1 tablet Orally every 4 [...] Drug Class(es) Dates Sig (Normalized) Sig (Original) doxycycline hyclate 100 mg oral tablet (1 source) Tetracycline-cla ss Drug Start: 4 doxycycline hyclate 100 mg Tab 100 mg = 1 tab(s), Oral, As Directed, Pt to take 1 tab the day before procedure and the 2nd tab the day of procedure once completed., # 2 tab(s), Refills(s) 0, Pharmacy: [id number], 168, cm, 06/06/23 13:20:00 EST, Height/Length Dosing, 102, kg, 06/06/23 13:20:00 EST, Weight Dosing Start Date: 06/06/23 Status: Ordered hydroCHLOROthiazide 25 mg oral tablet (2 sources) Thiazide Diuretic Start: 7 hydroCHLOROthiazide 25 MG Oral Tablet Quantity: 90 Refills: 0 Start : 05-Sep-2016 Active ibuprofen 800 mg oral tablet (5 sources) Nonsteroidal Anti-inflammator y Drug Start: 7 Ibuprofen 800 MG Oral Tablet Quantity: 100 [...] bedtime., # 60 tab(s), Refills(s) 11, Pharmacy: [facility], 168, cm, 06/07/22 10:05:00 EST, [...] BID, # 60 tab(s), Refills(s) 5, Pharmacy: [facility], 168, cm, 09/28/21 10:51:00 EDT, [...] Problem Date Documented Date Episodic/Chronic Allergic reactions (5 sources) Eczema 04-03-2019 Episodic Cataract (20 sources) Nuclear sclerotic cataract; Translations: [Pseudophakia] Onset: 11-20-2017 Chronic Congestive heart failure; nonhypertensive (1 source) Unspecified diastolic (congestive) heart failure; Translations: [UNSPECIFIED DIASTOLIC HEART FAILURE] Onset: 09-02-2022 Chronic Delirium, dementia, and amnestic and other cognitive disorders (16 sources) Cognitive disorder; Translations: [Unspecified mental disorder due to known physiological condition] Onset: 06-17-2022 Chronic Diabetes mellitus without complication (20 sources) Steroid-induced diabetes; 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] Onset: 07-03-2012 07-03-2012 Chronic Diabetes mellitus without complication (1 source) Other abnormal glucose; Translations: [OTHER ABNORMAL GLUCOSE] Onset: 09-02-2022 Episodic Diseases of white blood cells (1 source) Leukopenia 05-24-2023 Chronic Disorders of lipid metabolism (6 sources) Hyperlipidemia, unspecified; Translations: [Hyperlipidemia] Onset: 08-18-2022 Chronic Esophageal disorders (1 source) Gastro-esophageal reflux disease with esophagitis; Translations: [Gastroesophageal reflux disease with esophagitis without hemorrhage] Chronic Essential hypertension (20 sources) Hypertensive disorder; Translations: [Benign essential hypertension] Onset: 03-23-2005 04-03-2019 Chronic Genitourinary symptoms and ill-defined conditions (9 sources) Urge incontinence of urine; Translations: [Urge incontinence] Onset: 06-07-2022 08-27-2020 Chronic Genitourinary symptoms and ill-defined conditions (20 sources) Urgent desire to urinate; Translations: [Urgency [...] Translations: [Blepharitis, unspecified] Episodic Melanomas of skin (5 sources) Malignant melanoma 06-23-2020 Chronic Mood disorders (1 source) Depressive disorder; Translations: [Depression, unspecified depression type] Chronic Noninfectious gastroenteritis (5 sources) Gastroenteritis 04-03-2019 Episodic Nutritional deficiencies (1 source) Vitamin D deficiency, unspecified; Translations: [VITAMIN D DEFICIENCY UNSPECIFIED] Onset: 08-26-2022 Chronic Osteoarthritis (20 sources) Osteoarthritis; Translations: [Unspecified osteoarthritis, unspecified site] Onset: 03-23-2005 03-18-2010 Chronic Other aftercare (5 sources) Other medical terminologist (current) drug therapy; Translations: [OTH FINE ARTS INSTRUCTOR CURRENT DRUG THERAPY] Onset: 08-21-2022 Episodic Other and ill-defined heart disease (4 sources) Cardiomegaly; Translations: [CARDIOMEGALY] Onset: 10-06-2022 Chronic Other and ill-defined heart disease (1 source) Cardiomegaly 05-24-2023 Chronic Other circulatory disease (7 sources) H/O: hypertension; Translations: [Personal history of other diseases of circulatory system] Episodic Other diseases of kidney and ureters (2 sources) Urinary tract obstruction; Translations: [Other obstructive and reflux uropathy] Onset: 09-28-2021 Episodic Other diseases of kidney and ureters (5 sources) Cyst of kidney 04-03-2019 Episodic Other [...] Onset: 01-16-2023 Episodic Other male genital disorders (8 sources) Male erectile dysfunction, unspecified; Translations: [Erectile dysfunction] Onset: 06-07-2022 Chronic Other nervous system disorders (9 sources) Myasthenia gravis; Translations: [Myasthenia gravis without [...] nose] Chronic Other non-epithelial cancer of skin (5 sources) Basal cell carcinoma of skin 04-03-2019 Episodic Other nutritional; endocrine; and metabolic disorders (3 sources) Obese class II; Translations: [Obesity, unspecified] Onset: 10-13-2022 10-13-2022 Chronic Other nutritional; endocrine; and metabolic disorders (1 source) Body mass index 30+ - obesity 06-06-2023 Chronic Other nutritional; endocrine; and metabolic disorders (7 sources) History of hypercholesterolemia; Translations: [Personal history of other endocrine, metabolic, and immunity disorders] Episodic Other screening for suspected conditions (not mental disorders or infectious disease) (13 sources) Raised prostate specific antigen; Translations: [Encounter for screening for malignant neoplasm of prostate] Onset: 04-04-2022 04-03-2019 Episodic Other upper respiratory disease (5 sources) Seasonal allergy 04-03-2019 Chronic Residual codes; unclassified (20 sources) Obstructive sleep apnea syndrome; Translations: [Obstructive sleep apnea (adult) (pediatric)] Onset: 04-11-2012 Chronic Comment on above: Outside Source Comme nt: Overview: Pt. requiring ATC Bipap,and indicated that this was typical, as in the past, he only demonstrated significant improvement in resp fn after 2-3 session sof PPE. June 26, 2012--> slight subjective improvement in resp status. continued frequent suctioning. No hypoxic episodes. 06/27/2012 Still has a great deal of secretions. 06/28/2012 Secretions better today. Residual codes; unclassified (2 sources) Obstructive sleep [...] amnesia; Translations: [OTHER AMNESIA] Onset: 09-02-2022 Episodic Screening and history of mental health and substance abuse codes (1 source) Ex-smoker 06-06-2023 Episodic Spondylosis; intervertebral disc disorders; other back problems (20 sources) Lumbar spondylosis; Translations: [Spondylosis without myelopathy or radiculopathy, lumbar region] Onset: 04-10-2012 Chronic Unclassified (20 sources) ASA CLASS III Onset: 08-10-2004 03-18-2010 Unclassified (4 sources) Patient encounter status 06-07-2022 Past or [...] Test Name Value Interpretation Reference Range Facility Consent for Procedure/Surger yon 07-06-2023 Consent for Procedure/Surgery [id number] Normal [facility] Ambulatory Visit Summaryon 0 07-04-2023 Ambulatory Visit Summary RON WELCH :1950 Visit Date:07/04/2023 Ambulatory Visit Instructions Your Diagnosis Personal history of colonic polyps Your Care Team Attending Physician - Srinivasan MARIE MD Primary Care Physician - Guevara Mackay MD Referring Physician - Guevara Mackay MD This Is Your Medications List Contact prescribing physician if questions or concerns azathioprine (azaTHIOprine 50 mg Tab) carvedilol (carvedilol 12.5 mg Tab) donepezil (donepezil 10 mg Tab) dorzolamide-timolol ophthalmic (dorzolamide-timolol Opth 2%-0.5% Glenna) doxycycline (doxycycline hyclate 100 mg Tab) ezetimibe (ezetimibe 10 mg Tab) latanoprost ophthalmic (latanoprost ophthalmic 0.005% solution) pantoprazole (pantoprazole 40 mg Oral EC Tab) pyridostigmine (pyridostigmine 60 mg Tab) Procedures Performed Colonoscopy (12/13/2018), EGD - esophagogastroduodenoscopy (12/13/2018), Cystoscopy (10/25/2017), Green laser light (07/12/2017), Urodynamics (08/16/2012), Anal fistulotomy, Arthroscopy of knee, Cataract extraction, Excision of basal cell carcinoma, Knee replacement, Laminectomy, Melanoma, TURP - Transurethral resection of prostate. Discharge Vitals Heart Rate (Peripheral) 72 Respiratory Rate 16 Blood Pressure 118/80 Height 170.18 cm Height 67 in Weight 108 kg Weight 237.6 lb BMI 37.29 What to do next Scheduled Follow-Up Appointments Monday 11:30 AM EST Where: [facility] Medications What How Much When Instructions Unchanged azathioprine (azaTHIOprine 50 mg Tab) 1 Tablets By Mouth 2 times a day Contact prescribing physician if questions or concerns Unchanged carvedilol (carvedilol 12.5 mg Tab) 1 Tablets By Mouth 2 times a day Contact prescribing physician if questions or concerns Unchanged donepezil (donepezil 10 mg Tab) 1 Tablets By Mouth Once a day (at bedtime) Contact prescribing physician if questions or concerns Unchanged dorzolamide-timolol ophthalmic (dorzolamide-timolol Opth 2%-0.5% Glenna) 1 Drops Both eyes 2 times a day Contact prescribing physician if questions or concerns Unchanged doxycycline (doxycycline hyclate 100 mg Tab) 1 Tablets By Mouth As Directed Pt to take 1 tab the day before procedure and the 2nd tab the day of procedure once completed. Contact prescribing physician if questions or concerns Unchanged ezetimibe (ezetimibe 10 mg Tab) 1 Tablets By Mouth Every [...] 60 mg Tab) 1 Tablets By Mouth 3 times a day Contact prescribing physician if questions or concerns Medications and Immunizations Administered Not Given influenza virus vaccine, inactivated, Patient Refuses Allergies ciprofloxacin (Rash) penicillins (Rash) Problems Ongoing - Any problem that you are currently receiving treatment for. Basal cell carcinoma (BCC) BMI 37.0-37.9, adult BPH with urinary obstruction Cardiomegaly Dementia Diabetes Eczema ED (erectile dysfunction) Elevated PSA Former smoker Frequency of urination Glaucoma History of urinary tract infection Hyperlipidemia Hypertension Leukopenia Melanoma Microscopic hematuria Myasthenia gravis Obesity Obstructive sleep apnea syndrome Personal history of colonic polyps Prostate cancer screening Renal cyst Seasonal allergies Urge incontinence Urinary urgency Historical - Any problem that you are no longer receiving treatment for. Gastroenteritis Patient Survey You may receive a survey via text or e-mail asking about your office visit. Please share your experience with us by completing your survey. We appreciate your feedback and thank you for choosing us for your care. Normal [facility] Lab Reportson 06-07-2023 Lab Reports [id number] Normal [facility] Screenson 06-07-2023 Screens [id number]#[id number] Normal [facility] Screens [id number]#[id number] [facility] Urology Office/Clinic Noteon 06-06-2023 Urology Office/Clinic Note HPI Staff 73 year old male here for worsening symptoms- pt. last seen IO on 11/15/22 due to urge incontinence, bph with luts, elevated psa, ED pcp gave patient Flomax 0.4mg qd which did not help then switched him to dutasteride, has not noticed an improvement states she did notice demtia has gotten worse with starting the med. recent psa 0.67 done 05/04/23 Dysuria: no Incomplete bladder emptying: no pt. states he feels empty Hematuria: no Frequency: no Urgency: mild Nocturia: 3x Stream: good stream Leaking: severe Post void dripping: no Wearing pads/ Depends: pts. states that pt. is now back to wearing 2 depends, vs last time he saw us it was just 2 small liners a day Urge incontinence: intermittent dribbling Stress incontinence: no Incontinence without Sensory Awareness: yes Abdominal pain: no Flank pain: no Sexual complaints: no History of Present Illness staff HPI reviewed and agree. Review of Systems no fever, chills, malaise, myalgia. no rash/lesions. no chest pain, palpitations, or SOB. no abdominal pain, nausea, vomiting. no unilateral calf swelling, redness, pain Physical Exam Vitals & Measurements HR: 55(Peripheral) BP: 145/72 HT: 66 in HT: 168 cm WT: 102 kg WT: 224.4 lb BMI: 36.14 General: nontoxic, NAD Mouth: moist mucosa Lungs: normal respiratory effort Cardio: regular rate, good distal perfusion Abdomen: nondistended, no suprapubic distention or tenderness, no CVA tenderness Neurologic: Grossly normal Skin: No rashes or suspicious lesions Assessment/Plan is chief historian. Pt has dementia. UA today negative. 1. Urge incontinence (N39.41: Urge incontinence) was on Imipramine for several years per DLS in the past. he was doing well and we ended up weaning off this last year. he was only wearing a thin pad daily for protection and plan was f/u PRN. however now they return as Leakage has worsened since last visit. now changing depends twice per day. /pt not sure if he ever was on any other meds prior to the imipramine and we cannot find in our records. Recently tried Flomax and then Dutasteride per PCP without any changes. will hold off on any other meds at this time until can do further evaluation. -Bladder irritant list provided today. pt to avoid completely. -manage bowels. 2. BPH with urinary obstruction (N40.1: Benign prostatic hyperplasia with lower urinary tract symptoms) S/p greenlight laser [address] Torres. Here today due to worsening urinary sx. see #1 PCP started pt on Flomax a couple mos ago. Did not notice improvement. Was then switched to Dutasteride. Again did not notice improvement. states pt's dementia has worsened since starting medication. -d/c Dutasteride. will schedule cysto to see if prostate obstruction has returned as it's been 6 yrs since Greenlight or whether his urinary sx are more related to his bladder or his dementia. Will schedule cysto w/ PRW. The risks and benefits for cystoscopy have been discussed. The risks include bleeding, infection, and irritation of the bladder and urinary channel, among others. The patient, after being informed of procedural details and after questions have been answered, wishes to proceed. Full informed consent has been obtained. Will order Local anesthesia. Abx sent to pharm on file 3. Elevated PSA (R97.20: Elevated prostate specific antigen [PSA]) jumped to 2.97 in 2016 S/p PVP 06/2017 has been low/stable since 07/2020 - 0.56 04/04/22 -0.72 05/04/23 - 0.67 will have PCP continue to monitor PSA. 4. ED (erectile dysfunction) (N52.9: Male erectile dysfunction, unspecified) LORIE 2 at a previous visit pt & his did not want to pursue any medications. Follow-up With When Contact Information ARACELY MARTINEZ, Cliff Manuel, [place] [id number]- Additional Instructions: Schedule cysto Patient Education Cystoscopy Documentation recorded by the oscar Steen accurately reflects the services(s) I performed and decisions made by me. Authenticated by Gely Blake PA-C on 06/06/2023 14:21:09. IArianna, personally scribed for Gely Blake PA-C on 06/06/2023 13:49:19. . Problem List/Past Medical History Ongoing Basal cell carcinoma (BCC) BMI 36.0-36.9,adult BPH with urinary obstruction Cardiomegaly Dementia Diabetes Eczema ED (erectile dysfunction) Elevated PSA Former smoker Frequency of urination Glaucoma History of urinary tract infection Hyperlipidemia Hypertension Leukopenia Melanoma Microscopic hematuria Myasthenia gravis Obstructive sleep apnea syndrome Prostate cancer screening Renal cyst Seasonal allergies Urge incontinence Urinary urgency Historical Gastroenteritis Procedure/Surgical History Colonoscopy (12/13/2018), EGD - esophagogastroduodenoscopy (12/13/2018), Cystoscopy (10/25/2017), Earl melvin (more content not included)... Normal [facility] Comment on above: Result Comment: Elec tronically Signed By: GELY BLAKE PA-C.aidan\Date and Time Signed: 06/06/23 14:21 EST\.br\Electronically Co-Signed By: Arianna Steen\.br\Date and Time Co-Signed: 06/06/23 13:49 EST Physician Referralon 023 Physician Referral [id number] [facility] Transfer Inon 05-18-2023 Transfer In [id number]#[id number] [facility] CNPNon 05-10-2023 CNPN Telephone (NENCMN) RON WELCH ([id number]) 1950 Date Time Provider Department 05/10/23 DAYSI URIBE [facility] During your visit today, we recorded the following information about you: Teja Bower 05/10/2023 2:49 PM Signed Lab results received and scanned in for review. Lore Maynard RN 05/10/2023 3:[address] Uribe aware of outside medical records available in scanned documents Lore Maynard RN BSN Neurologic Nora Daysi Uribe MD 05/11/2023 9:01 AM Signed [...] - Hives Date Reviewed: 01/11/2023 Reviewed by: Djidonou, Viky, [employer] ELECTRICAL DESIGNER - Fully Assessed Reason for Visit: Received [...] Encounter Status:Closed by DAYSI URIBE on 05/11/23 [facility] CNOVon 01-11-2023 CNOV Office Visit (MARICARMEN ) RON WELCH ([id number]) 1950 M Date Time Provider Department 01/11/23 1:00 PM CHANDNI METZGER During your visit today, we recorded the following information about you: Pulse Blood pressure Weight 56/minute 152/79 101.2 kg Chandni Metzger APRN.EXTERNAL GRINDER TENDER 01/17/2023 1:01 PM [facility] Brain [facility] - Follow-up Visit [...] this [place] with going [place]. 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 Normal [facility] Screenson 11-16-2022 Screens [id number]:127 Normal [facility] Ambulatory Visit Summaryon 0 11-15-2022 Ambulatory Visit Summary RON WELCH :1950 Visit Date:11/15/2022 Ambulatory Visit Instructions Your Diagnosis Urge incontinence Elevated PSA ED (erectile dysfunction) Tests Performed Urnls Dip Stick Auto w/o Microscopy POC 17679 Your Care Team Attending Physician - GELY [...] Schedule the Following Appointments Follow Up with GELY BLAKE PA-C, URL When: Only if needed Where: [address] [place] [address] [facility] (1) Medications What How Much When Instructions [...] Urnls Dip Stick Auto w/o Microscopy POC 28798 (11/15/2022) Bilirubin Urine Dipstick - Negative Blood Urine Dipstick - Negative Glucose Urine Dipstick - Negative Ketones Urine Dipstick - Negative Leukocytes Urine Dipstick - Negative Nitrite Urine Dipstick - Negative Protein Urine Dipstick - 1+ (30 mg/dl) Specific [place] Urine Dipstick - 1.020 Urine Appearance Urine [...] condition include: (more content not included)... Normal [facility] Patient Educationon 11-16-19 Patient Education Urology Erectile [...] these instructions at home: Medicines ? Take mzzn-tqk-piitzhb and prescription medicines only as told by [...] include cig (more content not included)... Normal [facility] Provider Letteron 11-15-2022 Provider Letter (Inserted Image. Lia ble to display) Guevara Mackay, [facility] [place] [address] Re: RON WELCH Date of : [address] Thompson MARTINEZ, ELMER NeumannY Comfort was evaluated at [facility] 11/15/2022 As this patient has been stable, they will be released back to your care. We request that you continue to check PSA annually for prostate cancer screening Should the patient develop new symptoms, worsening condition, or abnormal imaging/labs in the future, do not hesitate to refer them back. Thanks! Provider Signature: Gely Blake PA-C Physician Orthopaedic General [facility] [address] [place] [address] [facility] Urology Office/Clinic Noteon 11-15-2022 Urology Office/Clinic Note [...] E&M of Est. Patient Low 20-29 Min 39888 Urnls Dip Stick Auto w/o Microscopy POC 75763 2. Elevated PSA (R97.20: Elevated prostate specific antigen [PSA]) jumped to 2.97 in 2016 S/p PVP 06/2017 has been low/stable since 07/2020 - 0.56 04/04/22 -0.72 due again in Mar of this year. will have PCP continue to follow Ordered: E&M of Est. Patient Low 20-29 Min 26623 3. ED (erectile dysfunction) (N52.9: Male erectile dysfunction, unspecified) LORIE (5) at last visit pt & his did not want to pursue any medications. Penile pump was discussed and pamphlet provided at that time. Ordered: E&M of Est. Patient Low 20-29 Min 17650 offered scheduled follow up vs f/u PRN with urology and continue care with PCP. pt prefers the latter. will send letter to PCP so they are aware of the plan. pt understands if anything worsens or new symptoms arise to contact our office. Follow-up With When Contact Information GELY BLAKE PA-C, URL Only if needed [address] [place] [address] [facility] (1) Additional Instructions: Patient Education Erectile Dysfunction [...] Immunizations Vaccine Date Status Comments SARS-CoV-2 (COVID-19) mRNAMUL.ORD![id number] 05/11/2022 Recorded influenza virus vaccine, inactivated 03/21/2022 Recorded SARSCoV2 mRNA(pxvrkqgty-rboj-gatiup) vac 09/23/2021 Recorded SARS-CoV-2 (COVID-19) mRNA-1273 vaccine 08/2021 Recorded SARS-CoV-2 (COVID-19) mRNA BNT-162b2 vax 03/14/2021 Recorded SARS-CoV-2 (COVID-19) mRNA-1273 vaccine 09/02/2020 Recorded SARS-CoV-2 (COVID-19) mRNA-1273 vaccine 08/05/2020 Recorded SARS-CoV-2 (COVID-19) mRN (more content not included)... Normal [facility] Comment on above: Result Comment: Elec tronically Signed By: GELY BLAKE PA-C\.br\Date and Time Signed: 11/15/22 13:46 EDT Ophthalmic Eye Examon 2022 Ophthalmic Eye Exam DOCUMENT REVIEWED BY: Guevara Carrasco MD DOCUMENT SIGNED ELECTRONICALLY BY Guevara Carrasco MD ON 10/31/2022 12:09:[address], [facility] [phone] THIS DOCUMENT WAS CREATED ON: 10/31/2022 12:09:27 PM BY: MD Venessa Kirklandrey Erick performed CFJGF-[id number]-us Exam Date: Monday, October 31, 2022 PATIENT [...] MG Oral Tablet - Tablet, [Reported] Drug [place] [facility] Lancets 28G - #100, use to test [...] 2 TABLETS BY MOUTH ONCE DAILY[Reported] Pyridostigmine Crescent 60 MG Oral Tablet - #90 Tablet, [...] DATE-TIME: 10/31/2022 11:45:52 AM 10/31/2022 11:45:52 AM COMPOUNDING AND FINISHING SUPERVISOR: kyle wright ADJUSTED IOP VALUE: 12 14 EXTERNAL EYE [...] (more content not included)... Normal [facility] CNOVon 05-12-2023 CNOV Office Visit ([facility] ) RON WELCH ([id number]) 1950 M Date Time Provider Department 10/07/22 1:30 PM CHANDNI METZGER During your visit today, we recorded the following information about you: Pulse Blood pressure Weight 53/minute 168/94 100.7 kg Chandni Metzger APRN.CNP 10/13/2022 12:33 PM Addendum [facility] Outpatient Clinic - Follow-up [...] and h (more content not included)... Normal [facility] ECHOCARDIO M/2D COMPLETEon 0 10-06-2022 ECHOCARDIO M/2D COMPLETE Patient: RON WELCH. Exam Date: 10/06/2022 : 1950 Gender:M Ordering : DR GUEVARA MACKAY . Admission #: [id number] Family : Order #: [id number] CLICK HERE TO VIEW EXAM ECHOCARDIOGRAM REPORT [...] 3.30 cm Aortic Valve AoV Area (Peak Ijmbo): 2.12 cm2, 2.12 cm2 Peak Velocity(Antegrade Flow): [...] Godinez M.D. on 10/06/2022 at 15:22 Normal [facility] Screenson 09-14-2022 Screens [id number]:127 Normal [facility] Ambulatory Visit Summaryon 0 09-06-2022 Ambulatory Visit Summary RON WELCH :1950 Visit Date:09/06/2022 Ambulatory Visit Instructions Your Diagnosis Urge incontinence BPH with urinary obstruction ED (erectile dysfunction) Tests Performed Urnls Dip Stick Auto w/o Microscopy POC 46905 Your Care Team Attending Physician - GELY [...] GELY BLAKE PA-C Where: [facility] Patient Educationon 09-07-19 23 Patient Education [...] nerve stimulation). ? For women, using a certified medical assistant to prevent urine leaks. This is a [...] after experiencing incontinence. General instructions ? Take dpov-yao-gpfmdyp and prescription medicines only as (more content not included)... Normal [facility] Urology Office/Clinic Noteon 09-06-2022 Urology Office/Clinic Note [...] Contact Information REEMA CRUM, GELY Ch, URL [address] [place] [address] Additional Instructions: 8 weeks Patient Education Urinary Incontinence Documentation recorded by the scribdima Steen accurately reflects the services(s) I performed [...] Hypertension: Mother (more content not included)... Normal [facility] Comment on above: Result Comment: Elec tronically Signed By: REEMA CRUM, GELY Ch\.br\Date and Time Signed: 09/06/22 13:49 EDT\.br\Electronically Co-Signed By: Arianna Steen.aidan\Date and Time Co-Signed: 09/06/22 13:37 EDT CREATININEon 09-01-2022 Creatinine [Mass/Vol] 1.49 mg/dL Critically high 0.70-1.30 [facility] Comment on above: Performed By: #### C NGHIA #### [facility] [address] [address] [address] Ragini Storm EGFR-AF [place]IZ[place] 56 mL/min/1.73m2 Critically low >=60 [facility] Comment on above: Performed By: #### C NGHIA #### [facility] [address] [address] [address] Ragini Storm EGFR-NON AF CITIZEN OF [place] 46 mL/min/1.73m2 Critically low >=60 [facility] Comment on above: Performed By: #### C NGHIA #### [facility] [address] [address] CHEST W CONon [...] is indeterminate. The differential diagnosis would include aneurysm/pseudoaneurysm versus developmental variant Extensive pericardial calcifications Cholelithiasis without evidence of acute cholecystitis Electronically authenticated by: CLIFF OCHOA Date: 2022-09-01 15:45 Normal [facility] AMMONIAon 08-26-2022 Ammonia (P) [Moles/Vol] 27 umol/L Normal 11-32 [facility] Comment on above: Performed By: #### A MM #### [facility] [address] [place] [address] Dr. Ragini Storm BNPon 08-26-2022 Natriuretic peptide B (Bld) [Mass/Vol] 284.0 pg/mL Normal <=900.0 [facility] Comment on above: Performed By: #### C NGHIA #### [facility] [address] [place] [address] Dr. Ragini Storm CBC AUTO DIFFon 08-26-2022 BASO # 0.0 103/ul Normal 0.0-0.1 [facility] Comment on above: Performed By: #### C BC #### [facility] [address] [place] [address] Dr. Ragini Storm Basophils/100 WBC (Bld) 0.5 % Normal 0.2-2.0 [facility] Comment on above: Performed By: #### C BC #### [facility] [address] [place] [address] Dr. Ragini Storm EO # 0.1 103/ul Normal 0.0-0.7 [facility] Comment on above: Performed By: #### C BC #### [facility] [address] [place] [address] Dr. Ragini Storm Eosinophils/100 WBC (Bld) 1.8 % Normal 0.9-7.0 [facility] Comment on above: Performed By: #### C BC #### [facility] [address] [place] [address] Dr. Ragini Storm Erythrocyte distribution width (RBC) [Ratio] 14.4 % Normal 11.0-15.0 [facility] Comment on above: Performed By: #### C BC #### [facility] [address] [address] [address] Ragini Storm Hematocrit (Bld) [Volume fraction] 46.7 % Normal 42.0-54.0 [facility] Comment on above: Performed By: #### C BC #### [facility] [address] [place] [address] Dr. Ragini Storm Hemoglobin (Bld) [Mass/Vol] 16.2 g/dL Normal 14.0-18.0 [facility] Comment on above: Performed By: #### C BC #### [facility] [address] [place] [address] Dr. Ragini Storm IG # 0.01 10e3/ul Normal 0.00-0.03 [facility] Comment on above: Performed By: #### C BC #### [facility] [address] [place] [address] Dr. Ragini Storm IG % 0.2 % Normal 0.0-0.5 [facility] Comment on above: Performed By: #### C BC #### [facility] [address] [place] [address] Dr. Ragini Storm LYMPH # 0.9 103/ul Critically low 1.2-3.8 [facility] Comment on above: Performed By: #### C BC #### [facility] [address] [place] [address] Dr. Ragini Storm Lymphocytes/100 WBC (Bld) 19.4 % Critically low 20.5-60.0 [facility] Comment on above: Performed By: #### C BC #### [facility] [address] [place] [address] Dr. Ragini Storm MANUAL DIFF REQ NO Normal [facility] Comment on above: Performed By: #### C BC #### [facility] [address] [place] [address] Dr. Ragini Storm MCH (RBC) [Entitic mass] 36.7 pg Critically high 25.9-34.0 [facility] Comment on above: Performed By: #### C BC #### [facility] [address] [place] [address] Dr. Ragini Storm MCHC (RBC) [Mass/Vol] 34.7 g/dL Normal 29.9-35.2 [facility] Comment on above: Performed By: #### C BC #### [facility] [address] [place] [address] Dr. Ragini Storm MCV (RBC) [Entitic vol] 105.7 fL Critically high 80.0-94.0 [facility] Comment on above: Performed By: #### C BC #### [facility] [address] [place] [address] Dr. Ragini Storm MONO # 0.5 103/ul Normal 0.3-0.8 [facility] Comment on above: Performed By: #### C BC #### [facility] [address] [place] [address] Dr. Ragini Storm Monocytes/100 WBC (Bld) 11.2 % Normal 1.7-12.0 [facility] Comment on above: Performed By: #### C BC #### [facility] [address] [place] [address] Dr. Ragini Storm NEUT # 2.9 103/ul Normal 1.4-6.5 [facility] Comment on above: Performed By: #### C BC #### [facility] [address] [place] [address] Dr. Ragini Storm Neutrophils/100 WBC (Bld) 66.9 % Normal 43.0-75.0 [facility] Comment on above: Performed By: #### C BC #### [facility] [address] [place] [address] Dr. Ragini Storm Platelet mean volume (Bld) [Entitic vol] 10.1 fL Normal 9.5-13.5 [facility] Comment on above: Performed By: #### C BC #### [facility] [address] [place] [address] Dr. Ragini Storm PLT 230 103/ul Normal 150-450 [facility] Comment on above: Performed By: #### C BC #### [facility] [address] [address] [address] Ragini Storm RBC 4.42 106/ul Critically low 4.70-6.10 [facility] Comment on above: Performed By: #### C BC #### [facility] [address] [address] [address] Ragini Storm WBC 4.4 103/ul Normal 4.0-11.0 [facility] Comment on above: Performed By: #### C BC #### [facility] [address] [address] [address] Ragini Storm FREE THYROXINE INDEX T7on FTI 2.52 Normal 1.30-4.50 [facility] Comment on above: Performed By: #### C NGHIA #### [facility] [address] [place] [address] Dr. Ragini Storm T3U 35.0 % Normal 33.0-40.0 [facility] Comment on above: Performed By: #### C NGHIA #### [facility] [address] [place] [address] Dr. Ragini Storm T4 [Mass/Vol] 7.20 ug/dL Normal 4.50-12.10 [facility] Comment on above: Performed By: #### C NGHIA #### [facility] [address] [place] [address] Dr. Ragini Storm GLYCOHEMOGLOBIN A1Con 2022 ADA RECOMMENDATION SEE BELOW Normal [facility] Comment on above: Result Comment: ADA RECOMMENDED LIMIT 4.0 - 6.0 ADA THERAPEUTIC TARGET < 7.0 ACTION SUGGESTED > 7.0 Performed By: #### A 1C #### [facility] [address] [address] [address] Ragini Storm Glucose [Mass/Vol] 120 mg/dL Normal [facility] Comment on above: Performed By: #### A 1C #### [facility] [address] [place] [address] Dr. Ragini Storm HbA1c (Bld) [Mass fraction] 5.8 % Normal 4.5-6.2 [facility] Comment on above: Performed By: #### A 1C #### [facility] [address] [place] [address] Dr. Ragini Storm Physician Referralon 023 Physician Referral [id number]:127 Normal [facility] TSHon 08-26-2022 TSH 1.618 uIU/mL Normal 0.358-3.[address] [facility] Comment on above: Performed By: #### C NGHIA #### [facility] [address] [place] [address] Dr. Ragini Storm OCC BLD IMMUNO SCREENon 07-28 OCCULT BLOOD Positive Abnormal NEGATIVE [facility] Comment on above: Performed By: #### O BSCRN #### [facility] [address] [place] [address] Dr. Ragini Storm GLYCOHEMOGLOBIN A1Con 2022 ADA RECOMMENDATION SEE BELOW Normal [facility] Comment on above: Result Comment: ADA RECOMMENDED LIMIT 4.0 - 6.0 ADA THERAPEUTIC TARGET < 7.0 ACTION SUGGESTED > 7.0 Performed By: #### C NGHIA #### [facility] [address] [place] [address] Dr. Ragini Storm Glucose [Mass/Vol] 120 mg/dL Normal [facility] Comment on above: Performed By: #### C NGHIA #### [facility] [address] [place] [address] Dr. Ragini Storm HbA1c (Bld) [Mass fraction] 5.8 % Normal 4.5-6.2 [facility] Comment on above: Performed By: #### C NGHIA #### [facility] [address] [place] [address] Dr. Ragini Storm LIPID PROFILEon 08-18-2022 CHOL-HDL RATIO NORM SEE BELOW Normal [facility] Comment on above: Result Comment: 3.3 - 4.4 LOW RISK 4.4 - 7.1 AVERAGE RISK 7.1 - 11.0 MODERATE RISK >11.0 HIGH RISK Performed By: #### C NGHIA #### [facility] [address] [address] [address] Ragini Storm Cholesterol [Mass/Vol] 161 mg/dL Normal <=200 [facility] Comment on above: Performed By: #### C NGHIA #### [facility] [address] [address] [address] Ragini Storm Cholesterol in HDL [Mass/Vol] 58 mg/dL Normal 40-60 [facility] Comment on above: Performed By: #### C NGHIA #### [facility] [address] [address] [address] Ragini Storm Cholesterol in LDL [Mass/Vol] 84.2 mg/dL Normal [facility] Comment on above: Performed By: #### C NGHIA #### [facility] [address] [address] [address] Ragini Storm Cholesterol.total/ Cholesterol in HDL [Mass ratio] 2.8 {ratio} Normal [facility] Comment on above: Performed By: #### C NGHIA #### [facility] [address] [place] [address] Dr. Ragini Storm HDL NORMAL > or = 60 mg/dl - LO W CARDIOVASCULAR RISK <40 mg/dl - HIGH CARDIOVASCULAR RISK Normal [facility] Comment on above: Performed By: #### C NGHIA #### [facility] [address] [address] [address] Ragini Storm LDL CALC NORMAL SEE BELOW Normal [facility] Comment on above: Result Comment: <100 mg/dl OPTIMAL 100 - 129 mg/dl NEAR OR ABOVE OPTIMAL 130 - 159 mg/dl BORDERLINE HIGH 160 - 189 mg/dl HIGH >190 mg/dl VERY HIGH Performed By: #### C NGHIA #### [facility] [address] [address] [address] Ragini Storm Triglyceride [Mass/Vol] 94 mg/dL Normal <=150 [facility] Comment on above: Performed By: #### C NGHIA #### [facility] [address] [address] [address] Ragini Storm VLDL CALC 18.8 mg/dL Normal [facility] Comment on above: Performed By: #### C NGHIA #### [facility] [address] [address] [address] Ragini Storm VITAMIN D 25 OHon 08-18-2022 VIT D 25-OH 36.3 ng/mL Normal [facility] Comment on above: Performed By: #### P SASC, VITAD #### [facility] [address] [address] [address] Ragini Storm VIT D RANGES SEE BELOW Normal [facility] Comment on above: Result Comment: <20 ng/mL Vit D deficient 20 - <30 ng/mL Vit D insufficient 30 - 100 ng/mL Vit D sufficient >100 ng/mL Potential Toxicity Performed By: #### P SASC, VITAD #### [facility] [address] [address] [address] Ragini Storm CNSWon 08-04-2022 [facility] Social Work ([facility]) RON WELCH ([id number]) 1950 Date Time Provider Department 08/04/22 1:00 PM KATIA JEREZ During your visit today, we recorded the following information about you: YONATAN Frances 08/04/2022 2:05 PM Signed SOCIAL WORK NOTE Ron Welch [address] [place] [id number] INFORMATION/REFERRAL: Referral Source: Lauren Lamas MD Pt [...] unsteadiness or sustained falls? NO Falls: negative EMPLOYMENT/FINANCIAL/INSURAN CE: DPOA health: Yes DPOA finance: Yes Guardian: [...] communication and sundowning at length. INTERVENTION/PLAN: -Discussed RECEPTIONIST supportive role/availability as member of [facility] care team. -Supportive counseling offered to address [...] For assistance navigating local resources such as press box custodian care/caregiver support contact The Area Office on Aging. -Private Duty Home Health Agencies can provide supportive services. These services may include companionship, assistance with meals, medication management, asphalt mixing machine operator, transportation and personal care if needed. Services are typically an out of pocket expense. Some long-term care policies or VA benefits may offer reimbursement for services. Local resources provided. [facility] can assist with meals, transportation, home maintenance and activities. Tel: -Obtained copy of pt's healthcare advance directives, Will be faxed to HIM to add to EMR. IMPRESSION: Pleasant 72 year old year old patient. Pt and family appear able and motivated to follow up on recommendations as discussed. RECEPTIONIST will remain available to address any questions/concerns. Contact information was provided. I spent a total of 40 minutes with the patient. Social work assessment/interventions rendered under the supervision of Dr. Hyacinth Bernal. YONAATN Frances [facility] YONATAN Frances 08/04/2022 1:37 PM Signed When there is a diagnosis of dementia, no matter the type, we encourage families to educate themselves, learn communication tips, and learn ways to adjust expectations over time. There are many resources available online. Three excellent resources are: The Alzheimer's Association (web site: alz.org) Help Line available 24 hours a day, 7 days per week: 283.458.8917. Call Help Line to learn of local options for support groups and to register. Family Caregiver [place] (web site: Caregiver.org) [employer]- a secure online solution for quality information, [...] for financial assistance for assisted living. The Veterans Service Commission [place] is an organization that can (more content not included)... Normal [facility] CNTHERAPYon 08-04-2022 CNTHERAPY OT/PT/Speech Visit ( [facility]) RON WELCH ([id number]) 1950 M Date Time Provider Department 08/04/22 2:45 PM [facility] Date Time Provider Department Center 08/04/2022 2:45 PM [id number] TOURE [facility] Mn U Bldg Reason for Visit: Speech Evaluation [1647] Speech Discharge [4208] Primary Visit Diagnosis:Cognitive communication deficit [R41.841] Other [...] Meds Comments as of 07/31/2012: r Normal [facility] CNOVon 07-08-2022 CNOV [facility] RON WELCH ([id number]) 1950 M Date Time Provider Department 07/08/22 3:00 PM LAUREN LAMAS During your visit today, we recorded the following information about you: Pulse Blood pressure Weight 61/minute 137/82 102.1 kg Lauren Lamas MD 07/08/2022 5:13 PM Signed Neurology Return, [facility] Ron Welch is a [...] iADLs, including managing his medications. MoCA was 1830 Suspect his cognitive changes are multifactorial, with [...] download Will request for BiPAP download; DME: [facility] [place] [phone] Encourage regular physical and mental activity His [...] have conveyed the information to patient via EUDOWEB, and recommended him to follow up with [...] found. Activi (more content not included)... Normal [facility] Ophthalmic Eye Examon 2022 Ophthalmic Eye Exam DOCUMENT REVIEWED BY: Guevara Carrasco MD DOCUMENT SIGNED ELECTRONICALLY BY Guevara Carrasco MD ON 07/04/2022 11:35:[address], [id number] THIS DOCUMENT WAS CREATED ON: 07/04/2022 11:35:29 AM BY: MD Eliza Kirkland COT performed [id number]-Gtwi-jz Exam Date: Monday, July 04, 2022 PATIENT NAME: RON WELCH DATE: 1950 AGE: 72 GENDER: Male RACE: PRIMARY CARE PHYSICIAN: Guevara Mackay History Chief Complaint/Reason For Visit: Bcioqam-Jnymia-na visit for POAG Using Latnaoprost OS PM [...] Oral Tablet - #60 Tablet, [Reported] Drug [place] [employer] Lancets 28G - #100, use to [...] 2 TABLETS BY MOUTH ONCE DAILY[Reported] Pyridostigmine Crescent 60 MG Oral Tablet - #90 Tablet, [...] DATE-TIME: 07/04/2022 11:24:57 AM 07/04/2022 11:24:57 AM COMPOUNDING AND FINISHING SUPERVISOR: Santhosh Trevizo ADJUSTED IOP VALUE: 14 13 [...] well contro (more content not included)... 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 The assessment consisted of [...] has has put his clothes on backwards. Industrial Mechanic: Historically managed by his . He previously [...] current recreatio (more content not included)... Normal [facility] MRI 3D POST PROCESSINGon MRI 3D POST PROCESSING * * *Final Report* * * DATE OF EXAM: Jun 17 2022 2:34PM [facility] 0280 - MRI 3D POST PROCESSING [...] dementia protocol and 3-D post-processing using the Campanda software at an independent workstation with concurrent physician supervision and images were created, reviewed and archived. MQ: [id number] COMPARISON: None RESULT: QUALITATIVE: Acute Intracranial Process: None. Chronic Intracranial Process: There is a moderate-severe burden of nonspecific white matter change, likely the sequela of chronic small vessel ischemia.. Age related white matter changes ([facility]) rating: White matter lesions: 3 Basal ganglia lesions: 2 Prior intracranial hemorrhage: Parenchymal microhemorrhages: 0 Other (siderosis/macrohemorrhages (>10mm): Not Applicable Amyloid Related Imaging Abnormalities: [...] = Focal Lesions 2 = Beginning of [place] 3 = Diffuse Involvement of Entire Region [...] impairment, and elderly controls. Neuroimage 43;59 (2008). Wahlund et al. A New Rating Scale for Age-Related White Matter Changes Applicable to MRI and CT. Stroke. 32:1318 (2001). * Asymmetry index defined as difference between left and right volumes divided by mean or [(L-R/Mean) x 100] (%). Age-matched reference charts measure total hippocampal volume (% of intracranial volume). See results from the analysis charts for details. Catering Barista: PSCB Transcribe Date/Time: Jun 17 2022 2:50P Dictated by : ANTONIO GUILLERMO MD This examination was interpreted and the report reviewed and electronically signed by: ANTONIO GUILLERMO MD on Jun 17 2022 3:16PM EST [id number] Normal [facility] MRI BRAIN W QUANT WO IVCONon 06-17-2022 MRI BRAIN W QUANT WO IVCON * * *Final Report* * * DATE OF EXAM: Jun 17 2022 2:34PM [facility] 3015 - MRI BRAIN W QUANT [...] dementia protocol and 3-D post-processing using the Campanda software at an independent workstation with concurrent [...] Prior intracranial hemorrhage: Parenchymal microhemorrhages: 0 Other (siderosis/macrohemorrhages (>10mm): Not Applicable Amyloid Related Imaging Abnormalities: [...] = Focal Lesions 2 = Beginning of [place] 3 = Diffuse Involvement of Entire Region [...] impairment, and elderly controls. Neuroimage 43;59 (2008). Wahlund et al. A New Rating Scale for Age-Related White Matter Changes Applicable to MRI and CT. Stroke. 32:1318 (2001). * Asymmetry index defined as difference between left and right volumes divided by mean or [(L-R/Mean) x 100] (%). Age-matched reference charts measure total hippocampal volume (% of intracranial volume). See results from the analysis charts for details. Catering Barista: TAMMY Transcribe Date/Time: Jun 17 2022 2:50P Dictated by : ANTONIO GUILLERMO MD This examination was interpreted and the report reviewed and electronically signed by: ANTONIO GUILLERMO MD on Jun 17 2022 3:16PM EST [id number] Normal [facility] No Panel Informationon 06-17 [facility] Ophthalmic Eye [place] 2021 Ophthalmic Eye Exam DOCUMENT REVIEWED BY: Guevara Carrasco MD DOCUMENT SIGNED ELECTRONICALLY BY Guevara Carrasco MD ON 02/28/2022 11:45:[address], [id number] THIS DOCUMENT WAS CREATED ON: 02/28/2022 11:45:43 AM BY: MD Lainey Kirkland performed [id number] Exam Date: Monday, February 28, 2022 PATIENT [...] Oral Tablet - #60 Tablet, [Reported] Drug [place] [employer] Lancets 28G - #100, use to [...] DATE-TIME: 02/28/2022 11:44:04 AM 02/28/2022 11:44:04 AM COMPOUNDING AND FINISHING SUPERVISOR: DRheexx1 DRheexx1 ADJUSTED IOP VALUE: 15 17 EXTERNAL EYE [...] since surg (more content not included)... [facility] [place] 2021 Ophthalmic Eye Exam DOCUMENT REVIEWED BY: Guevara Carrasco MD DOCUMENT SIGNED ELECTRONICALLY BY Guevara Carrasco MD ON 02/04/2022 11:47:57 AM [facility] [address] [id number] [facility]. Micky. [address] [place], [address] THIS DOCUMENT WAS CREATED ON: 02/04/2022 11:47:46 AM BY: MD Pooja Kirkland performed PSCLI-Yxjw-id Exam Date: Friday, February 04, 2022 PATIENT [...] Oral Tablet - #60 Tablet, [Reported] Drug [place] [facility] Lancets 28G - #100, use to test [...] DATE-TIME: 02/04/2022 10:43:27 AM 02/04/2022 10:43:27 AM COMPOUNDING AND FINISHING SUPERVISOR: kyle [email or web address] ADJUSTED IOP VALUE: 11 21 CONFRONTATION VF [...] little wors (more content not included)... Normal [facility] OPERATIVE REPORTon 0 OPERATIVE REPORT [address] [address] OPERATIVE REPORT PATIENT NAME: RON WELCH : 1950 MED REC NO: [id number] ROOM: ACCOUNT NO: [id number] ADMIT DATE: 10/16/2019 PROVIDER: Ángel Fenton DATE OF PROCEDURE: 10/16/2019 PREOPERATIVE DIAGNOSIS: Basal cell carcinoma, left nasal ala. POSTOPERATIVE DIAGNOSIS: Basal cell carcinoma, left nasal ala. PROCEDURES: 1. Excision of left nasal ala basal cell carcinoma with frozen section control. 2. Dorsal nasal sliding flap, V-Y flap advancement closure. SURGEON: Ángel Fenton MD ANESTHESIA: General. INDICATIONS: This is [...] This was removed at the lower lateral cartilage-perichondrium level and sent for frozen section, which [...] blood loss was 5 mL. ÁNGEL FENTON [id number] Doc#: [id number] CC: Normal [facility] Surgical Pathologyon 020 Surgical Pathology (NOTE) -- Diagnosis -- 1. SKIN, NOSE (LEFT), EXCISION: - NODULAR BASAL CELL CARCINOMA, EXTENDING TO 12 TO 3:00 (SUPERIOR LATERAL) PERIPHERAL MARGINS. 2. SKIN, LEFT NOSE, ADDITIONAL 9:00-4:00 EDGE, RE-EXCISION: - NEW TRUE MARGIN NEGATIVE FOR MALIGNANCY. Juan C Pagan M.D. Electronically Signed Out jet/10/17/2019 Clinical Information Pre-op Diagnosis: HISTORY OF NODULAR [...] SURGICAL PATHOLOGY CONSULTATION Patient Name: RON WELCH [facility] Rec: [id number] Path Number: [id number] [facility] ANATOMIC PATHOLOGY [address] [place] [id number] Normal [facility] Comment on above: Performed By: #### P PPVDP #### [address] [id number] Marble Coper: Gilles Chahal MD COVID-19on 10-15-2019 SARS-CoV-2 [place], [place] SARS-CoV-2, PCR Not Detected Not Detected [place], [place] Comment on above: (NOTE) The Ragland RealTime SARS-CoV-2 assay is a real-time (rt) reverse transcriptase (RT) polymerase chain reaction (PCR) test intended for the Lobster system. The SARS-CoV-2 primer and probe sets are designed to detect RNA from SARS-CoV-2 in nasopharyngeal (TECHNICAL SUPERVISOR) and oropharyngeal (OP) swabs from patients with [...] The above 1 analytes were performed by [address] [place] [address] SARS-CoV-2, Rapid [place], [place] Source .NASOPHARYNGEAL SWAB [place], [place] [id number] 10-15-2019 SARS-CoV-2 Not Detected Normal Not Detected [facility] Comment on above: Result Comment: (NOT E) The Ragland RealTime SARS-CoV-2 assay is a real-time (rt) reverse transcriptase (RT) polymerase chain reaction (PCR) test intended for the MediKeeper000 system. The SARS-CoV-2 primer and probe sets are designed to detect RNA from SARS-CoV-2 in nasopharyngeal (TECHNICAL SUPERVISOR) and oropharyngeal (OP) swabs from patients with [...] The above 1 analytes were performed by [facility] [address] [place] [address] Performed By: #### C OVID #### [facility] [address] [place] [address] Marble Coper: Antonio Hodgson MD [address] [address] [place] Coper: Gilles Chahal MD [facility] [address] [place] [address] Marble Coper: Dontrell James MD [id number] 10-14-2019 SARS-CoV-2,Rapid Normal [facility] Comment on above: Performed By: #### C OVID #### [facility] [address] [place] [address] Marble Coper: Antonio Hodgson MD [address] [address] Mar[place] Coper: Gilles Chahal MD [facility] [address] [place] [address] Marble Coper: Dontrell James MD SARS-CoV-2 [facility] Comment on above: Performed By: #### C OVID #### [facility] [address] [place] [address] Marble Coper: Antonio Hodgson MD [address] [place] [place] [address] Marble Coper: Gilles Chahal MD [facility] [address] [place] [address] Marble Coper: Dontrell James MD SARS-CoV-2 Source .NASOPHARYNGEAL SWAB Normal [facility] Comment on above: Performed By: #### C OVID #### [facility] [address] [place] [address] Marble Coper: Antonio Hodgson MD [facility] [address] [place] [address] Marble Coper: Gilles Chahal MD [facility] [address] [place] [address] Marble Coper: Dontrell James MD EKG 12 [place] 08-01-2019 Atrial Rate 67 BPM [facility], [place] P [place] 39 degrees [facility] [place] P-R Interval 170 ms [facility] [place] Q-T Interval 384 ms [facility] [place] QRS Duration 110 ms [facility] [place] QTc Calculation (Bazett) 405 ms [facility] [place] R [place] -22 degrees [facility], [place] T [place] 7 degrees [facility] [place] Ventricular Rate 67 BPM [facility] [place] Sinus rhythm with oc casional Premature ventricular complexes Possible Left atrial enlargement Left ventricular hypertrophy Abnormal ECG No previous ECGs available [place], [place] Jonh, Mhpn Incoming E kg Results From [employer] - 08/01/2019 1:29 PM EST Sinus rhythm with occasional Premature ventricular complexes Possible Left atrial enlargement Left ventricular hypertrophy Abnormal ECG No previous ECGs available [place] Vital Signs Date Time Vital Sign Value Performing Clinician Facility 06-06-2023 13:23-0500 Diastolic blood pressure 72 mm[Hg] GELY BLAKE [facility] 06-06-2023 13:23-0500 Mean blood pressure 96 mm[Hg] GELY BLAKE [facility] 06-06-2023 13:23-0500 Systolic blood pressure 145 mm[Hg] GELY BLAKE [facility] 06-06-2023 13:18-0500 Blood Pressure Location GELY REEMA [facility] 06-06-2023 13:18-0500 Diastolic blood pressure 75 mm[Hg] GELY REEMA [facility] 06-06-2023 13:18-0500 Heart rate 55 /min GELY REEMA [facility] 06-06-2023 13:18-0500 Systolic blood pressure 150 mm[Hg] GELY REEMA [facility] 01-11-2023 12:50-0400 Body weight 101.15 kg Chandni Rhoten COMPOUNDING AND FINISHING SUPERVISOR.EXTERNAL GRINDER TENDER Work Phone: [facility] 01-11-2023 12:50-0400 Diastolic blood pressure 79 mm[Hg] Chandni Rhoten COMPOUNDING AND FINISHING SUPERVISOR.EXTERNAL GRINDER TENDER Work Phone: [facility] 01-11-2023 12:50-0400 Heart rate 56 /min Chandni Rhoten COMPOUNDING AND FINISHING SUPERVISOR.EXTERNAL GRINDER TENDER Work Phone: [facility] 01-11-2023 12:50-0400 Systolic blood pressure 152 mm[Hg] Chandni Rhoten COMPOUNDING AND FINISHING SUPERVISOR.EXTERNAL GRINDER TENDER Work Phone: [facility] 11-15-2022 12:54-0400 Blood Pressure Location GELY REEMA [facility] 11-15-2022 12:54-0400 Diastolic blood pressure 68 mm[Hg] GELY REEMA [facility] 11-15-2022 12:54-0400 Heart rate 68 /min GELY REEMA [facility] 11-15-2022 12:54-0400 Systolic blood pressure 130 mm[Hg] GELY REEMA [facility] 10-07-2022 13:25-0400 Body weight 100.7 kg Chandni Metzger COMPOUNDING AND FINISHING SUPERVISOR.EXTERNAL GRINDER TENDER Work Phone: [facility] 10-07-2022 13:25-0400 Diastolic blood pressure 94 mm[Hg] Chandni Rhoten COMPOUNDING AND FINISHING SUPERVISOR.EXTERNAL GRINDER TENDER Work Phone: [facility] 10-07-2022 13:25-0400 Heart rate 53 /min Chandni Rhoten COMPOUNDING AND FINISHING SUPERVISOR.EXTERNAL GRINDER TENDER Work Phone: [facility] 10-07-2022 13:25-0400 Systolic blood pressure 168 mm[Hg] Chandni Rhoten COMPOUNDING AND FINISHING SUPERVISOR.EXTERNAL GRINDER TENDER Work Phone: [facility] 09-06-2022 13:03-0400 Blood Pressure Location GELY REEMA [facility] 09-06-2022 13:03-0400 Diastolic blood pressure 78 mm[Hg] GELY REEMA [facility] 09-06-2022 13:03-0400 Heart rate 68 /min GELY REEMA [facility] 09-06-2022 13:03-0400 Respiratory rate 16 /min GELY REEMA [facility] 09-06-2022 13:03-0400 Systolic blood pressure 129 mm[Hg] GELY REEMA [facility] 04-27-2022 14:58-0500 Body height 167.6 cm Daysi Uribe MD Work Phone: [facility] 04-27-2022 14:58-0500 Body weight 101.15 kg Daysi Uribe MD Work Phone: [facility] 04-27-2022 14:58-0500 Diastolic blood pressure 73 mm[Hg] Daysi Uribe MD Work Phone: [facility] 04-27-2022 14:58-0500 Heart rate 68 /min Daysi Uribe MD Work Phone: [facility] 04-27-2022 14:58-0500 SaO2% (BldA) [Mass fraction] 98 % Daysi Uribe MD Work Phone: [facility] 04-27-2022 14:58-0500 Systolic blood pressure 139 mm[Hg] Daysi Uribe MD Work Phone: [facility] 10-21-2021 10:50-0400 Body height 167.6 cm Daysi Uribe MD Work Phone: [facility] 10-21-2021 10:50-0400 Body weight 97.52 kg Daysi Uribe MD Work Phone: [facility] 10-21-2021 10:50-0400 Diastolic blood pressure 86 mm[Hg] Daysi Uribe MD Work Phone: [facility] 10-21-2021 10:50-0400 Heart rate 83 /min Daysi Uribe MD Work Phone: [facility] 10-21-2021 10:50-0400 Systolic blood pressure 163 mm[Hg] Daysi Uribe MD Work Phone: [facility] 09-28-2021 10:47-0400 Blood Pressure Location Tere Torres Jr. [facility] 09-28-2021 10:47-0400 Diastolic blood pressure 64 mm[Hg] Tere Torres Jr. [facility] 09-28-2021 10:47-0400 Heart rate 62 /min Tere Torres Jr. [facility] 09-28-2021 10:47-0400 Respiratory rate 18 /min Tere Torres Jr. [facility] 09-28-2021 10:47-0400 Systolic blood pressure 129 mm[Hg] Tere Torres Jr. [facility] 09-08-2021 14:00-0400 Body height 170.18 cm Cliff Leon Other [employer] Other 09-08-2021 14:00-0400 Body mass index (BMI) [Ratio] 35.39 kg/m2 Cliff Leon Other [employer] Other 09-08-2021 14:00-0400 Body weight 102.51 kg Cliff Leon Other [employer] Other 10-16-2019 11:15-0400 Body Temperature 99.1 [degF] [facility]el [facility] [place] 10-16-2019 11:15-0400 BP Diastolic 80 mm[Hg] Ángel [facility] , [place] 10-16-2019 11:15-0400 BP Systolic 119 mm[Hg] Ángel [employer] [facility] , [place] 10-16-2019 11:15-0400 Pulse (Heart Rate) 86 /min Ángel [employer] [facility], [place] 10-16-2019 11:15-0400 Pulse Oximetry 96 % Ángel Eliceo [employer] [facility] , [place] 10-16-2019 11:15-0400 Respiratory Rate 25 /min Ángel Liang [facility] , [place] 10-16-2019 08:12-0400 BMI (Body Mass Index) 36.26 kg/m2 Ángel Liang [facility], [place] 10-16-2019 08:12-0400 Body weight 105.01 kg Ángel Liang [facility] , [place] 10-16-2019 08:12-0400 Height 170.2 cm Ángel Liang [facility] , [place] 07-31-2019 11:58-0500 BMI (Body Mass Index) 37.06 kg/m2 Stvz Schedule [facility] [place] 07-31-2019 11:58-0500 Body Temperature 97.9 [degF] Stvz Schedule [employer] [facility], [place] 07-31-2019 11:58-0500 Body weight 104.15 kg Stvz Schedule [facility] [place] 07-31-2019 11:58-0500 Height 167.6 cm Stvz Schedule [facility] [place] Encounters Encounter Date Encounter Type Care Provider Facility Start: 07-04-2023 End: 07-05-2023 ambulatory Srinivasan MARIE Facility:[facility] Start: 06-06-2023 End: 06-07-2023 ambulatory GELY BLAKE Facility:[facility] [place] Start: 06-06-2023 End: 06-06-2023 Patient encounter procedure GELY BLAKE [facility] Start: 05-17-2023 End: 05-17-2023 ambulatory [facility] Start: 05-11-2023 End: 05-11-2023 ambulatory INGA TOURE Not Available Start: 05-08-2023 ambulatory Daysi flannery MD Work Phone: [facility] Start: 05-08-2023 Patient encounter procedure Daysi Uribe MD Work Phone: Neurology Comment on above: Appointment request because of blood test results Start: 04-14-2023 End: 04-14-2023 ambulatory [facility] Start: 02-27-2023 End: 02-27-2023 ambulatory GUEVARA Edouard 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 Start: 10-31-2022 Patient encounter procedure Guevara Mackay Work Phone: FM-Jglsbxpeaxdcf-Usbhujnn B102 Work Phone: Start: 10-31-[address] 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 Facility:[facility] Start: 09-06-2022 End: 09-07-2022 ambulatory GELY BLAKE Facility: [facility] Start: 09-06-2022 End: 09-06-2022 Patient encounter procedure GELY BLAKE [facility] Start: 09-01-2022 End: 09-02-[address] GUEVARA MACKAY . Facility: Start: 08-26-2022 End: 08-27-[address] GUEVARA MACKAY . Facility: Start: 08-24-2022 ambulatory GELY BLAKE Facility : [place] Start: 08-23-2022 End: 08-23-[address] GUEVARA MACKAY . Facility: Start: 08-18-2022 End: 08-19-[address] GUEVARA MACKAY . Facility: Start: 08-04-2022 End: 08-04-2022 Social Work Katia TAM Work Phone: Neurology Comment on above: Dementia [...] Start: 07-08-2022 End: 07-08-2022 ambulatory LAUREN LAMAS Facility:[facility] Start: 07-04-2022 ambulatory Guevara Carrasco Facility:9 [id number] Start: 06-17-2022 End: 06-17-2022 Subsequent hospital visit by physician Cesilia Bustillos (I-Stat/3t) Work Phone: Radiology Comment on above: Myasthenia gravis wi th exacerbation (HCC) [G70.01] Start: 06-17-2022 End: 06-17-2022 ambulatory GUEVARA MACKAY Facility:[facility] Start: 06-17-2022 End: 06-17-2022 Patient encounter procedure Araseli Camacho PhD Work Phone: Neuropyschology Comment on above: Major neurocognitive disorder (HCC) (Primary Dx); Obstructive sleep apnea; MYASTHENIA GRAVIS; Depression, unspecified depression type Start: 06-07-2022 End: 06-07-2022 Patient encounter procedure GELY BLAKE [facility] Start: 05-30-[address] GUEVARA MACKAY . Facili ty:[facility] Start: 05-12-2022 Chart abstracting Lauren Granda Work Phone: Neurology Comment on above: Results (BiPAP downl oad 04/03-05/02/2022) Start: 05-03-2022 Telephone encounter Lauren Lamas MD Work Phone: Neurology Comment on above: PAP Therapy Follow U p (DOWNLOAD) Start: 04-29-2022 Telephone encounter Lauren Lamas MD Work Phone: Neurology Comment on above: Staff Radiation Therapist - O ther (Download MSC) Start: 04-27-2022 End: 04-27-2022 Patient encounter procedure Daysi Uribe MD Work Phone: Neurology Comment on above: Myasthenia gravis (H CC) (Primary Dx); Memory loss Start: 04-14-2022 Refill Daysi flannery MD Work Phone: Neurology Comment on above: Refill Request Start: 04-04-2022 End: 04-05-[address] TERE Hare Facility: Start: 02-28-2022 Patient encounter procedure Guevara Mackay Work Phone: [facility] B102 Work Phone: Start: 02-28-2022 ambulatory Guevara Carrasco Facility:9 [id number] Start: 02-04-2022 Patient encounter procedure Guevara Mackay Work Phone: [facility]Ar[facility]wgh[facility]au-Dednch[facility] B102 Work Phone: Start: 02-04-2022 ambulatory Guevara Carrasco Facility:9 485 Start: 01-06-2022 End: 01-06-[address] GUEVARA MACKAY . 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 [facility] Start: 09-08-2021 End: 09-08-2021 ambulatory Cliff Leon Other [facility] [employer] Other Start: 09-08-2021 Office outpatient ne w 45 minutes Cliff Leon [facility] Start: 08-21-2021 Rx Renewal Guevara Mackay Work Phone: VL-Gmtokeuduzyqg-Gobbtcbl B102 Work Phone: Start: 08-06-2021 Telephone encounter Srinivasan Brambila DO Work Phone: Gastroenterology Comment on above: Appointment Start: 07-09-2021 Patient encounter procedure Guevara Mackay Work Phone: SW-Atkwhbjagvbht-Bdtkjebp B102 Work Phone: Start: 10-16-2019 End: 10-16-2019 Patient encounter procedure [facility] [facility] Start: 10-16-2019 End: 10-16-2019 Subsequent hospital visit by physician Ángel Fenton Work Phone: SUKHWINDER [place] Comment on above: Basal cell carcinoma (BCC) of left side of nose (Primary Dx) Start: 10-14-2019 End: 10-19-2019 [facility]: [facility]-14-2019 End: 10-18-2019 Subsequent hospital visit by physician Brigido Potts 4 STABong PRE-ADMIT TESTING Start: 07-31-2019 End: 08-05-2019 Patient encounter procedure ÁNGEL FERNANDEZ [facility] Start: 07-31-2019 End: 08-04-2019 Subsequent hospital visit by physician Sukhwinder Richardson Pat Schedule SUKHWINDER Richardson Pre-Admit Testing Start: 06-14-2019 Patient encounter procedure Guevara Danilo GH-Dvohdnalpzody-Dxflgbdu B102 Work Phone: Start: 02-08-2019 Patient encounter procedure Guevara Danilo AS-Czvvddioouabu-Lneeqlnf B102 Work Phone: Start: 11-01-2018 Patient encounter procedure Guevara Danilo TX-Ttaobvlukmjhy-Nccglupg B102 Work Phone: Start: 10-15-2018 Patient encounter procedure Guevara Danilo GY-Rtzpssuxpzsri-Iukovndm B102 Work Phone: Start: 09-07-2018 Patient encounter procedure Guevara Danilo JH-Qamsunzhmsvjy-Zagjoonp B102 Work Phone: Start: 12-28-2017 Patient encounter procedure Guevara Danilo CI-Vdicijozlllii-Sxrehwdz B102 Work Phone: Start: 12-22-2017 Patient encounter procedure Guevara Danilo OV-Rglcclosyjcnd-Olpogxba B102 Work Phone: Start: 12-01-2017 Patient encounter procedure Guevara Danilo FD-Emhvwzteibnie-Uamrpdtf B102 Work Phone: Start: 11-22-2017 Patient encounter procedure Guevara Danilo XZ-Drjkotpqprzoh-Jderktow B102 Work Phone: Start: 11-20-2017 Patient encounter procedure Guevara Danilo EY-Ulfvnchliavgt-Iqdbjbbk B102 Work Phone: Start: 11-08-2017 Patient encounter procedure Guevara Danilo BJ-Cefoomnwqdwld-Aqybrlxm B102 Work Phone: Start: 09-06-2017 Patient encounter procedure Guevara Danilo LH-Tyymdoggoocsl-Itlqghjh B102 Work Phone: Start: 08-11-2017 Patient encounter procedure Guevara Danilo BD-Gkspnvrpvkkat-Sgdpwpoc B102 Work Phone: Start: 08-02-2017 Patient encounter procedure Guevara Danilo VB-Zgeitqdttofbd-Gofkgzzs B102 Work Phone: Start: 06-21-2017 Patient encounter procedure Guevara Danilo LA-Oqxomotywjrxe-Iczokgam B102 Work Phone: Procedures Date Procedure Procedure Detail Performing Clinician Start: 02-27-2023 DE LEON VISUAL FIELD - OU - BOTH EYES GUEVARA DANILO Start: 02-27-2023 OCT, OPTIC NERVE - OU - BOTH EYES DOUGLA S DANILO Start: 08-18-[address] GUEVARA MACKAY . Comment on above: Performed By: #### PSASC, VITAD #### [place] [address] Dr. Ragini Storm Start: 06-17-2022 MRI 3D POST PROCESSING Lauren Lamas MD Work Phone: Start: 06-17-2022 Mri brain brain stem w/o contrast material Lauren Lamas MD Work Phone: Start: 04-04-[address] GUEVARA MACKAY . Comment on above: Performed By: #### PSAD #### [place] [address] Dr. Ragini Storm Start: 10-16-2019 DISCHARGE PATIENT ÁNGEL FENTON Start: 10-16-2019 Level iv surg pathology gross&microscopic exam ÁNGEL ELICEO Start: 10-16-2019 ASSESS ÁNGEL FAGANSLER Start: 10-16-2019 BEDREST ÁNGEL ELICEO Start: 10-16-2019 ENCOURAGE DEEP BREATHING AND COUGHING ÁNGEL FENTON Start: 10-16-2019 INITIATE OXYGEN THERAPY PROTOCOL ÁNGEL CM Start: 10-16-2019 NEURO/VASCULAR CHECKS ÁNGEL FENTON Start: 10-16-2019 NURSING COMMUNICATION ÁNGEL FENTON Start: 10-16-2019 REMOVE IV ÁNGEL ELICEO Start: 10-16-2019 NOTIFY PHYSICIAN (SPECIFY) ÁNGEL FENTON Start: 10-16-2019 TELEMETRY MONITORING ÁNGEL FENTON Start: 10-16-2019 Gluc bld gluc mntr dev cleared fda spec home use ÁNGEL FAGANSLER Start: 10-16-2019 Urine test visual color cmprsn meths ÁNGEL FAGANSLER Start: 10-16-2019 VITAL SIGNS ÁNGEL ELICEO Start: 10-14-2019 COVID-19 JERAMY HART Start: 10-14-2019 COVID-19 Jerome Hart Work Phone: Start: 10-14-2019 COVID-19 JERAMY HART Start: 07-31-2019 Ecg routine ecg w/least 12 lds w/i&r ÁNGEL FENTON Start: 07-31-2019 EKG REPORT ÁNGEL FAGANSLER Start: 07-31-2019 Ecg routine ecg w/least 12 lds trcg only w/o i&r Ángel Fenton Work Phone: Start: 07-31-2019 EKG REPORT Hpf Scanning Start: 07-26-2019 Adult depression screening assessment [facility] Start: 12-13-2018 Colonoscopy [facility] Start: 12-13-2018 Colonoscopy GELY BLAKE Start: 12-13-2018 Esophagogastroduodenoscopy GELY Chanel Start: 10-25-2017 Cystoscopy Tere Torres Jr. Comment on above: 08/13/2012 Start: 07-12-2017 Green laser light (physical force) Marco A Torres Jr. Start: 08-16-2012 Urodynamic studies Tere Brian Claire Arthroplasty of knee Tere Torres Arthroscopy of knee Tere augustine Back structure, excl uding neck (body structure) Tere Brian Claire Cataract (disorder) Tere augustine Excision of basal cell carcinoma GELY BLAKE Comment on above: back and scalp Extraction of cataract AMARILIS BLAKE History of Back Surgery Pablo las Danilo Laminectomy GELY BLAKE Malignant melanoma, no ICD-O subtype (morphologic abnormality) Tere Brian Claire Comment on above: removal from nose Total knee replacement Dougl as Danilo Total thymectomy Tere Richard aparicio Jr. Transurethral prostatectomy GELY BLAKE Plan of Treatment Date Care Activity Detail Author Start: 01-07-2032 Urine microalbumin profile DTaP,Tdap,Td Vaccine (2 - Tdap) [facility] Start: 04-29-2025 DIABETES SCREEN DIABETES SCREEN [facility] Start: 04-29-2025 Diabetes Screening Diabetes Screenin g [facility] Start: 09-10-2023 DIABETES SCREEN DIABETES SCREEN [facility] Start: 02-27-2023 EPVDILATED, Provider : Guevara Carrasco, Status: Pen, Time: 9:00 AM EPVDILATED, Provider: Guevara Carrasco, Status: Pen, Time: 9:00 AM ZL-Iozhbtxugfjnx-Ppt tlake B102 Work Phone: Start: 01-27-2023 Covid-19 Vaccine () Covid-19 Vaccine () [facility] Start: 01-27-2023 Influenza vaccination [facility] Start: 07-06-2022 COVID-19 VACCINE (8 - Mixed Product risk series) COVID-19 VACCINE (8 - Mixed Product risk series) [facility] Start: 07-04-2022 EPVGLAUC, Provider: Guevara Carrasco, Status: Pen, Time: 11:15 AM EPVGLAUC, Provider: Guevara Carrasco, Status: Pen, Time: 11:15 AM RJ-Dceamgvoetiar-Nfu tlake B102 Work Phone: Start: 05-29-2022 ADVANCE DIRECTIVE DISCUSSION ADVANCE DIRECTIVE DISCUSSION [facility] Start: 05-29-2022 [facility]PRESSION [facility]MENT [facility] Start: 02-28-2022 EPVGLAUC, Provider: Guevara Carrasco, Status: Pen, Time: 10:30 AM EPVGLAUC, Provider: Guevara Carrasco, Status: Pen, Time: 10:30 AM SP-Ruequbgtlzgem-Aot tlake B102 Work Phone: Start: 01-27-2022 Influenza vaccination [facility] Start: 09-27-2021 EPVGLAUC, Provider: Guevara Carrasco, Status: Pen, Time: 11:15 AM EPVGLAUC, Provider: Guevara Carrasco, Status: Pen, Time: 11:15 AM UP-Nuiqhyjuinede-Kvp tlake B102 Work Phone: Start: 05-29-2021 ADVANCE DIRECTIVE DISCUSSION ADVANCE DIRECTIVE DISCUSSION [facility] Start: 05-29-2021 DEPRESSION ASSESSMENT DEPRESSION ASS ESSMENT [facility] Start: 07-26-2020 Adult depression screening assessment DEPRESSION SCREENING [facility] Start: 01-28-2020 Influenza vaccination Flu vacc ine (Season Ended) [place] Start: 12-14-2019 Colonoscopy COLONOSCOPY [facility] Start: 12-14-2019 COLORECTAL CANCER SCREENING COLORECTAL CANCER SCREENING [facility] Start: 12-14-2019 Screening for malign ant neoplasm of colon [facility] Start: 10-23-2019 End: 10-23-2019 Office Visit 10/23/2019 Office Visit Plastic Surgery Ángel Fenton MD [address] [place] [address] [phone] [facility] Start: 08-28-2019 End: 08-28-2019 Office Visit 08/28/2019 Office Visit Plastic Surgery Ángel Fenton MD [address] [place] [address] [phone] [facility] Start: 08-14-2019 End: 08-14-2019 Hospital Encounter SUKHWINDER Richardson [place] Comment on above: NASAL LESION BIOPSY EXCISION - BASAL CELL WITH FROZEN SECTION REQUIRED AND FLAP CLOSURE Start: 07-03-2019 Annual Wellness Visi t (AWV) Annual Wellness Visit (AWV) [place] Start: 01-27-2019 Influenza vaccination Flu vaccine (# 1) [place] Start: 2016 Pneumococcal 65+ yea rs Vaccine (1 of 1 - PPSV23) Pneumococcal 65+ years Vaccine (1 of 1 - PPSV23) [place] Start: 06-29-2013 Pneumococcal Vaccine : 65+ (2 - PCV) Pneumococcal Vaccine: 65+ (2 - PCV) [facility] Start: 06-29-2013 PNEUMOCOCCAL: 65+ (2 - PCV) PNEUMOCOCCAL: 65+ (2 - PCV) [facility] Start: 2011 RSV Vaccine (1 - 1-d ose 60+ series) RSV Vaccine (1 - 1-dose 60+ series) [facility] Start: 2001 Colon cancer screen colonoscopy Colon cancer screen colonoscopy [place], [place] Start: 2001 Screening for malign ant neoplasm of colon Colon cancer screen colonoscopy [place] Start: 2001 Shingles Vaccine (1 of 2) Shingles Vaccine (1 of 2) [place] Start: 2001 SHINGRIX VACCINE (1 of 2) SHINGRIX VACCINE (1 of 2) [facility] Start: 1996 COLOGUARD (FIT-DNA) COLOGUARD (FIT-D NA) [facility] Start: [address] COLONOGRAPHY [facility] Start: 1996 FECAL OCCULT BLOOD FECAL OCCULT BLOO D [facility] Start: 1996 Screening for malign ant neoplasm of colon [facility] Start: 1996 SIGMOIDOSCOPY SIGMOIDOSCOPY [facility] Start: 1991 Diabetes screen Diabetes screen [place], [place] Start: 1986 Lipid panel Lipid Screening [facility] Start: 1986 LIPID SCREEN LIPID SCREEN [facility] Start: 1970 DTaP/Tdap/Td vaccine (1 - Tdap) DTaP/Tdap/Td vaccine (1 - Tdap) [place] Start: 1970 SHINGRIX VACCINE (1 of 2) SHINGRIX VACCINE (1 of 2) [facility] Start: 1970 Urine microalbumin profile DTAP,TDAP,TD (1 - Tdap) [facility] Start: 1969 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 ANNUAL PCP TEAM CHRONIC DISEASE VISIT [facility] Start: 1969 BP CONTROLLED (<130/80) BP CONTROLLE D (<130/80) [facility] Start: 1969 HEPATITIS C SCREENING HEPATITIS C [facility] Start: 1969 Hepatitis C screening Hepatitis C [facility] Start: 1962 DTaP/Tdap/Td vaccine (1 - Tdap) DTaP/Tdap/Td vaccine (1 - Tdap) [place] Start: 1961 Lipid panel Lipid screen [place], [place] Start: 1961 Lipid screen Lipid screen [place], [place] Start: 1951 AAA screen AAA screen [place], [place] Start: 1951 Abdominal aortic aneurysm screening [facility] Start: 1951 ABDOMINAL AORTIC ANEURYSM SCREENING ABDOMINAL AORTIC ANEURYSM SCREENING [facility] Start: 1951 Hepatitis C screen Hepatitis C scree n [place], [place] Start: 1951 Hepatitis C screening Hepatitis C sc onel [place] End: 10-16-2019 Blood glucose - POCT Blood glucose - POCT Point of Care Testing Routine One Time for 1 Occurrences starting 10/16/2019 until 10/16/2019 [place] Comment on above: One Time for 1 Occur rences starting 10/16/2019 until 10/16/2019 End: 10-14-2019 COVID-19 COVID-19 Lab Routine One Time for 1 Occurrences starting 10/14/2019 until 10/14/2019 [place] Comment on above: One Time for 1 Occur rences starting 10/14/2019 until 10/14/2019 Initiate Oxygen Ther apy Protocol Initiate Oxygen Therapy Protocol Respiratory Care Routine Daily until discontinued starting 10/16/2019 [place] Comment on above: Daily until disconti nued starting 10/16/2019 Phase I & II - meter ed glucose Phase I & II - metered glucose Point of Care Testing Routine As Needed until discontinued starting 10/16/2019 [place] Comment on above: As Needed until disc ontinued starting 10/16/2019 End: 10-16-2019 , urine POCT , urine POCT Point of Care Testing Routine One Time for 1 Occurrences starting 10/16/2019 until 10/16/2019 [place] Comment on above: One Time for 1 Occur rences starting 10/16/2019 until 10/16/2019 SPEECH PLAN OF CARE CERTIFICATION SPEECH PLAN OF CARE CERTIFICATION Procedures Routine 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) MYASTHENIA GRAVIS ERIS on CPAP Vascular dementia without behavioral disturbance, psychotic disturbance, mood disturbance, or anxiety, unspecified dementia severity (HCC) Cognitive communication deficit Ordered: 08/04/2022 [facility] Work Phone: Comment on above: Ordered: 08/04/2022 Surgical Pathology Surgical Path ology Lab Routine Release Upon Ordering for 1 Occurrences starting 10/16/2019 [place] Comment on above: Release Upon Orderin g for 1 Occurrences starting 10/16/2019 [facility] Immunizations Immunization Date Immunization Notes Care Provider Ulises fong 05-11-2022 SARS-CoV-2 (COVID-19 ) [id number] GELY BLAKE [facility] 03-21-2022 influenza virus vacc ine, unspecified formulation GELY BLAKE [facility] 09-23-2021 SARS-CoV-2 mRNA (xfzqiceikge-vzoy-ybplua e) vaccine GELY REEMA [facility] 08-27-2021 SARS-CoV-2 (COVID-19 ) mRNA-1273 vaccine Tere Torres Jr. [facility] 03-14-2021 SARS-CoV-2 (COVID-19 ) mRNA BNT-162b2 vax GELY BLAKE [facility] 09-02-2020 SARS-CoV-2 (COVID-19 ) mRNA-1273 vaccine Tere Torres Jr. [facility] 08-05-2020 SARS-CoV-2 (COVID-19 ) mRNA-1273 vaccine Tere Torres Jr. [facility] 07-26-2020 SARS-CoV-2 (COVID-19 ) mRNA BNT-162b2 vax GELY BLAKE [facility] Comment on above: Result Comment: 2022: [id number] 07-04-2020 SARS-CoV-2 (COVID-19 ) mRNA BNT-162b2 vax GELY BLAKE [facility] Comment on above: Result Comment: 2022: [id number] 03-03-2020 influenza virus vacc ine, unspecified formulation GELY BLAKE [facility] 02-27-2020 influenza virus vacc ine, unspecified formulation Tere Torres Jr. [facility] 03-08-2017 influenza virus vacc ine, unspecified formulation GELY BLAKE [facility] 03-07-2016 influenza, unspecifi ed formulation GELY BLAKE [facility] 05-10-2013 influenza virus vacc ine, unspecified formulation [facility] 06-29-2012 pneumococcal polysaccharide vaccine, 23 valent [facility] 04-11-2012 influenza virus vacc ine, unspecified formulation [facility] Payers Date Payer Category Payer Medicare [id number] 2017 Private Health Insurance [facility] AARP SUPPLEMENT [id number] 2017-Present [phone] [address] [address] Indemnity [id number] 2017 Private Health Insurance [facility] AARP SUPPLEMENT [id number] 2017-Present [phone] [address] [address] Indemnity [id number] 2016 Medicare MEDICARE MEDICAR E A AND B [id number] 2016-Present [phone] [place] [address] Medicare [id number] 2016 Medicare MEDICARE MEDICAR E A AND B [id number] 2016-Present [phone] [place] [address] Medicare [id number] 1959 Medicare [id number] 1959 Private Health Insurance [facility] [id number] 1959 Self-pay 1950 Unknown [id number] [id number] .175 1951 Unknown [id number] 2.16.840.1.209875.3.579.2 .175 1951 Unknown [id number] 2.16.840.1.031660.3.579.2 .177 1951 Unknown [id number] 2.16.840.1.867357.3.579.2 .593 1951 Unknown [id number] 2.16.840.1.322128.3.579.2 .593 1951 Unknown [id number] 2.16.840.1.245291.3.579.2 .593 1951 Unknown [id number] 2.16.840.1.019851.3.579.2 .593 1951 Unknown [id number] 2.16.840.1.637559.3.579.2 .593 1951 Unknown [id number] 2.16.840.1.735765.3.579.2 .593 1951 Unknown [id number] 2.16.840.1.079801.3.579.2 .593 1951 Unknown [id number] 2.16.840.1.286162.3.579.2 .593 1951 Unknown [id number] 2.16.840.1.142542.3.579.2 .356 1951 Unknown [id number] 2.16.840.1.702849.3.579.2 .356 1951 Unknown [id number] 2.16.840.1.104293.3.579.2 .356 1951 Unknown [id number] 2.16.840.1.295943.3.579.2 .356 1951 Unknown [id number] 2.16.840.1.342241.3.579.2 .1259 1951 Unknown [id number] 2.16.840.1.711887.3.579.2 .1244 1951 Unknown [id number] 2.16.840.1.517305.3.579.2 .1244 1951 Unknown [id number] 2.16.840.1.031565.3.579.2 .1244 1951 Unknown [id number] 2.16.840.1.784421.3.579.2 .727 1951 Unknown [id number] 2.16.840.1.544181.3.579.2 .727 1951 Unknown [id number] 2.16.840.1.325290.3.579.2 .727 1950 Unknown [id number] 2.16.840.1.070606.3.579.2 .727 Medicare [id number] Unknown Unknown [id number] [id number] Social History Date Type Detail Facility Start: 07-31-2019 End: 06-06-2023 Tobacco smoking status NHIS Former smoker [facility] End: 05-29-1990 History of tobacco use Current smoker [place] End: 05-29-1990 History of tobacco use Cigar Smoker [place] Start: 07-31-2019 End: 01-11-2023 Alcohol intake Current drinker of alcohol (finding) [place] Start: 07-17-2019 History SDOH Alcohol Frequency 3 [place] Start: 07-31-2019 Alcohol Comment Occas beer [place], [place] Start: 1950 Sex Assigned At Not on file [place] Exposure to SARS-CoV -2 (event) Unable to assess [facility] Start: 07-26-2019 End: 10-07-2022 Retired Retired [facility] Start: 10-01-2020 Tobacco smoking status Never s moked tobacco (finding) [facility] Tobacco smoking status Never [facility] Start: 07-26-2019 End: 10-07-2022 Sex Assigned At Male [facility] [employer] Other Start: 10-11-2021 End: 04-29-2022 Exposure to SARS-CoV-2 (event) Not sure [facility] Start: 04-04-2012 End: 04-27-2022 Tobacco use and exposure Smokeless tobacco non-user [facility] Medical Equipment Procedure Code Equipment Code Equipment Origin al Text Equipment Identifier Dates Drug [place] Un[employer]t Lancets 28G use to test BLOOD SUGAR DAILY Quantity: 100 Refills: 0 Start : 15-Mar-2016 Active Start: 03-15-2016 True Metrix Bloo d Glucose Test In Vitro Strip use to test BLOOD SUGAR EVERY DAY Quantity: 100 Refills: 0 Start : 31-Mar-2016 Active Start: 03-31-2016 Graft Bn Infs Rgbmp Lg Kt Cspn - [id number] Start: 04-10-2012 Dbx-Rn-S-Kind Implant - [id number] Start: 04-10-2012 Comment on above: Description: taryn scr ew [id number] Michael Taryn 3 Ti - [id number] Start: 04-10-2012 Comment on above: Description: Michael s Rbn-By-T-Kind Implant - [id number] Start: 04-10-2012 Comment on above: Description: taryn scr ew 8.5x50mm Spk-Es-T-Kind Implant - [id number] Start: 04-10-2012 Comment on above: Description: Emerson 5.5 x110mm Gxn-Ba-W-Kind Implant - [id number] Start: 04-10-2012 Comment on above: Description: Emerson 5.5 x120mm Pqi-Ak-H-Kind Implant - [id number] Start: 04-10-2012 Comment on above: Description: screw 6 [id number] Ueq-Op-E-Kind Implant - [id number] Start: 04-10-2012 Comment on above: Description: screw [id number]-Wt-Q-Kind Implant - [id number] Start: 04-10-2012 Comment on above: Description: neutral offset Screw Taryn 3 Ti P a 5.5x50 Mm - [id number] Start: 04-10-2012 Functional Status Date Assessment Result Facility 06-06-2023 Functional Status N/A [facility] 11-15-2022 Functional Status N/A [facility] 09-06-2022 Functional Status N/A [facility] 06-07-2022 Functional Status N/A [facility] NEGATED: Highlighted row Functional performance Functional status health issues are not documented Disease RX-Zinksknvgkxnb-Lun tlake B102 Work Phone: Mental Status Date Assessment Result Facility NEGATED: Highlighted row Cognitive function [Interpretation] Cognitive status health issues are not documented Disease WH-Myrnfilsjyghe-Xe stlake B102 Work Phone: Clinical Notes 06-25-2012 to 07-04-2023 Patient InstructionsViky Carias, LUCINA - 01/11/2023 12:53 PM Chandni Guerrero APRN.EXTERNAL GRINDER TENDER - 01/11/2023 12:33 PM EDTTelephone Encounter - Daysi Uribe MD - 12/05/2022 12:13 PM EDT Note Date & Type Note Facility 07-04-2023 Note Chief Complaint consultation for positive occult stool HPI Staff 73 year old male presents on consultation from Dr. Mackay for positive occult stool. Denies abdominal or rectal pain. No rectal bleeding or change in bowel habits. Denies nausea or vomiting. No unexplained weight loss. Last colonoscopy completed 11/2018 with tubular adenoma. History of Present Illness 73 yo male with h/o htn, hyperlipidemia, myasthenia gravis, ERIS, referred for positive fecal occult blood; last colonoscopy 11/2018 with removal of tubular adenoma. patient denies change in bms or blood in stools, no abd complaints; no abd operations; no asa or NSAID use; no tobacco use; no fmhx of GI malignancy or IBD. Review of Systems PHQ Score Initial Depression Screen Score: 0 SCORE ROS - Provider Constitutional: no fever, no sweats, no weight loss. Eyes: yes glasses, no blurred vision, no visual loss. ENMT: no dentures, no hoarseness, no swallowing difficulties, no hearing loss, no ear infection(s), no nose bleeds. Cardiovascular: normal blood pressure, no chest pain, regular heartbeat, no heart murmur. Respiratory: no shortness of breath, no cough, no asthma, no wheezing. Gastrointestinal: no nausea, no vomiting, no diarrhea, no constipation, no blood in stool, no change in bowel habits, no abdominal pain, no hepatitis. Genitourinary: no kidney stones, no urine infection, no dysuria. Musculoskeletal: no pain, mild weakness. Skin: no changing moles, no rash, no skin lumps. Neurologic: no seizures, no epilepsy, no headache. Psychiatric: no emotional or psychiatric problem. Heme/Lymph: no bleeding problems, no anemia, no blood clots, no transfusions. Allergy/Immunologic: no swollen lymph nodes/glands, no IV drug abuse. Other: Additional ROS info: Except as noted in the above Review of Systems and in the History of Present Illness, all other systems have been reviewed and are negative or noncontributory. Physical Exam Vitals & Measurements HR: 72(Peripheral) RR: 16 BP: 118/80 HT: 67 in HT: 170.18 cm WT: 108 kg WT: 237.6 lb BMI: 37.29 HEENT: normal conjunctiva, sclera clear, no scleral icterus, EOM intact, PERRLA, oral mucosa moist without lesions. Neck: trachea midline, no mass, symmetric, no thyromegaly or nodules, no adenopathy Respiratory: lungs CTA, respirations non labored. Cardiovascular: regular rate and rhythm, no murmur, no pedal edema or varicosities. Gastrointestinal: obese, soft, non distended, no tenderness, no masses, no palpable hernias, diastasis recti no, no hepatosplenomegaly; normal bs Lymphatic: no cervical adenopathy, no supraclavicular adenopathy. Musculoskeletal: abnormal gait, digits and nails without infection, nodes, cyanosis, clubbing. Skin: no rashes, no lesions, no ulcers, no subcutaneous nodules, induration. Psychiatric/Neuro: oriented to time, place, person, judgement normal, affect appropriate for age, insight intact, no focal deficits. Tests: labs reviewed, review of old records completed , Discussed surgical options, risks, and possible complications with patient. Assessment/Plan 1. Personal history of colonic polyps (Z86.010: Personal history of colonic polyps) plan surveillance colonoscopy under anesthesia, informed consent obtained. Follow-up No qualifying data available Problem List/Past Medical History Ongoing Basal cell carcinoma (BCC) BMI 37.0-37.9, adult BPH with urinary obstruction Cardiomegaly Dementia Diabetes Eczema ED (erectile dysfunction) Elevated PSA Former smoker Frequency of urination Glaucoma History of urinary tract infection Hyperlipidemia Hypertension Leukopenia Melanoma Microscopic hematuria Myasthenia gravis Obesity Obstructive sleep apnea syndrome Personal history of colonic polyps Prostate cancer screening Renal cyst Seasonal allergies Urge incontinence Urinary urgency Historical Gastroenteritis Procedure/Surgical History Colonoscopy (12/13/2018), EGD - esophagogastroduodenoscopy (12/13/2018), Cystoscopy (10/25/2017), Green laser light (07/12/2017), Urodynamics (08/16/2012), Anal fistulotomy, Arthroscopy of knee, Cataract extraction, Excision of basal cell carcinoma, Knee replacement, Laminectomy, Melanoma, TURP - Transurethral resection of prostate. Medications azaTHIOprine 50 mg Tab, 50 mg= 1 tab(s), Oral, BID carvedilol 12.5 mg Tab, 12.5 mg= 1 tab(s), Oral, BID donepezil 10 mg Tab, 10 mg= 1 tab(s), Oral, Once a day (at bedtime) dorzolamide-timolol Opth 2%-0.5% Glenna, 1 drop(s), Eye-Both, BID doxycycline hyclate 100 mg Tab, 100 mg= 1 tab(s), Oral, As Directed ezetimibe 10 mg Tab, 10 mg= 1 tab(s), Oral, Daily latanoprost ophthalmic 0.005% solution, 1 drop(s), OPTH, Once a day (at bedtime) pantoprazole 40 mg Oral EC Tab, 40 mg= 1 tab(s), Oral, Daily pyridostigmine 60 mg Tab, 60 mg= 1 tab(s), Oral, TID, Not taking Allergies ciprofloxacin (Rash) penicillins (Rash) Social History Alcohol - Low Risk, 06/25/2019 (more content not included)... [facility] Comment on above: Result Comment: Elec tronically Signed By: FRANK MARTINEZ, Srinivasan Loaiza.aidan\Date and Time Signed: 07/04/23 13:44 EST 06-06-2023 Hospital Discharge instructions Patient Education 06/06/2023 13:44:48 Cystoscopy Cystoscopy Cystoscopy is a procedure that is used to help diagnose and sometimes treat conditions that affect the lower urinary tract. The lower urinary tract includes the bladder and the urethra. The urethra is the tube that drains urine from the bladder. Cystoscopy is done using a thin, tube-shaped instrument with a light and camera at the end (cystoscope). The cystoscope may be hard or flexible, depending on the goal of the procedure. The cystoscope is inserted through the urethra, into the bladder. Cystoscopy may be recommended if you have: Urinary tract infections that keep coming back. Blood in the urine (hematuria). An inability to control when you urinate (urinary incontinence) or an overactive bladder. Unusual cells found in a urine sample. A blockage in the urethra, such as a urinary stone. Painful urination. An abnormality in the bladder found during an intravenous pyelogram (IVP) or CT scan. Cystoscopy may also be done to remove a sample of tissue to be examined under a microscope (biopsy). Tell a health care provider about: Any allergies you have. All medicines you are taking, including vitamins, herbs, eye drops, creams, and hrpm-uta-nstyyqv medicines. Any problems you or family members have had with anesthetic medicines. Any blood disorders you have. Any surgeries you have had. Any medical conditions you have. Whether you are or may be . What are the risks? Generally, this is a safe procedure. However, problems may occur, including: Infection. Bleeding. Allergic reactions to medicines. Damage to other structures or organs. What happens before the procedure? Medicines Ask your health care provider about: Changing or stopping your regular medicines. This is especially important if you are taking diabetes medicines or blood thinners. Taking medicines such as aspirin and ibuprofen. These medicines can thin your blood. Do not take these medicines unless your health care provider tells you to take them. Taking yqmy-jvt-rojoebz medicines, vitamins, herbs, and supplements. Tests You may have an exam or testing, such as: X-rays of the bladder, urethra, or kidneys. CT scan of the abdomen or pelvis. Urine tests to check for signs of infection. General instructions Follow instructions from your health care provider about eating or drinking restrictions. Ask your health care provider what steps will be taken to help prevent infection. These steps may include: ?Washing skin with a germ-killing soap. ?Taking antibiotic medicine. Plan to have a responsible adult take you home from the hospital or clinic. What happens during the procedure? You will be given one or more of the following: ?A medicine to help you relax (sedative). ?A medicine to numb the area (local anesthetic). The area around the opening of your urethra will be cleaned. The cystoscope will be passed through your urethra into your bladder. Germ-free (sterile) fluid will flow through the cystoscope to fill your bladder. The fluid will stretch your bladder so that your health care provider can clearly examine your bladder soriano. Your doctor will look at the urethra and bladder. Your doctor may take a biopsy or remove stones. The cystoscope will be removed, and your bladder will be emptied. The procedure may vary among health care providers and hospitals. What can I expect after the procedure? After the procedure, it is common to have: Some soreness or pain in your abdomen and urethra. Urinary symptoms. These include: ?Mild pain or burning when you urinate. Pain should stop within a few minutes after you urinate. This may last for up to 1 week. ?A small amount of blood in your urine for several days. ?Feeling like you need to urinate but producing only a small amount of urine. Follow these instructions at home: Medicines Take chvz-jiu-nunechj and prescription medicines only as told by your health care provider. If you were prescribed an antibiotic medicine, take it as told by your health care provider. Do not stop taking the antibiotic even if you start to feel better. General instructions Return to your normal activities as told by your health care provider. Ask your health care provider what activities are safe for you. If you were given a sedative during the procedure, it can affect you for several hours. Do not drive or operate machinery until your health care provider says that it is safe. Watch for any blood in your urine. If the amount of blood in your urine increases, call your health care provider. Follow instructions from your health care provider about eating or drinking restrictions. If a tissue sample was removed for testing (biopsy) during your procedure, it is up to you to get your test results. Ask your health care provider, or the department that is doing the test, when your results will be ready. Drink enough fluid to keep your urine pale yellow. Keep all follow-up visits. This is important. Contact a health care provider if: You have pain that gets worse or does not get better with medicine, especially pain when you urinate. You have trouble urinating. You have more blood in your urine. Get help right away if: You have blood clots in your urine. You have abdominal pain. You have a fever or chills. You are unable to urinate. Summary Cystoscopy is a procedure that is used to help diagnose and sometimes treat conditions that affect the lower urinary tract. Cystoscopy is done using a thin, tube-shaped instrument with a light and camera at the end. After the procedure, it is common to have some soreness or pain in your abdomen and urethra. Watch for any blood in your urine. If the amount of blood in your urine increases, call your health care provider. If you were prescribed an antibiotic medicine, take it as told by your health care provider. Do not stop taking the antibiotic even if you start to feel better. This information is not intended to replace advice given to you by your health care provider. Make sure you discuss any questions you have with your health care provider. Document Revised: 01/26/2022 Document Reviewed: 12/25/2020 Elsevier Patient Education 2022 [employer] Follow Up Care 06/05/2023 15:22:42 With:ARACELY MARTINEZ, Cliff Manuel, URL Address: [address] [place] [id number]- When: Unknown [facility] 06-06-2023 Note Urology Cystoscopy Cystoscopy is a procedure that is used to help diagnose and sometimes treat conditions that affect the lower urinary tract. The lower urinary tract includes the bladder and the urethra. The urethra is the tube that drains urine from the bladder. Cystoscopy is done using a thin, tube-shaped instrument with a light and camera at the end (cystoscope). The cystoscope may be hard or flexible, depending on the goal of the procedure. The cystoscope is inserted through the urethra, into the bladder. Cystoscopy may be recommended if you have: ? Urinary tract infections that keep coming back. ? Blood in the urine (hematuria). ? An inability to control when you urinate (urinary incontinence) or an overactive bladder. ? Unusual cells found in a urine sample. ? A blockage in the urethra, such as a urinary stone. ? Painful urination. ? An abnormality in the bladder found during an intravenous pyelogram (IVP) or CT scan. Cystoscopy may also be done to remove a sample of tissue to be examined under a microscope (biopsy). Tell a health care provider about: ? Any allergies you have. ? All medicines you are taking, including vitamins, herbs, eye drops, creams, and gtya-nuo-qeppieb medicines. ? Any problems you or family members have had with anesthetic medicines. ? Any blood disorders you have. ? Any surgeries you have had. ? Any medical conditions you have. ? Whether you are or may be . What are the risks? Generally, this is a safe procedure. However, problems may occur, including: ? Infection. ? Bleeding. ? Allergic reactions to medicines. ? Damage to other structures or organs. What happens before the procedure? Medicines Ask your health care provider about: ? Changing or stopping your regular medicines. This is especially important if you are taking diabetes medicines or blood thinners. ? Taking medicines such as aspirin and ibuprofen. These medicines can thin your blood. Do not take these medicines unless your health care provider tells you to take them. ? Taking hros-gyn-baobejc medicines, vitamins, herbs, and supplements. Tests You may have an exam or testing, such as: ? X-rays of the bladder, urethra, or kidneys. ? CT scan of the abdomen or pelvis. ? Urine tests to check for signs of infection. General instructions ? Follow instructions from your health care provider about eating or drinking restrictions. ? Ask your health care provider what steps will be taken to help prevent infection. These steps may include: ? Washing skin with a germ-killing soap. ? Taking antibiotic medicine. ? Plan to have a responsible adult take you home from the hospital or clinic. What happens during the procedure? ? You will be given one or more of the following: ? A medicine to help you relax (sedative). ? A medicine to numb the area (local anesthetic). ? The area around the opening of your urethra will be cleaned. ? The cystoscope will be passed through your urethra into your bladder. ? Germ-free (sterile) fluid will flow through the cystoscope to fill your bladder. The fluid will stretch your bladder so that your health care provider can clearly examine your bladder soriano. ? Your doctor will look at the urethra and bladder. Your doctor may take a biopsy or remove stones. ? The cystoscope will be removed, and your bladder will be emptied. The procedure may vary among health care providers and hospitals. What can I expect after the procedure? After the procedure, it is common to have: ? Some soreness or pain in your abdomen and urethra. ? Urinary symptoms. These include: ? Mild pain or burning when you urinate. Pain should stop within a few minutes after you urinate. This may last for up to 1 week. ? A small amount of blood in your urine for several days. ? Feeling like you need to urinate but producing only a small amount of urine. Follow these instructions at home: Medicines ? Take rxmx-ndc-tfzxcif and prescription medicines only as told by your health care provider. ? If you were prescribed an antibiotic medicine, take it as told by your health care provider. Do not stop taking the antibiotic even if you start to feel better. General instructions ? Return to your normal activities as told by your health care provider. Ask your health care provider what activities are safe for you. ? If you were given a sedative during the procedure, it can affect you for several hours. Do not drive or operate machinery until your health care provider says that it is safe. ? Watch for any blood in your urine. If the amount of blood in your urine increases, call your health care provider. ? Follow instructions from your health care provider about eating or drinking restrictions. ? If a tissue sample was removed for testing (biopsy) during your procedure, it is up to you to get your test results. Ask your health care provider, or the department th (more content not included)... [facility] 01-11-2023 Note HNO ID: [id number] Author: Chandni Metzger APRN.[facility] Service: ? Author Type: Nurse Practitioner Type: Progress Notes Filed: 01/17/2023 1:01 PM Note Text: [facility] - Follow-up Visit Date: January 11, 2023 Patient Name: Ron Welch Reason for Visit: follow-up visit Accompanied by: - SUBJECTIVE: HPI/interval history: Patient is a [...] this [place] going [place] Driving golf carts in controlled area, did [...] wearing CPAP. Going on cruise in July. - - OBJECTIVE: Current Outpatient Medications on File [...] his memory profil (more content not included)... [facility] 01-11-2023 Instructions Chandni Metzger APRN.[facility] - 01/11/2023 1:38 PM EDT PLAN: -Wear [...] cards Brain games or apps such as Secret[employer] Puzzles, word Greenbureau games Hobbies Listening to music, going to [...] gardening, knitting, etc. documented in this encounter [facility] 01-11-2023 Nurse Note Ron Welch is a 72 year old year old man accompanied by: spouse. Do you have any changes or new concerns you would like to address at the visit today? No new issues or concerns. Vital Signs: BP 152/79 Pulse (!) 56 Wt 101.2 kg (223 lb) BMI 35.99 kg/m documented in this encounter [facility] 01-11-2023 History of Present illness Narrative Images from the original note were not included. [facility] - Follow-up [...] The relevant details are summarized as above. ASSESSMENT: (F01.B18) Moderate vascular dementia with other [...] which included preparing to see the patient, rjse-bc-jzgj patient care, obtaining and/or reviewing separately obtained history, and counseling and educating the patient/family/caregiver. Chandni Metzger APRN.[facility] 01/11/2023 12:33 PM CC: Referring Physician: MARJORIE PCP: Guevara Mackay [address] [place] [id number] Patient Entered Data: Patient-Reported No flowsheet data [...] flowsheet data found. documented in this encounter [facility] 12-05-2022 Miscellaneous Notes The following approved medication requests have been transmitted electronically. Requested Prescriptions Signed Prescriptions Disp Refills azaTHIOprine (IMURAN) 50 mg tablet 180 tablet 3 Sig: Take 1 tablet by mouth twice daily. Authorizing Provider: DAYSI URIBE MD documented in this encounter [facility] 11-15-2022 Hospital Discharge instructions Patient Education [...] Follow these instructions at home: Medicines Take crdu-vzg-gvnqslq and prescription medicines only as told by [...] provider. Document Revised: 08/11/2021 Document Reviewed: 08/11/2021 [employer] Patient Education 2022 [employer]. Follow Up Care 09/06/2022 13:43:11 With:REEMA CRUM, GELY Ch, URL Address: [address] [place] [address] Business (1) When: only if needed [facility] 10-07-2022 Note HNO ID: [id number] Author: Chandni Metzger APRN.EXTERNAL GRINDER TENDER Service: ? Author Type: Nurse Practitioner Type: Progress Notes Filed: 10/13/2022 12:33 PM Note Text: [facility] - Follow-up Visit Date: October 07, 2022 Patient Name: Ron Welch Reason for Visit: follow-up visit Accompanied by: (Hyacinth) - SUBJECTIVE: HPI/interval history: Patient is a [...] will sleep in chair during the daytime. - - OBJECTIVE: Current Outpatient Medications on File [...] memory, processing spe (more content not included)... [facility] 10-07-2022 Instructions Chandni Metzger APRN.[employer]TER[employer] GRINDER TENDER - 10/07/2022 1:55 PM EDT PLAN: -Try [...] gardening, knitting, etc. documented in this encounter [facility] 10-07-2022 Nurse Note Ron Welch is [...] BMI 35.83 kg/m documented in this encounter [facility] 10-07-2022 History of Present illness Narrative Images from the original note were not included. [facility] - Follow-up [...] The relevant details are summarized as above. ASSESSMENT: (F01.B18) Moderate vascular dementia with other [...] or apps such as Lum[employer] Puzzles, word Dreamzer Gamesmble games Hobbies Listening to music, going to [...] which included preparing to see the patient, jupz-dy-lpwn patient care, obtaining and/or reviewing separately obtained history, counseling and educating the patient/family/caregiver, and communicating results to the patient/family/caregiver. Chandni Metzger APRN.[facility] 10/07/2022 1:15 PM CC: Referring Physician: Chandni Metzger [address] [facility] [address] PCP: Guevara Mackay [address] [place] [phone] Patient Entered Data: Patient-Reported No flowsheet data [...] flowsheet data found. documented in this encounter [facility] 09-06-2022 Hospital Discharge instructions Patient Education [...] (electrical nerve stimulation). For women, using a certified medical assistant to prevent urine leaks. This is a [...] right after experiencing incontinence. General instructions Take bmuv-pjp-lygkpat and prescription medicines only as told by [...] 06/22/2005 Document Revised: 05/25/2018 Document Reviewed: 08/24/2017 [employer] Patient Education 2020 [employer]. Follow Up Care 06/07/2022 10:48:01 With:REEMA CRUM, GELY Ch, URL Address: [address] [place] [address] When: Unknown [facility] 08-04-2022 Note HNO ID: [id number] Author: Lauren Lamas MD Service: ? Author [...] He is to return to see our [facility] MARYANN as planned. [facility] 08-04-2022 Note HNO ID: [id number] Author: Love Toure CCC-MORPHOLOGY TEACHER Service: ? Author Type: Speech Language Pathologist Type: Progress Notes Filed: 08/04/2022 3:38 PM Note Text: Episode Visit Count: 1 Therapist That Will Accept/Oversee The Plan Of Care: Love Toure MA CCC-MORPHOLOGY TEACHER Start of Care Date: 08/04/22 Onset Date: 07/08/22 Plan of Care Certification Date: 08/04/22 Next Certification Due Date: 08/04/22 Patient Identified by Name and Date of : Yes [facility] THERAPY COGNITIVE LINGUISTIC EVALUATION PLAN OF CARE: Impression: Communication deficits identified: Cognitive deficits RECOMMENDATION: 1.) Outpatient speech therapy recommended for cognitive-linguistic re-education. Patient plans to receive services closer to home. 2.) Initiate home exercise program: -implement external memory strategies, such as: use of sticky notes, calendar/development planner, timer/alarm, etc. To facilitate improved recall [...] Sustained Memory Deficits: Functional, Short Term, Immediate, Mcc Executive Function Deficits: Math Calculations, Time/Money Management, [...] Average *There i (more content not included)... [facility] 08-04-2022 Note HNO ID: [id number] Author: YONATAN Frances Service: ? Author Type: Hairspring Studder Type: Progress Notes Filed: 08/04/2022 2:05 PM Note Text: SOCIAL WORK NOTE Ron Welch [address] [place] [id number] INFORMATION/REFERRAL: Referral Source: Lauren Lamas MD Pt [...] communication and sundowning at length. INTERVENTION/PLAN: -Discussed RECEPTIONIST supportive role/availability as member of [facility] care team. -Supportive counseling offered to address [...] For assistance navigating local resources such as press box custodian care/caregiver support contact [employer]. -Private Duty Home Health Agencies can provide supportive services. These services may include companionship, assistance with meals, medication management, asphalt mixing machine operator, transportation and personal care if needed. Services are typically an out of pocket expense. Some long-term care policies or VA benefits may offer reimbursement for services. Local resources provided. [facility] can assist with meals, transportation, home maintenance and activities. Tel: -Obtained copy of pt's healthcare advance directives, Will be faxed to HIM to add to EMR. IMPRESSION: Pleasant 72 year old year old patient. Pt and family appear able and motivated to follow up on recommendations as discussed. RECEPTIONIST will remain available to address any questions/concerns. Contact information was provided. I spent a total of 40 minutes with the patient. Social work assessment/interventions rendered under the supervision of Dr. Hyacinth Bernal. YONATAN Frances [facility] 08-04-2022 History of Present illness Narrative Patient's [...] He is to return to see our [facility] as planned. documented in this encounter [facility] 08-04-2022 History of Present illness Narrative Episode Visit Count: 1 Therapist That Will Accept/Oversee The Plan Of Care: Love Toure MA CCC-MORPHOLOGY TEACHER Start of Care Date: 08/04/22 Onset Date: 07/08/22 Plan of Care Certification Date: 08/04/22 Next Certification Due Date: 08/04/22 Patient Identified by Name and Date of : Yes [facility]ORTS THERAPY COGNITIVE LINGUISTIC EVALUATION PLAN OF CARE: Impression: Communication deficits identified: Cognitive deficits RECOMMENDATION: 1.) Outpatient speech therapy recommended for cognitive-linguistic re-education. Patient plans to receive services closer to home. 2.) Initiate home exercise program: -implement external memory strategies, such as: use of sticky notes, calendar/development planner, timer/alarm, etc. To facilitate improved recall [...] Sustained Memory Deficits: Functional, Short Term, Immediate, Mcc Executive Function Deficits: Math Calculations, Time/Money Management, [...] Eval Sound Production with Language Expression and Top Collar Maker ([id number]) Speech/Language Therapy ([id number]): Skilled Intervention: reviewed results of evaluation with patient/spouse; provided recommendations related to treatment/plan of care, compensatory strategies, and home programming; assessed the type/frequency of supports required to facilitate accurate return demonstration of information. Current Home Program: see recommendations Billing: Eval Sound Production with Language Expression and Top Collar Maker (98874) and Speech Treatment ([id number]) Total time / Length of visit: 45 minutes CARIE JenkinsMORPHOLOGY TEACHER documented in this encounter [facility] 08-04-2022 Instructions YONTAAN Frances - 08/04/2022 1:37 PM EST When there is a diagnosis of dementia, no matter the type, we encourage families to educate themselves, learn communication tips, and learn ways to adjust expectations over time. There are many resources available online. Three excellent resources are: The Alzheimer's Association (web site: alz.org) Help Line available 24 hours a day, 7 days per week: 673.460.4647. Call Help Line to learn of local options for support groups and to register. Family Caregiver [place] (web site: Caregiver.org) [facility] CareHalfbrick Studiosey- a secure online solution for quality information, [...] for financial assistance for assisted living. The [facility] Service [facility] is an organization that can give information regarding this benefit. Their number is: [phone]. [facility] [place] [address] For assistance navigating local resources such as press box custodian care/caregiver support: The [facility] Office on Aging [address] [place] [address] Private Duty Home Health Agencies can provide supportive services. These services may include companionship, assistance with meals, medication management, asphalt mixing machine operator, transportation and personal care if needed. Services [...] the minimum amount of hours they require. [facility] Action Partnership can assist with meals, transportation, home maintenance and activities. Tel: Please feel free to call or schedule a follow up visit with any questions or concerns. THOMAS Frances [facility] [phone] documented in this encounter [facility] 08-04-2022 History of Present illness Narrative Images from the original note were not included. SOCIAL WORK NOTE Ron Welch [address] [place] [id number] INFORMATION/REFERRAL: Referral Source: Lauren Lamas MD Pt [...] communication and sundowning at length. INTERVENTION/PLAN: -Discussed RECEPTIONIST supportive role/availability as member of [facility] care team. -Supportive counseling offered to address [...] For assistance navigating local resources such as press box custodian care/caregiver support contact The Area Office on Aging. -Private Duty Home Health Agencies can provide supportive services. These services may include companionship, assistance with meals, medication management, asphalt mixing machine operator, transportation and personal care if needed. Services are typically an out of pocket expense. Some long-term care policies or VA benefits may offer reimbursement for services. Local resources provided. [facility] can assist with meals, transportation, home maintenance and activities. Tel: -Obtained copy of pt's healthcare advance directives, Will be faxed to HIM to add to EMR. IMPRESSION: Pleasant 72 year old year old patient. Pt and family appear able and motivated to follow up on recommendations as discussed. RECEPTIONIST will remain available to address any questions/concerns. Contact information was provided. I spent a total of 40 minutes with the patient. Social work assessment/interventions rendered under the supervision of Dr. Hyacinth Bernal. YONATAN Frances [facility] documented in this encounter [facility] 07-20-2022 Miscellaneous Notes RMK, Pt to saw Dr. Lauren Lamas at [facility] for cognitive issues. Was dx with dementia and would like him started on Aricept. Asks if this is ok with MG or the meds he takes (imuran and mestinon)? Per Lex[employer]omp: Aricept and imuran do not have any known interactions Aricept and Mestinon have a monitor therapy symbol as they can both cause bradycardia. Fara Kaur RN, BSN, BA documented in this encounter [facility] 07-08-2022 Note HNO ID: [id number] Author: Lauren Lamas MD Service: ? Author Type: Physician Type: Progress Notes Filed: 07/08/2022 5:13 PM Note Text: Neurology Return, [facility] Ron Welch is a 72 [...] Will request for BiPAP download; DME: Jasen Bettie Gonzalez [phone] Encourage regular physical and mental activity His [...] have conveyed the information to patient via MPSTORt, and recommended him to follow up with [...] 0 0 Tr (more content not included)... [facility] 06-17-2022 Note HNO ID: [id number] Author: RT Sara(R) Service: Radiology Author Type: [...] RT Sara(R) June 17, 2022 2:27 PM [facility] 06-17-2022 History of Present illness Narrative Radiology [...] 2022 2:27 PM documented in this encounter [facility] 06-17-2022 Note HNO ID: [id number] Author: Araseli Camacho, PhD Service: ? 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 The assessment consisted of a [...] has has put his clothes on backwards. Industrial Mechanic: Historically managed by his . He previously [...] WHOLE BRAIN VOLU (more content not included)... 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 The assessment consisted of [...] has has put his clothes on backwards. Industrial Mechanic: Historically managed by his . He previously [...] for Monday and the current city as [facility]; however, he listed the current location as [facility]. With glasses and hearing aids, vision [...] he occasionally requires assistance with trimming his rosne. He drives, though this is significantly limited. [...] Ph.D. Staff Neuropsychologist Time testing and scoring (women nurse): 3 hours Time completing additional tests, analyzing, interpreting and incorporating other available medical information, clinical data review, and report writing (by neuropsychologist): 3 hours Tests Administered: Nash Anxiety Inventory Nash Depression Inventory [place] Naming Test Brief Visuospatial Memory Test-Revised DKEFS Subtests: Color-Word Interference, Verbal Fluency Rucker Verbal Learning Test Judgment of Line Orientation- Short Form Woody Complex Figure [place] Making Test WAIS-IV subtests: Coding, Digit Span, Matrix Reasoning, Similarities WMS-IV Logical Memory WRAT-IV Reading documented in this encounter [facility] 06-07-2022 Hospital Discharge instructions Patient Education [...] 05/01/2013 Document Revised: 01/02/2019 Document Reviewed: 01/02/2019 Phase Focus Patient Education 2020 Flinja. Follow Up Care 09/28/2021 11:41:06 With:GELY BLAKE PA-C, URL Address: [address] [place] [address] When:3 months Comments:Travis f/u [facility] 05-12-2022 History of Present illness Narrative We received patient's BiPAP download. It is an AirCurve 10 VAuto device From 04/03/2022 to 05/02/2022 Of the30 days, patient used the device every day. Over 4 hour per day usage compliance ratio was 67% Average usage per day used was 5 hous 59 minutes Settin was 19/15 Air leak was frequent and significant, with median 44.8, 95th 72.3 Average AHI 6.7 (5.7 unknown) Patient's airleak is known to him. He has tried different masks in the past. Patient will benefit from discussing with his local sleep provider and undergo mask fitting. We will send patient a message via EUDOWEB. documented in this encounter [facility] 05-03-2022 Miscellaneous Notes Images from the original note were not included. documented in this encounter [facility] 04-29-2022 Miscellaneous Notes Images from the original note were not included. Requested download from [employer] to be faxed to office. documented in this encounter [facility] 04-27-2022 Instructions Kaleigh Lance MD - 04/27/2022 4:27 PM EST Continue Mestinon and Azathioprine (Imuran) as prescribed. Referral placed for neuropsychology testing and [facility]. Follow up in 9 months. documented in this encounter [facility] 04-27-2022 History of Present illness Narrative [...] 2+ 2+ Ankle 2+ 2+ Cerebellar testing: Ikuabx-ru-Tbyh: No dysmetria Qsjg-pl-Zfqa: Deferred Gait: Ability to rise from chair [...] changes. Will refer for neuropsych testing and [facility] consult as copper supplementation has not improved cognitive issues. Follow up in late summer 2022, then annually. Daysi Uribe MD documented in this encounter [facility] 04-15-2022 Miscellaneous Notes The following approved medication requests have been transmitted electronically. Requested Prescriptions Signed Prescriptions Disp Refills pyridostigmine (MESTINON) 60 mg tablet 90 tablet 11 Sig: Take 1 tablet by mouth three times daily. Authorizing Provider: DAYSI URIBE MD documented in this encounter [facility] 11-23-2021 Miscellaneous Notes ' documented in this encounter [facility] 10-21-2021 History of Present illness Narrative [...] Daysi Uribe MD documented in this encounter [facility] 10-21-2021 History of Present illness Narrative [...] applicable. Carol Pepe documented in this encounter [facility] 09-28-2021 Hospital Discharge instructions Patient Education [...] urethra. Follow these instructions at home: Take hamy-wzp-rvcuogh and prescription medicines only as told by [...] 05/15/2006 Document Revised: 04/09/2019 Document Reviewed: 06/19/2017 Phase Focus Patient Education 2020 Flinja. Follow Up Care 05/13/2021 15:40:48 With:Brian Claire MD, Tere Moyer URO Address: [facility] [address], [place] [address]- When:03/31/2022 Comments:with PSA [facility] Miscellaneous Notes Mailed patient letter requesting [...] G/J Tube?No Preferred phone number for contact: [phone] - Ting documented in this encounter [facility] 09-08-2021 Evaluation note Encounter Date Diagnosis Assessment Notes Aug, Gastroparesis (ICD-10 - K31.84) Aug, Gastroesophageal reflux disease with esophagitis without hemorrhage (ICD-10 - K21.00) Aug, Myasthenia gravis (ICD-10 - G70.00) Aug, Other START TRIAL OF CARAFATE 1 GRAM QID GASTRIC EMPTYING STUDY FU HERE AFTER Aumentality.cl Other 01-28-2013 History of Past illness Narrative* [...] of this encounter (statuses as of 10/21/2021) [facility] History of Past illness Narrative* Problem [...] of this encounter (statuses as of 10/21/2021) [facility] History of Past illness Narrative* Problem [...] of this encounter (statuses as of 11/23/2021) [facility] History of Past illness Narrative* Problem [...] of this encounter (statuses as of 02/02/2022) [facility] History of Past illness Narrative* Problem [...] of this encounter (statuses as of 04/15/2022) [facility] History of Past illness Narrative* Problem [...] of this encounter (statuses as of 04/28/2022) [facility] History of Past illness Narrative* Problem [...] of this encounter (statuses as of 04/29/2022) [facility] History of Past illness Narrative* Problem [...] of this encounter (statuses as of 05/03/2022) [facility] History of Past illness Narrative* Problem [...] of this encounter (statuses as of 05/12/2022) [facility] History of Past illness Narrative* Problem [...] of this encounter (statuses as of 06/18/2022) [facility] History of Past illness Narrative* Problem [...] of this encounter (statuses as of 06/24/2022) [facility] of Past illness Narrative* Problem [...] of this encounter (statuses as of 07/21/2022) [facility] of Past illness Narrative* Problem [...] of this encounter (statuses as of 08/04/2022) [facility] of Past illness Narrative* Problem [...] of this encounter (statuses as of 08/04/2022) [facility] of Past illness Narrative* Problem [...] of this encounter (statuses as of 08/04/2022) [facility] of Past illness Narrative* Problem [...] of this encounter (statuses as of 10/07/2022) [facility] of Past illness Narrative* Problem [...] of this encounter (statuses as of 12/05/2022) [facility] of Past illness Narrative* Problem [...] of this encounter (statuses as of 01/17/2023) [facility] History of Past illness Narrative* Problem Noted Date Diagnosed Date Resolved Date Swallowing impairment 06/25/20122012 Overview: June 25, 2012--> Pt. with weak orobucal mm and unable to safely swallow a meal. Thus continuing enteral nutrition for now. 06/28 passed formal swallow eval for mechanical soft diet Acute respiratory failure 06/23/2012 Overview: AMFREDY called and intubated on 06/23 for failure to protect airway 06/24 - tolerating PSV, possible extubation today HTN (hypertension) 04/17/2012 3 Overview: June 25, 2012--> continuing lisinopril 40/day for BP control. Acute postoperative pain 04/11/2012 myasthenia gravis 01/24/2006 1 07/09/2006 documented as of this encounter (statuses as of 05/10/2023) [facility] Future Appointments Appointment Date:04/12/2022 09:45:00 AM Scheduled Provider:Brian Claire MD, Tere Moyer Location:[facility] Appointment Type:URO Office Visit Diagnostic Tests Pending * PSA Total 09/28/21 [facility] evaluation + Plan note Future Appointments Appointment Date:09/06/2022 01:00:00 PM Scheduled Provider:GELY BLAKE PA-C Location:[facility] Appointment Type:URO Office Visit Diagnostic Tests Pending * PSA Total 06/07/22 [facility] evaluation + Plan note Future Appointments Appointment Date:11/15/2022 01:00:00 PM Scheduled Provider:GELY BLAKE PA-C Location:[facility] Appointment Type:URO Office Visit [facility] evaluation + Plan note Future Appointments Appointment Date:07/04/2023 01:20:00 PM Scheduled Provider:Srinivasan MARIE MD Location:[facility] Appointment Type:[place] [id number] [facility] evaluation note* Diagnosis Gastroparesis- Primary [facility] Diagnosis Gastroparesis- Primary [facility] Diagnosis Disorder of autonomic nervous system- Primary Unspecified disorder of autonomic nervous system [facility]* Diagnosis Myasthenia gravis (HCC) Myasthenia gravis without exacerbation [facility]* Diagnosis Myasthenia gravis (HCC)- Primary Myasthenia gravis without exacerbation Memory loss [facility]* Diagnosis MYASTHENIA GRAVIS Myasthenia gravis with exacerbation 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 [294.9AL] Unspecified persistent mental disorders due to conditions classified elsewhere Obstructive sleep apnea Obstructive sleep apnea (adult) (pediatric) [facility]* Diagnosis Major neurocognitive disorder (HCC)- Primary Unspecified persistent mental disorders due to conditions classified elsewhere Obstructive sleep apnea Obstructive sleep apnea (adult) (pediatric) MYASTHENIA GRAVIS Myasthenia gravis with exacerbation Depression, unspecified depression type documented [facility]* Diagnosis 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 MYASTHENIA GRAVIS Myasthenia gravis with exacerbation ERIS on CPAP Obstructive sleep apnea (adult) (pediatric) 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) Other persistent mental disorders due to conditions classified elsewhere [facility] Diagnosis Myasthenia gravis (HCC) Myasthenia gravis without exacerbation [facility]* Diagnosis 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 ERIS on CPAP Obstructive sleep apnea (adult) (pediatric) [facility] - Reported* Type Description Date Medical History HTN (hypertension) Medical History Hypercholesteremia Medical History Seasonal allergies Medical History OAB (overactive bladder) Medical History Glaucoma Surgical History cancer Surgical History knee replacement Surgical History heart surgery due to cancer pérez or removal Hospitalization History see above Aumentality.cl Other Hospital course Narrative No data available for this section [facility] progress note No data available for this section [facility] Discharge Instructions * Instructions* Karen Murphy, HELEN [...] Dr Fenton. [facility].Report to Azul johnson Cat 7:00 AM on August 13. documented in [...] Fenton in 10-14 days after surgery, call [phone] to schedule an appointment. documented in this encounter Advance Directives No Advanced Directives Records FoundDocuments on File Type Date Recorded Patient Manager Poker Expl anation Advance Directives and Living Will Power of Internal Control Analyst Documents on File Type Date Recorded Patient Manager Poker Expl anation Advance Directives and Living Will Power of Internal Control Analyst History of Present Illness * Karen Murphy RN - 10/02/2019 12:48 PM EDT PAT interview done;old history reviewed & pt reports no changes.Instr on Covid swab testing at [facility] on 10-14-19 at 0915. Instr on NPO [...] Referral Specialty Diagnoses / Procedures Referred By Liliana jesus Referred To Contact MR IMAGING Diagnoses Myasthenia gravis with exacerbation (HCC) Cognitive dysfunction Obstructive sleep apnea Procedures MRI 3D POST PROCESSING 3D RENDERING W/INTERP&POSTPROC DIFF WORK STATION Lauren Lamas MD [address] [place] [address] Mr Imaging Referral ID Status Reason Start Date Expiration Date V isits Requested Visits Authorized [id number] Closed Auto-Generate d Referral 04/29/2022 05/29/2023 1 1 Specialty Diagnoses / Procedures Referred By Liliana t Referred To Contact MR IMAGING Diagnoses Myasthenia gravis with exacerbation (HCC) Cognitive dysfunction Obstructive sleep apnea Procedures MRI BRAIN W QUANT WO IVCON MRI BRAIN BRAIN STEM W/O CONTRAST MATERIAL Lauren Lamas MD [address] [place] [address] Mr Imaging Referral ID Status Reason Start Date Expiration Date V isits Requested Visits Authorized [id number] Closed Auto-Generate d Referral 04/29/2022 05/29/2023 1 1 Specialty Diagnoses / Procedures Referred By Liliana t Referred To Contact Neurology Diagnoses Memory loss Procedures CONSULT TO NEUROLOGY OFFICE/OUTPATIENT [facility] 60-74 MINUTES Daysi Uribe MD [address] [place] [address] Referral ID Status Reason Start Date Expiration Date Visits Requested Visits Authorized [id number] Authorized PCP Requested Referral 04/27/2023 1 1 Additional Source Comments Reason for Visit (unrecogniz ed section and content) Status Reason Specialty Diagnoses / Procedures Referre d By Contact Referred To Contact Diagnoses Basal cell carcinoma of skin of nose BASAL CELL - NOSE Procedures [place] OFFICE/OUTPT VISIT,PROCEDURE ONLY [place] ADJ TISS XFER LID,NOS,EAR <10SQCM NASAL LESION BIOPSY EXCISION - BASAL CELL NOSE WITH FLAP CLOSURE ADN FROZEN SECTION *PATHOLOGY REQUIRED* Ángel Fenton MD [address] [place] [address] [facility] Reason Comments Procedure Reason Comments Follow Up Reason Onset Date Comments Refill Request 11/19/2021 Reason Comments Appointment Reason Onset Date Comments Refill Request 04/14/2022 Reason Comments Established Patient Reason Comments Staff Radiation Therapist - Other Download MSC Reason Comments PAP Therapy Follow Up DOWNLOAD Reason Comments Results BiPAP download 04/03- 05/02/2022 Specialty Diagnoses / Procedures Referred By Liliana jesus Referred To Contact MR IMAGING Diagnoses Myasthenia gravis with exacerbation (HCC) Cognitive dysfunction Obstructive sleep apnea Procedures MRI BRAIN W QUANT WO IVCON MRI BRAIN BRAIN STEM W/O CONTRAST MATERIAL Lauren Lamas MD [address] [employer] [place] [id number] Mr Imaging Referral ID Status Reason Start Date Expiration Date V isits Requested Visits Authorized [id number] Closed Auto-Generate d Referral 04/29/2022 05/29/2023 1 1 Reason Comments Orders Starting aricept Reason Comments Speech Evaluation Speech Discharge Specialty Diagnoses / Procedures Referred By Liliana t Referred To Contact [facility] Diagnoses 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) Myasthenia gravis with exacerbation (HCC) ERIS on CPAP Vascular dementia without behavioral disturbance, psychotic disturbance, mood disturbance, or anxiety, unspecified dementia severity (HCC) Procedures CONSULT TO SPEECH THERAPY OFFICE/OUTPATIENT [facility] MDM [id number] MINUTES Lauren Lamas MD [address] [id number] [place] [place] [address] [facility] [address] [place] [address] Referral ID Status Reason Start Date Expiration Date Visits Requested Visits Authorized [id number] Authorized Auto-Generat ed Referral 07/08/2022 07/08/2023 99 99 Reason Comments Established Patient Reason Onset Date Comments Refill Request 12/02/2022 (unrecognized sect ion and content) No Status Records FoundNo Status Records FoundNo Status Records FoundNo Status Records FoundNo Status Records FoundNo Status Records FoundNo Status Records FoundNo Status Records FoundNo Status Records Found INFORMATION SOURCE (unrecogn ized section and content) DATE CREATED AUTHOR 10/17/2019 [facility] DATE CREATED AUTHOR AUTHOR'S ORGANIZ ATION 10/19/2019 [facility] DATE CREATED AUTHOR AUTHOR'S ORGANIZ ATION 10/10/2022 [facility] DATE CREATED AUTHOR AUTHOR'S ORGANIZ ATION 11/06/2022 [facility] DATE CREATED AUTHOR AUTHOR'S ORGANIZ ATION 11/06/2022 [facility] DATE CREATED AUTHOR AUTHOR'S ORGANIZ ATION 05/13/2023 [facility] DATE CREATED AUTHOR AUTHOR'S ORGANIZ ATION 05/13/2023 [facility] dical [facility] DATE CREATED AUTHOR AUTHOR'S ORGANIZ ATION 05/20/2023 [facility] DATE CREATED AUTHOR AUTHOR'S ORGANIZ ATION 07/07/2023 [facility] Source Comments (unrecognize d section and content) In the event this informatio n is protected by the Federal Confidentiality of Alcohol and Drug Abuse Patient Records regulations: The Federal rules restrict any use of the information to criminally investigate or prosecute any alcohol or drug abuse patient.[facility] the event this information is protected by the Federal Confidentiality of Alcohol and Drug Abuse Patient Records regulations: The Federal rules restrict any use of the information to criminally investigate or prosecute any alcohol or drug abuse patient.[facility] the event this information is protected by the Federal Confidentiality of Alcohol and Drug Abuse Patient Records regulations: The Federal rules restrict any use of the information to criminally investigate or prosecute any alcohol or drug abuse patient.[facility] the event this information is protected by the Federal Confidentiality of Alcohol and Drug Abuse Patient Records regulations: The Federal rules restrict any use of the information to criminally investigate or prosecute any alcohol or drug abuse patient.[facility] the event this information is protected by the Federal Confidentiality of Alcohol and Drug Abuse Patient Records regulations: The Federal rules restrict any use of the information to criminally investigate or prosecute any alcohol or drug abuse patient.[facility] the event this information is protected by the Federal Confidentiality of Alcohol and Drug Abuse Patient Records regulations: The Federal rules restrict any use of the information to criminally investigate or prosecute any alcohol or drug abuse patient.[facility] the event this information is protected by the Federal Confidentiality of Alcohol and Drug Abuse Patient Records regulations: The Federal rules restrict any use of the information to criminally investigate or prosecute any alcohol or drug abuse patient.[facility] the event this information is protected by the Federal Confidentiality of Alcohol and Drug Abuse Patient Records regulations: The Federal rules restrict any use of the information to criminally investigate or prosecute any alcohol or drug abuse patient.[facility] the event this information is protected by the Federal Confidentiality of Alcohol and Drug Abuse Patient Records regulations: The Federal rules restrict any use of the information to criminally investigate or prosecute any alcohol or drug abuse patient.[facility] the event this information is protected by the Federal Confidentiality of Alcohol and Drug Abuse Patient Records regulations: The Federal rules restrict any use of the information to criminally investigate or prosecute any alcohol or drug abuse patient.[facility] the event this information is protected by the Federal Confidentiality of Alcohol and Drug Abuse Patient Records regulations: The Federal rules restrict any use of the information to criminally investigate or prosecute any alcohol or drug abuse patient.[facility] the event this information is protected by the Federal Confidentiality of Alcohol and Drug Abuse Patient Records regulations: The Federal rules restrict any use of the information to criminally investigate or prosecute any alcohol or drug abuse patient.[facility] the event this information is protected by the Federal Confidentiality of Alcohol and Drug Abuse Patient Records regulations: The Federal rules restrict any use of the information to criminally investigate or prosecute any alcohol or drug abuse patient.[facility] the event this information is protected by the Federal Confidentiality of Alcohol and Drug Abuse Patient Records regulations: The Federal rules restrict any use of the information to criminally investigate or prosecute any alcohol or drug abuse patient.[facility] the event this information is protected by the Federal Confidentiality of Alcohol and Drug Abuse Patient Records regulations: The Federal rules restrict any use of the information to criminally investigate or prosecute any alcohol or drug abuse patient.[facility] the event this information is protected by the Federal Confidentiality of Alcohol and Drug Abuse Patient Records regulations: The Federal rules restrict any use of the information to criminally investigate or prosecute any alcohol or drug abuse patient.[facility] the event this information is protected by the Federal Confidentiality of Alcohol and Drug Abuse Patient Records regulations: The Federal rules restrict any use of the information to criminally investigate or prosecute any alcohol or drug abuse patient.[facility] the event this information is protected by the Federal Confidentiality of Alcohol and Drug Abuse Patient Records regulations: The Federal rules restrict any use of the information to criminally investigate or prosecute any alcohol or drug abuse patient.[facility] the event this information is protected by the Federal Confidentiality of Alcohol and Drug Abuse Patient Records regulations: The Federal rules restrict any use of the information to criminally investigate or prosecute any alcohol or drug abuse patient.[facility] the event this information is protected by the Federal Confidentiality of Alcohol and Drug Abuse Patient Records regulations: The Federal rules restrict any use of the information to criminally investigate or prosecute any alcohol or drug abuse patient.[facility] Care Teams (unrecognized sec tion and content) Radiological Engineer Relationship Specialty Start Date End Date Guevara Mackay MD [address] [place] [address] PCP - General 09/07/00 Radiological Engineer Relationship Specialty Start Date End Date Guevara Mackay MD [address] [facility] [place] [address] PCP - General 09/07/00 Radiological Engineer Relationship Specialty Start Date End Date Guevara Mackay MD [address] [facility] [place] [address] PCP - General 09/07/00 Radiological Engineer Relationship Specialty Start Date End Date Guevara Mackay MD [address] [facility] [place] [address] PCP - General 09/07/00 Radiological Engineer Relationship Specialty Start Date End Date Guevara Mackay MD [address] [facility] [place] [address] PCP - General 09/07/00 Radiological Engineer Relationship Specialty Start Date End Date Guevara Mackay MD [address] [facility] [place] [address] PCP - General 09/07/00 Radiological Engineer Relationship Specialty Start Date End Date Guevara Mackay MD [address] [facility] [place] [address] PCP - General 09/07/00 Radiological Engineer Relationship Specialty Start Date End Date Guevara Mackay MD [address] [facility] [place] [address] PCP - General 09/07/00 Radiological Engineer Relationship Specialty Start Date End Date Guevara Mackay MD [address] [facility] [place] [address] PCP - General 09/07/00 Radiological Engineer Relationship Specialty Start Date End Date Guevara Mackay MD [address] [place] [id number] PCP - General 09/07/00 FOR RECORDS PERTAINING [...] BE BASED ON THE PRIMARY CLINICAL RECORDS. [employer] [facility]. provides no warranty or guarantee of the accuracy or completeness of information in this document.
== END 2023-07-11 14:02 | disposition home or self-care (01) ==
LOC: PST 14:02
PROVIDERS: PCP Family Medicine; Visit Provider Surgery
DX: R19.5 Other fecal abnormalities (principal)

== ENCOUNTER 2023-07-13 22:42 | Inpatient (IN) | payer MEDICARE, SELFPAY ==
--- OUTSIDE RECORDS SUMMARY | 2023-07-13 23:04 | XMS_ITS | CCD ---
Author Name Unknown Address [address] [place] [address] Organization [facility] Care Team Providers Care Certified Ophthalmic Assistant Name Role Phone Guevara Mackay Primary Care Provider ÁNGLE FENTON Referring Unavailab GUEVARA Calvo Primary Care Unavailable ÁNGEL FENTON Admitting Unavailab ÁNGEL Alvarado Attending Unavailab GUEVARA Calvo Primary Care Unavailable DOC HART Referring Unavailable GUEVARA MACKAY Primary Care Unavailable Guevara Carrasco Unavailable Unavailable Guevara Mackay Unavailable Unavailable Guevara Mackay Primary Care Provider Guevara Mackay Unavailable Unavailable Unavailable Guevara Mackay Primary Care Physician Guevara Mackay MD Primary Care Provider [phone] Cliff Leon Unavailable Guevara Mackay MD Primary Care Provider [phone] Guevara Mackay MD Primary Care Provider [phone] Guevara Mackay MD Primary Care Provider [phone] Guevara Mackay MD Primary Care Provider [phone] THOMPSON ., DR MCKEON Admitting Unavailable HOY [...] Unavailable HOY ., DR MCKEON Consulting Unavailable CODEN, DR CLIFF Downs Consulting Unavailable TORRES JR [...] Carrasco Referring Unavailable Guevara Carrasco Attending Unavailable Dr. Guevara Mackay Primary Care Unavail able Guevara Carrasco Referring Unavailable Thompson, Dr. Guevara Manzanares Primary Care Unavail able Guevara Carrasco Attending Unavailable Guevara Carrasco Referring Unavailable ADAMSLAUREN Raman Attending Unavailable GUEVARA MACKAY Primary Care Unavailable ADAMSLAUREN Referring Unavailable GUEVARA MACKAY Primary Care Unavailable ADAMSLAUREN Referring Unavailable GUEVARA MACKAY M Primary Care Unavailable ARASELI CAMACHO Attending Unavailable ADAMS, LAUREN Referring Unavailable HOY, GUEVARA M Primary Care Unavailable CHANDNI METZGER Attending Unavailable MONICAY GUEVARA M Primary Care Unavailable CHANDNI METZGER [...] Attending Unavailable GUEVARA MACKAY Primary Care Unavailable Cliff JESSICA Referring Unavailable Cliff JESSICA Attending Unavailable GELY BLAKE Attending Unavailable GELY BLAKE Attending Unavailable GELY BLAKE Attending Unavailable Cliff JESSICA Attending Unavailable Cliff JESSICA Admitting Unavailable Cliff JESSICA Referring Unavailable Guevara Mackay Referring Unavailable Leighton MARIE Attending Unavailable Allergies Allergy Classification Reported Allergen(s) Allergy Type Date of Onset Reaction(s) Facility (20 sources) Ciprofloxacin; Translations: [ciprofloxacin] Drug Allergy 04-04-20 12 Rash, Eruption of skin (disorder), Unknown [facility] Work Phone: (12 sources) Penicillins; Translations: [penicillins] Propensity to adverse reactions to drug 01-22-20 04 Rash, Eruption of skin (disorder) [place], [place] (7 sources) Penicillins; Translations: [Penicillins] drug allergy -Ophthalmolog [facility] B102 Work Phone: (3 sources) Penicillins Propensity to adverse reactions 01-22-20 04 [facility] (17 sources) Penicillins Propensity to adverse reactions 01-22-20 04 [facility] (1 source) Penicillin G Drug Allergy Unknown [facility] Other (1 source) Ciprofloxacin Drug Allergy 09-12-19 14 [facility] (1 source) Penicillins Drug allergy (disorder) 09-12-19 14 [facility] Medications Current Medications Medication Drug Class(es) [...] 1 tablet by mouth twice daily azaTHIOprine 50 mg Tab 50 mg = 1 tab(s), Oral, BID Start Date: 04/03/19 Status: Ordered Start: 04-29-2016 End: 02-14-2020 azaTHIOprine 50 MG [...] mg donepezil hydrochloride 10 mg oral tablet (13 sources) Start: End: take 1 tablet by [...] mg/ml / timolol 5 mg/ml ophthalmic solution (2 sources) Carbonic Anhydrase Inhibitor, beta-Adrenergic Michael Start: 05-24-2023 [...] 10-16-2019 ondansetron (ZOFRAN) injecti on 4 mg 24 hr oxybutynin chloride 10 mg extended release oral tablet (1 source) Cholinergic Muscarinic Antagonist Start: 07-11-2023 take 1 tablet by mouth once daily oxybutynin 10 mg ER Tab 10 mg = 1 tab(s), Oral, Daily, # 30 tab(s), Refills(s) 4, Pharmacy: [facility], 168, cm, 07/11/23 11:17:00 EST, Height/Length Dosing, 102, kg, 07/11/23 11:17:00 EST, Weight Dosing Start Date: 07/11/23 Status: Ordered pantoprazole 40 mg extended release oral tablet (10 sources) Proton Pump Inhibitor Start: 09-28-2021 take 1 tablet by mouth once daily pantoprazole 40 mg Oral EC Tab 40 mg = 1 tab(s), Oral, Daily Start Date: 09/28/21 Status: Ordered Start: 06-18-2021 take 2 tablets by mo [facility] once daily Pantoprazole Sodium 40 MG Oral Tablet Delayed Release TAKE 2 TABLETS BY MOUTH ONCE DAILY Quantity: 60 Refills: 0 Ordered: 27-Jan-2022 DO Start : 18-Jun-2021 [facility] Protonix 40 MG 1 [...] 09/28/21 Status: Ordered take 1 tablet by [facility] every four hours Pyridostigmine [place] 60 MG 1 tablet Orally every 4 hrs Active Comment on above: Take 1 tablet by zulma three times daily. 1000 ml sodium chloride [...] (Original) doxycycline hyclate 100 mg oral tablet (2 sources) Tetracycline-cla ss Drug Start: 4 doxycycline hyclate 100 mg Tab 100 mg = 1 tab(s), Oral, As Directed, Pt to take 1 tab the day before procedure and the 2nd tab the day of procedure once completed., # 2 tab(s), Refills(s) 0, Pharmacy: [facility], 168, cm, 06/06/23 13:20:00 EST, [...] bedtime., # 60 tab(s), Refills(s) 11, Pharmacy: [facility], 168, cm, 06/07/22 10:05:00 EST, Height/Length Dosing, 105, kg, 06/07/22 10:05:00 EST, Weight Dosing Start Date: 06/07/22 Status: Ordered Start: 04-23-2022 take 1 tablet by zulma th twice daily imipramine HCl (TOFRANIL) 25 mg tablet Take 25 mg by mouth twice daily. 0 04/23/2022 Active Start: 09-28-2021 take 1 tablet by zulma twice daily imipramine 25 mg Tab 25 mg = 1 tab(s), Oral, BID, # 60 tab(s), Refills(s) 5, Pharmacy: [facility], 168, cm, 09/28/21 10:51:00 [...] Problem Date Documented Date Episodic/Chronic Allergic reactions (6 sources) Eczema 04-03-2019 Episodic Cataract (20 sources) Nuclear sclerotic cataract; Translations: [Pseudophakia] Onset: 11-20-2017 Chronic Congestive heart failure; nonhypertensive (1 source) Unspecified diastolic (congestive) heart failure; Translations: [UNSPECIFIED DIASTOLIC HEART FAILURE] Onset: 09-02-2022 Chronic Delirium, dementia, and amnestic and other cognitive disorders (17 sources) Cognitive disorder; Translations: [Unspecified mental disorder due to known physiological condition] Onset: 06-17-2022 Chronic Diabetes mellitus without complication (20 sources) Steroid-induced diabetes; 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] Onset: 07-03-2012 07-03-2012 Chronic Diabetes mellitus without complication (1 source) Other abnormal glucose; Translations: [OTHER ABNORMAL GLUCOSE] Onset: 09-02-2022 Episodic Diseases of white blood cells (2 sources) Leukopenia 05-24-2023 Chronic Disorders of lipid metabolism (7 sources) Hyperlipidemia, unspecified; Translations: [Hyperlipidemia] Onset: 08-18-2022 Chronic Esophageal disorders (1 source) Gastro-esophageal reflux disease with esophagitis; Translations: [Gastroesophageal reflux disease with esophagitis without hemorrhage] Chronic Essential hypertension (20 sources) Hypertensive disorder; Translations: [Benign essential hypertension] Onset: 03-23-2005 04-03-2019 Chronic Genitourinary symptoms and ill-defined conditions (10 sources) Urge incontinence of urine; Translations: [Urge [...] Translations: [Blepharitis, unspecified] Episodic Melanomas of skin (6 sources) Malignant melanoma 06-23-2020 Chronic Mood disorders (1 source) Depressive disorder; Translations: [Depression, unspecified depression type] Chronic Noninfectious gastroenteritis (6 sources) Gastroenteritis 04-03-2019 Episodic Nutritional deficiencies (1 source) Vitamin D deficiency, unspecified; Translations: [VITAMIN D DEFICIENCY UNSPECIFIED] Onset: 08-26-2022 Chronic Osteoarthritis (20 sources) Osteoarthritis; Translations: [Unspecified osteoarthritis, unspecified site] Onset: 03-23-2005 03-18-2010 Chronic Other aftercare (5 sources) 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; Translations: [OTH JAIL CURRENT DRUG THERAPY] Onset: 08-21-2022 Episodic Other and ill-defined heart disease (4 sources) Cardiomegaly; Translations: [CARDIOMEGALY] Onset: 10-06-2022 Chronic Other and ill-defined heart disease (2 sources) Cardiomegaly 05-24-2023 Chronic Other and unspecified benign neoplasm (1 source) History of polyp of colon 07-04-2023 Episodic Other circulatory disease (7 sources) H/O: hypertension; Translations: [Personal history of other diseases of circulatory system] Episodic Other diseases of kidney and ureters (2 sources) Urinary tract obstruction; Translations: [Other obstructive and reflux uropathy] Onset: 09-28-2021 Episodic Other diseases of kidney and ureters (6 sources) Cyst of kidney 04-03-2019 Episodic Other [...] Onset: 01-16-2023 Episodic Other male genital disorders (9 sources) Male erectile dysfunction, unspecified; Translations: [Erectile dysfunction] Onset: 06-07-2022 Chronic Other nervous system disorders (10 sources) Myasthenia gravis; Translations: [Myasthenia gravis without [...] nose] Chronic Other non-epithelial cancer of skin (6 sources) Basal cell carcinoma of skin 04-03-2019 Episodic Other nutritional; endocrine; and metabolic disorders (3 sources) Obese class II; Translations: [Obesity, unspecified] Onset: 10-13-2022 10-13-2022 Chronic Other nutritional; endocrine; and metabolic disorders (2 sources) Body mass index 30+ - obesity 06-06-2023 Chronic Other nutritional; endocrine; and metabolic disorders (1 source) Obesity 07-04-2023 Chronic Other nutritional; endocrine; and metabolic disorders (7 sources) History of hypercholesterolemia; Translations: [Personal history of other endocrine, metabolic, and immunity disorders] Episodic Other screening for suspected conditions (not mental disorders or infectious disease) (14 sources) Raised prostate specific antigen; Translations: [Encounter for screening for malignant neoplasm of prostate] Onset: 04-04-2022 04-03-2019 Episodic Other upper respiratory disease (6 sources) Seasonal allergy 04-03-2019 Chronic Residual codes; [...] of mental health and substance abuse codes (2 sources) Ex-smoker 06-06-2023 Episodic Spondylosis; intervertebral disc disorders; other back problems (20 sources) Lumbar spondylosis; Translations: [Spondylosis without myelopathy or radiculopathy, lumbar region] Onset: 04-10-2012 Chronic Unclassified (20 sources) ASA CLASS III Onset: 08-10-2004 03-18-2010 Unclassified (5 sources) Patient encounter status 06-07-2022 Past or [...] Reference Range Facility Consent for Procedure/Surger yon 07-11-2023 Consent for Procedure/Surgery [id number]#[id number] [facility] Consent for Treatmenton 06-29 Consent for Treatment [id number]#[id number] [facility] IntraOperative Documentson 0 07-11-2023 IntraOperative Documents [id number]#[id number] [facility] Main OR Intraoperative Recor don 07-11-2023 Main OR Intraoperative Record IntraOp Document Type FTURO Summary Primary Physician: Cliff JESSICA MD Finalized Date/Time: 07/11/23 11:43:05 Pt. Name: RON WELCH Comfort Carranza/Sex: 1950 Male Med Rec #: [id number] Physician: Cliff JESSICA MD Financial #: [id number] Pt. Type: O Room/Bed: / Admit/Disch: 07/11/23 10:35:03 - Institution: Case Times FTURO Entry 1 Patient Times In Room 07/11/23 11:30:00 Out Room 07/11/23 11:47:00 Procedure Times Start 07/11/23 11:34:00 Stop 07/11/23 11:41:00 Anesthesia Times Last Modified By: Jaqueline CERVANTES, BKOR, Nabila 07/11/23 11:42:37 Case Attendance FTURO Entry 1 Entry 2 Entry 3 Case Attendee Cliff JESSICA MD RN, CNOR, Raf DELUCA, Becca Dahl Role Performed Surgeon - Primary Motor Vehicle Examiner - Primary Scrub - Primary Time In 07/11/23 11:30:00 07/11/23 11:30:00 07/11/23 11:30:00 Time Out 07/11/23 11:47:00 07/11/23 11:47:00 07/11/23 11:47:00 Procedure CYSTOSCOPY LOCAL(.) CYSTOSCOPY LOCAL(.) CYSTOSCOPY LOCAL(.) Comments Last Modified By: Jaqueline RN, CNOR, Jaqueline RN, CNOR, Jaqueline RN, BKOR, Nabila 07/11/23 Nabila 07/11/23 Nabila 07/11/23 11:42:38 11:42:38 11:42:38 Surgical Procedures FTURO Entry 1 Procedure Description Procedure CYSTOSCOPY LOCAL Modifiers . Surgeon Description cysto Primary Procedure Yes Primary Surgeon Cliff JESSICA MD Start 07/11/23 11:34:00 Stop 07/11/23 11:41:00 Anesthesia Type Local Surgical Service Urology Wound Class 2 - Clean-Contaminated Last Modified By: ELISHA Parsons RN, Ruthann 07/11/23 11:42:39 General Case Data FTURO Pre-Care Text: Classifies surgical wound, implements aseptic technique, initiates traffic control Entry 1 Case Information OR URO 1 FT Case Level None Wound Class 2 - Clean-Contaminated Specialty Urology Preop Diagnosis URGE INCONTINENCE BPH Postop Same As Preop No WITH OBSTRUCTION Postop Diagnosis URGE INCONTINENCE Outcomes Met? Yes Last Modified By: ELISHA Parsons RN, Ruthann 07/11/23 11:42:52 Post-Care Text: The patient is free from signs and symptoms of infection EU IntraOp - FTURO Pre-Care Text: Implements protective measures prior to operative or invasive procedure, confirms identity before the operative or invasive procedure, verifies operative procedure, surgical site, and laterality Entry 1 EU Perioperative Protocols Procedure(s) CYSTOSCOPY LOCAL(.) Patient Identity Birthday, ID Band Verified (select at Check, Patient least 2): Participation Consents / H and P HandP, Surgery/Procedure Operative Site N/A Verified Consent Marking Verified Surgical Site Yes Laterality Verified n/a Verified Procedure Verified Yes Correct Patient Yes Position Verified Availability Equipment, Medication Time Out ARACELY MARTINEZ, Cliff Manuel, Verified (If Participants BK Parsons RNOR, Applicable) Raf Dahl CST, Kimberly A Time Out Complete 07/11/23 11:32:00 Allergies Reviewed? Yes Allergies Reviewed Self/Patient With Body Position Supine Prep Area penis Prep Agents Betadine Solution Skin. Condition Unable to Visualize Additional None Specimens Collected Vitals - EU Blood Pressure Pulse Respirations SPO2 EBL 0 IandO - EU Total Intake 0 mL Total Output 0 mL Outcomes Met? Yes Last Modified By: ELISHA Parsons RN, Ruthann 07/11/23 11:33:39 Post-Care Text: The patient is free from signs and symptoms of injury caused by extraneous objects Sign Out FTURO Entry 1 Before Patient Leaves OR Nurse verbally Yes Nurse verbally n/a confirms with the confirms with the team the name of team that the procedure(s) instrument, sponge, recorded and needle counts are correct (or N/A) Nurse verbally n/a Nurse verbally n/a confirms with the confirms with the team how the team whether there specimen is labeled are any equipment (including patient problems to be name), if applicable addressed Sign Out Complete 07/11/23 11:45:00 Last Modified By: ELISHA Parsons RN, Ruthann 07/11/23 11:43:04 Case Comments Finalized By: ELISHA Parsons RN, Ruthann Document Signatures Signed By: ELISHA Parsons RN, Ruthann 07/11/23 11:43 Normal [facility] Main OR Preoperative Recordo n 07-11-2023 Main OR Preoperative Record Holding Area Document Type FTURO Summary Primary Physician: Cliff JESSICA MD Finalized Date/Time: 07/11/23 11:33:59 Pt. Name: YURI RONDarío Moyer D.O.B./Sex: 1950 Male Med Rec #: [id number] Physician: Cliff JESSICA MD Financial #: [id number] Pt. Type: O Room/Bed: / Admit/Disch: 07/11/23 10:35:03 - Institution: Case Times Holding FTURO Pre-Care Text: Verifies consent for planned procedure, identifies individual values and wishes concerning care, includes family members in perioperative teaching Secures patient's records' belongings, and valuables, maintains patient's dignity and privacy, and maintains patient confidentiality Entry 1 In Holding 07/11/23 11:13:00 Outcomes Met? Yes Last Modified By: Elly Hunt LPN 07/11/23 11:13:38 Post-Care Text: The patient participates in decisions affecting his or her perioperative plan of care The patient's right to privacy is maintained Surgery Checklist FTURO Entry 1 Patient Birthday, ID Band Procedure History and Physical Identification: Check, Patient Verification: Participation NPO after Midnight: n/a Personal Items: Glasses Personal Items H/A Limitations: up ad pepito Comment: Complaints of Pain: No Skin Integrity Intact, [place], Warm, & Dry Vitals - EU Blood Pressure 178/88 Pulse 59 bpm Respirations 18 br/min SPO2 96 % RN Reviewed Yes Last Modified By: ELISHA Parsons RN, Ruthann 07/11/23 11:30:46 Finalized By: ELISHA Parsons RN, Ruthann Document Signatures Signed By: ELISHA Parsons RN, Ruthann 07/11/23 11:30 ELISHA Parsons RN, Ruthann 07/11/23 11:33 Normal [facility] Operative Reporton Operative Report Patient: SAVI WELCH Age: 73 years Sex: Male : 1950 Associated Diagnoses: None Author: Cliff JESSICA MD Procedure Operative Information Details: Date/ Time: 07/11/2023 11:43:00. Pre-Op Dx: Nocturia - R35.1. Post-Op Dx: Same. Anesthesia Type: Local. Procedure: Local Cystoscopy. Complications: None. Risks/Benefits/Informed Consent: Surgical risks, benefits, details of the procedure have been explained to the patient, Full informed consent has been obtained. Intraoperative Information Prepped: Patient is brought back to the endoscopy suite, Patient is placed in supine position, Patient prepped in the usual fashion with Betadine solution, 2% Xylocaine Jelly is placed per Urethra, After waiting several minutes the Cystoscope is introduced. The Urethra is: Normal. The Prostatic Urethra is: Unobstructed. The Bladder is: Trabeculated (Moderate (2), No bladder tumors). The ureteral orifices: Show efflux of clear urine. Devices Implanted: None. Removal: Cystoscope is removed, The patient tolerated it well. Postoperative Information Discharge: Patient is discharged home with antibiotic coverage, Follow up arranged. He will decrease his amitriptyline to once a day. We will add oxybutynin ER 10 mg daily. Follow-up will be in 3 months with a PVR bladder scan.. Normal [facility] Comment on above: Result Comment: Elec tronically Signed By: Cliff JESSICA MD\.br\Date and Time Signed: 07/11/23 11:45 EST Consent for Procedure/Surger yon 07-06-2023 Consent for Procedure/Surgery [id number]#1.00TIFF Normal [facility] Ambulatory Visit Summaryon 0 07-04-2023 Ambulatory Visit Summary RON WELCH :1950 Visit Date:07/04/2023 Ambulatory Visit Instructions Your Diagnosis Personal history of colonic polyps Your Care Team Attending Physician - Leighton MARIE MD Primary Care Physician - Guevara [...] for choosing us for your care. Normal [facility] Lab Reportson 06-07-2023 Lab Reports [id number]#1.00TIFF [facility] Screenson 06-07-2023 Screens [id number]#1.00TIFF [facility] Screens [id number]#1.00TIFF [facility] Urology Office/Clinic Noteon 06-06-2023 Urology Office/Clinic [...] specific antigen [PSA]) jumped to 2.97 in 2017 S/p PVP 06/2017 has been low/stable since 07/2020 - 0.56 04/04/22 -0.72 05/04/23 - 0.67 will have PCP continue to monitor PSA. 4. ED (erectile dysfunction) (N52.9: Male erectile dysfunction, unspecified) LORIE 2 at a previous visit pt & his did not want to pursue any medications. Follow-up With When Contact Information ARACELY MARTINEZ, Cliff Manuel, [address] [place] [address]- Additional Instructions: Schedule cysto Patient Education Cystoscopy Documentation recorded by the oscar Steen accurately reflects the services(s) I performed and decisions made by me. Authenticated by Gely Blake PA-C on 06/06/2023 14:21:09. Arianna Gautam, personally scribed for Gely Blake PA-C on [...] (10/25/2017), Earl melvin (more content not included)... [facility] Comment on above: Result Comment: Elec tronically Signed By: GELY BLAKE PA-C\.br\Date and Time Signed: 06/06/23 14:21 EST\.br\Electronically Co-Signed By: Arianna Steen\.br\Date and Time Co-Signed: 06/06/23 13:49 EST Physician Referralon 023 Physician Referral [id number]#1.00TIFF [facility] Transfer Inon 05-18-2023 Transfer In [id number]#1.00TIFF [facility] CNPNon 05[facility]10-2023 [facility] RON WELCH ([id number]) 1950 Date Time Provider Department 05/10/23 DAYSI URIBEMOOSEI During your visit today, we recorded the following information about you: Teja Bower 05/10/2023 2:49 PM Signed Lab results received and scanned in for review. Lore Maynard RN 05/10/2023 3:[address] Uribe aware of outside medical records available in scanned documents Lore Maynard RN BSN [facility] 05/11/2023 9:01 AM Signed Labs Reviewed: [...] Encounter Status:Closed by DAYSI URIBE on 05/11/23 [facility] CNOVon 01-11-2023 CNOV Office Visit ([facility] ) RON WELCH ([id number]) 1950 M Date Time Provider Department 01/11/23 1:00 PM CHANDNI METZGER During your visit today, we recorded the following information about you: Pulse Blood pressure Weight 56/minute 152/79 101.2 kg Chandni Metzger APRN.LUISITO 01/17/2023 1:01 PM Signed [place] [facility] - Follow-up Visit [...] this [place] [facility]. 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 Normal [facility] Screenson 11-16-2022 Screens [id number]:127 Normal [facility] Ambulatory Visit Summaryon 0 11-15-2022 Ambulatory Visit Summary RON WELCH :1950 Visit Date:11/15/2022 Ambulatory Visit Instructions Your Diagnosis Urge incontinence Elevated PSA ED (erectile dysfunction) Tests Performed Urnls Dip Stick Auto w/o Microscopy POC 28123 Your Care Team Attending Physician - GELY [...] MCKEE When: Only if needed Where: [address] [facility] [place] [address] [employer] (1) Medications What How Much When Instructions [...] Urnls Dip Stick Auto w/o Microscopy POC 54833 (11/15/2022) Bilirubin Urine Dipstick - Negative Blood Urine Dipstick - Negative Glucose Urine Dipstick - Negative Ketones Urine Dipstick - Negative Leukocytes Urine Dipstick - Negative Nitrite Urine Dipstick - Negative Protein Urine Dipstick - 1+ (30 mg/dl) Specific [place] Urine Dipstick - 1.020 Urine Appearance Urine [...] condition include: (more content not included)... Normal [facility] Patient Educationon 11-16-19 Patient Education Urology Erectile [...] these instructions at home: Medicines ? Take ujbf-lru-uhsiqpi and prescription medicines only as told by [...] include cig (more content not included)... Normal [facility] Provider Letteron 11-15-2022 Provider Letter (Inserted Image. Lia ble to display) Guevara Mackay, [address] [place] [address] Re: RON WELCH Date of : [address] Thompson MARTINEZ, RON Neumann was evaluated at [facility] Urology 11/15/2022 As this patient has been stable, they will be released back to your care. We request that you continue to check PSA annually for prostate cancer screening Should the patient develop new symptoms, worsening condition, or abnormal imaging/labs in the future, do not hesitate to refer them back. Thanks! Provider Signature: Gely Blake PA-C Physician Craft Recruiter [facility] [address] [place] [address] Normal [facility] Urology Office/Clinic Noteon 11-15-2022 Urology Office/Clinic Note [...] E&M of Est. Patient Low 20-29 Min 83090 Urnls Dip Stick Auto w/o Microscopy POC 04615 2. Elevated PSA (R97.20: Elevated prostate specific antigen [PSA]) jumped to 2.97 in 2017 S/p PVP 06/2017 has been low/stable since 07/2020 - 0.56 04/04/22 -0.72 due again in Mar of this year. will have PCP continue to follow Ordered: E&M of Est. Patient Low 20-29 Min 94011 3. ED (erectile dysfunction) (N52.9: Male erectile dysfunction, unspecified) LORIE (5) at last visit pt & his did not want to pursue any medications. Penile pump was discussed and pamphlet provided at that time. Ordered: E&M of Est. Patient Low 20-29 Min 72111 offered scheduled follow up vs f/u PRN with urology and continue care with PCP. pt prefers the latter. will send letter to PCP so they are aware of the plan. pt understands if anything worsens or new symptoms arise to contact our office. Follow-up With When Contact Information GELY BLAKE PA-C, URL Only if needed [address] [place] [address] [facility] [facility] (1) Additional Instructions: Patient Education Erectile Dysfunction [...] Immunizations Vaccine Date Status Comments SARS-CoV-2 (COVID-19) mRNAMUL.ORD![id number] 05/11/2022 Recorded influenza virus vaccine, inactivated 03/21/2022 Recorded SARSCoV2 mRNA(nyhaetplg-bwcp-hgfbxt) vac 09/23/2021 Recorded SARS-CoV-2 (COVID-19) mRNA-1273 vaccine 08/2021 Recorded SARS-CoV-2 (COVID-19) mRNA BNT-162b2 vax 03/14/2021 Recorded SARS-CoV-2 (COVID-19) mRNA-1273 vaccine 09/02/2020 Recorded SARS-CoV-2 (COVID-19) mRNA-1273 vaccine 08/05/2020 Recorded SARS-CoV-2 (COVID-19) mRN (more content not included)... Normal [facility] Comment on above: Result Comment: Elec tronically Signed By: GELY BLAKE PA-C\.br\Date and Time Signed: 11/15/22 13:46 EDT Ophthalmic Eye Examon 2022 Ophthalmic Eye Exam DOCUMENT REVIEWED BY: Guevara Carrasco MD DOCUMENT SIGNED ELECTRONICALLY BY Guevara Carrasco MD ON 10/31/2022 12:09:[address], [id number] THIS DOCUMENT WAS CREATED ON: 10/31/2022 12:09:27 PM BY: MD Pooja Kirkland performed [facility] Exam Date: Monday, October 31, 2022 PATIENT [...] MG Oral Tablet - Tablet, [Reported] Drug Renick Unilet Lancets 28G - #100, use to [...] 2 TABLETS BY MOUTH ONCE DAILY[Reported] Pyridostigmine [place] 60 MG Oral Tablet - #90 Tablet, [...] DATE-TIME: 10/31/2022 11:45:52 AM 10/31/2022 11:45:52 AM WOMEN'S APPAREL SALESPERSON: kyle [email or web address] ADJUSTED IOP VALUE: 12 14 EXTERNAL EYE [...] Plan: cont (more content not included)... Normal [facility] CNOVon 10-07-2022 CNEVELYN Office Visit (MARICARMEN ) RON WELCH ([id number]) 1950 M Date Time Provider Department 10/07/22 1:30 PM CHANDNI METZGER During your visit today, we recorded the following information about you: Pulse Blood pressure Weight 53/minute 168/94 100.7 kg Chandni Metzger APRN.LAUNDERETTE ATTENDANT 10/13/2022 12:33 PM [facility] - Follow-up [...] and h (more content not included)... Normal [facility] ECHOCARDIO M/2D COMPLETEon 0 10-06-2022 ECHOCARDIO M/2D COMPLETE Patient: RON WELCH Exam Date: 10/06/2022 : 1950 Gender:M Ordering : DR GUEVARA MACKAY . Admission #: [id number] Family : Order #: [id number] CLICK HERE TO VIEW EXAM ECHOCARDIOGRAM REPORT [...] Godinez M.D. on 10/06/2022 at 15:22 Normal [facility] Screenson 09-14-2022 Screens [id number]:127 Normal [facility] Ambulatory Visit Summaryon 0 09-06-2022 Ambulatory Visit Summary RON WELCH :1950 Visit Date:09/06/2022 Ambulatory Visit Instructions Your Diagnosis Urge incontinence BPH with urinary obstruction ED (erectile dysfunction) Tests Performed Urnls Dip Stick Auto w/o Microscopy POC 50371 Your Care Team Attending Physician - GELY [...] GELY BLAKE PA-C Where: [facility] Patient Educationon 09-07-19 23 Patient Education Urology [...] stimulation). ? For women, using a medical massage therapist to prevent urine leaks. This is a [...] after experiencing incontinence. General instructions ? Take ldqq-aex-tzwitys and prescription medicines only as (more content not included)... Normal [facility] Urology Office/Clinic Noteon 09-06-2022 Urology Office/Clinic Note [...] Contact Information REEMA CRUM, GELY Ch, URL [address] [facility] [address] Additional Instructions: 8 weeks Patient Education Urinary Incontinence Documentation recorded by the scribnaman Steen accurately reflects the services(s) I performed [...] Hypertension: Mother (more content not included)... Normal [facility] Comment on above: Result Comment: Elec tronically Signed By: GELY BLAKE PA-C\.br\Date and Time Signed: 09/06/22 13:49 EDT\.br\Electronically Co-Signed By: Arianna Steen\.br\Date and Time Co-Signed: 09/06/22 13:37 EDT CREATININEon 09-01-2022 Creatinine [Mass/Vol] 1.49 mg/dL Critically high 0.70-1.30 [facility] Comment on above: Performed By: #### C NGHIA #### [facility] [address] [address] [address] Ragini Storm EGFR-AF KITTITIAN 56 mL/min/1.73m2 Critically low >=60 [facility] Comment on above: Performed By: #### C NGHIA #### [facility] [address] [address] [address] Ragini Storm EGFR-NON AF KITTITIAN 46 mL/min/1.73m2 Critically low >=60 [facility] Comment on above: Performed By: #### C NGHIA #### [facility] [address] [address] [address] CHEST W CONon [...] CLIFF OCHOA Date: 2022-09-01 15:45 Normal [facility] AMMONIAon 08-26-2022 Ammonia (P) [Moles/Vol] 27 umol/L Normal 11-32 [facility] Comment on above: Performed By: #### A MM #### [facility] [address] [place] [address] Dr. Ragini Storm BNPon 08-26-2022 Natriuretic peptide B (Bld) [Mass/Vol] 284.0 pg/mL Normal <=900.0 [facility] Comment on above: Performed By: #### C NGHIA #### [facility] [address] [place] [address] Dr. Ragini Storm CBC AUTO DIFFon 08-26-2022 BASO # 0.0 103/ul Normal 0.0-0.1 [facility] Comment on above: Performed By: #### C BC #### [facility] [address] [place] [address] Dr. Ragini Storm Basophils/100 WBC (Bld) 0.5 % Normal 0.2-2.0 [facility] Comment on above: Performed By: #### C BC #### [facility] [address] [place] [address] Dr. Ragini Storm EO # 0.1 103/ul Normal 0.0-0.7 [facility] Comment on above: Performed By: #### C BC #### [facility] [address] [place] [address] Dr. Ragini Storm Eosinophils/100 WBC (Bld) 1.8 % Normal 0.9-7.0 [facility] Comment on above: Performed By: #### C BC #### [facility] [address] [place] [address] Dr. Ragini Storm Erythrocyte distribution width (RBC) [Ratio] 14.4 % Normal 11.0-15.0 [facility] Comment on above: Performed By: #### C BC #### [facility] [address] [place] [address] Dr. Ragini Storm Hematocrit (Bld) [Volume fraction] 46.7 % Normal 42.0-54.0 [facility] Comment on above: Performed By: #### C BC #### [facility] [address] [place] [address] Dr. Ragini Storm Hemoglobin (Bld) [Mass/Vol] 16.2 g/dL Normal 14.0-18.0 [facility] Comment on above: Performed By: #### C BC #### [facility] [address] [place] [address] Dr. Ragini Storm IG # 0.01 10e3/ul Normal 0.00-0.03 [facility] Comment on above: Performed By: #### C BC #### [facility] [address] [place] [address] Dr. Ragini Storm IG % 0.2 % Normal 0.0-0.5 [facility] Comment on above: Performed By: #### C BC #### [facility] [address] [place] [address] Dr. Ragini Storm LYMPH # 0.9 103/ul Critically low 1.2-3.8 The [facility] Comment on above: Performed By: #### C BC #### [facility] [address] [address] [address] Ragini Storm Lymphocytes/100 WBC (Bld) 19.4 % Critically low 20.5-60.0 [facility] Comment on above: Performed By: #### C BC #### [facility] [address] [address] [address] Ragini Storm MANUAL DIFF REQ NO Normal [facility] Comment on above: Performed By: #### C BC #### [facility] [address] [place] [address] Dr. Ragini Storm MCH (RBC) [Entitic mass] 36.7 pg Critically high 25.9-34.0 [facility] Comment on above: Performed By: #### C BC #### [facility] [address] [place] [address] Dr. Ragini Storm MCHC (RBC) [Mass/Vol] 34.7 g/dL Normal 29.9-35.2 [facility] Comment on above: Performed By: #### C BC #### [facility] [address] [place] [address] Dr. Ragini Storm MCV (RBC) [Entitic vol] 105.7 fL Critically high 80.0-94.0 [facility] Comment on above: Performed By: #### C BC #### [facility] [address] [place] [address] Dr. Ragini Storm MONO # 0.5 103/ul Normal 0.3-0.8 [facility] Comment on above: Performed By: #### C BC #### [facility] [address] [place] [address] Dr. Ragini Storm Monocytes/100 WBC (Bld) 11.2 % Normal 1.7-12.0 [facility] Comment on above: Performed By: #### C BC #### [facility] [address] [place] [address] Dr. Ragini Storm NEUT # 2.9 103/ul Normal 1.4-6.5 [facility] Comment on above: Performed By: #### C BC #### [facility] [address] [place] [address] Dr. Ragini Storm Neutrophils/100 WBC (Bld) 66.9 % Normal 43.0-75.0 [facility] Comment on above: Performed By: #### C BC #### [facility] [address] [place] [address] Dr. Ragini Storm Platelet mean volume (Bld) [Entitic vol] 10.1 fL Normal 9.5-13.5 [facility] Comment on above: Performed By: #### C BC #### [facility] [address] [place] [address] Dr. Ragini Storm PLT 230 103/ul Normal 150-450 [facility] Comment on above: Performed By: #### C BC #### [facility] [address] [place] [address] Dr. Ragini Storm RBC 4.42 106/ul Critically low 4.70-6.10 [facility] Comment on above: Performed By: #### C BC #### [facility] [address] [place] [address] Dr. Ragini Storm WBC 4.4 103/ul Normal 4.0-11.0 [facility] Comment on above: Performed By: #### C BC #### [facility] [address] [place] [address] Dr. Ragini Storm FREE THYROXINE INDEX T7on FTI 2.52 Normal 1.30-4.50 [facility] Comment on above: Performed By: #### C NGHIA #### [facility] [address] [place] [address] Dr. Ragini Storm T3U 35.0 % Normal 33.0-40.0 [facility] Comment on above: Performed By: #### C NGHIA #### [facility] [address] [place] [address] Dr. Ragini Storm T4 [Mass/Vol] 7.20 ug/dL Normal 4.50-12.10 The [facility] Comment on above: Performed By: #### C NGHIA #### [facility] [address] [place] [address] Dr. Ragini Storm GLYCOHEMOGLOBIN A1Con 2022 ADA RECOMMENDATION SEE BELOW Normal [facility] Comment on above: Result Comment: ADA RECOMMENDED LIMIT 4.0 - 6.0 ADA THERAPEUTIC TARGET < 7.0 ACTION SUGGESTED > 7.0 Performed By: #### A 1C #### [facility] [address] [place] [address] Dr. Ragini Storm Glucose [Mass/Vol] 120 mg/dL Normal [facility] Comment on above: Performed By: #### A 1C #### [facility] [address] [place] [address] Dr. Ragini Storm HbA1c (Bld) [Mass fraction] 5.8 % Normal 4.5-6.2 [facility] Comment on above: Performed By: #### A 1C #### [facility] [address] [place] [address] Dr. Ragini Storm Physician Referralon 023 Physician Referral [id number]:127 Normal [facility] TSHon 08-26-2022 TSH 1.618 uIU/mL Normal 0.358-3.740 [facility] Comment on above: Performed By: #### C NGHIA #### [facility] [address] [place] [address] Dr. Ragini Storm OCC BLD IMMUNO SCREENon 07-28 OCCULT BLOOD Positive Abnormal NEGATIVE [facility] Comment on above: Performed By: #### O BSCRN #### [facility] [address] [place] [address] Dr. Ragini Storm GLYCOHEMOGLOBIN A1Con 2022 ADA RECOMMENDATION SEE BELOW Normal [facility] Comment on above: Result Comment: ADA RECOMMENDED LIMIT 4.0 - 6.0 ADA THERAPEUTIC TARGET < 7.0 ACTION SUGGESTED > 7.0 Performed By: #### C NGHIA #### [facility] [address] [place] [address] Dr. Ragini Storm Glucose [Mass/Vol] 120 mg/dL Normal [facility] Comment on above: Performed By: #### C NGHIA #### [facility] [address] [place] [address] Dr. Ragini Storm HbA1c (Bld) [Mass fraction] 5.8 % Normal 4.5-6.2 [facility] Comment on above: Performed By: #### C NGHIA #### [facility] [address] [place] [address] Dr. Ragini Storm LIPID PROFILEon 08-18-2022 CHOL-HDL RATIO NORM SEE BELOW Normal [facility] Comment on above: Result Comment: 3.3 - 4.4 LOW RISK 4.4 - 7.1 AVERAGE RISK 7.1 - 11.0 MODERATE RISK >11.0 HIGH RISK Performed By: #### C NGHIA #### [facility] [address] [place] [address] Dr. Ragini Storm Cholesterol [Mass/Vol] 161 mg/dL Normal <=200 [facility] Comment on above: Performed By: #### C NGHIA #### [facility] [address] [place] [address] Dr. Ragini Storm Cholesterol in HDL [Mass/Vol] 58 mg/dL Normal 40-60 [facility] Comment on above: Performed By: #### C NGHIA #### [facility] [address] [place] [address] Dr. Ragini Storm Cholesterol in LDL [Mass/Vol] 84.2 mg/dL Normal [facility] Comment on above: Performed By: #### C NGHIA #### [facility] [address] [place] [address] Dr. Ragini Storm Cholesterol.total/ Cholesterol in HDL [Mass ratio] 2.8 {ratio} Normal [facility] Comment on above: Performed By: #### C NGHIA #### [facility] [address] [place] [address] Dr. Ragini Storm HDL NORMAL > or = 60 mg/dl - LO W CARDIOVASCULAR RISK <40 mg/dl - HIGH CARDIOVASCULAR RISK Normal [facility] Comment on above: Performed By: #### C NGHIA #### [facility] [address] [place] [address] Dr. Ragini Storm LDL CALC NORMAL SEE BELOW Normal [facility] Comment on above: Result Comment: <100 mg/dl OPTIMAL 100 - 129 mg/dl NEAR OR ABOVE OPTIMAL 130 - 159 mg/dl BORDERLINE HIGH 160 - 189 mg/dl HIGH >190 mg/dl VERY HIGH Performed By: #### C NGHIA #### [facility] [address] [address] [address] Ragini Storm Triglyceride [Mass/Vol] 94 mg/dL Normal <=150 [facility] Comment on above: Performed By: #### C NGHIA #### [facility] [address] [address] [address] Ragini Storm VLDL CALC 18.8 mg/dL Normal [facility] Comment on above: Performed By: #### C NGHIA #### [facility] [address] [place] [address] Dr. Ragini Storm VITAMIN D 25 OHon 08-18-2022 VIT D 25-OH 36.3 ng/mL Normal [facility] Comment on above: Performed By: #### P SASC, VITAD #### [facility] [address] [place] [address] Dr. Ragini Storm VIT D RANGES SEE BELOW Normal [facility] Comment on above: Result Comment: <20 ng/mL Vit D deficient 20 - <30 ng/mL Vit D insufficient 30 - 100 ng/mL Vit D sufficient >100 ng/mL Potential Toxicity Performed By: #### P SASC, VITAD #### [facility] [address] [place] [address] Dr. Ragini Storm CNSWon 08-04-2022 [facility] Social Work (MARICARMEN) RON WELCH ([id number]) 1950 M Date Time Provider Department 08/04/22 1:00 PM KATIA JEREZ During your visit today, we recorded the following information about you: YONATAN Frances 08/04/2022 2:05 PM Signed SOCIAL WORK NOTE Ron Welch [address] [place] [id number] INFORMATION/REFERRAL: Referral Source: Lauren Lamas MD Pt [...] communication and sundowning at length. INTERVENTION/PLAN: -Discussed CARBIDE POWDER PROCESSOR supportive role/availability as member of [facility] care team. -Supportive counseling offered [...] For assistance navigating local resources such as engine assembly supervisor care/caregiver support contact The Area Office on Aging. -Private Duty Home Health Agencies can provide supportive services. These services may include companionship, assistance with meals, medication management, maintenance mechanic 2nd shift, transportation and personal care if needed. Services are typically an out of pocket expense. Some long-term care policies or VA benefits may offer reimbursement for services. Local resources provided. [facility] can assist with meals, transportation, home maintenance and activities. Tel: -Obtained copy of pt's healthcare advance directives, Will be faxed to HIM to add to EMR. IMPRESSION: Pleasant 72 year old year old patient. Pt and family appear able and motivated to follow up on recommendations as discussed. CARBIDE POWDER PROCESSOR will remain available to address any questions/concerns. Contact information was provided. I spent a total of 40 minutes with the patient. Social work assessment/interventions rendered under the supervision of Dr. Hyacinth Bernal. YONATAN Frances [facility] YONATAN Frances 08/04/2022 1:37 PM Signed When there is a diagnosis of dementia, no matter the type, we encourage families to educate themselves, learn communication tips, and learn ways to adjust expectations over time. There are many resources available online. Three excellent resources are: The Alzheimer's Association (web site: alz.org) Help Line available 24 hours a day, 7 days per week: 765.645.1311. Call Help Line to learn of local options for support groups and to register. Family Caregiver [place] (web site: Caregiver.org) [facility]- a secure online solution for quality information, [...] for financial assistance for assisted living. The [employer] Service Commission of [facility] is an organization that can (more content not included)... Normal 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 CNOVon 07-08-2022 CNOV Office Visit (MARICARMEN ) RON WELCH Comfort ([id number]) 1950 M Date Time Provider Department 07/08/22 3:00 PM LAUREN LAMAS During your visit today, we recorded the following information about you: Pulse Blood pressure Weight 61/minute 137/82 102.1 kg Lauren Lamas MD 07/08/2022 5:13 PM Signed Neurology Return, [place] [facility] Ron Welch is a [...] for BiPAP download; DME: Jasen Bettie Gonzalez [phone] Encourage regular physical and mental activity His [...] have conveyed the information to patient via [employer], and recommended him to follow up with [...] found. Activi (more content not included)... Normal [facility] Ophthalmic Eye Examon 2022 Ophthalmic Eye Exam DOCUMENT REVIEWED BY: Guevara Carrasco MD DOCUMENT SIGNED ELECTRONICALLY BY Guevara Carrasco MD ON 07/04/2022 11:35:[address], [id number] THIS DOCUMENT WAS CREATED ON: 07/04/2022 11:35:29 AM BY: MD Eliza Kirkland COT performed TLRHM-Veum-wm Exam Date: Monday, July 04, 2022 PATIENT NAME: RON WELCH DATE: 1950 AGE: 72 GENDER: Male RACE: PRIMARY CARE PHYSICIAN: Geuvara Mackay History Chief Complaint/Reason For Visit: Geiyebx-Psgccd-nw visit for POAG Using Latnaoprost OS PM [...] Oral Tablet - #60 Tablet, [Reported] Drug Renick [facility] Lancets 28G - #100, use to test [...] 2 TABLETS BY MOUTH ONCE DAILY[Reported] Pyridostigmine [place] 60 MG Oral Tablet - #90 Tablet, [...] DATE-TIME: 07/04/2022 11:24:57 AM 07/04/2022 11:24:57 AM WOMEN'S APPAREL SALESPERSON: Santhosh Trevizo ADJUSTED IOP VALUE: 14 13 [...] well contro (more content not included)... 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 The assessment consisted [...] evaluation due to cognitive concerns (04/29/2022 MoCA= 1830). COGNITIVE CONCERNS: The patient and his reported [...] has has put his clothes on backwards. Face Cleaner: Historically managed by his . He previously [...] current recreatio (more content not included)... Normal [facility] MRI 3D POST PROCESSINGon MRI 3D POST PROCESSING * * *Final Report* * * DATE OF EXAM: Jun 17 2022 2:34PM [facility] 0280 - MRI 3D POST [...] dementia protocol and 3-D post-processing using the CONWEAVER software at an independent workstation with concurrent [...] = Focal Lesions 2 = Beginning of [place] 3 = Diffuse Involvement of Entire Region [...] results from the analysis charts for details. Railroad Car Letterer: PSCB Transcribe Date/Time: Jun 17 2022 2:50P Dictated by : ANTONIO GUILLERMO MD This examination was interpreted and the report reviewed and electronically signed by: ANTONIO GUILLERMO MD on Jun 17 2022 3:16PM EST [id number] Normal [facility] MRI BRAIN W QUANT WO IVCONon 06-17-2022 MRI BRAIN W QUANT WO IVCON * * *Final Report* * * DATE OF EXAM: Jun 17 2022 2:34PM [facility] 3015 - MRI BRAIN W [...] dementia protocol and 3-D post-processing using the CONWEAVER software at an independent workstation with concurrent physician supervision and images were created, reviewed and archived. MQ: [id number] COMPARISON: None RESULT: QUALITATIVE: Acute Intracranial Process: None. Chronic Intracranial Process: There is a moderate-severe burden of nonspecific white matter change, likely the sequela of chronic small vessel ischemia.. Age related [facility] changes ([facility] rating: White matter lesions: 3 Basal ganglia [...] = Focal Lesions 2 = Beginning of [place] 3 = Diffuse Involvement of Entire Region [...] results from the analysis charts for details. Railroad Car Letterer: PSCB Transcribe Date/Time: Jun 17 2022 2:50P Dictated by : ANTONIO GUILLERMO MD This examination was interpreted and the report reviewed and electronically signed by: ANTONIO GUILLERMO MD on Jun 17 2022 3:16PM EST [id number] Normal [facility] No Panel Informationon 06-17 [facility] Ophthalmic Eye Examon 2021 Ophthalmic Eye Exam DOCUMENT REVIEWED BY: Guevara Carrasco MD DOCUMENT SIGNED ELECTRONICALLY BY Guevara Carrasco MD ON 02/28/2022 11:45:50 AM [place] [id number] [phone] THIS DOCUMENT WAS CREATED ON: 02/28/2022 11:45:43 AM BY: MD Lainey Kirkland performed [id number] Exam Date: Monday, February 28, 2022 PATIENT [...] Oral Tablet - #60 Tablet, [Reported] Drug Renick Unilet Lancets 28G - #100, use to [...] DATE-TIME: 02/28/2022 11:44:04 AM 02/28/2022 11:44:04 AM WOMEN'S APPAREL SALESPERSON: Lars [email or web address] ADJUSTED IOP VALUE: 15 17 EXTERNAL [...] since surg (more content not included)... Normal [facility] Ophthalmic Eye Examon 2021 Ophthalmic Eye Exam DOCUMENT REVIEWED BY: Guevara Carrasco MD DOCUMENT SIGNED ELECTRONICALLY BY Guevara Carrasco MD ON 02/04/2022 11:47:57 AM [facility] [address] [address] [address] [place], [address] [phone] THIS DOCUMENT WAS CREATED ON: 02/04/2022 11:47:46 AM BY: Guevara Carrasco MD Pooja Suarez performed BPEJQ-Ghtu-[id number] Exam Date: Friday, February 04, 2022 PATIENT [...] Oral Tablet - #60 Tablet, [Reported] Drug Renick Unilet Lancets 28G - #100, use to [...] DATE-TIME: 02/04/2022 10:43:27 AM 02/04/2022 10:43:27 AM WOMEN'S APPAREL SALESPERSON: kyle [email or web address] ADJUSTED IOP VALUE: 11 21 [...] little wors (more content not included)... Normal [facility] OPERATIVE REPORTon 0 OPERATIVE REPORT [address] [address] OPERATIVE REPORT PATIENT NAME: RON WELCH : 1950 MED REC NO: [id number] ROOM: ACCOUNT NO: [id number] ADMIT DATE: 10/16/2019 PROVIDER: Ángel Fenton DATE [...] was 5 mL. ÁNGEL FENTON JAYCEE/[email or web address] Doc#: [id number] CC: Normal [facility] Surgical Pathologyon 020 Surgical Pathology (NOTE) [...] PATHOLOGY CONSULTATION Patient Name: RON WELCH [facility] Rec: [id number] Path Number: [id number] [facility] O-film CONSULTING PATHOLOGISTS [facility] ANATOMIC PATHOLOGY [address] [place] [address]. [place], [place] [address] Normal [facility] Comment on above: Performed By: #### P PPVDP #### [facility] [address] [place], [place] [id number] Sand Screener Operator: Gilles Chahal MD COVID-19on 10-15-2019 SARS-CoV-2 [place], [place] SARS-CoV-2, PCR Not Detected Not Detected [place], [place] Comment on above: (NOTE) The Ragland RealTime SARS-CoV-2 assay is a real-time (rt) reverse transcriptase (RT) polymerase chain reaction (PCR) test intended for the [employer] system. The SARS-CoV-2 primer and probe sets are designed to detect RNA from SARS-CoV-2 in nasopharyngeal (ENVIRONMENTAL STUDIES PROFESSOR) and oropharyngeal (OP) swabs from patients with [...] The above 1 analytes were performed by [address],[place] [address] SARS-CoV-2, Rapid [place], [place] Source .NASOPHARYNGEAL SWAB [place], [place] [id number] 10-15-2019 SARS-CoV-2 Not Detected Normal Not Detected [facility] Comment on above: Result Comment: (NOT E) The Ragland RealTime SARS-CoV-2 assay is a real-time (rt) reverse transcriptase (RT) polymerase chain reaction (PCR) test intended for the [employer] system. The SARS-CoV-2 primer and probe sets are designed to detect RNA from SARS-CoV-2 in nasopharyngeal (ENVIRONMENTAL STUDIES PROFESSOR) and oropharyngeal (OP) swabs from patients with [...] The above 1 analytes were performed by [address] [address] Performed By: #### C OVID #### [facility] [address] [place] [address] Sand Screener Operator: Antonio Hodgson MD [address] [address] Sand Screener Operator: Gilles Chahal MD [facility] [address] [place] [address] Sand Screener Operator: Dontrell James MD [id number] 10-14-2019 SARS-CoV-2,Rapid Normal [facility] Comment on above: Performed By: #### C OVID #### [facility] [address] [place] [address] Sand Screener Operator: Antonio Hodgson MD [address] [address] Sand Screener Operator: Gilles Chahal MD [facility] [address] [place] [address] Sand Screener Operator: Dontrell James MD SARS-CoV-2 Normal [facility] Comment on above: Performed By: #### C OVID #### [facility] [address] [place] [address] Sand Screener Operator: Antonio Hodgson MD [facility] [employer] [address] [place] [address] Sand Screener Operator: Gilles Chahal MD [facility] [address] [place] [address] Sand Screener Operator: Dontrell James MD SARS-CoV-2 Source .NASOPHARYNGEAL SWAB Normal [facility] Comment on above: Performed By: #### C OVID #### [facility] [address] [place] [address] Sand Screener Operator: Antonio Hodgson MD [facility] [address] [place] [address] Sand Screener Operator: Gilles Chahal MD [facility] [address] [place] [address] Sand Screener Operator: Dontrell James MD EKG 12 Leadon 08-01-2019 Atrial Rate 67 BPM [facility] [place] P Krebs 39 degrees [facility], [place] P-R Interval 170 ms [facility] Q-T Interval 384 ms [facility], [place] QRS Duration 110 ms [facility]- [place], [place] QTc Calculation (Bazett) 405 ms [facility]- [place], [place] R Krebs -22 degrees [facility]- [place], [place] T Krebs 7 degrees [facility]- [place], [place] Ventricular Rate 67 BPM [facility] [employer]- [place], [place] Sinus rhythm with oc casional Premature ventricular complexes Possible Left atrial enlargement Left ventricular hypertrophy Abnormal ECG No previous ECGs available [facility], [place] Jonh, Mhpn Incoming E kg Results From [facility] [place] - 08/01/2019 1:29 PM EST Sinus rhythm with occasional Premature ventricular complexes Possible Left atrial enlargement Left ventricular hypertrophy Abnormal ECG No previous ECGs available [facility]- [place], [place] Vital Signs Date Time Vital Sign Value Performing Clinician Facility 06-06-2023 13:23-0500 Diastolic blood pressure 72 mm[Hg] GELY REEMA [facility] 06-06-2023 13:23-0500 Mean blood pressure 96 mm[Hg] GELY REEMA [facility] 06-06-2023 13:23-0500 Systolic blood pressure 145 mm[Hg] GELY REEMA [facility] 06-06-2023 13:18-0500 Blood Pressure Location GELY REEMA [facility] 06-06-2023 13:18-0500 Diastolic blood pressure 75 mm[Hg] GELY REEMA [facility] 06-06-2023 13:18-0500 Heart rate 55 /min GELY REEMA [facility] 06-06-2023 13:18-0500 Systolic blood pressure 150 mm[Hg] GELY REEMA [facility] 01-11-2023 12:50-0400 Body weight 101.15 kg Chandni Rhoten STONE DRILLER.LAUNDERETTE ATTENDANT Work Phone: [facility] 01-11-2023 12:50-0400 Diastolic blood pressure 79 mm[Hg] Chandni Rhoten STONE DRILLER.LAUNDERETTE ATTENDANT Work Phone: [facility] 01-11-2023 12:50-0400 Heart rate 56 /min Chandni Rhoten STONE DRILLER.LAUNDERETTE ATTENDANT Work Phone: [facility] 08-16-2023 12:50-0400 Systolic blood pressure 152 mm[Hg] Chandni Rhoten STONE DRILLER.LAUNDERETTE ATTENDANT Work Phone: [facility] 11-15-2022 12:54-0400 Blood Pressure Location GELY REEMA [facility] 11-15-2022 12:54-0400 Diastolic blood pressure 68 mm[Hg] GELY REEMA [facility] 11-15-2022 12:54-0400 Heart rate 68 /min GELY REEMA [facility] 11-15-2022 12:54-0400 Systolic blood pressure 130 mm[Hg] GELY REEMA [facility] 10-07-2022 13:25-0400 Body weight 100.7 kg Chandni Rhoten STONE DRILLER.LAUNDERETTE ATTENDANT Work Phone: [facility] 10-07-2022 13:25-0400 Diastolic blood pressure 94 mm[Hg] Chandni Rhoten STONE DRILLER.LAUNDERETTE ATTENDANT Work Phone: [facility] 10-07-2022 13:25-0400 Heart rate 53 /min Chandni Rhoten STONE DRILLER.LAUNDERETTE ATTENDANT Work Phone: [facility] 10-07-2022 13:25-0400 Systolic blood pressure 168 mm[Hg] Chandni Rhoten STONE DRILLER.LAUNDERETTE ATTENDANT Work Phone: [facility] 09-06-2022 13:03-0400 Blood Pressure Location GELY REEMA [facility] 09-06-2022 13:03-0400 Diastolic blood pressure 78 mm[Hg] GELY REEMA [facility] 09-06-2022 13:03-0400 Heart rate 68 /min GELY REEMA [facility] 09-06-2022 13:03-0400 Respiratory rate 16 /min GELY BLAKE [facility] 09-06-2022 13:03-0400 Systolic blood pressure 129 mm[Hg] GELY BLAKE [facility] 04-27-2022 14:58-0500 Body height 167.6 cm Daysi Uribe MD Work Phone: [facility] 04-27-2022 14:58-0500 Body weight 101.15 kg Daysi Uribe MD Work Phone: [facility] 04-27-2022 14:58-0500 Diastolic blood pressure 73 mm[Hg] Daysi Uribe MD Work Phone: [facility] 04-27-2022 14:58-0500 Heart rate 68 /min Daysi Uribe MD Work Phone: [facility] 04-27-2022 14:58-0500 SaO2% (BldA) [Mass fraction] 98 % Daysi Uribe MD Work Phone: [facility] 04-27-2022 14:58-0500 Systolic blood pressure 139 mm[Hg] Daysi Uribe MD Work Phone: [facility] 10-21-2021 10:50-0400 Body height 167.6 cm Daysi Uribe MD Work Phone: [facility] 10-21-2021 10:50-0400 Body weight 97.52 kg Daysi Uribe MD Work Phone: [facility] 10-21-2021 10:50-0400 Diastolic blood pressure 86 mm[Hg] Daysi Uribe MD Work Phone: [facility] 05-26-2022 10:50-0400 Heart rate 83 /min Daysi Uribe MD Work Phone: [facility] 10-21-2021 10:50-0400 Systolic blood pressure 163 mm[Hg] Daysi Uribe MD Work Phone: [facility] 09-28-2021 10:47-0400 Blood Pressure Location Tere Torres Jr. [facility] 09-28-2021 10:47-0400 Diastolic blood pressure 64 mm[Hg] Tere Torres Jr. [facility] 09-28-2021 10:47-0400 Heart rate 62 /min Tere Torres Jr. [facility] 09-28-2021 10:47-0400 Respiratory rate 18 /min Tere Torres Jr. [facility] 09-28-2021 10:47-0400 Systolic blood pressure 129 mm[Hg] Tere Torres Jr. [facility] 09-08-2021 14:00-0400 Body height 170.18 cm Cliff Leon Other [employer] Other 09-08-2021 14:00-0400 Body mass index (BMI) [Ratio] 35.39 kg/m2 Cliff Leon Other [employer] Other 09-08-2021 14:00-0400 Body weight 102.51 kg Cliff Leon Other [employer] Other 10-16-2019 11:15-0400 Body Temperature 99.1 [degF] Ángel Leivasler [employer] [facility] , [place] 10-16-2019 11:15-0400 BP Diastolic 80 mm[Hg] [facility]el Fenton [facility] [place] 10-16-2019 11:15-0400 BP Systolic 119 mm[Hg] Ángel [facility]ivasler [facility] [place] 10-16-2019 11:15-0400 Pulse (Heart Rate) 86 /min [facility], [place] 10-16-2019 11:15-0400 Pulse Oximetry 96 % [facility]el [facility] [place] 10-16-2019 11:15-0400 Respiratory Rate 25 /min [facility] [place] 10-16-2019 08:12-0400 BMI (Body Mass Index) 36.26 kg/m2 Ángel Leivasler [facility] [place] 10-16-2019 08:12-0400 Body weight 105.01 kg Á[facility]el [facility] [place], [place] 10-16-2019 08:12-0400 Height 170.2 cm Ángel Leiva[facility] [place] 07-31-2019 11:58-0500 BMI (Body Mass Index) 37.06 kg/m2 [facility] [place] 07-31-2019 11:58-0500 Body Temperature 97.9 [degF] [facility] [place], [place] 07-31-2019 11:58-0500 Body weight 104.[address] [facility] [place] 07-31-2019 11:58-0500 Height 167.[address] [facility] [place] Encounters Encounter Date Encounter Type Care Provider Facility Start: 10-09-2023 ambulatory Cliff Buenrostro ty:[facility] Start: 07-11-2023 End: 07-12-2023 ambulatory Cliff JESSICA Facility:[facility] Start: 07-11-2023 End: 07-11-2023 Patient encounter procedure Cliff JESSICA [facility] Start: 07-04-2023 End: 07-05-2023 ambulatory Guevara Mackay Facility:[facility] Start: 06-06-2023 End: 06-07-2023 ambulatory GELY BLAKE Facility:[facility] Start: 06-06-2023 End: 06-06-2023 Patient encounter procedure GELYJELANI BLAKE [facility] Start: 05-17-2023 End: 05-17-2023 ambulatory [facility] Ambulatory Start: 05-11-2023 End: 05-11-2023 ambulatory INGA Larissa TOURE Not Available Start: 05-08-2023 ambulatory Daysi flannery MD Work Phone: [facility] Start: 05-08-2023 Patient encounter procedure Daysi Uribe MD Work Phone: Neurology Comment on above: Appointment request because of blood test results Start: 04-14-2023 End: 04-14-2023 ambulatory [facility]ulatory Start: 02-27-2023 End: 02-27-2023 ambulatory [facility] Start: 01-11-2023 End: 01-11-2023 ambulatory GUEVARA MACKAY Facility:[facility] [place] Start: 01-11-2023 End: 01-11-2023 Patient encounter procedure Chandni Metzger APRN.LAUNDERETTE ATTENDANT Work Phone: Neurology Comment on above: 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 Facility:[facility] Start: 09-06-2022 End: 09-07-2022 ambulatory GELY BLAKE Facility:[facility] Start: 09-06-2022 End: 09-06-2022 Patient encounter procedure GELY BLAKE [facility] Start: 09-01-2022 End: 09-02-[address] GUEVARA MACKAY . Facility:[facility] Start: 08-26-2022 End: 08-27-[address] GUEVARA MACKAY . Facility:[facility] Start: 08-24-2022 ambulatory Cliff JESSICA Facility :[facility] Start: 08-23-2022 End: 08-23-[address] GUEVARA MACKAY . Facility:[facility] Start: 08-18-2022 End: 08-19-[address] GUEVARA MACKAY . Facility:[facility] Start: 08-04-2022 End: 08-04-2022 Social Work Katia [...] Start: 07-08-2022 End: 07-08-2022 ambulatory LAUREN LAMAS Facility:[facility] [place] Start: 07-04-2022 ambulatory Guevara Carrasco Facility:[facility] Start: 06-17-2022 End: 06-17-2022 Subsequent hospital visit by physician Cesilia Bustillos (I-Stat/3t) Work Phone: Radiology Comment on above: Myasthenia gravis wi th exacerbation (HCC) [G70.01] Start: 06-17-2022 End: 06-17-2022 ambulatory GUEVARA MACKAY Facility:[facility] [place] Start: 06-17-2022 End: 06-17-2022 Patient encounter procedure Araseli Camacho PhD Work Phone: Neuropyschology Comment on above: Major neurocognitive disorder (HCC) (Primary Dx); Obstructive sleep apnea; MYASTHENIA GRAVIS; Depression, unspecified depression type Start: 06-07-2022 End: 06-07-2022 Patient encounter procedure GELY BLAKE [facility] Start: 05-30-[address] GUEVARA MACKAY . 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) Start: 04-27-2022 End: 04-27-2022 Patient encounter procedure Daysi Uribe MD Work Phone: Neurology Comment on above: Myasthenia gravis (H CC) (Primary Dx); Memory loss Start: 04-14-2022 Refill Daysi flannery MD Work Phone: Neurology Comment on above: Refill Request Start: 04-04-2022 End: 04-05-[address] TERE Hare Facility:[facility] Start: 02-28-2022 Patient encounter procedure Guevara Mackay Work Phone: OD-Oxdldwkcncnnv-Efzwjywg B102 Work Phone: Start: 02-28-2022 ambulatory Guevara Carrasco Facility:9 [id number] Start: 02-04-2022 Patient encounter procedure Guevara Mackay Work Phone: PF-Feuebdrvgrdcz-Jxkesdse B102 Work Phone: Start: 02-04-2022 ambulatory Guevara Carrasco Facility:9 485 Start: 01-06-2022 End: 01-06-[address] GUEVARA MACKAY . 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 [facility] Start: 09-08-2021 End: 09-08-2021 ambulatory Cliff Leon Other [employer] Other Start: 09-08-2021 Office outpatient ne w 45 minutes Cliff Leon [facility] Gastroenterology Start: 08-21-2021 Rx Renewal Guevara Pineda Thompson Work Phone: IQ-Zemwltfjtjayr-Ozquzsey B102 Work Phone: Start: 08-06-2021 Telephone encounter Leighton Brambila Work Phone: Gastroenterology Comment on above: Appointment Start: 07-09-2021 Patient encounter procedure Guevara Mackay Work Phone: JY-Vknbovyqaxrtk-Vgjcjiuy B149 Work Phone: Start: 10-16-2019 End: 10-16-2019 [facility] Start: 10-16-2019 End: 10-16-2019 Subsequent hospital visit by physician Ángel Fenton Work Phone: [facility] [place] Comment on above: Basal cell carcinoma (BCC) of left side of nose (Primary Dx) Start: 10-14-2019 End: 10-19-2019 Patient encounter procedure DOC HART [facility] Start: 10-14-2019 End: 10-18-2019 Subsequent hospital visit by physician Brigido Potts 4 BRIGIDOZ PRE-ADMIT TESTING Start: 07-31-2019 End: 08-05-2019 [facility] Start: 07-31-2019 End: 08-04-2019 Subsequent hospital visit by physician Sukhwinder Richardson Pat Schedule [facility] Pre-Admit Testing Start: 06-14-2019 Patient encounter procedure Guevara Danilo OA-Mtkxdaelqgemq-Hbbzmfog B102 Work Phone: Start: 02-08-2019 Patient encounter procedure Guevara Danilo BH-Fzwmdwjzfbxta-Jnwqvwao B102 Work Phone: Start: 11-01-2018 Patient encounter procedure Guevara Danilo ZR-Pwjaxemjvrgsk-Rswottpg B102 Work Phone: Start: 10-15-2018 Patient encounter procedure Guevara Danilo WS-Ykcqtbnvhunmk-Uqyrydcr B102 Work Phone: Start: 09-07-2018 Patient encounter procedure Guevara Danilo JU-Nsujtwpphswor-Npoftxvp B102 Work Phone: Start: 12-28-2017 Patient encounter procedure Guevara Danilo GO-Fryfbhnoijzwx-Afuoyzpy B102 Work Phone: Start: 12-22-2017 Patient encounter procedure Guevara Danilo OV-Utwkrglzjieyi-Hwzeptrv B102 Work Phone: Start: 12-01-2017 Patient encounter procedure Guevara Danilo WN-Jpmcjzyfqflrt-Synyessv B102 Work Phone: Start: 11-22-2017 Patient encounter procedure Guevara Danilo ZH-Idehifytotkwj-Fovsixta B102 Work Phone: Start: 11-20-2017 Patient encounter procedure Guevara Danilo MY-Meojpfubewwgb-Naiahvin B102 Work Phone: Start: 11-08-2017 Patient encounter procedure Guevara Danilo CJ-Ggplgyfcjtigl-Yygltbut B102 Work Phone: Start: 09-06-2017 Patient encounter procedure Guevara Danilo VZ-Lbzcmqirbtsck-Yebzbesb B102 Work Phone: Start: 08-11-2017 Patient encounter procedure Guevara Danilo PT-Dokmyohjftpni-Fdaicljs B102 Work Phone: Start: 08-02-2017 Patient encounter procedure Guevara Danilo JQ-Yatjimvymhqdx-Mdgfdrix B102 Work Phone: Start: 06-21-2017 Patient encounter procedure Guevara Carrasco EJ-Nmoprznowvnir-Tklavjdo B102 Work Phone: Procedures Date Procedure Procedure Detail Performing Clinician Start: 02-27-2023 DE LEON VISUAL FIELD - OU - BOTH EYES GUEVARA CARRASCO Start: 02-27-2023 OCT, OPTIC NERVE - OU - BOTH EYES RADHA CARRASCO Start: 08-18-[address] GUEVARA MACKAY . Comment on above: Performed By: #### PSASC, VITAD #### [facility] [address] [place] [address] Dr. Ragini Storm Start: 06-17-2022 MRI 3D POST PROCESSING Lauren Lamas MD Work Phone: Start: 06-17-2022 Mri brain brain stem w/o contrast material Lauren Lamas MD Work Phone: Start: 04-04-[address] GUEVARA MACKAY . Comment on above: Performed By: #### PSAD #### [facility] [address] [place] [address] Dr. Ragini Storm Start: 10-16-2019 DISCHARGE PATIENT ÁNGEL FENTON Start: 10-16-2019 Level iv surg pathology gross&microscopic exam ÁNGEL FENTON Start: 10-16-2019 ASSESS ÁNGEL FENTON Start: 10-16-2019 BEDREST ÁNGEL FENTON Start: 10-16-2019 ENCOURAGE DEEP BREATHING AND COUGHING ÁNGEL FENTON Start: 10-16-2019 INITIATE OXYGEN THERAPY PROTOCOL ÁNGEL CM Start: 10-16-2019 NEURO/VASCULAR CHECKS ÁNGEL FENTON Start: 10-16-2019 NURSING COMMUNICATION ÁNGEL FENTON Start: 10-16-2019 REMOVE IV ÁNGEL FENTON Start: 10-16-2019 NOTIFY PHYSICIAN (SPECIFY) ÁNGEL FENTON Start: 10-16-2019 TELEMETRY MONITORING ÁNGEL FENTON Start: 10-16-2019 Gluc bld gluc mntr dev cleared fda spec home use ÁNGEL FENTON Start: 10-16-2019 Urine test visual color cmprsn meths ÁNGEL FENTON Start: 10-16-2019 VITAL SIGNS ÁNGEL FENTON Start: 10-14-2019 COVID-19 DOC HART Start: 10-14-2019 COVID-19 Doc Hart Work Phone: Start: 10-14-2019 COVID-19 DOC HART Start: 07-31-2019 Ecg routine ecg w/least 12 lds w/i&r ÁNGEL FENTON Start: 07-31-2019 EKG REPORT ÁNGEL FENTON Start: 07-31-2019 Ecg routine ecg w/least 12 lds trcg only w/o i&r Ángel Fenton Work Phone: Start: 07-31-2019 EKG REPORT Hpf Scanning Start: 07-26-2019 Adult depression screening assessment [facility] Start: 12-13-2018 Colonoscopy [facility] Start: 12-13-2018 Colonoscopy GELYJELANI KINGRY Start: 12-13-2018 Esophagogastroduodenoscopy GELY Chanel Start: 10-25-2017 Cystoscopy Tere Torres Jr. Comment on above: 08/13/2012 Start: 07-12-2017 Green laser light (physical force) Marco A Torres Jr. Start: 08-16-2012 Urodynamic studies Tere Torres Jr. Arthroplasty of knee Tere Torres Jr. Arthroplasty of knee Cliff JESSICA Arthroscopy of knee Tere augustine Jr. Back structure, excl uding neck (body structure) Tere Torres Jr. Cataract (disorder) Tere augustine Jr. Excision of basal cell carcinoma GELY REEMA Comment on above: back and scalp Extraction of cataract AMARILIS BLAKE History of Back Surgery Pablo las Danilo Incision of anal fistula Olinda JESSICA Laminectomy GELY BLAKE Malignant melanoma, no ICD-O subtype (morphologic abnormality) Tere Torres Jr. Comment on above: removal from nose Total knee replacement Dougl as Danilo Total thymectomy Tere aparicio Jr. Transurethral prostatectomy GELY BLAKE Plan of Treatment Date Care Activity Detail Author Start: 01-07-2032 Urine microalbumin profile DTaP,Tdap,Td Vaccine (2 - Tdap) [facility] Start: 04-29-2025 DIABETES SCREEN DIABETES SCREEN [facility] Start: 04-29-2025 Diabetes Screening Diabetes Screenin g [facility] Start: 09-10-2023 DIABETES SCREEN DIABETES SCREEN [facility] Start: 02-27-2023 EPVDILATED, Provider : Guevara Carrasco, Status: Pen, Time: 9:00 AM EPVDILATED, Provider: Guevara Carrasco, Status: Pen, Time: 9:00 AM LG-Kvpltcoewvvem-Gig [place] B[facility] Work Phone: Start: 01-27-2023 Covid-19 Vaccine ( season) Covid-19 Vaccine ( season) [facility] Start: 01-27-2023 Influenza vaccination [facility] Start: 07-06-2022 COVID-19 VACCINE (8 - Mixed Product risk series) COVID-19 VACCINE (8 - Mixed Product risk series) [facility] Start: 07-04-2022 EPVGLAUC, Provider: Guevara Carrasco, Status: Pen, Time: 11:15 AM EPVGLAUC, Provider: Guevara Carrasco, Status: Pen, Time: 11:15 AM NO-Lygeuiumxxsuz-Ake [place] [address] Work Phone: Start: 05-29-2022 ADVANCE DIRECTIVE DISCUSSION ADVANCE DIRECTIVE DISCUSSION [facility] Start: 05-29-2022 DEPRESSION ASSESSMENT DEPRESSION ASS ESSMENT [facility] Start: 02-28-2022 EPVGLAUC, Provider: Guevara Carrasco, Status: Pen, Time: 10:30 AM EPVGLAUC, Provider: Guevara Carrasco, Status: Pen, Time: 10:30 AM VZ-Mpvjrhafuyhwt-Nql [place] B102 Work Phone: Start: 01-27-2022 Influenza vaccination C [facility] Start: 09-27-2021 EPVGLAUC, Provider: Guevara Carrasco, Status: Pen, Time: 11:15 AM EPVGLAUC, Provider: Guevara Carrasco, Status: Jaison, Time: 11:15 AM GK-Xzckuxwfejunf-Emx [place] B102 Work Phone: Start: 05-29-2021 ADVANCE DIRECTIVE DISCUSSION ADVANCE DIRECTIVE DISCUSSION [facility] Start: 05-29-2021 DEPRESSION ASSESSMENT DEPRESSION ASS ESSMENT [facility] Start: 07-26-2020 Adult depression screening assessment DEPRESSION SCREENING [facility] Start: 01-28-2020 Influenza vaccination Flu vacc ine (Season Ended) [place] Start: 12-14-2019 Colonoscopy COLONOSCOPY [facility] Start: 12-14-2019 COLORECTAL CANCER SCREENING COLORECTAL CANCER SCREENING [facility] Start: 12-14-2019 Screening for malign ant neoplasm of colon [facility] Start: 10-23-2019 End: 10-23-2019 Office Visit 10/23/2019 Office Visit Plastic Surgery Ángel Fenton MD [address] [place] [address] [phone] [facility] Start: 08-28-2019 End: 08-28-2019 Office Visit 08/28/2019 Office Visit Plastic Surgery Ángel Fenton MD [address] [place] [address] [phone] [facility] Start: 08-14-2019 End: 08-14-2019 Hospital Encounter [facility] [place] Comment on above: NASAL LESION BIOPSY EXCISION - BASAL CELL WITH FROZEN SECTION REQUIRED AND FLAP CLOSURE Start: 07-03-2019 Annual Wellness Visi t (AWV) Annual Wellness Visit (AWV) [place] Start: 01-27-2019 Influenza vaccination Flu vaccine (# 1) [place] Start: 2016 Pneumococcal 65+ yea rs Vaccine (1 of 1 - PPSV23) Pneumococcal 65+ years Vaccine (1 of 1 - PPSV23) [place] Start: 06-29-2013 Pneumococcal Vaccine : 65+ (2 - PCV) Pneumococcal Vaccine: 65+ (2 - PCV) [facility] Start: 06-29-2013 PNEUMOCOCCAL: 65+ (2 - PCV) PNEUMOCOCCAL: 65+ (2 - PCV) [facility] Start: 2011 RSV Vaccine (1 - 1-d ose 60+ series) RSV Vaccine (1 - 1-dose 60+ series) [facility] Start: 2001 Colon cancer screen colonoscopy Colon cancer screen colonoscopy [place], [place] Start: 2001 Screening for malign ant neoplasm of colon Colon cancer screen colonoscopy [place] Start: 2001 Shingles Vaccine (1 of 2) Shingles Vaccine (1 of 2) [place] Start: 2001 SHINGRIX VACCINE (1 of 2) SHINGRIX VACCINE (1 of 2) [facility] Start: 1996 COLOGUARD (FIT-DNA) COLOGUARD (FIT-D NA) [facility] Start: [address] COLONOGRAPHY [facility] Start: 1996 FECAL OCCULT BLOOD FECAL OCCULT BLOO D [facility] Start: 1996 Screening for malign ant neoplasm of colon [facility] Start: 1996 SIGMOIDOSCOPY SIGMOIDOSCOPY [facility] Start: 1991 Diabetes screen Diabetes screen [place], [place] Start: 1986 Lipid panel Lipid Screening [facility] Start: 1986 LIPID SCREEN LIPID SCREEN [facility] Start: 1970 DTaP/Tdap/Td vaccine (1 - Tdap) DTaP/Tdap/Td vaccine (1 - Tdap) [place] Start: 1970 SHINGRIX VACCINE (1 of 2) SHINGRIX VACCINE (1 of 2) [facility] Start: 1970 Urine microalbumin profile DTAP,TDAP,TD (1 - Tdap) [facility] Start: 1969 ANNUAL PCP TEAM HYDROGEN [employer] ENGINEER JORDYN DISEASE VISIT ANNUAL PCP TEAM CHRONIC DISEASE VISIT [facility] Start: 1969 BP CONTROLLED (<130/80) BP CONTROLLE D (<130/80) [facility] Start: 1969 HEPATITIS C SCREENING HEPATITIS C [facility] Start: 1969 Hepatitis C screening Hepatitis C [facility] Start: 1962 DTaP/Tdap/Td vaccine (1 - Tdap) DTaP/Tdap/Td vaccine (1 - Tdap) [place] Start: 1961 Lipid panel Lipid screen [place], [place] Start: 1961 Lipid screen Lipid screen [place] Start: 1951 AAA screen AAA screen [place], [place] Start: 1951 Abdominal aortic aneurysm screening [facility] Start: 1951 ABDOMINAL AORTIC ANEURYSM SCREENING ABDOMINAL AORTIC ANEURYSM SCREENING [facility] Start: 1951 Hepatitis C screen Hepatitis C [facility] [place] Start: 1951 Hepatitis C [facility] [place] End: 10-16-2019 Blood glucose - POCT Blood glucose - POCT Point of Care Testing Routine One Time for 1 Occurrences starting 10/16/2019 until 10/16/2019 [place] Comment on above: One Time for 1 Occur rences starting 10/16/2019 until 10/16/2019 End: 10-14-2019 COVID-19 COVID-19 Lab Routine One Time for 1 Occurrences starting 10/14/2019 until 10/14/2019 [place] Comment on above: One Time for 1 Occur rences starting 10/14/2019 until 10/14/2019 Initiate Oxygen Ther apy Protocol Initiate Oxygen Therapy Protocol Respiratory Care Routine Daily until discontinued starting 10/16/2019 [place] Comment on above: Daily until disconti nued starting 10/16/2019 Phase I & II - meter ed glucose Phase I & II - metered glucose Point of Care Testing Routine As Needed until discontinued starting 10/16/2019 [place] Comment on above: As Needed until disc ontinued starting 10/16/2019 End: 10-16-2019 , urine POCT , urine POCT Point of Care Testing Routine One Time for 1 Occurrences starting 10/16/2019 until 10/16/2019 [place] Comment on above: One Time for 1 Occur rences starting 10/16/2019 until 10/16/2019 SPEECH PLAN OF CARE CERTIFICATION SPEECH PLAN OF CARE CERTIFICATION Procedures Routine 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) MYASTHENIA GRAVIS ERIS on CPAP Vascular dementia without behavioral disturbance, psychotic disturbance, mood disturbance, or anxiety, unspecified dementia severity (HCC) Cognitive communication deficit Ordered: 08/04/[address] [facility] Work Phone: Comment on above: Ordered: 08/04/2022 Surgical Pathology Surgical Path ology Lab Routine Release Upon Ordering for 1 Occurrences starting 10/16/2019 [facility] [place] Comment on above: Release Upon Orderin g for 1 Occurrences starting 10/16/2019 [facility] Immunizations Immunization Date Immunization Notes Care Provider Ulises fong 05-11-2022 SARS-CoV-2 (COVID-19 ) [id number] GELY BLAKE [facility] 03-21-2022 influenza virus vaccine, unspecified formulation GELY BLAKE [facility] 09-23-2021 SARS-CoV-2 mRNA (fzulaeuzuex-qfty-ivumz se) vaccine GELY BLAKE [facility] 08-27-2021 SARS-CoV-2 (COVID-19 ) mRNA-1273 vaccine Tere Torres Jr. [facility] 03-14-2021 SARS-CoV-2 (COVID-19 ) mRNA BNT-162b2 vax GELY BLAKE [facility] 09-02-2020 SARS-CoV-2 (COVID-19 ) mRNA-1273 vaccine Tere Torres Jr. [facility] 08-05-2020 SARS-CoV-2 (COVID-19 ) mRNA-1273 vaccine Tere Torres Jr. [facility] 07-26-2020 SARS-CoV-2 (COVID-19 ) mRNA BNT-162b2 vax GELY BLAKE [facility] Comment on above: Result Comment: 2022: [id number] 07-04-2020 SARS-CoV-2 (COVID-19 ) mRNA BNT-162q4 vax GELY BLAKE [facility] Comment on above: Result Comment: 2022: [id number] 03-03-2020 influenza virus vaccine, unspecified formulation GELY BLAKE [facility] 02-27-2020 influenza virus vaccine, unspecified formulation Tere Torres Jr. [facility] 03-08-2017 influenza virus vaccine, unspecified formulation GELY BLAKE [facility] 03-07-2016 influenza, unspecifi ed formulation GELY BLAKE [facility] 05-10-2013 influenza virus vaccine, unspecified formulation [facility] 06-29-2012 pneumococcal polysaccharide vaccine, 23 valent [facility] 04-11-2012 influenza virus vaccine, unspecified formulation [facility] NEGATED: Highlighted row has not occurred!07-04-2023 influenza virus vaccine, unspecified formulation Cliff JESSICA [facility] Payers Date Payer Category Payer Medicare [id number] 2017 Private Health Insurance [facility] AARP SUPPLEMENT [id number] 2017-Present [phone] [address] [place] [address] Indemnity [id number] 2017 Private Health Insurance [facility] AARP SUPPLEMENT [id number] 2017-Present [phone] [address] [place] [address] Indemnity [id number] 2016 Medicare MEDICARE MEDICAR E A AND B [id number] 2016-Present [phone] [address] [address] [place] [address] Medicare [id number] 2016 Medicare MEDICARE MEDICAR E A AND B [id number] 2016-Present [phone] [place] [address] Medicare [id number] 1959 Medicare [id number] 1959 Private Health Insurance [id number] 1959 Self-pay 1950 Unknown [id number] 2.16.840.1.770961.3.579.2 .175 1951 Unknown [id number] 2.16.840.1.274607.3.579.2 .175 1951 Unknown [id number] 2.16.840.1.663008.3.579.2 .177 1951 Unknown [id number] 2.16.840.1.121004.3.579.2 .593 1951 Unknown [id number] 2.16.840.1.790781.3.579.2 .593 1951 Unknown [id number] 2.16.840.1.406751.3.579.2 .593 1951 Unknown [id number] 2.16.840.1.427782.3.579.2 .593 1951 Unknown [id number] 2.16.840.1.116319.3.579.2 .593 1951 Unknown [id number] 2.16.840.1.161090.3.579.2 .593 1951 Unknown [id number] 2.16.840.1.946419.3.579.2 .593 1951 Unknown [id number] 2.16.840.1.438254.3.579.2 .593 1951 Unknown [id number] 2.16.840.1.127954.3.579.2 .356 1951 Unknown [id number] 2.16.840.1.296586.3.579.2 .356 1951 Unknown [id number] 2.16.840.1.800270.3.579.2 .356 1951 Unknown [id number] 2.16.840.1.171396.3.579.2 .356 1951 Unknown [id number] 2.16.840.1.943632.3.579.2 .1259 1951 Unknown [id number] 2.16.840.1.347456.3.579.2 .1244 1951 Unknown [id number] 2.16.840.1.875791.3.579.2 .1244 1951 Unknown [id number] 2.16.840.1.383583.3.579.2 .1244 1951 Unknown [id number] 2.16.840.1.465222.3.579.2 .727 1951 Unknown [id number] 2.16.840.1.975844.3.579.2 .727 1951 Unknown [id number] 2.16.840.1.980260.3.579.2 .727 1951 Unknown [id number] 2.16.840.1.937058.3.579.2 .727 1951 Unknown [id number] 2.16.840.1.587023.3.579.2 .727 1951 Unknown [id number] 2.16.840.1.586046.3.579.2 .727 Medicare [id number] Unknown Unknown [id number] 2.16.840.1.042887.19 Social History Date Type Detail Facility Start: 07-31-2019 End: 07-04-2023 Tobacco smoking status NHIS Former smoker [facility] End: 05-29-1990 History of tobacco use Current smoker [place] End: 05-29-1990 History of tobacco use Cigar [place] Start: 07-31-2019 End: 01-11-2023 Alcohol intake Current drinker of alcohol (finding) [place] Start: 07-17-2019 History SDOH Alcohol Frequency 3 [place] Start: 07-31-2019 Alcohol Comment Occas beer [place], [place] Start: 1950 Sex Assigned At Not on file [place], [place] Exposure to SARS-CoV -2 (event) Unable to assess [place] Start: 07-26-2019 End: 10-07-2022 Retired Retired [facility] Start: 10-01-2020 Tobacco smoking status Never s moked tobacco (finding) [facility] Tobacco smoking status Never [facility] [place] Start: 07-26-2019 End: 10-07-2022 Sex Assigned At Male [facility] Baljinder Diaz Other Start: 10-11-2021 End: 04-29-2022 Exposure to SARS-CoV-2 (event) Not sure [facility] Start: 04-04-2012 End: 04-27-2022 Tobacco use and exposure Smokeless tobacco non-user [facility] Medical Equipment Procedure Code Equipment Code Equipment Origin al Text Equipment Identifier Dates Drug Renick Unilet Lancets 28G use to test BLOOD SUGAR DAILY Quantity: 100 Refills: 0 Start : 15-Mar-2016 Active Start: 03-15-2016 True Metrix Bloo d Glucose Test In Vitro Strip use to test BLOOD SUGAR EVERY DAY Quantity: 100 Refills: 0 Start : 31-Mar-2016 Active Start: 03-31-2016 Graft Bn Infs Rgbmp Lg Kt Cspn - [id number] Start: 04-10-2012 Zzq-Un-V-Kind Implant - [id number] Start: 04-10-2012 Comment on above: Description: taryn scr ew [id number] Michael Taryn 3 Ti - [id number] Start: 04-10-2012 Comment on above: Description: Michael s Jep-Ul-X-Kind Implant - [id number] Start: 04-10-2012 Comment on above: Description: taryn maloney ew 8.5x50mm Yzy-Bz-X-Kind Implant - [id number] Start: 04-10-2012 Comment on above: Description: Emerson 5.5 x110mm Kmb-Xy-P-Kind Implant - [id number] Start: 04-10-2012 Comment on above: Description: Emerson 5.5 x120mm Xtq-Gz-U-Kind Implant - [id number] Start: 04-10-2012 Comment on above: Description: screw 6 .[id number] Jof-Aq-N-Kind Implant - [id number] Start: 04-10-2012 Comment on above: Description: screw 7 .[id number] Hmq-Tm-K-Kind Implant - [id number] Start: 04-10-2012 Comment on above: Description: neutral offset Screw Taryn 3 Ti P a 5.5x50 Mm - [id number] Start: 04-10-2012 Functional Status Date Assessment Result Facility 07-11-2023 Functional Status N/A [facility] 06-06-2023 Functional Status N/A [facility] 11-15-2022 Functional Status N/A [facility] 09-06-2022 Functional Status N/A [facility] 06-07-2022 Functional Status N/A [facility] NEGATED: Highlighted row Functional performance Functional status health issues are not documented Disease ID-Zvbjjpffxpzza-Kip tlake B102 Work Phone: Mental Status Date Assessment Result Facility NEGATED: Highlighted row Cognitive function [Interpretation] Cognitive status health issues are not documented Disease XD-Jcaxcyunukqjj-Kx [place] B[address] Work Phone: Clinical Notes 06-25-2012 to 07-11-2023 Patient InstructionsViky Carias LPN - 01/11/2023 12:53 PM Chandni Guerrero APRN.CNP - 01/11/2023 12:33 PM EDTTelephone Encounter - Daysi Uribe MD - 12/05/2022 12:13 PM EDT Note Date & Type Note Facility 07-11-2023 Note [id number] [facility] 07-11-2023 Hospital Discharge instructions Patient Education 07/11/2023 11:42:53 EU - Cystoscopy Discharge Instructions (CUSTOM) Cystoscopy Voiding after the procedure: there may be some pain, burning, urgency, frequency and blood tinged urine following the procedure. These symptoms usually resolve within 2-5 days. Drink the amount of fluid it takes to keep the urine pink to yellow or clear in color. Drinking enough water and fluids will help to ease any discomfort after your procedure. If you are having problems that seem out of the ordinary, please call. If unable to contact your physician and you feel it is an emergency, go to the nearest emergency room or call 911 Diet you may resume your normal diet. Activity you may resume your normal activities Call if you have a fever over 100 degrees. Follow Up Care 06/12/2023 14:24:51 With:Cliff JESSICA Address: [facility] [address] [place] [address]- Business (1) When:10/09/2023 11:42:33 Comments:With a PVR bladder scan [facility] 07-11-2023 Note Custom Cystoscopy ? Voiding after the procedure: there may be some pain, burning, urgency, frequency and blood tinged urine following the procedure. These symptoms usually resolve within 2-5 days. Drink the amount of fluid it takes to keep the urine pink to yellow or clear in color. Drinking enough water and fluids will help to ease any discomfort after your procedure. ? If you are having problems that seem out of the ordinary, please call. ? If unable to contact your physician and you feel it is an emergency, go to the nearest emergency room or call 911 ? Diet ? you may resume your normal diet. ? Activity ? you may resume your normal activities ? Call if you have a fever over 100 degrees. [facility] 07-04-2023 Note Chief Complaint consultation for positive [...] Low Risk, 06/25/2019 (more content not included)... [facility] Comment on above: Result Comment: Elec tronically Signed By: Leighton MARIE MD\Date and Time Signed: 07/04/23 13:44 EST 06-06-2023 [...] including vitamins, herbs, eye drops, creams, and ackm-zqu-lwzhcpg medicines. Any problems you or family members [...] provider tells you to take them. Taking zqdh-hcp-uqyescw medicines, vitamins, herbs, and supplements. Tests You [...] Follow these instructions at home: Medicines Take feuu-wwe-fppcobl and prescription medicines only as told by [...] provider. Document Revised: 01/26/2022 Document Reviewed: 12/25/2020 [employer] Patient Education 2022 [employer]. Follow Up Care 06/05/2023 15:22:42 With:ARACELY MARTINEZ, Cliff Manuel, URL Address: [address] [place] [address]- When: Unknown [facility] 06-06-2023 Note Urology Cystoscopy Cystoscopy is a [...] including vitamins, herbs, eye drops, creams, and bdde-qrf-phfycwx medicines. ? Any problems you or family [...] tells you to take them. ? Taking andh-bkw-umbrvwx medicines, vitamins, herbs, and supplements. Tests You [...] these instructions at home: Medicines ? Take yend-nvu-xifuqcb and prescription medicines only as told by [...] the department th (more content not included)... [facility] 01-11-2023 Note HNO ID: [id number] Author: Chandni Metzger APRN.[facility] Service: ? Author Type: Nurse Practitioner Type: Progress Notes Filed: 01/17/2023 1:01 PM Note Text: [facility] - Follow-up Visit Date: January [...] this [place] 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 [facility] 01-11-2023 Instructions Chandni Metzger APRN.[facility] - 01/11/2023 1:38 PM EDT PLAN: -Wear [...] cards Brain games or apps such as [employer] Puzzles, word jumble games Hobbies Listening to [...] gardening, knitting, etc. documented in this encounter [facility] 01-11-2023 Nurse Note Ron Welch is a 72 year old year old man accompanied by: spouse. Do you have any changes or new concerns you would like to address at the visit today? No new issues or concerns. Vital Signs: BP 152/79 Pulse (!) 56 Wt 101.2 kg (223 lb) BMI 35.99 kg/m documented in this encounter [facility] 01-11-2023 History of Present illness Narrative Images from the original note were not included. [facility] - Follow-up [...] this [place] going [place]. Driving golf carts in controlled area, did [...] cards Brain games or apps such as [employer] Puzzles, word [employer]le games Hobbies Listening to music, going to [...] which included preparing to see the patient, amsw-gn-chre patient care, obtaining and/or reviewing separately obtained history, and counseling and educating the patient/family/caregiver. Chandni Metzger APRN.[facility] 01/11/2023 12:33 PM CC: Referring Physician: MARJORIE PCP: Guevara Mackay [address] [place] [address] Patient Entered Data: Patient-Reported No flowsheet data [...] flowsheet data found. documented in this encounter [facility] 12-05-2022 Miscellaneous Notes The following approved medication requests have been transmitted electronically. Requested Prescriptions Signed Prescriptions Disp Refills azaTHIOprine (IMURAN) 50 mg tablet 180 tablet 3 Sig: Take 1 tablet by mouth twice daily. Authorizing Provider: DAYSI URIBE MD documented in this encounter [facility] 11-15-2022 Hospital Discharge instructions Patient Education 11/15/2022 [...] Follow these instructions at home: Medicines Take rfrq-vqe-mrmqdlv and prescription medicines only as told by [...] provider. Document Revised: 08/11/2021 Document Reviewed: 08/11/2021 [employer] Patient Education 2022 [employer]. Follow Up Care 09/06/2022 13:43:11 With:REEMA CRUM, GELY Ch, URL Address: [place] [address] Business (1) When: only if needed [facility] [employer] 10-07-2022 Note HNO ID: [id number] Author: Chandni Metzger APRN.LAUNDERETTE ATTENDANT Service: ? Author Type: Nurse Practitioner Type: Progress Notes Filed: 10/13/2022 12:33 PM Note Text: [facility] - Follow-up Visit [...] memory, processing spe (more content not included)... [facility] 10-07-2022 Instructions Chandni Metzger APRN.[facility] - 10/07/2022 1:55 PM EDT PLAN: -Try [...] gardening, knitting, etc. documented in this encounter [facility] 10-07-2022 Nurse Note Ron Welch is a [...] BMI 35.83 kg/m documented in this encounter [facility] 10-07-2022 History of Present illness Narrative Images from the original note were not included. [place] [facility] - Follow-up [...] cards Brain games or apps such as Wik[employer] Puzzles, word [employer]le games Hobbies Listening to music, going to concerts (if able) Going to art [employer] and galleries -Get good sleep. Sleep is [...] which included preparing to see the patient, cruz-rz-wjae patient care, obtaining and/or reviewing separately obtained history, counseling and educating the patient/family/caregiver, and communicating results to the patient/family/caregiver. Chandni Metzger APRN.[facility] 10/07/2022 1:15 PM CC: Referring Physician: Chandni Metzger [id number] [facility] [id number] PCP: Guevara Mackay [address] [place] [phone] Patient Entered Data: Patient-Reported No flowsheet data [...] flowsheet data found. documented in this encounter [facility] 09-06-2022 Hospital Discharge instructions Patient Education 09/06/2022 [...] nerve stimulation). For women, using a medical massage therapist to prevent urine leaks. This is a [...] right after experiencing incontinence. General instructions Take obcj-hqv-ysfjjew and prescription medicines only as told by [...] 06/22/2005 Document Revised: 05/25/2018 Document Reviewed: 08/24/2017 [employer] Patient Education 2020 [employer]. Follow Up Care 06/07/2022 10:48:01 With:REEMA CRUM, GELY Ch, URL Address: [facility] [address] [facility] [place] [address] When: Unknown [facility] 08-04-2022 Note HNO ID: [id number] Author: Lauren Lamas MD Service: ? Author [...] He is to return to see our [facility] MARYANN as planned. [facility] 08-04-2022 Note HNO ID: [id number] Author: Love Toure CCC-CORPORATE BUYER Service: ? Author Type: Speech Language Pathologist Type: Progress Notes Filed: 08/04/2022 3:38 PM Note Text: Episode Visit Count: 1 Therapist That Will Accept/Oversee The Plan Of Care: Love Toure MA CCC-CORPORATE BUYER Start of Care Date: 08/04/22 Onset Date: 07/08/22 Plan of Care Certification Date: 08/04/22 Next Certification Due Date: 08/04/22 Patient Identified by Name and Date of : Yes [facility] TH[facility] COGNITIVE LINGUISTIC EVALUATION PLAN OF CARE: Impression: Communication deficits identified: Cognitive deficits RECOMMENDATION: 1.) Outpatient speech therapy recommended for cognitive-linguistic re-education. Patient plans to receive services closer to home. 2.) Initiate home exercise program: -implement external memory strategies, such as: use of sticky notes, calendar/program planner, timer/alarm, etc. To facilitate improved recall [...] Sustained Memory Deficits: Functional, Short Term, Immediate, Equine Vet Executive Function Deficits: Math Calculations, Time/Money Management, [...] Average *There i (more content not included)... [facility] 08-04-2022 Note HNO ID: [id number] Author: YONATAN Frances Service: ? Author Type: Building Manager Type: Progress Notes Filed: 08/04/2022 2:05 PM Note Text: SOCIAL WORK NOTE Ron Welch [address] [place] [id number] INFORMATION/REFERRAL: Referral Source: Lauren Lamas MD Pt [...] communication and sundowning at length. INTERVENTION/PLAN: -Discussed CARBIDE POWDER PROCESSOR supportive role/availability as member of [facility] care team. -Supportive counseling offered [...] For assistance navigating local resources such as engine assembly supervisor care/caregiver support contact The Area Office on Aging. -Private Duty Home Health Agencies can provide supportive services. These services may include companionship, assistance with meals, medication management, maintenance mechanic 2nd shift, transportation and personal care if needed. Services are typically an out of pocket expense. Some long-term care policies or VA benefits may offer reimbursement for services. Local resources provided. [facility] can assist with meals, transportation, home maintenance and activities. Tel: -Obtained copy of pt's healthcare advance directives, Will be faxed to HIM to add to EMR. IMPRESSION: Pleasant 72 year old year old patient. Pt and family appear able and motivated to follow up on recommendations as discussed. CARBIDE POWDER PROCESSOR will remain available to address any questions/concerns. Contact information was provided. I spent a total of 40 minutes with the patient. Social work assessment/interventions rendered under the supervision of Dr. Hyacinth Bernal. YONATAN Frances [place] [facility] 08-04-2022 History of Present illness Narrative [...] He is to return to see our [facility] MARYANN as planned. documented in this encounter [facility] 08-04-2022 History of Present illness Narrative Episode Visit Count: 1 Therapist That Will Accept/Oversee The Plan Of Care: Love Toure MA [facility]-CORPORATE BUYER Start of Care Date: 08/04/22 Onset Date: 07/08/22 Plan of Care Certification Date: 08/04/22 Next Certification Due Date: 08/04/22 Patient Identified by Name and Date of : Yes [facility] COGNITIVE LINGUISTIC EVALUATION PLAN OF CARE: Impression: Communication deficits identified: Cognitive deficits RECOMMENDATION: 1.) Outpatient speech therapy recommended for cognitive-linguistic re-education. Patient plans to receive services closer to home. 2.) Initiate home exercise program: -implement external memory strategies, such as: use of sticky notes, calendar/program planner, timer/alarm, etc. To facilitate improved recall [...] Sustained Memory Deficits: Functional, Short Term, Immediate, Equine Vet Executive Function Deficits: Math Calculations, Time/Money Management, [...] Eval Sound Production with Language Expression and Quality Assurance Representative ([id number]) Speech/Language Therapy ([id number]): Skilled Intervention: reviewed results of evaluation with patient/spouse; provided recommendations related to treatment/plan of care, compensatory strategies, and home programming; assessed the type/frequency of supports required to facilitate accurate return demonstration of information. Current Home Program: see recommendations Billing: Eval Sound Production with Language Expression and Quality Assurance Representative ([id number]) and Speech Treatment ([id number]) Total time / Length of visit: 45 minutes Love Toure CCC-CORPORATE BUYER documented in this encounter [facility] 08-04-2022 Instructions YONATAN Frances - 08/04/2022 1:37 [...] hours a day, 7 days per week: [phone]. Call Help Line to learn of local options for support groups and to register. Family Caregiver [place] (web site: Caregiver.org) A [employer] a secure online solution for quality information, [...] assisted living. The Veterans Service Commission of [facility] is an organization that can give information regarding this benefit. Their number is: [phone]. [facility] Service Commission [address] [place] [address] [place] [address] For assistance navigating local resources such as engine assembly supervisor care/caregiver support: The [facility] Office on Aging [address] [place] [address] Private Duty Home Health Agencies can provide supportive services. These services may include companionship, assistance with meals, medication management, maintenance mechanic 2nd shift, transportation and personal care if needed. Services [...] the minimum amount of hours they require. [facility] can assist with meals, transportation, home maintenance and activities. Tel: Please feel free to call or schedule a follow up visit with any questions or concerns. THOMAS Frances LISW Lou Ruvo [place] [facility] [phone] documented in this encounter [facility] 08-04-2022 History of Present illness Narrative Images from the original note were not included. SOCIAL WORK NOTE Rno Welch [address] [place] [id number] INFORMATION/REFERRAL: Referral Source: Lauren Lamas MD Pt [...] communication and sundowning at length. INTERVENTION/PLAN: -Discussed CARBIDE POWDER PROCESSOR supportive role/availability as member of [facility] care team. -Supportive counseling offered [...] For assistance navigating local resources such as engine assembly supervisor care/caregiver support contact The Area Office on Aging. -Private Duty Home Health Agencies can provide supportive services. These services may include companionship, assistance with meals, medication management, maintenance mechanic 2nd shift, transportation and personal care if needed. Services are typically an out of pocket expense. Some long-term care policies or VA benefits may offer reimbursement for services. Local resources provided. [facility] Action [facility] can assist with meals, transportation, home maintenance and activities. Tel: -Obtained copy of pt's healthcare advance directives, Will be faxed to HIM to add to EMR. IMPRESSION: Pleasant 72 year old year old patient. Pt and family appear able and motivated to follow up on recommendations as discussed. CARBIDE POWDER PROCESSOR will remain available to address any questions/concerns. Contact information was provided. I spent a total of 40 minutes with the patient. Social work assessment/interventions rendered under the supervision of Dr. Hyacinth Bernal. YONATAN Frances [facility] documented in this encounter [facility] 07-20-2022 Miscellaneous Notes RMK, Pt to saw Dr. Lauren Lamas at [facility] for cognitive issues. Was dx with [...] RN, BSN, BA documented in this encounter [facility] 07-08-2022 Note HNO ID: [id number] Author: Lauren Lamas MD Service: ? Author Type: Physician Type: Progress Notes Filed: 07/08/2022 5:13 PM Note Text: [facility]rology Return, [facility] Ron Welch is a [...] request for BiPAP download; DME: Bettie Bone [phone] Encourage regular physical and mental activity His [...] have conveyed the information to patient via [employer], and recommended him to follow up with [...] 0 0 Tr (more content not included)... [facility] 06-17-2022 Note HNO ID: [id number] Author: RT Sara(R) Service: Radiology Author Type: [...] RT Sara(R) June 17, 2022 2:[address] [facility] 06-17-2022 History of Present illness Narrative [...] 2022 2:27 PM documented in this encounter [facility] 06-17-2022 Note HNO ID: [id number] Author: Araseli Camacho, PhD Service: ? 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 The assessment consisted of a [...] has has put his clothes on backwards. Face Cleaner: Historically managed by his . He previously [...] WHOLE BRAIN VOLU (more content not included)... 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 The assessment consisted of a [...] has has put his clothes on backwards. Face Cleaner: Historically managed by his . 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 Family: The patient is and has 2 step-children. Living situation: Lives with his . BEHAVIORAL OBSERVATIONS: The patient was accompanied by his , Hyacinth. He was oriented to person, date, past/current president, and aspects of place. However, he incorrectly listed the day as Monday for Monday and the current city as [facility]; however, he listed the current location as [facility]. With glasses and hearing aids, vision and [...] Ph.D. Staff Neuropsychologist Time testing and scoring (associate manager): 3 hours Time completing additional tests, analyzing, interpreting and incorporating other available medical information, clinical data review, and report writing (by neuropsychologist): 3 hours Tests Administered: Nash Anxiety Inventory Nash Depression Inventory Spelter Naming Test Brief Visuospatial Memory Test-Revised DKEFS Subtests: Color-Word Interference, Verbal Fluency Rucker Verbal Learning Test Judgment of Line Orientation- Short Form Woody Complex Figure [place] Making Test WAIS-IV subtests: Coding, Digit Span, Matrix Reasoning, Similarities WMS-IV Logical Memory WRAT-IV Reading documented in this encounter [facility] 06-07-2022 Hospital Discharge instructions Patient Education 06/07/2022 [...] 05/01/2013 Document Revised: 01/02/2019 Document Reviewed: 01/02/2019 [employer] Patient Education 2020 Curverider. Follow Up Care 09/28/2021 11:41:06 With:REEMA CRUM, GELY Ch, URL Address: [address] [place] [address] When:3 months Comments:Travis f/u [facility] 05-12-2022 History of Present illness Narrative We [...] We will send patient a message via [employer]. documented in this encounter [facility] 05-03-2022 Miscellaneous Notes Images from the original note were not included. documented in this encounter [facility] 04-29-2022 Miscellaneous Notes Images from the original note were not included. Requested download from [employer] to be faxed to office. documented in this encounter [facility] 04-27-2022 Instructions Kaleigh Lance MD - 04/27/2022 4:27 PM EST Continue Mestinon and Azathioprine (Imuran) as prescribed. Referral placed for neuropsychology testing and [facility]. Follow up in 9 months. documented in this encounter [facility] 04-27-2022 History of Present illness Narrative Myasthenia [...] remember which friends have . He had Ibelemd testing in 2020, which showed 93% likelihood [...] n.) 5/5 5/5 Triceps (C6-8, Radial n.) 5/ 5/5 Wrist extensors (C6-8, Radial n.) 5/ 5/5 Wrist flexors (C6-7, Median/Ulnar n.) 5/ 5/5 Digit Extensors (C6-8, Radial n.) 5/ 5/5 Digit flexors (C7-T1) 5/ 5/5 Finger abductors (C8, T1) / 5/5 Hip Flexors / 5/5 Hip Extensors / 5/5 Knee Flexion / 5/5 Knee Extension / 5/5 Foot Dorsiflexion 09/30 5/5 Foot Plantarflexion / 5/5 Ankle Eversion / 5/5 Ankle Inversion / 5/ Reflexes: Muscle (Innervation) Left Right Biceps 1+ 0 Triceps 0 0 Brachioradialis 0 0 Patellar tendon 2+ 2+ Ankle 2+ 2+ Cerebellar testing: Wynnav-rx-Cjrj: No dysmetria Ffic-ih-Vsmu: Deferred Gait: Ability to rise from chair unassisted Normal-based, slightly spastic gait Can walk on heels and toes, but unable to tandem walk Sensory Examination: Light touch: Intact in all extremities Pinprick: Intact in all extremities Vibration: Intact in all extremities Temperature: Intact in all extremities Proprioception: Intact in all extremities Romberg: Negative A/P: Ron Moyer Yuri is a 72 year-old man with antibody-positive [...] changes. Will refer for neuropsych testing and [facility] consult as copper supplementation has not improved cognitive issues. Follow up in late summer 2022, then annually. Daysi Uribe MD documented in this encounter [facility] 04-15-2022 Miscellaneous Notes The following approved medication requests have been transmitted electronically. Requested Prescriptions Signed Prescriptions Disp Refills pyridostigmine (MESTINON) 60 mg tablet 90 tablet 11 Sig: Take 1 tablet by mouth three times daily. Authorizing Provider: DAYSI URIBE MD documented in this encounter [facility] 11-23-2021 Miscellaneous Notes ' documented in this encounter [facility] 10-21-2021 History of Present illness Narrative Myasthenia [...] Daysi Uribe MD documented in this encounter [facility] 10-21-2021 History of Present illness Narrative UNIVERSAL [...] applicable. Carol Pepe documented in this encounter [facility] 09-28-2021 Hospital Discharge instructions Patient Education 09/28/2021 [...] urethra. Follow these instructions at home: Take rpwt-ioy-ibowxjz and prescription medicines only as told by [...] 05/15/2006 Document Revised: 04/09/2019 Document Reviewed: 06/19/2017 [employer] Patient Education 2020 Curverider. Follow Up Care 05/13/2021 15:40:48 With:Brian Claire MD, Tere Moyer [facility] Address: [facility] [address] [place] [address]- When:03/31/2022 Comments:with PSA [facility] 09-28-2021 Miscellaneous Notes Mailed patient letter requesting [...] we can find for GP New Consult. Electronically signed by Jihan Rose [employer] [facility] at 08/09/2021 1:40 PM EDT Given this is dr herzog patient we can see him either me or [facility] had patients call to set up appointment with you. I can find no testing and questionnaire states no testing can your review and advise? Electronically signed by Jihan Rose [employer] [facility] at 08/06/2021 2:45 PM EST Summary: PSR Questionnaire Referring Physician: Dr Kaleb [...] G/J Tube?No Preferred phone number for contact: [phone] - Ting documented in this encounter [facility] 09-08-2021 Evaluation note Encounter Date Diagnosis Assessment Notes Aug, Gastroparesis (ICD-10 - K31.84) Aug, Gastroesophageal reflux disease with esophagitis without hemorrhage (ICD-10 - K21.00) Aug, Myasthenia gravis (ICD-10 - G70.00) Aug, Other START TRIAL OF CARAFATE 1 GRAM QID GASTRIC EMPTYING STUDY FU HERE AFTER [employer] Other 01-28-2013 History of Past illness Narrative* [...] of this encounter (statuses as of 10/21/2021) [facility] History of Past illness Narrative* Problem Noted [...] of this encounter (statuses as of 10/21/2021) [facility] History of Past illness Narrative* Problem Noted [...] of this encounter (statuses as of 11/23/2021) [facility] History of Past illness Narrative* Problem Noted [...] of this encounter (statuses as of 02/02/2022) [facility] History of Past illness Narrative* Problem Noted [...] of this encounter (statuses as of 04/15/2022) [facility] History of Past illness Narrative* Problem Noted [...] of this encounter (statuses as of 04/28/2022) [facility] History of Past illness Narrative* Problem Noted [...] of this encounter (statuses as of 04/29/2022) [facility] History of Past illness Narrative* Problem Noted [...] of this encounter (statuses as of 05/03/2022) [facility] History of Past illness Narrative* Problem Noted [...] of this encounter (statuses as of 05/12/2022) [facility] History of Past illness Narrative* Problem Noted [...] of this encounter (statuses as of 06/18/2022) [facility] History of Past illness Narrative* Problem Noted [...] of this encounter (statuses as of 06/24/2022) [facility] History of Past illness Narrative* Problem Noted [...] of this encounter (statuses as of 07/21/2022) [facility] History of Past illness Narrative* Problem Noted [...] of this encounter (statuses as of 08/04/2022) [facility] History of Past illness Narrative* Problem Noted [...] of this encounter (statuses as of 08/04/2022) [facility] History of Past illness Narrative* Problem Noted [...] of this encounter (statuses as of 08/04/2022) [facility] History of Past illness Narrative* Problem Noted [...] of this encounter (statuses as of 10/07/2022) [facility] History of Past illness Narrative* Problem Noted [...] of this encounter (statuses as of 12/05/2022) [facility] History of Past illness Narrative* Problem Noted [...] of this encounter (statuses as of 01/17/2023) [facility] History of Past illness Narrative* Problem Noted [...] 09:45:00 AM Scheduled Provider:Tere Torres Jr., MD Location:[facility] Appointment Type:URO Office Visit Diagnostic Tests Pending * PSA Total 09/28/21 [facility] evaluation + Plan note Future Appointments Appointment Date:09/06/2022 01:00:00 PM Scheduled Provider:GELY BLAKE PA-C Location:[facility] Appointment Type:URO Office Visit Diagnostic Tests Pending * PSA Total 06/07/22 [facility] evaluation + Plan note Future Appointments Appointment Date:11/15/2022 01:00:00 PM Scheduled Provider:GELY BLAKE PA-C Location:[facility] Appointment Type:URO Office Visit [facility] evaluation + Plan note Future Appointments Appointment Date:07/04/2023 01:20:00 PM Scheduled Provider:Leighton MARIE MD Location:[facility] Appointment Type:[place] [id number] [facility] evaluation + Plan note Future Appointments Appointment Date:10/09/2023 11:45:00 AM Scheduled Provider:Cliff JESSICA MD Location:[facility] Appointment Type:URO Office Visit [facility] note* Diagnosis [facility]aresis- [facility]- Primary [facility] Diagnosis Disorder of autonomic nervous system- Primary Unspecified disorder of autonomic nervous system [facility]* Diagnosis Myasthenia gravis (HCC) Myasthenia gravis without exacerbation [facility] Diagnosis Myasthenia gravis (HCC)- Primary Myasthenia gravis without exacerbation Memory loss [facility] in [facility] Diagnosis MYASTHENIA GRAVIS Myasthenia gravis with exacerbation 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 [294.9AL] Unspecified persistent mental disorders due to conditions classified elsewhere Obstructive sleep apnea Obstructive sleep apnea (adult) (pediatric) [facility] Diagnosis Major neurocognitive disorder (HCC)- Primary Unspecified persistent mental disorders due to conditions classified elsewhere Obstructive sleep apnea Obstructive sleep apnea (adult) (pediatric) MYASTHENIA GRAVIS Myasthenia gravis with exacerbation Depression, unspecified depression type [facility]* Diagnosis 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)- Primary Other persistent mental disorders due to conditions classified elsewhere [facility] Diagnosis 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)- Primary Other persistent mental disorders due to conditions classified elsewhere [facility] Cognitive communication deficit- Primary 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) Other persistent mental disorders due to conditions classified elsewhere MYASTHENIA GRAVIS Myasthenia gravis with exacerbation ERIS on CPAP Obstructive sleep apnea (adult) (pediatric) Vascular dementia without behavioral disturbance, psychotic disturbance, mood disturbance, or anxiety, unspecified dementia severity (HCC) documented [facility]* Diagnosis 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 MYASTHENIA GRAVIS Myasthenia gravis with exacerbation ERIS on CPAP Obstructive sleep apnea (adult) (pediatric) 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) Other persistent mental disorders due to conditions classified elsewhere [facility] Diagnosis Myasthenia gravis (HCC) Myasthenia gravis without exacerbation [facility] Diagnosis 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 ERIS on CPAP Obstructive sleep apnea (adult) (pediatric) documented in this encounter [facility] general Narrative - Reported* Type Description Date Medical History HTN (hypertension) Medical History Hypercholesteremia Medical History Seasonal allergies Medical History OAB (overactive bladder) Medical History Glaucoma Surgical History cancer Surgical History knee replacement Surgical History heart surgery due to cancer pérez or removal Hospitalization History see above [facility] Other Hospital course Narrative No data available for this section [facility] progress note No data available for this section [facility] Discharge Instructions * Instructions* Karen Murphy RN - 07/31/2019 Nothing to eat or drink [...] Dr Fenton. [facility] stay in [facility].Report to [facility] Luis F johnson [facility] 7:00 AM on August 13. documented [...] Fenton in 10-14 days after surgery, call [phone] to schedule an appointment. documented in this encounter Advance Directives No Advanced Directives Records FoundDocuments on File Type Date Recorded Patient Rn Practitioner Expl anation Advance Directives and Living Will Power of Tile Shader Documents on File Type Date Recorded Patient Rn Practitioner Expl anation Advance Directives and Living Will Power of Tile Shader History of Present Illness * Karen Murphy RN - 10/02/2019 12:48 PM EDT PAT interview done;old history reviewed & pt reports no changes.Instr on Covid swab testing at [facility] on 10-14-19 at 0915. Instr on NPO [...] dose, Starting on Mon07/14/21 at 1439, Until Mon10/21/21 at 0945, Protect from Light. Refrigerate Given 10/21/2021 9:45 AM EDT 20 mL Reason for Referral Specialty Diagnoses / Procedures Referred By Contac t Referred To Contact MR IMAGING Diagnoses Myasthenia gravis with exacerbation (HCC) Cognitive dysfunction Obstructive sleep apnea Procedures MRI 3D POST PROCESSING 3D RENDERING W/INTERP&POSTPROC DIFF WORK STATION Lauren Lamas MD [address] [employer] [place] [id number] Mr Imaging Referral ID Status Reason Start Date Expiration Date V isits Requested Visits Authorized [id number] Closed Auto-Generate d Referral 04/29/2022 05/29/2023 1 1 Specialty Diagnoses / Procedures Referred By Contac t Referred To Contact MR IMAGING Diagnoses Myasthenia gravis with exacerbation (HCC) Cognitive dysfunction Obstructive sleep apnea Procedures MRI BRAIN W QUANT WO IVCON MRI BRAIN BRAIN STEM W/O CONTRAST MATERIAL Lauren Lamas MD [address] [place] [id number] Mr Imaging Referral ID Status Reason Start Date Expiration Date V isits Requested Visits Authorized [id number] Closed Auto-Generate d Referral 04/29/2022 05/29/2023 1 1 Specialty Diagnoses / Procedures Referred By Contac t Referred To Contact Neurology Diagnoses Memory loss Procedures CONSULT TO NEUROLOGY OFFICE/OUTPATIENT [facility] 60-74 MINUTES Daysi Uribe MD [address] [place] [address] Referral ID Status Reason Start Date Expiration Date Visits Requested Visits Authorized [id number] Authorized PCP Requested Referral 04/27/2023 1 1 Additional Source Comments Reason for Visit (unrecogniz ed section and content) Status Reason Specialty Diagnoses / Procedures Referre d By Contact Referred To Contact Diagnoses Basal cell carcinoma of skin of nose BASAL CELL - NOSE Procedures AK OFFICE/OUTPT VISIT,PROCEDURE ONLY AK ADJ TISS XFER LID,NOS,EAR <10SQCM NASAL LESION BIOPSY EXCISION - BASAL CELL NOSE WITH FLAP CLOSURE ADN FROZEN SECTION *PATHOLOGY REQUIRED* Ángel Fenton MD [address] [place] [address] [facility] Reason Comments Procedure Reason Comments Follow Up Reason Onset Date Comments Refill Request 11/19/2021 Reason Comments Appointment Reason Onset Date Comments Refill Request 04/14/2022 Reason Comments Established 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 MSC Reason Comments PAP Therapy Follow Up DOWNLOAD Reason Comments Results BiPAP download 04/03- 05/02/2022 Specialty Diagnoses / Procedures Referred By Liliana jesus Referred To Contact MR IMAGING Diagnoses Myasthenia gravis with exacerbation (HCC) Cognitive dysfunction Obstructive sleep apnea Procedures MRI BRAIN W QUANT WO IVCON MRI BRAIN BRAIN STEM W/O CONTRAST MATERIAL Lauren Lamas MD [address] [address] Mr Imaging Referral ID Status Reason Start Date Expiration Date V isits Requested Visits Authorized [id number] Closed Auto-Generate d Referral 04/29/2022 05/29/2023 1 [...] (HCC) Procedures CONSULT TO SPEECH THERAPY OFFICE/OUTPATIENT [facility] 60-74 MINUTES Lauren Lamas MD [address] [address] [facility] [address] [place] [address] Referral ID Status Reason Start Date Expiration Date Visits Requested Visits Authorized [id number] Authorized Auto-Generat ed Referral 07/08/2022 07/08/2023 99 99 Reason Comments Established Patient Reason Onset Date Comments Refill Request 12/02/2022 (unrecognized sect ion and content) No Status Records FoundNo Status Records FoundNo Status Records FoundNo Status Records FoundNo Status Records FoundNo Status Records FoundNo Status Records FoundNo Status Records FoundNo Status Records Found INFORMATION SOURCE (unrecogn ized section and content) DATE CREATED AUTHOR [facility]/2019 [facility] DATE CREATED AUTHOR AUTHOR'S ORGANIZ ATION 10/19/2019 [facility] DATE CREATED AUTHOR AUTHOR'S ORGANIZ ATION 10/10/2022 [facility] DATE CREATED AUTHOR AUTHOR'S ORGANIZ ATION 11/06/2022 [employer] DATE CREATED AUTHOR AUTHOR'S ORGANIZ ATION 11/06/2022 [facility] DATE CREATED AUTHOR AUTHOR'S ORGANIZ ATION 05/13/[address] [facility] DATE CREATED AUTHOR AUTHOR'S ORGANIZ ATION 05/13/2023 [facility] DATE CREATED AUTHOR AUTHOR'S ORGANIZ ATION 05/20/2023 [facility] DATE CREATED AUTHOR AUTHOR'S ORGANIZ ATION 07/12/2023 [facility] Source Comments (unrecognize d section and content) In the event this informatio n is protected by the Federal Confidentiality of Alcohol and Drug Abuse Patient Records regulations: The Federal rules restrict any use of the information to criminally investigate or prosecute any alcohol or drug abuse patient.[facility] event this information is protected by the Federal Confidentiality of Alcohol and Drug Abuse Patient Records regulations: The Federal rules restrict any use of the information to criminally investigate or prosecute any alcohol or drug abuse patient.[facility] event this information is protected by the Federal Confidentiality of Alcohol and Drug Abuse Patient Records regulations: The Federal rules restrict any use of the information to criminally investigate or prosecute any alcohol or drug abuse patient.[facility] event this information is protected by the Federal Confidentiality of Alcohol and Drug Abuse Patient Records regulations: The Federal rules restrict any use of the information to criminally investigate or prosecute any alcohol or drug abuse patient.[facility] event this information is protected by the Federal Confidentiality of Alcohol and Drug Abuse Patient Records regulations: The Federal rules restrict any use of the information to criminally investigate or prosecute any alcohol or drug abuse patient.[facility] event this information is protected by the Federal Confidentiality of Alcohol and Drug Abuse Patient Records regulations: The Federal rules restrict any use of the information to criminally investigate or prosecute any alcohol or drug abuse patient.[facility] the event this information is protected by the Federal Confidentiality of Alcohol and Drug Abuse Patient Records regulations: The Federal rules restrict any use of the information to criminally investigate or prosecute any alcohol or drug abuse patient.[facility] the event this information is protected by the Federal Confidentiality of Alcohol and Drug Abuse Patient Records regulations: The Federal rules restrict any use of the information to criminally investigate or prosecute any alcohol or drug abuse patient.[facility] event this information is protected by the Federal Confidentiality of Alcohol and Drug Abuse Patient Records regulations: The Federal rules restrict any use of the information to criminally investigate or prosecute any alcohol or drug abuse patient.[facility] event this information is protected by the Federal Confidentiality of Alcohol and Drug Abuse Patient Records regulations: The Federal rules restrict any use of the information to criminally investigate or prosecute any alcohol or drug abuse patient.[facility] event this information is protected by the Federal Confidentiality of Alcohol and Drug Abuse Patient Records regulations: The Federal rules restrict any use of the information to criminally investigate or prosecute any alcohol or drug abuse patient.[facility] event this information is protected by the Federal Confidentiality of Alcohol and Drug Abuse Patient Records regulations: The Federal rules restrict any use of the information to criminally investigate or prosecute any alcohol or drug abuse patient.[facility] event this information is protected by the Federal Confidentiality of Alcohol and Drug Abuse Patient Records regulations: The Federal rules restrict any use of the information to criminally investigate or prosecute any alcohol or drug abuse patient.[facility] event this information is protected by the Federal Confidentiality of Alcohol and Drug Abuse Patient Records regulations: The Federal rules restrict any use of the information to criminally investigate or prosecute any alcohol or drug abuse patient.[facility] event this information is protected by the Federal Confidentiality of Alcohol and Drug Abuse Patient Records regulations: The Federal rules restrict any use of the information to criminally investigate or prosecute any alcohol or drug abuse patient.[facility] event this information is protected by the Federal Confidentiality of Alcohol and Drug Abuse Patient Records regulations: The Federal rules restrict any use of the information to criminally investigate or prosecute any alcohol or drug abuse patient.[facility] event this information is protected by the Federal Confidentiality of Alcohol and Drug Abuse Patient Records regulations: The Federal rules restrict any use of the information to criminally investigate or prosecute any alcohol or drug abuse patient.[facility] event this information is protected by the Federal Confidentiality of Alcohol and Drug Abuse Patient Records regulations: The Federal rules restrict any use of the information to criminally investigate or prosecute any alcohol or drug abuse patient.[facility] event this information is protected by the Federal Confidentiality of Alcohol and Drug Abuse Patient Records regulations: The Federal rules restrict any use of the information to criminally investigate or prosecute any alcohol or drug abuse patient.[facility] event this information is protected by the Federal Confidentiality of Alcohol and Drug Abuse Patient Records regulations: The Federal rules restrict any use of the information to criminally investigate or prosecute any alcohol or drug abuse patient.[facility] Care Teams (unrecognized sec tion and content) Certified Ophthalmic Assistant Relationship Specialty Start Date End Date Guevara Mackay MD [address] [place] [phone] PCP - General 09/07/00 Certified Ophthalmic Assistant Relationship Specialty Start Date End Date Guevara Mackay MD [address] [place] [address] PCP - General 09/07/00 Certified Ophthalmic Assistant Relationship Specialty Start Date End Date Guevara Mackay MD [address] [place] [address] PCP - General 09/07/00 Certified Ophthalmic Assistant Relationship Specialty Start Date End Date Guevara Mackay MD [address] [place] [address] PCP - General 09/07/00 Certified Ophthalmic Assistant Relationship Specialty Start Date End Date Guevara Mackay MD [address] [place] [address] PCP - General 09/07/00 Certified Ophthalmic Assistant Relationship Specialty Start Date End Date Guevara Mackay MD [address] [place] [address] PCP - General 09/07/00 Certified Ophthalmic Assistant Relationship Specialty Start Date End Date Guevara Mackay MD [address] [place] [address] PCP - General 09/07/00 Certified Ophthalmic Assistant Relationship Specialty Start Date End Date Guevara Mackay MD [address] [place] [address] PCP - General 09/07/00 Certified Ophthalmic Assistant Relationship Specialty Start Date End Date Guevara Mackay MD [address] [place] [address] PCP - General 09/07/00 Certified Ophthalmic Assistant Relationship Specialty Start Date End Date Guevara Mackay MD [address] [place] [address] PCP - General 09/07/00 FOR RECORDS PERTAINING [...] BE BASED ON THE PRIMARY CLINICAL RECORDS. [facility] [email or web address] [facility]. provides no warranty or guarantee of the accuracy or completeness of information in this document.
[2023-07-13 23:06] VITALS: BP 199/90; PULSE 86; RESP 16; TEMP 39.3; O2SAT 97; BMI 34.5
--- NOTE | 2023-07-13 23:47 | ED.GENADUL1 ---
HPI - General Adult General Chief complaint: Urogenital-Male Stated complaint: fever, proc tues altered Time Seen by Provider: 07/13/23 22:48 Source: patient and family Mode of arrival: Wheelchair History of Present Illness HPI narrative: This 73-year-old male with a history of urinary incontinence and dementia is brought to emergency department by his for evaluation of a fever. The patient had a cystoscopy performed by Dr. Holman 2 days ago at [facility]. He was given a doxycycline before and after the procedure, one dose each.The cystoscopy was performed to evaluate the patient's prostate and to decide what medications he should be placed on for the urinary incontinence. The patient states that throughout the day today he has become slower and appeared to be coming more confused. This evening she took his temperature and it was 101 at home. She states that the papers on the discharge instructions say to call the doctor or come to the hospital if he has a fever after the procedure. The patient has not had a cough. He denies any headache or sore throat. He has no abdominal pain. He has not had any nausea vomiting but has had some loose stool since the procedure. Related Data Home Medications Medication Instructions Recorded Confirmed azathioprine 50 mg tablet 50 mg PO .twice daily 07/11/23 07/14/23 carvedilol 12.5 mg tablet 12.5 mg PO Q12H 07/11/23 07/14/23 donepezil 10 mg tablet 10 mg PO DAILY 07/11/23 07/14/23 dorzolamide 22.3 mg-timolol 6.8 1 drp ophthalmic (eye) Q12H 07/11/23 07/14/23 mg/mL eye drops ezetimibe 10 mg tablet 10 mg PO DAILY 07/11/23 07/14/23 latanoprost 0.005 % eye drops 1 drp ophthalmic (eye) DAILY 07/11/23 07/14/23 pantoprazole 40 mg tablet,delayed 40 mg PO Q12H 07/11/23 07/14/23 release (Protonix) pyridostigmine bromide 60 mg tablet 60 mg PO Q8H PRN muscle strength 07/11/23 07/14/23 Allergies Allergy/AdvReac Type Severity Reaction Status Date / Time ciprofloxacin [From Cipro] Allergy Severe Rash Verified 07/13/23 23:16 Penicillins Allergy Severe Rash Verified 07/13/23 23:16 Review of Systems ROS Status of ROS 10 or more systems reviewed and unremarkable except as noted in history and below [facility] Medical History (Updated 07/14/23 @ 02:10 by Kellen Delong MD) Obstructive sleep apnea on CPAP ?G47.33 - Obstructive sleep apnea (adult) (pediatric) (ICD-10) Gastroenteritis ?K52.9 - Noninfective gastroenteritis and colitis, unspecified (ICD-10) Elevated PSA ?R97.20 - Elevated prostate specific antigen [PSA] (ICD-10) BPH with urinary obstruction ?N40.1 - Benign prostatic hyperplasia with lower urinary tract symptoms (ICD-10) ?N13.8 - Other obstructive and reflux uropathy (ICD-10) Basal cell carcinoma ?C44.91 - Basal cell carcinoma of skin, unspecified (ICD-10) Cardiomegaly ?I51.7 - Cardiomegaly (ICD-10) Sleep apnea ?G47.30 - Sleep apnea, unspecified (ICD-10) Myasthenia gravis ?G70.00 - Myasthenia gravis without (acute) exacerbation (ICD-10) Melanoma ?C43.9 - Malignant melanoma of skin, unspecified (ICD-10) Leukopenia ?D72.819 - Decreased white blood cell count, unspecified (ICD-10) Hyperlipemia ?E78.5 - Hyperlipidemia, unspecified (ICD-10) Hypertension ?I10 - Essential (primary) hypertension (ICD-10) Eczema ?L30.9 - Dermatitis, unspecified (ICD-10) Dementia ?F03.90 - Unspecified dementia, unspecified severity, without behavioral disturbance, psychotic disturbance, mood disturbance, and anxiety (ICD-10) Diabetes ?E11.9 - Type 2 diabetes mellitus without complications (ICD-10) Glaucoma ?H40.9 - Unspecified glaucoma (ICD-10) Hx of colonic polyp ?Z86.010 - Personal history of colonic polyps (ICD-10) Seasonal allergies ?J30.2 - Other seasonal allergic rhinitis (ICD-10) History of anal fissures ?Z87.19 - Personal history of other diseases of the digestive system (ICD-10) Surgical History (Updated 07/11/23 @ 11:17 by Donna Evans) History of arthroscopy of knee ?Z98.890 - Other specified postprocedural states (ICD-10) History of cataract extraction ?Z98.49 - Cataract extraction status, unspecified eye (ICD-10) History of basal cell carcinoma (BCC) excision ?Z98.890 - Other specified postprocedural states (ICD-10) ?Z85.828 - Personal history of other malignant neoplasm of skin (ICD-10) History of knee replacement ?Z96.659 - Presence of unspecified artificial knee joint (ICD-10) History of laminectomy ?Z98.890 - Other specified postprocedural states (ICD-10) History of melanoma excision ?Z98.890 - Other specified postprocedural states (ICD-10) ?Z85.820 - Personal history of malignant melanoma of skin (ICD-10) History of transurethral resection of prostate ?Z98.890 - Other specified postprocedural states (ICD-10) ?Z90.79 - Acquired absence of other genital organ(s) (ICD-10) History of cystoscopy ?Z98.890 - Other specified postprocedural states (ICD-10) History of esophagogastroduodenoscopy (EGD) ?Z98.890 - Other specified postprocedural states (ICD-10) History of colonoscopy ?Z98.890 - Other specified postprocedural states (ICD-10) Family History (Updated 07/14/23 @ 02:55 by Radha Martinez RN) Father Family history of stroke Family history of hypertension Mother Family history of stroke Family history of hypertension Family history of diabetes mellitus Other Family history of myocardial infarction Social History (Updated 07/11/23 @ 13:17 by Page Birmingham) Within the past year, how often did you have a drink containing alcohol: 2-4 times a month Smoking status: Former smoker Non-prescribed substance use: denies use Highest level of school completed/degree received: high school graduate Exam Narrative Exam Narrative: Nurses note and vital signs reviewed;pt is febrile with a temperature of 1-2.7, he has a normal pulse, blood pressure is elevated at 199/90, she is not hypoxic with pulse ox of 97 percent on room air General: Nontoxic male resting currently on the stretcher, no respiratory distress, he is more confused than normal according to his but answers questions appropriately Skin: Warm, dry, no pallor noted. There is no rash noted. Head: Normocephalic, atraumatic Eye: Normal conjunctiva, no drainage, EOMI. PERRL Ears, Nose, Mouth, and Throat: oral mucosa is moist. Nares patent. Mouth without vesicles. Cardiovascular: Regular Rate and Rhythm S1S2, no murmurs, rubs or gallops, pulses are brisk and equal bilaterally Respiratory: Patient is in no distress, no accessory muscle use, lungs are clear to auscultation, no wheezing, rales or rhonchi Back: non-tender, no CVA tenderness bilaterally to percussion. GI: Normal bowel sounds, no tenderness to palpation, no masses appreciated. No rebound, guarding, or rigidity noted. Musculoskeletal: The patient has no evidence of calf tenderness, no pitting edema, symmetrical pulses noted bilaterally Neurological: A&O x4, normal speech Psychiatric: Cooperative Constitutional Vital Signs, click to edit/add: Last Vital Signs Temp 98.8 F 07/14/23 02:52 Pulse 63 07/14/23 05:50 Resp 18 07/14/23 02:52 BP 126/73 07/14/23 02:52 Pulse Ox 90 L 07/14/23 02:52 O2 Del Method Room Air 07/14/23 02:52 Course Vital Signs Vital signs: Vital Signs Temperature 102.7 F H 07/13/23 23:06 Pulse Rate 86 07/13/23 23:06 Respiratory Rate 16 07/13/23 23:06 Blood Pressure 199/90 H 07/13/23 23:06 Pulse Oximetry 97 07/13/23 23:06 Oxygen Delivery Method Room Air 07/13/23 23:06 Temperature 98.8 F 07/14/23 02:52 Pulse Rate 63 07/14/23 05:50 Respiratory Rate 18 07/14/23 02:52 Blood Pressure 126/73 07/14/23 02:52 Pulse Oximetry 90 L 07/14/23 02:52 Oxygen Delivery Method Room Air 07/14/23 02:52 Medical Decision Making MDM Narrative Medical decision making narrative: 73-year-old male with a history of dementia who lives at home with his and had a cystoscopy 2 days ago is brought to the emergency department by his for evaluation of increasing confusion, generalized weakness and fever that started yesterday during the day. The patient's states that he started walking slower and becoming a little bit more confused than usual. In the evening she took his temperature and it was 101. He was given a dose of doxycycline prior to his urologic procedure on Monday and one dose of doxycycline after the procedure. The procedure was done due to a history of urinary incontinence. The emergency department the patient was noted to be febrile with a temperature of 102.7-102.9. The patient's physical exam was essentially benign. His lungs are clear, abdomen is soft, there is no skin rash, he was alert and answering questions appropriately. He does not have any neurologic deficits. An IV is established and he was medicated with IV fluids, Tylenol, ibuprofen and IV doxycycline. His white count is minimally elevated at 11.9, Lactic acid is normal. 2 sets of blood cultures are pending at this time. Electrolytes areUnremarkable with mild elevation in creatinine. This appears to be at his baseline between 1.4 and 1.6. Urine culture is pending at this time, urine is positive for 5-10 white blood cells per high-power field and moderate blood. Chest x-ray was negative for acute findings and a respiratory panel was also negative. At this point it is most likely that the patient's fever and altered mental status is related to his urinary tract/early infection however. The case was discussed with the hospitalist and the patient will be admitted for observation for IV fluids antibiotics and further evaluation. Lab Data Labs: Lab Results 07/13/23 07/13/23 07/13/23 Range/Units 00:15 23:25 23:51 WBC 11.9 H (4.0-11.0) 10^3/uL RBC 3.77 L (4.70-6.10) 10^6/uL Hgb 14.1 (14.0-18.0) g/dL Hct 41.2 L (42.0-54.0) % MCV 109.3 H (80.0-94.0) fL MCH 37.4 H (25.9-34.0) pg MCHC 34.2 (29.9-35.2) g/dL RDW 15.2 H (11.0-15.0) % Plt Count 176 (150-450) 10^3/uL MPV 11.3 (9.5-13.5) fL Neut % (Auto) 88.7 H (43.0-75.0) % Lymph % (Auto) 4.3 L (20.5-60.0) % [place] % (Auto) 6.3 (1.7-12.0) % Eos % (Auto) 0.2 L (0.9-7.0) % Baso % (Auto) 0.2 (0.2-2.0) % Neut # (Auto) 10.6 H (1.4-6.5) 10^3/uL Lymph # (Auto) 0.5 L (1.2-3.8) 10^3/uL [place] # (Auto) 0.8 (0.3-0.8) 10^3/uL Eos # (Auto) 0.0 (0.0-0.7) 10^3/uL Baso # (Auto) 0.0 (0.0-0.1) 10^3/uL Abs Immat Gran (auto) 0.04 H (0.00-0.03) 10^3/uL Imm/Tot Granulo (auto) 0.3 (0.0-0.5) % Sodium 142 (136-145) mmol/L Potassium 4.1 (3.5-5.1) mmol/L Chloride 108 H (98-107) mmol/L Carbon Dioxide 24.6 (21.0-32.0) mmol/L Anion Gap 13.5 BUN 21.0 H (7.0-18.0) mg/dL Creatinine 1.54 H (0.70-1.30) mg/dL Est GFR ( Amer) 54 L (>=60) Est GFR (Non-Af Amer) 45 L (>=60) BUN/Creatinine Ratio 13.6 Glucose 211 H (74-106) mg/dL Lactate 2.0 (0.4-2.0) mmol/L Calcium 8.7 (8.5-10.1) mg/dL Total Bilirubin 0.7 (0.2-1.0) mg/dL AST 36 (15-37) U/L ALT 17 (16-63) U/L Alkaline Phosphatase 67 (46-116) U/L Total Protein 7.7 (6.4-8.2) g/dL Albumin 3.3 L (3.4-5.0) g/dL Globulin 4.4 g/dL Albumin/Globulin Ratio 0.8 Urine Color Lt. yellow (YELLOW) Urine Clarity Clear (CLEAR) Urine pH 7.0 (5.0-9.0) Ur Specific [place] 1.025 (1.005-1.025) Urine Protein 100 A (NEG/TRACE) mg/dL Urine Glucose (UA) 100 A (NEGATIVE) mg/dL Urine Ketones Negative (NEGATIVE) mg/dL Urine Occult Blood Moderate A (NEGATIVE) Urine Nitrite Negative (NEGATIVE) Urine Bilirubin Negative (NEGATIVE) Urine Urobilinogen 1.0 (0.2-1.0) EU/dL Ur Leukocyte Esterase Trace A (NEGATIVE) Urine RBC 2-5 A (0-2) #/HPF Urine WBC 5-10 A (NONE SEEN) #/HPF Ur Squamous Epith Cells Rare (NONE/RARE) #/LPF Urine Crystals None seen (None Seen) #/HPF Urine Bacteria Small A (NONE SEEN) #/HPF Urine Casts None seen (NONE SEEN) #/LPF Urine Mucus None seen (NONE SEEN) Adenovirus (PCR) Not detected (NOT DETECTE) C. pneumoniae DNA (PCR) Not detected (NOT DETECTE) Coronavirus Type OC43 Not detected (NOT DETECTE) Coronavirus Type HKU1 Not detected (NOT DETECTE) Coronavirus Type 229E Not detected (NOT DETECTE) Coronavirus Type NL63 Not detected (NOT DETECTE) Human Metapneumovir PCR Not detected (NOT DETECTE) M. pneumoniae (PCR) Not detected (NOT DETECTE) Parainfluenza PCR Not detected (NOT DETECTE) Parainfluenza 2 (PCR) Not detected (NOT DETECTE) Parainfluenza 3 (PCR) Not detected (NOT DETECTE) Parainfluenza 4 (PCR) Not detected (NOT DETECTE) RSV (RT-PCR) Not detected (NOT DETECTE) Entero/Rhino (PCR) Not detected (NOT DETECTE) SARS-CoV-2 (PCR) Not detected (NOT DETECTE) Bordetella pertussis (PCR) Not detected (NOT DETECTE) B parapertussis DNA PCR Not detected (NOT DETECTE) Influenza Type A (PCR) Not detected (NOT DETECTE) Influenza Type B (PCR) Not detected (NOT DETECTE) 07/14/23 Range/Units 02:32 WBC (4.0-11.0) 10^3/uL RBC (4.70-6.10) 10^6/uL Hgb (14.0-18.0) g/dL Hct (42.0-54.0) % MCV (80.0-94.0) fL MCH (25.9-34.0) pg MCHC (29.9-35.2) g/dL RDW (11.0-15.0) % Plt Count (150-450) 10^3/uL MPV (9.5-13.5) fL Neut % (Auto) (43.0-75.0) % Lymph % (Auto) (20.5-60.0) % [place] % (Auto) (1.7-12.0) % Eos % (Auto) (0.9-7.0) % Baso % (Auto) (0.2-2.0) % Neut # (Auto) (1.4-6.5) 10^3/uL Lymph # (Auto) (1.2-3.8) 10^3/uL [place] # (Auto) (0.3-0.8) 10^3/uL Eos # (Auto) (0.0-0.7) 10^3/uL Baso # (Auto) (0.0-0.1) 10^3/uL Abs Immat Gran (auto) (0.00-0.03) 10^3/uL Imm/Tot Granulo (auto) (0.0-0.5) % Sodium (136-145) mmol/L Potassium (3.5-5.1) mmol/L Chloride (98-107) mmol/L Carbon Dioxide (21.0-32.0) mmol/L Anion Gap BUN (7.0-18.0) mg/dL Creatinine (0.70-1.30) mg/dL Est GFR ( Amer) (>=60) Est GFR (Non-Af Amer) (>=60) BUN/Creatinine Ratio Glucose (74-106) mg/dL Lactate 1.7 (0.4-2.0) mmol/L Calcium (8.5-10.1) mg/dL Total Bilirubin (0.2-1.0) mg/dL AST (15-37) U/L ALT (16-63) U/L Alkaline Phosphatase (46-116) U/L Total Protein (6.4-8.2) g/dL Albumin (3.4-5.0) g/dL Globulin g/dL Albumin/Globulin Ratio Urine Color (YELLOW) Urine Clarity (CLEAR) Urine pH (5.0-9.0) Ur Specific [place] (1.005-1.025) Urine Protein (NEG/TRACE) mg/dL Urine Glucose (UA) (NEGATIVE) mg/dL Urine Ketones (NEGATIVE) mg/dL Urine Occult Blood (NEGATIVE) Urine Nitrite (NEGATIVE) Urine Bilirubin (NEGATIVE) Urine Urobilinogen (0.2-1.0) EU/dL Ur Leukocyte Esterase (NEGATIVE) Urine RBC (0-2) #/HPF Urine WBC (NONE SEEN) #/HPF Ur Squamous Epith Cells (NONE/RARE) #/LPF Urine Crystals (None Seen) #/HPF Urine Bacteria (NONE SEEN) #/HPF Urine Casts (NONE SEEN) #/LPF Urine Mucus (NONE SEEN) Adenovirus (PCR) (NOT DETECTE) C. pneumoniae DNA (PCR) (NOT DETECTE) Coronavirus Type OC43 (NOT DETECTE) Coronavirus Type HKU1 (NOT DETECTE) Coronavirus Type 229E (NOT DETECTE) Coronavirus Type NL63 (NOT DETECTE) Human Metapneumovir PCR (NOT DETECTE) M. pneumoniae (PCR) (NOT DETECTE) Parainfluenza PCR (NOT DETECTE) Parainfluenza 2 (PCR) (NOT DETECTE) Parainfluenza 3 (PCR) (NOT DETECTE) Parainfluenza 4 (PCR) (NOT DETECTE) RSV (RT-PCR) (NOT DETECTE) Entero/Rhino (PCR) (NOT DETECTE) SARS-CoV-2 (PCR) (NOT DETECTE) Bordetella pertussis (PCR) (NOT DETECTE) B parapertussis DNA PCR (NOT DETECTE) Influenza Type A (PCR) (NOT DETECTE) Influenza Type B (PCR) (NOT DETECTE) ECG Data Attestation: I personally reviewed and interpreted this ECG as follows: (Sinus rhythm at 78 bpm, moderate ST depression, nonspecific ST changes, normal axis, no acute ST segment elevation or T-wave inversion) Discharge Plan Discharge Chief Complaint: Urogenital-Male Clinical Impression: Post-procedural fever, Acute UTI, Altered mental status Patient Disposition: Admitted as Observation Time of Disposition Decision: 02:09 Condition: Fair Discharge Date/Time: 07/14/23 02:45
[2023-07-13 23:52] LABS: Basophils Percent Auto 0.2 % (0.2-2.0); Eosinophils Percent Auto 0.2 % (0.9-7.0); Hematocrit 41.2 % (42.0-54.0); Hemoglobin 14.1 g/dL (14.0-18.0); Immature Granulocytes Abs Auto 0.04 10^3/uL (0.00-0.03); Immature Granulocytes Pct Auto 0.3 % (0.0-0.5); Lymphocytes Absolute Auto 0.5 10^3/uL (1.2-3.8); Lymphocytes Percent Auto 4.3 % (20.5-60.0); Mean Corpuscular HGB Conc 34.2 g/dL (29.9-35.2); Mean Corpuscular Hemoglobin 37.4 pg (25.9-34.0); Mean Corpuscular Volume 109.3 fL (80.0-94.0); Mean Platelet Volume 11.3 fL (9.5-13.5); Monocytes Absolute Auto 0.8 10^3/uL (0.3-0.8); Monocytes Percent Auto 6.3 % (1.7-12.0); Neutrophils Absolute Auto 10.6 10^3/uL (1.4-6.5); Neutrophils Percent Auto 88.7 % (43.0-75.0); Platelet Count 176 10^3/uL (150-450); Red Blood Count 3.77 10^6/uL (4.70-6.10); Red Cell Distribution Width 15.2 % (11.0-15.0); White Blood Count 11.9 10^3/uL (4.0-11.0)
[2023-07-13] MEDS: ACETAMINOPHEN 325 MG TABLET 650 MG PO (23:58)
[2023-07-13] MEDS: 0.9 % SODIUM CHLORIDE 1,000 ML 1000 ML IV (23:59)
[2023-07-14] VITALS (19 sets, daily range): BP systolic 111–182; BP diastolic 65–91; PULSE 63–102; RESP 17–20; TEMP 37.1–39.4; O2SAT 90–100; BMI 37.2
[2023-07-14 00:02] LABS: Alanine Aminotransferase 17 U/L (16-63); Albumin Globulin Ratio 0.8; Albumin Level 3.3 g/dL (3.4-5.0); Alkaline Phosphatase 67 U/L (46-116); Anion Gap 13.5; Aspartate Amino Transferase 36 U/L (15-37); BUN Creatinine Ratio 13.6; Bilirubin Total 0.7 mg/dL (0.2-1.0); Calcium 8.7 mg/dL (8.5-10.1); Carbon Dioxide 24.6 mmol/L (21.0-32.0); Chloride 108 mmol/L (98-107); Estimated GFR (African America 54 (>=60); Estimated GFR (Non-African Ame 45 (>=60); Globulin 4.4 g/dL; Glucose 211 mg/dL (74-106); Potassium 4.1 mmol/L (3.5-5.1); Sodium 142 mmol/L (136-145); Total Protein 7.7 g/dL (6.4-8.2)
[2023-07-14 00:08] LABS: Bilirubin Urine NEGATIVE (NEGATIVE); Blood Urine MODERATE (NEGATIVE); Clarity Urine CLEAR (CLEAR); Color Urine LT. YELLOW (YELLOW); Glucose Urine UA 100 mg/dL (NEGATIVE); Ketones Urine NEGATIVE (NEGATIVE); Leukocyte Esterase Urine TRACE (NEGATIVE); Nitrite Urine NEGATIVE (NEGATIVE); Protein Urine 100 mg/dL (NEG/TRACE); Specific Gravity Urine 1.025 (1.005-1.025)
[2023-07-14 00:15] LABS: Bacteria Urine SMALL #/HPF (NONE SEEN); Cast Seen? NONE SEEN #/LPF (NONE SEEN); Crystals Seen? None Seen #/HPF (None Seen); Mucus Urine NONE SEEN (NONE SEEN); Squamous Epithelial Cell Urine RARE #/LPF (NONE/RARE)
[2023-07-14] MEDS: IBUPROFEN 400 MG TABLET PO (00:48)
[2023-07-14] MEDS: DOXYCYCLINE HYCLATE 100 MG in 0.9 % SODIUM CHLORIDE 100 ML IV (01:15)
--- NOTE | 2023-07-14 01:50 | XR_ITS ---
The [address] [address] Patient Name: RON LITTLE MRN: [id number] date: 1950 Sex: M Assigned Patient Location: ER Current Patient Location: ED.MAIN Accession/Order Number: [id number] Exam Date: 07/14/2023 01:58 Report Date: 07/14/2023 02:23 At the request of: MARVEL KAYE Procedure: XR chest 1V XR chest 1V 07/14/2023 1:58 AM EST CLINICAL INDICATION: Fever altered mental status COMPARISON: 05/24/2023 TECHNIQUE: Portable semiupright AP view of the chest. FINDINGS: There are no tubes or implants noted. Cardiac silhouette appears enlarged. No florid pulmonary interstitial edema. No focal parenchymal opacities. No pneumothorax or pleural effusion. No displaced rib fractures. Osseous structures demonstrate degenerative changes. Soft tissues are grossly normal. XR/XR chest 1V IMPRESSION: No acute cardiopulmonary abnormality. Electronically authenticated by: NADINE SANTANA Date: 07/14/2023 02:23
--- NOTE | 2023-07-14 02:07 | ECG_ITS ---
The [facility] Test Date: 2023-07-14 Pat Name: RON LITTLE Department: Room: - Gender: Male [employer]: : 1950 Requested By: MIKE MACKAY Order Number: [id number] Reading MD: HONORIO CHAVEZ Measurements Intervals [place] Rate: 78 P: 26 [place]: 162 QRS: -3 QRSD: 102 T: 7 QT: 382 QTc: 415 Interpretive Statements 1100 Sinus rhythm [address] depression [address] & Tw[place] abnormality, can't exclude inferolateral ischemia 6220 Possible left atrial enlargement 9150 abnormal ECG Electronically Signed On 07-14-2023 7:07:18 EST by HONORIO CHAVEZ
--- OUTSIDE RECORDS SUMMARY | 2023-07-14 02:53 | XMS_ITS | CCD ---
Author Name Unknown Address [address] [place] [address] Organization [facility] Care Team Providers Care Photonics Engineer Name Role Phone Guevara Mackay Primary Care Provider ÁNGEL FENTON Referring Unavailab GUEVARA Calvo Primary Care Unavailable ÁNGEL FETNON Admitting Unavailab ÁNGEL Alvarado Attending Unavailab GUEVARA [...] Unavailable HOY ., DR MCKEON Consulting Unavailable WRENTHAM, DR CLIFF Downs Consulting Unavailable TORRES JR [...] 01-22-20 04 Rash, Eruption of skin (disorder) [place], [place] (7 sources) Penicillins; Translations: [Penicillins] drug allergy -Ophthalmolog [facility] B102 Work Phone: (3 sources) Penicillins Propensity to adverse reactions 01-22-20 04 [facility] (17 sources) Penicillins Propensity to adverse reactions 01-22-20 04 [facility] (1 source) Penicillin G Drug Allergy Unknown [employer] Other (1 source) Ciprofloxacin Drug Allergy 09-12-19 14 [facility] (1 source) Penicillins Drug allergy (disorder) 09-12-19 14 [facility] Medications Current Medications Medication Drug [...] oral tablet (20 sources) alpha-Adrenergic Michael, beta-Adrenergic Michale Start: 05-24-2023 take 1 tablet by mouth [...] Daily, # 30 tab(s), Refills(s) 4, Pharmacy: [facility], 168, cm, 07/11/23 11:17:00 EST, [...] Start: 06-18-2021 take 2 tablets by mo [facility] once daily Pantoprazole Sodium 40 MG Oral Tablet Delayed Release TAKE 2 TABLETS BY MOUTH ONCE DAILY Quantity: 60 Refills: 0 Ordered: 27-Jan-2022 DO Start : 18-Jun-2021 Active take [facility] every twenty-four hours Protonix 40 MG 1 [...] 09/28/21 Status: Ordered take [address] [facility] every four hours Pyridostigmine [place] 60 MG 1 tablet Orally every 4 [...] completed., # 2 tab(s), Refills(s) 0, Pharmacy: [facility] 1429, 168, cm, 06/06/23 13:20:00 EST, [...] bedtime., # 60 tab(s), Refills(s) 11, Pharmacy: [facility] 1429, 168, cm, 06/07/22 10:05:00 EST, [...] BID, # 60 tab(s), Refills(s) 5, Pharmacy: [facility] 1429, 168, cm, 09/28/21 10:51:00 EDT, [...] 03-18-2010 Chronic Other aftercare (5 sources) Other manager long term care (current) drug therapy; Translations: [OTH NURSING HOME CURRENT DRUG THERAPY] Onset: 08-21-2022 Episodic Other [...] for Procedure/Surger yon 07-11-2023 Consent for Procedure/Surgery [id number]#1.00TIFF [facility] Consent for Treatmenton 06-29 Consent for Treatment [id number]#1.00TIFF [facility] IntraOperative Documentson 0 07-11-2023 IntraOperative Documents [id number]#1.00TIFF [facility] Main OR Intraoperative Recor don 07-11-2023 Main OR Intraoperative Record IntraOp Document Type FTURO Summary Primary Physician: Cliff JESSICA MD Finalized Date/Time: 07/11/23 11:43:05 Pt. Name: RON WELCH Comfort Carranza/Sex: 1950 Male Med Rec #: [id number] Physician: Cliff JESSICA MD Financial #: [id number] Pt. Type: O Room/Bed: / Admit/Disch: 07/11/23 [...] Becca Dahl Role Performed Surgeon - Primary Field Hockey And Lacrosse Coach - Primary Scrub - Primary Time In [...] ELISHA Parsons RN, Ruthann 07/11/23 11:43 Normal [facility] Main OR Preoperative Recordo n 07-11-2023 Main OR Preoperative Record Holding Area Document Type FTURO Summary Primary Physician: Cliff JESSICA MD Finalized Date/Time: 07/11/23 11:33:59 Pt. Name: YURI RONDarío Moyer D.O.B./Sex: 1950 Male Med Rec #: [id number] Physician: Cliff JESSICA MD Financial #: [id number] Pt. Type: O Room/Bed: / Admit/Disch: 07/11/23 [...] Complaints of Pain: No Skin Integrity Intact, Belle, Warm, & Dry Vitals - EU Blood Pressure 178/88 Pulse 59 bpm Respirations 18 br/min SPO2 96 % RN Reviewed Yes Last Modified By: ELISHA Parsons RN, Ruthann 07/11/23 11:30:46 Finalized By: ELISHA Parsons RN, Ruthann Document Signatures Signed By: ELISHA Parsons RN, Ruthann 07/11/23 11:30 ELISHA Parsons RN, Ruthann 07/11/23 11:33 Normal [facility] Operative Reporton Operative Report Patient: SAVI WELCH [...] months with a PVR bladder scan.. Normal [facility] Comment on above: Result Comment: Elec tronically Signed By: Cliff JESSICA MD\.br\Date and Time Signed: 07/11/23 11:45 EST Consent for Procedure/Surger yon 07-06-2023 Consent for Procedure/Surgery [id number]#1.00TIFF [facility] Ambulatory Visit Summaryon 0 07-04-2023 Ambulatory [...] for choosing us for your care. Normal [facility] Lab Reportson 06-07-2023 Lab Reports [id number]#1.00TIFF [facility] Screenson 06-07-2023 Screens [id number]#1.00TIFF [facility] Screens [id number]#1.00TIFF [facility] Urology Office/Clinic Noteon 06-06-2023 Urology Office/Clinic [...] Contact Information ARACELY MARTINEZ, Cliff Manuel, [address] [place] [address]- Additional Instructions: Schedule cysto Patient Education Cystoscopy [...] (10/25/2017), Earl melvin (more content not included)... [facility] Comment on above: Result Comment: Elec tronically Signed By: GELY BLAKE PA-C\.br\Date and Time Signed: 06/06/23 14:21 EST\.br\Electronically Co-Signed By: Arianna Steen\.br\Date and Time Co-Signed: 06/06/23 13:49 EST Physician Referralon 023 Physician Referral [id number]#1.00TIFF [facility] Transfer Inon 05-18-2023 Transfer In [id number]#1.00TIFF [facility] CNPNon [facility]10[facility]20[facility] RON WEL[facility] ([id number]) 1950 Date Time Provider Department 05/10/23 DAYSI URIBEMEOSEI During your visit today, we recorded the following information about you: Teja Bower 05/10/2023 2:49 PM Signed Lab results received and scanned in for review. Lore Maynard RN 05/10/2023 3:[address] Uribe aware of outside medical records available in scanned documents Lore Maynard RN BSN [facility] [place] [facility] MD 05/11/2023 9:01 AM Signed [...] Encounter Status:Closed by DAYSI URIBE on 05/11/23 [facility] CNOVon 01-11-2023 CNOV Office Visit (NEBHLT ) RON WELCH ([id number]) 1950 M Date Time Provider Department 01/11/23 1:00 PM CHANDNI METZGER During your visit today, we recorded the following information about you: Pulse Blood pressure Weight 56/minute 152/79 101.2 kg Chandni Metzger APRN.LUISITO 01/17/2023 1:01 PM Signed Coden for Brain [facility] - Follow-up Visit Date: January [...] this summer with going camping in the [facility]. Driving golf carts in controlled [...] this is (more content not included)... Normal [facility] Screenson 11-16-2022 Screens [id number]#[id number]:127 Normal [facility] Ambulatory Visit Summaryon 0 11-15-2022 Ambulatory Visit Summary RON WELCH :1950 Visit Date:11/15/2022 Ambulatory Visit Instructions Your Diagnosis Urge incontinence Elevated PSA ED (erectile dysfunction) Tests Performed Urnls Dip Stick Auto w/o Microscopy POC 49974 Your Care Team Attending Physician - GELY [...] Only if needed Where: [address] [facility] [address] [employer] (1) Medications What How Much When Instructions [...] Urnls Dip Stick Auto w/o Microscopy POC 20609 (11/15/2022) Bilirubin Urine Dipstick - Negative Blood Urine Dipstick - Negative Glucose Urine Dipstick - Negative Ketones Urine Dipstick - Negative Leukocytes Urine Dipstick - Negative Nitrite Urine Dipstick - Negative Protein Urine Dipstick - 1+ (30 mg/dl) Specific [place] Urine Dipstick - 1.020 Urine Appearance Urine [...] condition include: (more content not included)... Normal [facility] Patient Educationon 11-16-19 Patient Education Urology [...] these instructions at home: Medicines ? Take lstb-wbj-pvhzshn and prescription medicines only as told by [...] include cig (more content not included)... Normal [facility] Provider Letteron 11-15-2022 Provider Letter (Inserted Image. Lia ble to display) Guevara Mackay, [address] [place] [address] Re: RON WELCH Date of : [address] Thompson MARTINEZ, RON Neumann was evaluated at [facility] 11/15/2022 As this patient has been stable, they will be released back to your care. We request that you continue to check PSA annually for prostate cancer screening Should the patient develop new symptoms, worsening condition, or abnormal imaging/labs in the future, do not hesitate to refer them back. Thanks! Provider Signature: Gely Blake PA-C Physician Senior Etl Developer [facility] [address] [place] [address] Normal [facility] Urology Office/Clinic Noteon 11-15-2022 Urology Office/Clinic [...] E&M of Est. Patient Low 20-29 Min 99881 Urnls Dip Stick Auto w/o Microscopy POC 67192 2. Elevated PSA (R97.20: Elevated prostate specific antigen [PSA]) jumped to 2.97 in 2017 S/p PVP 06/2017 has been low/stable since 07/2020 - 0.56 04/04/22 -0.72 due again in Mar of this year. will have PCP continue to follow Ordered: E&M of Est. Patient Low 20-29 Min 98141 3. ED (erectile dysfunction) (N52.9: Male erectile dysfunction, unspecified) LORIE (5) at last visit pt & his did not want to pursue any medications. Penile pump was discussed and pamphlet provided at that time. Ordered: E&M of Est. Patient Low 20-29 Min 04651 offered scheduled follow up vs f/u PRN with urology and continue care with PCP. pt prefers the latter. will send letter to PCP so they are aware of the plan. pt understands if anything worsens or new symptoms arise to contact our office. Follow-up With When Contact Information GELY BLAKE PA-C, URL Only if needed [address] [place] [address] [facility] (1) Additional Instructions: Patient Education Erectile Dysfunction [...] Immunizations Vaccine Date Status Comments SARS-CoV-2 (COVID-19) mRNAMUL.ORD![id number] 05/11/2022 Recorded influenza virus vaccine, inactivated 03/21/2022 Recorded SARSCoV2 mRNA(iigcwwpmg-hqoi-srrcaf) vac 09/23/2021 Recorded SARS-CoV-2 (COVID-19) mRNA-1273 vaccine 08/2021 Recorded SARS-CoV-2 (COVID-19) mRNA BNT-162b2 vax 03/14/2021 Recorded SARS-CoV-2 (COVID-19) mRNA-1273 vaccine 09/02/2020 Recorded SARS-CoV-2 (COVID-19) mRNA-1273 vaccine 08/05/2020 Recorded SARS-CoV-2 (COVID-19) mRN (more content not included)... Normal [facility] Comment on above: Result Comment: Elec tronically Signed By: GELY BLAKE PA-C\.br\Date and Time Signed: 11/15/22 13:46 EDT Ophthalmic Eye Examon 2022 Ophthalmic Eye Exam DOCUMENT REVIEWED BY: Guevara Carrasco MD DOCUMENT SIGNED ELECTRONICALLY BY Guevara Carrasco MD ON 10/31/2022 12:09:[address], [id number] THIS DOCUMENT WAS CREATED ON: 10/31/2022 12:09:27 PM BY: MD Pooja Kirkland performed MQLUF-Ldna-yq Exam Date: Monday, October 31, 2022 PATIENT [...] MG Oral Tablet - Tablet, [Reported] Drug Cornelius Unilet Lancets 28G - #100, use to [...] 2 TABLETS BY MOUTH ONCE DAILY[Reported] Pyridostigmine Wilton 60 MG Oral Tablet - #90 Tablet, [...] DATE-TIME: 10/31/2022 11:45:52 AM 10/31/2022 11:45:52 AM PBX INSPECTOR: [email or web address] ADJUSTED IOP VALUE: 12 14 [...] CNEVELYN Office Visit (MARICARMEN ) RON WELCH ([id number]) 1950 M Date Time Provider Department 10/07/22 1:30 PM CHANDNI METZGER During your visit today, we recorded the following information about you: Pulse Blood pressure Weight 53/minute 168/94 100.7 kg Chandni Metzger APRN.VOCATIONAL REHABILITATION TECHNICIAN 10/13/2022 12:33 PM [facility] - Follow-up [...] and h (more content not included)... Normal [facility] ECHOCARDIO M/2D COMPLETEon 0 10-06-2022 ECHOCARDIO M/2D COMPLETE Patient: RON WELCH Exam Date: 10/06/2022 : 1950 Gender:M Ordering : DR GUEVARA MACKAY . Admission #: [id number] Family : Order #: [id number] CLICK HERE TO VIEW EXAM ECHOCARDIOGRAM REPORT [...] Godinez M.D. on 10/06/2022 at 15:22 Normal [facility] Screenson 09-14-2022 Screens [id number]:127 Normal [facility] Ambulatory Visit Summaryon 0 09-06-2022 Ambulatory Visit Summary RON WELCH :1950 Visit Date:09/06/2022 Ambulatory Visit Instructions Your Diagnosis Urge incontinence BPH with urinary obstruction ED (erectile dysfunction) Tests Performed Urnls Dip Stick Auto w/o Microscopy POC 96228 Your Care Team Attending Physician - GELY [...] GELY BLAKE PA-C Where: [facility] Patient Educationon 09-07-19 23 Patient Education Urology [...] stimulation). ? For women, using a medical secretary to prevent urine leaks. This is a [...] after experiencing incontinence. General instructions ? Take fcpg-bdo-litzfpu and prescription medicines only as (more content not included)... Normal [facility] Urology Office/Clinic Noteon 09-06-2022 Urology Office/Clinic [...] Contact Information REEMA CRUM, GELY Ch, URL [address] [facility] [address] Additional Instructions: 8 weeks Patient Education Urinary [...] Hypertension: Mother (more content not included)... Normal [facility] Comment on above: Result Comment: Elec tronically Signed By: GELY BLAKE PA-C\.br\Date and Time Signed: 09/06/22 13:49 EDT\.br\Electronically Co-Signed By: Arianna Steen\.br\Date and Time Co-Signed: 09/06/22 13:37 EDT CREATININEon 09-01-2022 Creatinine [Mass/Vol] 1.49 mg/dL Critically high 0.70-1.30 [facility] Comment on above: Performed By: #### C NGHIA #### [facility] [address] [address] [address] Ragini Storm EGFR-AF CROATIAN 56 mL/min/1.73m2 Critically low >=60 [facility] Comment on above: Performed By: #### C NGHIA #### [facility] [address] [address] [address] Ragini Storm EGFR-NON AF CROATIAN 46 mL/min/1.73m2 Critically low >=60 [facility] Comment on above: Performed By: #### C NGHIA #### [facility] [address] [address] CHEST W CONon [...] CLIFF OCHOA Date: 2022-09-01 15:45 Normal [facility] AMMONIAon 08-26-2022 Ammonia (P) [Moles/Vol] 27 umol/L Normal 11-32 [facility] Comment on above: Performed By: #### A MM #### [facility] [address] [place] [address] Dr. Ragini Storm BNPon 08-26-2022 Natriuretic peptide B (Bld) [Mass/Vol] 284.0 pg/mL Normal <=900.0 [facility] Comment on above: Performed By: #### C NGHIA #### [facility] [address] [place] [address] Dr. Ragini Storm CBC AUTO DIFFon 08-26-2022 BASO # 0.0 103/ul Normal 0.0-0.1 [facility] Comment on above: Performed By: #### C BC #### [facility] [address] [place] [address] Dr. Ragini Storm Basophils/100 WBC (Bld) 0.5 % Normal 0.2-2.0 [facility] Comment on above: Performed By: #### C BC #### [facility] [address] [place] [address] Dr. Ragini Storm EO # 0.1 103/ul Normal 0.0-0.7 [facility] Comment on above: Performed By: #### C BC #### [facility] [address] [place] [address] Dr. Ragini Storm Eosinophils/100 WBC (Bld) 1.8 % Normal 0.9-7.0 [facility] Comment on above: Performed By: #### C BC #### [facility] [address] [place] [address] Dr. Ragini Storm Erythrocyte distribution width (RBC) [Ratio] 14.4 % Normal 11.0-15.0 [facility] Comment on above: Performed By: #### C BC #### [facility] [address] [place] [address] Dr. Ragini Storm Hematocrit (Bld) [Volume fraction] 46.7 % Normal 42.0-54.0 [facility] Comment on above: Performed By: #### C BC #### [facility] [address] [place] [address] Dr. Ragini Storm Hemoglobin (Bld) [Mass/Vol] 16.2 g/dL Normal 14.0-18.0 [facility] Comment on above: Performed By: #### C BC #### [facility] [address] [place] [address] Dr. Ragini Storm IG # 0.01 10e3/ul Normal 0.00-0.03 [facility] Comment on above: Performed By: #### C BC #### [facility] [address] [place] [address] Dr. Ragini Storm IG % 0.2 % Normal 0.0-0.5 [facility] Comment on above: Performed By: #### C BC #### [facility] [address] [place] [address] Dr. Ragini Storm LYMPH # 0.9 103/ul Critically low 1.2-3.8 [facility] Comment on above: Performed By: #### C BC #### [facility] [address] [address] [address] Ragini Storm Lymphocytes/100 WBC (Bld) 19.4 % Critically low 20.5-60.0 [facility] Comment on above: Performed By: #### C BC #### [facility] [address] [address] [address] Ragini Storm MANUAL DIFF REQ NO Normal [facility] Comment on above: Performed By: #### C BC #### [facility] [address] [place] [address] Dr. Ragini Sotrm MCH (RBC) [Entitic mass] 36.7 pg Critically high 25.9-34.0 [facility] Comment on above: Performed By: #### C BC #### [facility] [address] [place] [address] Dr. Ragini Storm MCHC (RBC) [Mass/Vol] 34.7 g/dL Normal 29.9-35.2 [facility] Comment on above: Performed By: #### C BC #### [facility] [address] [place] [address] Dr. Ragini Storm MCV (RBC) [Entitic vol] 105.7 fL Critically high 80.0-94.0 [facility] Comment on above: Performed By: #### C BC #### [facility] [address] [place] [address] Dr. Ragini Storm MONO # 0.5 103/ul Normal 0.3-0.8 [facility] Comment on above: Performed By: #### C BC #### [facility] [address] [place] [address] Dr. Ragini Storm Monocytes/100 WBC (Bld) 11.2 % Normal 1.7-12.0 [facility] Comment on above: Performed By: #### C BC #### [facility] [address] [place] [address] Dr. Ragini Storm NEUT # 2.9 103/ul Normal 1.4-6.5 [facility] Comment on above: Performed By: #### C BC #### [facility] [address] [place] [address] Dr. Ragini Storm Neutrophils/100 WBC (Bld) 66.9 % Normal 43.0-75.0 [facility] Comment on above: Performed By: #### C BC #### [facility] [address] [place] [address] Dr. Ragini Storm Platelet mean volume (Bld) [Entitic vol] 10.1 fL Normal 9.5-13.5 [facility] Comment on above: Performed By: #### C BC #### [facility] [address] [place] [address] Dr. Ragini Storm PLT 230 103/ul Normal 150-450 [facility] Comment on above: Performed By: #### C BC #### [facility] [address] [place] [address] Dr. Ragini Storm RBC 4.42 106/ul Critically low 4.70-6.10 [facility] Comment on above: Performed By: #### C BC #### [facility] [address] [place] [address] Dr. Ragini Storm WBC 4.4 103/ul Normal 4.0-11.0 [facility] Comment on above: Performed By: #### C BC #### [facility] [address] [place] [address] Dr. Ragini Storm FREE THYROXINE INDEX T7on FTI 2.52 Normal 1.30-4.50 [facility] Comment on above: Performed By: #### C NGHIA #### [facility] [address] [place] [address] Dr. Ragini Storm T3U 35.0 % Normal 33.0-40.0 [facility] Comment on above: Performed By: #### C NGHIA #### [facility] [address] [place] [address] Dr. Ragini Storm T4 [Mass/Vol] 7.20 ug/dL Normal 4.50-12.10 [facility] Comment on above: Performed By: #### C NGHIA #### [facility] [address] [place] [address] Dr. Ragini Storm GLYCOHEMOGLOBIN A1Con 2022 ADA RECOMMENDATION SEE BELOW Normal [facility] Comment on above: Result Comment: ADA RECOMMENDED LIMIT 4.0 - 6.0 ADA THERAPEUTIC TARGET < 7.0 ACTION SUGGESTED > 7.0 Performed By: #### A 1C #### [facility] [address] [place] [address] Dr. Ragini Storm Glucose [Mass/Vol] 120 mg/dL Normal [facility] Comment on above: Performed By: #### A 1C #### [facility] [address] [place] [address] Dr. Ragini Storm HbA1c (Bld) [Mass fraction] 5.8 % Normal 4.5-6.2 [facility] Comment on above: Performed By: #### A 1C #### [facility] [address] [place] [address] Dr. Ragini Storm Physician Referralon 023 Physician Referral [id number]:127 Normal [facility] TSHon 08-26-2022 TSH 1.618 uIU/mL Normal 0.358-3.740 [facility] Comment on above: Performed By: #### C NGHIA #### [facility] [address] [place] [address] Dr. Ragini Storm OCC BLD IMMUNO SCREENon 07-28 OCCULT BLOOD Positive Abnormal NEGATIVE [facility] Comment on above: Performed By: #### O BSCRN #### [facility] [address] [place] [address] Dr. Ragini Storm GLYCOHEMOGLOBIN A1Con 2022 ADA RECOMMENDATION SEE BELOW Normal [facility] Comment on above: Result Comment: ADA RECOMMENDED LIMIT 4.0 - 6.0 ADA THERAPEUTIC TARGET < 7.0 ACTION SUGGESTED > 7.0 Performed By: #### C NGHIA #### [facility] [address] [place] [address] Dr. Ragini Storm Glucose [Mass/Vol] 120 mg/dL Normal [facility] Comment on above: Performed By: #### C NGHIA #### [facility] [address] [place] [address] Dr. Ragini Storm HbA1c (Bld) [Mass fraction] 5.8 % Normal 4.5-6.2 [facility] Comment on above: Performed By: #### C NGHIA #### [facility] [address] [place] [address] Dr. Ragini Storm LIPID PROFILEon 08-18-2022 CHOL-HDL RATIO NORM SEE BELOW Normal [facility] Comment on above: Result Comment: 3.3 - 4.4 LOW RISK 4.4 - 7.1 AVERAGE RISK 7.1 - 11.0 MODERATE RISK >11.0 HIGH RISK Performed By: #### C NGHIA #### [facility] [address] [place] [address] Dr. Ragini Storm Cholesterol [Mass/Vol] 161 mg/dL Normal <=200 [facility] Comment on above: Performed By: #### C NGHIA #### [facility] [address] [place] [address] Dr. Ragini Storm Cholesterol in HDL [Mass/Vol] 58 mg/dL Normal 40-60 [facility] Comment on above: Performed By: #### C NGHIA #### [facility] [address] [place] [address] Dr. Ragini Storm Cholesterol in LDL [Mass/Vol] 84.2 mg/dL Normal [facility] Comment on above: Performed By: #### C NGHIA #### [facility] [address] [place] [address] Dr. Ragini Storm Cholesterol.total/ Cholesterol in HDL [Mass ratio] 2.8 {ratio} Normal [facility] Comment on above: Performed By: #### C NGHIA #### [facility] [address] [place] [address] Dr. Ragini Storm HDL NORMAL > or = 60 mg/dl - LO W CARDIOVASCULAR RISK <40 mg/dl - HIGH CARDIOVASCULAR RISK Normal [facility] Comment on above: Performed By: #### C NGHIA #### [facility] [address] [place] [address] Dr. Ragini Storm LDL CALC NORMAL SEE BELOW Normal [facility] Comment on above: Result Comment: <100 mg/dl OPTIMAL 100 - 129 mg/dl NEAR OR ABOVE OPTIMAL 130 - 159 mg/dl BORDERLINE HIGH 160 - 189 mg/dl HIGH >190 mg/dl VERY HIGH Performed By: #### C NGHIA #### [facility] [address] [address] [address] Ragini Storm Triglyceride [Mass/Vol] 94 mg/dL Normal <=150 [facility] Comment on above: Performed By: #### C NGHIA #### [facility] [address] [address] [address] Ragini Storm VLDL CALC 18.8 mg/dL Normal [facility] Comment on above: Performed By: #### C NGHIA #### [facility] [address] [place] [address] Dr. Ragini Storm VITAMIN D 25 OHon 08-18-2022 VIT D 25-OH 36.3 ng/mL Normal [facility] Comment on above: Performed By: #### P SASC, VITAD #### [facility] [address] [place] [address] Dr. Ragini Storm VIT D RANGES SEE BELOW Normal [facility] Comment on above: Result Comment: <20 ng/mL Vit D deficient 20 - <30 ng/mL Vit D insufficient 30 - 100 ng/mL Vit D sufficient >100 ng/mL Potential Toxicity Performed By: #### P SASC, VITAD #### [facility] [address] [place] [address] Dr. Ragini Storm CNSWon 08-04-2022 [facility] Social Work (MARICARMEN) RON WELCH ([id number]) 1950 M Date Time Provider Department 08/04/22 1:00 PM KATIA JEREZ During your visit today, we recorded the following information about you: YONATAN Frances 08/04/2022 2:05 PM Signed SOCIAL WORK NOTE Ron Welch [address] [place] [id number] INFORMATION/REFERRAL: Referral Source: Lauren Lamas MD Pt [...] communication and sundowning at length. INTERVENTION/PLAN: -Discussed FACTORY MANAGER supportive role/availability as member of [facility] care team. -Supportive counseling offered to [...] For assistance navigating local resources such as contact center assistant care/caregiver support contact The Area Office on Aging. -Private Duty Home Health Agencies can provide supportive services. These services may include companionship, assistance with meals, medication management, senior lead software engineer, transportation and personal care if needed. Services are typically an out of pocket expense. Some long-term care policies or VA benefits may offer reimbursement for services. Local resources provided. [facility] can assist with meals, transportation, home maintenance and activities. Tel: -Obtained copy of pt's healthcare advance directives, Will be faxed to HIM to add to EMR. IMPRESSION: Pleasant 72 year old year old patient. Pt and family appear able and motivated to follow up on recommendations as discussed. FACTORY MANAGER will remain available to address any questions/concerns. Contact information was provided. I spent a total of 40 minutes with the patient. Social work assessment/interventions rendered under the supervision of Dr. Hyacinth Bernal. YONATAN Frances [facility] YONATAN Frances 08/04/2022 1:37 [...] hours a day, 7 days per week: [phone]. Call Help Line to learn of local options for support groups and to register. Family Caregiver [place] (web site: Caregiver.org) [facility]- a secure online solution for quality information, [...] for financial assistance for assisted living. The Caption Data Service Commission of [facility] is an organization that can (more content not included)... Normal [facility] CNTHERAPYon 08-04-2022 CNTHERAPY OT/PT/Speech Visit ( SPMCMN) RON WELCH ([id number]) 1950 M Date Time Provider Department 08/04/22 2:45 PM [facility] Date Time Provider Department Coden 08/04/2022 2:45 PM [id number] Reason for Visit: Speech Evaluation [3557] Speech Discharge [1518] Primary Visit Diagnosis:Cognitive communication deficit [R41.841] Other [...] Meds Comments as of 07/31/2012: r Normal [facility] CNOVon 07-08-2022 CNOV Office Visit (MARICARMEN ) RON WELCH Comfort ([id number]) 1950 M Date Time Provider Department 07/08/22 3:00 PM LAUREN LAMAS During your visit today, we recorded the following information about you: Pulse Blood pressure Weight 61/minute 137/82 102.1 kg Lauren Lamas MD 07/08/2022 5:13 PM Signed Neurology Return, C[facility] for Brain Health Ron Welch is a [...] for BiPAP download; DME: Jasen Bettie Gonzalez [phone] Encourage regular physical and mental activity His [...] have conveyed the information to patient via [employer], and recommended him to follow up with [...] found. Activi (more content not included)... Normal [facility] Ophthalmic Eye Examon 2022 Ophthalmic Eye Exam DOCUMENT REVIEWED BY: Guevara Carrasco MD DOCUMENT SIGNED ELECTRONICALLY BY Guevara Carrasco MD ON 07/04/2022 11:35:[address], [id number] THIS DOCUMENT WAS CREATED ON: 07/04/2022 11:35:29 AM BY: MD Eliza Kirkland COT performed OXWUD-Dokq-ax Exam Date: Monday, July 04, 2022 PATIENT NAME: RON WELCH DATE: 1950 AGE: 72 GENDER: Male RACE: PRIMARY CARE PHYSICIAN: Guevara Mackay History Chief Complaint/Reason For Visit: Xuqqqiq-Deyunz-tj visit for POAG Using Latnaoprost OS PM [...] Oral Tablet - #60 Tablet, [Reported] Drug Cornelius [facility] Lancets 28G - #100, use to test [...] 2 TABLETS BY MOUTH ONCE DAILY[Reported] Pyridostigmine [place] 60 MG Oral Tablet - #90 Tablet, [...] DATE-TIME: 07/04/2022 11:24:57 AM 07/04/2022 11:24:57 AM PBX INSPECTOR: Santhosh Trevizo ADJUSTED IOP VALUE: 14 13 [...] well contro (more content not included)... 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 The assessment consisted [...] has has put his clothes on backwards. Buffer Machine: Historically managed by his . He previously [...] current recreatio (more content not included)... Normal [facility] MRI 3D POST PROCESSINGon MRI 3D POST PROCESSING * * *Final Report* * * DATE OF EXAM: Jun 17 2022 2:34PM [facility] 0280 - MRI 3D POST PROCESSING [...] dementia protocol and 3-D post-processing using the Octonius software at an independent workstation with concurrent [...] = Focal Lesions 2 = Beginning of [place]ust Gap 3 = Diffuse Involvement of Entire Region [...] results from the analysis charts for details. Web Developer: PSCB Transcribe Date/Time: Jun 17 2022 2:50P Dictated by : ANTONIO GUILLERMO MD This examination was interpreted and the report reviewed and electronically signed by: ANTONIO GUILLERMO MD on Jun 17 2022 3:16PM EST [id number] Normal [facility] MRI BRAIN W QUANT WO IVCONon 06-17-2022 MRI BRAIN W QUANT WO IVCON * * *Final Report* * * DATE OF EXAM: Jun 17 2022 2:34PM [facility] 3015 - MRI BRAIN W QUANT [...] dementia protocol and 3-D post-processing using the Octonius software at an independent workstation with concurrent physician supervision and images were created, reviewed and archived. MQ: [id number] COMPARISON: None RESULT: QUALITATIVE: Acute Intracranial Process: None. Chronic Intracranial Process: There is a moderate-severe burden of nonspecific white matter change, likely the sequela of chronic small vessel ischemia.. Age related white matter changes ([facility]) rating: White matter lesions: 3 Basal [...] = Focal Lesions 2 = Beginning of [place] 3 = Diffuse Involvement of Entire Region [...] results from the analysis charts for details. Web Developer: PSCB Transcribe Date/Time: Jun 17 2022 2:50P Dictated by : ANTONIO GUILLERMO MD This examination was interpreted and the report reviewed and electronically signed by: ANTONIO GUILLERMO MD on Jun 17 2022 3:16PM EST [id number] Normal [facility] No Panel Informationon 06-17 [facility] Ophthalmic Eye Examon 2021 Ophthalmic Eye Exam DOCUMENT REVIEWED BY: Guevara Carrasco MD DOCUMENT SIGNED ELECTRONICALLY BY Guevara Carrasco MD ON 02/28/2022 11:45:50 [address] [id number] [phone] THIS DOCUMENT WAS CREATED ON: 02/28/2022 11:45:43 AM BY: MD Lainey Kirkland performed TKBRG-Wlix-ex Exam Date: Monday, February 28, 2022 PATIENT [...] Oral Tablet - #60 Tablet, [Reported] Drug Cornelius Unilet Lancets 28G - #100, use to [...] DATE-TIME: 02/28/2022 11:44:04 AM 02/28/2022 11:44:04 AM PBX INSPECTOR: Lars [email or web address] ADJUSTED IOP VALUE: 15 17 [...] since surg (more content not included)... Normal [facility] Ophthalmic Eye Examon 2021 Ophthalmic Eye Exam DOCUMENT REVIEWED BY: Guevara Carrasco MD DOCUMENT SIGNED ELECTRONICALLY BY Guevara Carrasco MD ON 02/04/2022 11:47:57 AM [facility] [address] [address] [address] [place], [address] [phone] THIS DOCUMENT WAS CREATED ON: 02/04/2022 11:47:46 AM BY: Guevara Carrasco MD Pooja Suarez performed TNTTT-Jnge-ee Exam Date: Friday, February 04, 2022 PATIENT [...] Oral Tablet - #60 Tablet, [Reported] Drug Cornelius Unilet Lancets 28G - #100, use to [...] DATE-TIME: 02/04/2022 10:43:27 AM 02/04/2022 10:43:27 AM PBX INSPECTOR: kyle [email or web address] ADJUSTED IOP VALUE: 11 21 [...] little wors (more content not included)... Normal [facility] OPERATIVE REPORTon 0 OPERATIVE REPORT [address] [id number] OPERATIVE REPORT PATIENT NAME: RON WELCH : 1950 MED REC NO: [id number] ROOM: ACCOUNT NO: [id number] ADMIT DATE: 10/16/2019 PROVIDER: Ángel Fenton DATE [...] blood loss was 5 mL. ÁNGEL FENTON JACYEE/[email or web address] Doc#: [id number] CC: Normal [facility] Surgical Pathologyon 020 Surgical Pathology (NOTE) -- [...] SURGICAL PATHOLOGY CONSULTATION Patient Name: RON WELCH [facility] Rec: [id number] Path Number: [id number] [facility] Doctolib CONSULTING PATHOLOGISTS [facility] ANATOMIC PATHOLOGY [address] [place] [address]. [place], [place] [address] Normal [facility] Comment on above: Performed By: #### P PPVDP #### [facility] [address] [place], [place] [id number] Pneudraulic Systems Mechanic: Gilles Chahal MD COVID-19on 10-15-2019 SARS-CoV-2 [place], [place] SARS-CoV-2, PCR Not Detected Not Detected [place], [place] Comment on above: (NOTE) The Ragland RealTime SARS-CoV-2 assay is a real-time (rt) reverse transcriptase (RT) polymerase chain reaction (PCR) test intended for the oohilove system. The SARS-CoV-2 primer and probe sets are designed to detect RNA from SARS-CoV-2 in nasopharyngeal (HR COORDINATOR) and oropharyngeal (OP) swabs from patients with [...] The above 1 analytes were performed by [address],[place] [address] SARS-CoV-2, Rapid [place], [place] Source .NASOPHARYNGEAL SWAB [place], [place] [id number] 10-15-2019 SARS-CoV-2 Not Detected Normal Not Detected [facility] Comment on above: Result Comment: (NOT E) The Ragland RealTime SARS-CoV-2 assay is a real-time (rt) reverse transcriptase (RT) polymerase chain reaction (PCR) test intended for the oohilove system. The SARS-CoV-2 primer and probe sets are designed to detect RNA from SARS-CoV-2 in nasopharyngeal (HR COORDINATOR) and oropharyngeal (OP) swabs from patients with [...] The above 1 analytes were performed by [address] [address] Performed By: #### C OVID #### [facility] [address] [place] [address] Pneudraulic Systems Mechanic: Antonio Hodgson MD [address] [address] Pneudraulic Systems Mechanic: Gillse Chahal MD [facility] [address] [place] [address] Pneudraulic Systems Mechanic: Dontrell James MD [id number] 10-14-2019 SARS-CoV-2,Rapid Normal [facility] Comment on above: Performed By: #### C OVID #### [facility] [address] [place] [address] Pneudraulic Systems Mechanic: Antonio Hodgson MD [address] [address] Pneudraulic Systems Mechanic: Gilles Chahal MD [facility] [address] [place] [address] Pneudraulic Systems Mechanic: Dontrell James MD SARS-CoV-2 Normal [facility] Comment on above: Performed By: #### C OVID #### [facility] [address] [place] [address] Pneudraulic Systems Mechanic: Antonio Hodgson MD [facility] [place] [facility] [employer] [address] [place] [address] Pneudraulic Systems Mechanic: Gilles Chahal MD [facility] [address] [place] [address] Pneudraulic Systems Mechanic: Dontrell James MD SARS-CoV-2 Source .NASOPHARYNGEAL SWAB Normal [facility] Comment on above: Performed By: #### C OVID #### [facility] [address] [place] [address] Pneudraulic Systems Mechanic: Antonio Hodgson MD [facility] [address] [place] [address] Pneudraulic Systems Mechanic: Gilles Chahal MD [facility] [address] [place] [address] Pneudraulic Systems Mechanic: Dontrell James MD EKG 12 [place] 08-01-2019 Atrial Rate 67 BPM [facility] [place] [facility] [place] P [facility] 39 degrees [facility], [place] P-R Interval 170 ms [facility] [place] [facility] Q-T Interval 384 ms [facility], [place] QRS Duration 110 ms [facility]- [place], [place] QTc Calculation (Bazett) 405 ms [facility]- [place], [place] R [facility] -22 degrees [facility] [place] [facility]- [place], [place] T [facility] 7 degrees [facility] [place] [facility]- [place], [place] Ventricular Rate 67 BPM [facility] [place] [facility]- [place], [place] Sinus rhythm with oc casional Premature ventricular complexes Possible Left atrial enlargement Left ventricular hypertrophy Abnormal ECG No previous ECGs available [facility], [place] Jonh, Mhpn Incoming E kg Results From [employer] - 08/01/2019 1:29 PM EST Sinus rhythm with occasional Premature ventricular complexes Possible Left atrial enlargement Left ventricular hypertrophy Abnormal ECG No previous ECGs available [facility]- [place], [place] Vital Signs Date Time Vital Sign Value Performing Clinician Facility 06-06-2023 13:23-0500 Diastolic blood pressure 72 mm[Hg] GELY REEMA [facility] 06-06-2023 13:23-0500 Mean blood pressure 96 mm[Hg] GELY REEMA [facility] 06-06-2023 13:23-0500 Systolic blood pressure 145 mm[Hg] GELY REEMA [facility] 06-06-2023 13:18-0500 Blood Pressure Location GELY REEMA [facility] 06-06-2023 13:18-0500 Diastolic blood pressure 75 mm[Hg] GELY REEMA [facility] 06-06-2023 13:18-0500 Heart rate 55 /min GELY REEMA [facility] 06-06-2023 13:18-0500 Systolic blood pressure 150 mm[Hg] GELY REEMA [facility] 01-11-2023 12:50-0400 Body weight 101.15 kg Chandni Rhoten ROUTE INSPECTOR.VOCATIONAL REHABILITATION TECHNICIAN Work Phone: [facility] 01-11-2023 12:50-0400 Diastolic blood pressure 79 mm[Hg] Chandni Rhoten ROUTE INSPECTOR.VOCATIONAL REHABILITATION TECHNICIAN Work Phone: [facility] 01-11-2023 12:50-0400 Heart rate 56 /min Chandni Rhoten ROUTE INSPECTOR.VOCATIONAL REHABILITATION TECHNICIAN Work Phone: [facility] 08-16-2023 12:50-0400 Systolic blood pressure 152 mm[Hg] Chandni Rhoten ROUTE INSPECTOR.VOCATIONAL REHABILITATION TECHNICIAN Work Phone: [facility] 11-15-2022 12:54-0400 Blood Pressure Location GELY REEMA [facility] 11-15-2022 12:54-0400 Diastolic blood pressure 68 mm[Hg] GELY REEMA [facility] 11-15-2022 12:54-0400 Heart rate 68 /min GELY REEMA [facility] 11-15-2022 12:54-0400 Systolic blood pressure 130 mm[Hg] GELY REEMA [facility] 10-07-2022 13:25-0400 Body weight 100.7 kg Chandni Rhoten ROUTE INSPECTOR.VOCATIONAL REHABILITATION TECHNICIAN Work Phone: [facility] 10-07-2022 13:25-0400 Diastolic blood pressure 94 mm[Hg] Chandni Rhoten ROUTE INSPECTOR.VOCATIONAL REHABILITATION TECHNICIAN Work Phone: [facility] 10-07-2022 13:25-0400 Heart rate 53 /min Chandni Rhoten ROUTE INSPECTOR.VOCATIONAL REHABILITATION TECHNICIAN Work Phone: [facility] 10-07-2022 13:25-0400 Systolic blood pressure 168 mm[Hg] Chandni Rhoten ROUTE INSPECTOR.VOCATIONAL REHABILITATION TECHNICIAN Work Phone: [facility] 09-06-2022 13:03-0400 Blood Pressure Location GELY REEMA [facility] 09-06-2022 13:03-0400 Diastolic blood pressure 78 mm[Hg] GELY REEMA [facility] 09-06-2022 13:03-0400 Heart rate 68 /min GELY REEMA [facility] 09-06-2022 13:03-0400 Respiratory rate 16 /min GELY BLAKE [facility] 09-06-2022 13:03-0400 Systolic blood pressure 129 mm[Hg] GELY BLAKE [facility] 04-27-2022 14:58-0500 Body height 167.6 cm Daysi Uribe MD Work Phone: [facility] 04-27-2022 14:58-0500 Body weight 101.15 kg Daysi Uribe MD Work Phone: [facility] 04-27-2022 14:58-0500 Diastolic blood pressure 73 mm[Hg] Daysi Uribe MD Work Phone: [facility] 04-27-2022 14:58-0500 Heart rate 68 /min Daysi Uribe MD Work Phone: [facility] 04-27-2022 14:58-0500 SaO2% (BldA) [Mass fraction] 98 % Daysi Uribe MD Work Phone: [facility] 04-27-2022 14:58-0500 Systolic blood pressure 139 mm[Hg] Daysi Uribe MD Work Phone: [facility] 10-21-2021 10:50-0400 Body height 167.6 cm Daysi Uribe MD Work Phone: [facility] 10-21-2021 10:50-0400 Body weight 97.52 kg Daysi Uribe MD Work Phone: [facility] 10-21-2021 10:50-0400 Diastolic blood pressure 86 mm[Hg] Daysi Uribe MD Work Phone: [facility] 05-26-2022 10:50-0400 Heart rate 83 /min Daysi Uribe MD Work Phone: [facility] 10-21-2021 10:50-0400 Systolic blood pressure 163 mm[Hg] Daysi Uribe MD Work Phone: [facility] 09-28-2021 10:47-0400 Blood Pressure Location Tere Torres Jr. [facility] 09-28-2021 10:47-0400 Diastolic blood pressure 64 mm[Hg] Tere Torres Jr. [facility] 09-28-2021 10:47-0400 Heart rate 62 /min Tere Torres Jr. [facility] 09-28-2021 10:47-0400 Respiratory rate 18 /min Tere Torres Jr. [facility] 09-28-2021 10:47-0400 Systolic blood pressure 129 mm[Hg] Tere Torres Jr. [facility] 09-08-2021 14:00-0400 Body height 170.18 cm Cliff Leon Other [employer] Other 09-08-2021 14:00-0400 Body mass index (BMI) [Ratio] 35.39 kg/m2 Cliff Leon Other [employer] Other 09-08-2021 14:00-0400 Body weight 102.51 kg Cliff Leon Other [employer] Other 10-16-2019 11:15-0400 Body Temperature 99.1 [degF] Ángel Leivasler [employer] [place] , [place] 10-16-2019 11:15-0400 BP Diastolic 80 mm[Hg] [facility]ngel Fetnon [facility] [place] 10-16-2019 11:15-0400 BP Systolic 119 mm[Hg] Ángel [facility]ivasler [facility] [place] 10-16-2019 11:15-0400 Pulse (Heart Rate) 86 /min [facility]el [facility] Center[facility], [place] 10-16-2019 11:15-0400 Pulse Oximetry 96 % Ángel LeivaPl[facility] , [place] 10-16-2019 11:15-0400 Respiratory Rate 25 /min Ángel LeivaClickScanShare [facility], [place] 10-16-2019 08:12-0400 BMI (Body Mass Index) 36.26 kg/m2 Ángel [place]ler [place] 10-16-2019 08:12-0400 Body weight 105.01 kg Ángel [facility] CenterK[facility]ink [place] 10-16-2019 08:12-0400 Height 170.2 cm Ángel LeivaFluid EntertainmentTUCKAH[place], [place] 07-31-2019 11:58-0500 BMI (Body Mass Index) 37.06 kg/m2 [facility] [place] 07-31-2019 11:58-0500 Body Temperature 97.9 [degF] [facility] [place] 07-31-2019 11:58-0500 Body weight 104.15 kg [facility] [place] 07-31-2019 11:58-0500 Height 167.6 cm [facility] [place] Encounters Encounter Date Encounter Type Care Provider Facility Start: 10-09-2023 ambulatory Cliff Buenrostro ty:MIKA Abraham Start: 07-11-2023 End: 07-12-2023 ambulatory Cliff JESSICA Facility:[facility] Start: 07-11-2023 End: 07-11-2023 Patient encounter procedure Cliff JESSICA [facility] Start: 07-04-2023 End: 07-05-2023 ambulatory Guevara Mackay Facility:YESENIA Abraham Start: 06-06-2023 End: 06-07-2023 ambulatory GELY BLAKE Facility:MIKA Vega Start: 06-06-2023 End: 06-06-2023 Patient encounter procedure GELYJELANI BLAKE [facility] Start: 05-17-2023 End: 05-17-2023 ambulatory [facility] Start: 05-11-2023 End: 05-11-2023 ambulatory INGA Larissa TOURE Not Available Start: 05-08-2023 ambulatory Daysi flannery MD Work Phone: [facility] Start: 05-08-2023 Patient encounter procedure Daysi Uribe MD Work Phone: Neurology Comment on above: Appointment request because of blood test results Start: 04-14-2023 End: 04-14-2023 ambulatory [facility] Start: 02-27-2023 End: 02-27-2023 ambulatory [facility] Start: 01-11-2023 End: 01-11-2023 ambulatory GUEVARA MACKAY Facility:[facility] Start: 01-11-2023 End: 01-11-2023 Patient encounter procedure Chandni Metzger APRN.VOCATIONAL REHABILITATION TECHNICIAN Work Phone: Neurology Comment on above: 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 (HCC) (Primary Dx); ERIS on CPAP Start: 12-02-2022 Refill Penny Kaufman MD Work Phone: Neurology Comment on above: Refill Request Start: 11-21-2022 Rx Renewal Guevara Mackay Work Phone: [facility]Zcgnrh[facility] ook Work Phone: Start: 11-15-2022 End: 11-16-2022 ambulatory GELYSHAN BLAKE Facility:[facility] Abraham Start: 11-15-2022 End: 11-15-2022 Patient encounter procedure GELY BLAKE [facility] Start: 10-31-2022 Patient encounter procedure Guevara Mackay Work Phone: [facility] B102 Work Phone: Start: 10-31-[address] 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 Facility:[facility] Start: 09-06-2022 End: 09-07-2022 ambulatory GELY BLAKE Facility:[facility] Start: 09-06-2022 End: 09-06-2022 Patient encounter procedure GELY BLAKE [facility] [place] Start: 09-01-2022 End: 09-02-[address] GUEVARA MACKAY . Facility:[facility] Start: 08-26-2022 End: 08-27-[address] GUEVARA MACKAY . Facility:[facility] Start: 08-24-2022 ambulatory Cliff JESSICA Facility :[facility] Start: 08-23-2022 End: 08-23-[address] GUEVARA [...] Start: 07-08-2022 End: 07-08-2022 ambulatory LAUREN LAMAS Facility:[facility] Start: 07-04-2022 ambulatory Guevara Carrasco Facility:[facility] Start: 06-17-2022 End: 06-17-2022 Subsequent hospital visit by physician Cesilia Bustillos (I-Stat/3t) Work Phone: Radiology Comment on above: Myasthenia gravis wi th exacerbation (HCC) [G70.01] Start: 06-17-2022 End: 06-17-2022 ambulatory GUEVARA MACKAY Facility:[facility] Start: 06-17-2022 End: 06-17-2022 Patient encounter procedure Araseli Camacho PhD Work Phone: Neuropyschology Comment on above: Major neurocognitive disorder (HCC) (Primary Dx); Obstructive sleep apnea; MYASTHENIA GRAVIS; Depression, unspecified depression type Start: 06-07-2022 End: 06-07-2022 Patient encounter procedure GELY BLAKE [facility] Start: 05-30-[address] GUEVARA MACKAY . Facili ty:[facility] Start: 05-12-2022 Chart abstracting Lauren Granda Work Phone: Neurology Comment on above: Results (BiPAP downl oad 04/03-05/02/2022) Start: 05-03-2022 Telephone encounter Lauren Lamas MD Work Phone: Neurology Comment on above: PAP Therapy Follow U p (DOWNLOAD) Start: 04-29-2022 Telephone encounter Lauren Lamas MD Work Phone: Neurology Comment on above: Kiln Operator Helper - O ther (Download MSC) Start: 04-27-2022 End: 04-27-2022 Patient encounter procedure Daysi Uribe MD Work Phone: Neurology Comment on above: Myasthenia gravis (H CC) (Primary Dx); Memory loss Start: 04-14-2022 Refill Daysi flannery MD Work Phone: Neurology Comment on above: Refill Request Start: 04-04-2022 End: 04-05-[address] TERE Hare Facility:[facility] Start: 02-28-2022 Patient encounter procedure Guevara Mackay Work Phone: ZY-Ktnrbohwcohjh-Vymbtyfg B102 Work Phone: Start: 02-28-2022 ambulatory Guevara Carrasco Facility:[id number] Start: 02-04-2022 Patient encounter procedure Guevara Mackay Work Phone: EI-Plikjvtawjqwc-Mgnsyofq B102 Work Phone: Start: 02-04-2022 ambulatory Guevara Carrasco Facility:[id number] Start: 01-06-2022 End: 01-06-[address] GUEVARA MACKAY . 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 [facility] Start: 09-08-2021 End: 09-08-2021 ambulatory Cliff Leon Other [employer] Other Start: 09-08-2021 Office outpatient ne w 45 minutes Cliff Leon [facility] G[facility] Start: 08-21-2021 Rx Renewal Guevara Pineda Thompson Work Phone: HC-Naooolqljcxts-Oocozqof B102 Work Phone: Start: 08-06-2021 Telephone encounter Leighton Brambila Work Phone: Gastroenterology Comment on above: Appointment Start: 07-09-2021 Patient encounter procedure Guevara Mackay Work Phone: OB-Yqcodrbblowkn-Qfinqdsf B131 Work Phone: Start: 10-16-2019 End: 10-16-2019 [facility] Start: 10-16-2019 End: 10-16-2019 Subsequent hospital visit by physician Ángel Fenton Work Phone: [facility] [place] Comment on above: Basal cell carcinoma (BCC) of left side of nose (Primary Dx) Start: 10-14-2019 End: 10-19-2019 Patient encounter procedure DOC HART [facility] Start: 10-14-2019 End: 10-18-2019 Subsequent hospital visit by physician Brigido Potts 4 BRIGIDOZ PRE-ADMIT TESTING Start: 07-31-2019 End: 08-05-2019 [facility] Start: 07-31-2019 End: 08-04-2019 Subsequent hospital visit by physician Sukhwinder Richardson Pat Schedule [facility] Pre-Admit Testing Start: 06-14-2019 Patient encounter procedure Guevara Danilo TE-Nskvbvvrpdfrg-Eeevbtjg B102 Work Phone: Start: 02-08-2019 Patient encounter procedure Guevara Danilo BY-Xannsfysyfwlg-Htqdzzbc B102 Work Phone: Start: 11-01-2018 Patient encounter procedure Guevara Danilo AN-Stnqrzgrirtym-Koncnujv B102 Work Phone: Start: 10-15-2018 Patient encounter procedure Guevara Danilo CR-Crlyaelbbvhdu-Eifmaoaw B102 Work Phone: Start: 09-07-2018 Patient encounter procedure Guevara Danilo CA-Dwrtbmecyribk-Pddxgsen B102 Work Phone: Start: 12-28-2017 Patient encounter procedure Guevara Danilo FL-Bqifimapblvhx-Omhylzna B102 Work Phone: Start: 12-22-2017 Patient encounter procedure Guevara Danilo BP-Sfysylvzvhozf-Sozeyarv B102 Work Phone: Start: 12-01-2017 Patient encounter procedure Guevara Danilo UD-Laiuxbwexjchn-Vjzjhiyt B102 Work Phone: Start: 11-22-2017 Patient encounter procedure Guevara Danilo WC-Iecyxijdhjotg-Dyvcftpr B102 Work Phone: Start: 11-20-2017 Patient encounter procedure Guevara Danilo HO-Dhvyxvedwtonx-Vugriopo B102 Work Phone: Start: 11-08-2017 Patient encounter procedure Guevara Danilo LD-Ankkwpvnhglwl-Mabhvotr B102 Work Phone: Start: 09-06-2017 Patient encounter procedure Guevara Danilo AI-Mvkspscusrdsx-Hstkfxpv B102 Work Phone: Start: 08-11-2017 Patient encounter procedure Guevara Danilo OP-Ndxatpptkpiuc-Dplkcgxm B102 Work Phone: Start: 08-02-2017 Patient encounter procedure Guevara Danilo LC-Tzhcakfyxmrup-Rbagmvbi B102 Work Phone: Start: 06-21-2017 Patient encounter procedure Guevara Carrasco WU-Qjyyixzihecow-Isnyrjhx B102 Work Phone: Procedures Date Procedure Procedure Detail Performing Clinician Start: 02-27-2023 DE LEON VISUAL FIELD - OU - BOTH EYES GUEVARA CARRASCO Start: 02-27-2023 OCT, OPTIC NERVE - OU - BOTH EYES RADHA CARRASCO Start: 08-18-[address] GUEVARA MACKAY . Comment on above: Performed By: #### PSASC, VITAD #### [facility] [address] [place] [address] Dr. Ragini Storm Start: 06-17-2022 MRI 3D POST PROCESSING Lauren Lamas MD Work Phone: Start: 06-17-2022 Mri brain brain stem w/o contrast material Lauren Lamas MD Work Phone: Start: 04-04-[address] GUEVARA MACKAY . Comment on above: Performed By: #### PSAD #### [facility] [address] [place] [address] Dr. Ragini Storm Start: 10-16-2019 DISCHARGE PATIENT [...] 12-13-2018 Esophagogastroduodenoscopy GELY Chanel Start: 10-25-2017 Cystoscopy Teer Torres Jr. Comment on above: 08/13/2012 Start: [...] microalbumin profile DTaP,Tdap,Td Vaccine (2 - Tdap) [facility] Start: 04-29-2025 DIABETES SCREEN DIABETES SCREEN [facility] Start: 04-29-2025 Diabetes Screening Diabetes Screenin g [facility] Start: 09-10-2023 DIABETES SCREEN DIABETES SCREEN [facility] Start: 02-27-2023 EPVDILATED, Provider : Guevara Carrasco, Status: Pen, Time: 9:00 AM EPVDILATED, Provider: Guevara Carrasco, Status: Pen, Time: 9:00 AM SS-Wflyikgsrgwvn-Wla tlake B102 Work Phone: Start: 01-27-2023 Covid-19 Vaccine ( season) Covid-19 Vaccine ( season) [facility] Start: 01-27-2023 Influenza vaccination [facility] Start: 07-06-2022 COVID-19 VACCINE (8 - Mixed Product risk series) COVID-19 VACCINE (8 - Mixed Product risk series) [facility] Start: 07-04-2022 EPVGLAUC, Provider: Guevara Carrasco, Status: Pen, Time: 11:15 AM EPVGLAUC, Provider: Guevara Carrasco, Status: Pen, Time: 11:15 AM JN-Gzzxivtkoexcg-Ejf tlake B102 Work Phone: Start: 05-29-2022 ADVANCE DIRECTIVE DISCUSSION ADVANCE DIRECTIVE DISCUSSION [facility] Start: 05-29-2022 DEPRESSION ASSESSMENT DEPRESSION ASS ESSMENT [facility] Start: 02-28-2022 EPVGLAUC, Provider: Guevara Carrasco, Status: Pen, Time: 10:30 AM EPVGLAUC, Provider: Guevara Carrasco, Status: Pen, Time: 10:30 AM JN-Rmuyysmrkarem-Jil tlake B102 Work Phone: Start: 01-27-2022 Influenza vaccination C [facility] Start: 09-27-2021 EPVGLAUC, Provider: Guevara Carrasco, Status: Pen, Time: 11:15 AM EPVGLAUC, Provider: Guevara Carrasco, Status: Jaison, Time: 11:15 AM KM-Gwdtcsbkgqxsx-Wnu tlake B102 Work Phone: Start: 05-29-2021 ADVANCE DIRECTIVE DISCUSSION ADVANCE DIRECTIVE DISCUSSION [facility] Start: 05-29-2021 DEPRESSION ASSESSMENT DEPRESSION ASS ESSMENT [facility] Start: 07-26-2020 Adult depression screening assessment DEPRESSION SCREENING [facility] Start: 01-28-2020 Influenza vaccination Flu vacc ine (Season Ended) [place] Start: 12-14-[address] [facility] Start: 12-14-2019 COLORECTAL CANCER SCREENING COLORECTAL CANCER SCREENING [facility] Start: 12-14-2019 Screening for malign ant neoplasm of colon [facility] Start: 10-23-2019 End: 10-23-2019 Office Visit 10/23/2019 Office Visit Plastic Surgery Ángel Fenton MD [address] [place] [address] [phone] [facility] Start: 08-28-2019 End: 08-28-2019 Office Visit 08/28/2019 Office Visit Plastic Surgery Ángel Fenton MD [address] [place] [address] [phone] [facility] Start: 08-14-2019 End: 08-14-2019 Hospital Encounter [facility] [place] Comment on above: NASAL LESION BIOPSY EXCISION - BASAL CELL WITH FROZEN SECTION REQUIRED AND FLAP CLOSURE Start: 07-03-2019 Annual Wellness Visi t (AWV) Annual Wellness Visit (AWV) [place] Start: 01-27-2019 Influenza vaccination Flu vaccine (# 1) [place] Start: 2016 Pneumococcal 65+ yea rs Vaccine (1 of 1 - PPSV23) Pneumococcal 65+ years Vaccine (1 of 1 - PPSV23) [place] Start: 06-29-2013 Pneumococcal Vaccine : 65+ (2 - PCV) Pneumococcal Vaccine: 65+ (2 - PCV) [facility] Start: 06-29-2013 PNEUMOCOCCAL: 65+ (2 - PCV) PNEUMOCOCCAL: 65+ (2 - PCV) [facility] Start: 2011 RSV Vaccine (1 - 1-d ose 60+ series) RSV Vaccine (1 - 1-dose 60+ series) [facility] Start: 2001 Colon cancer screen colonoscopy Colon cancer screen colonoscopy [place], [place] Start: 2001 Screening for malign ant neoplasm of colon Colon cancer screen colonoscopy [place] Start: 2001 Shingles Vaccine (1 of 2) Shingles Vaccine (1 of 2) [place] Start: 2001 SHINGRIX VACCINE (1 of 2) SHINGRIX VACCINE (1 of 2) [facility] Start: 1996 COLOGUARD (FIT-DNA) COLOGUARD (FIT-D NA) [facility] Start: [address] COLONOGRAPHY [facility] Start: 1996 FECAL OCCULT BLOOD FECAL OCCULT BLOO D [facility] Start: 1996 Screening for malign ant neoplasm of colon [facility] Start: 1996 SIGMOIDOSCOPY SIGMOIDOSCOPY [facility] Start: 1991 Diabetes screen Diabetes screen [place], [place] Start: 1986 Lipid panel Lipid Screening [facility] Start: 1986 L[address]ID SCREEN LIPID SCREEN [facility] Start: 1970 DTaP/Tdap/Td vaccine (1 - Tdap) DTaP/Tdap/Td vaccine (1 - Tdap) [place] Start: 1970 SHINGRIX VACCINE (1 of 2) SHINGRIX VACCINE (1 of 2) [facility] Start: 1970 Urine microalbumin profile DTAP,TDAP,TD (1 - Tdap) [facility] Start: 1969 ANNUAL PCP TEAM SUPERVISOR SCENIC ARTS JORDYN DISEASE VISIT ANNUAL PCP TEAM CHRONIC DISEASE VISIT [facility] Start: 1969 BP CONTROLLED (<130/80) BP CONTROLLE D (<130/80) [facility] Start: 1969 HEPATITIS C SCREENING HEPATITIS C [facility] Start: 1969 Hepatitis C screening Hepatitis C [facility] Start: 1962 DTaP/Tdap/Td vaccine (1 - Tdap) DTaP/Tdap/Td vaccine (1 - Tdap) [place] Start: 1961 Lipid panel Lipid screen [place], [place] Start: 1961 Lipid screen Lipid screen [place], [place] Start: 1951 AAA screen AAA screen [place], [place] Start: 1951 Abdominal aortic aneurysm screening [facility] Start: 1951 ABDOMINAL AORTIC ANEURYSM SCREENING ABDOMINAL AORTIC ANEURYSM SCREENING [facility] Start: 1951 Hepatitis C screen Hepatitis C [facility] [place], [place] Start: 1951 Hepatitis C [facility] [place] [place] End: 10-16-2019 Blood glucose - POCT Blood glucose - POCT Point of Care Testing Routine One Time for 1 Occurrences starting 10/16/2019 until 10/16/2019 [place] Comment on above: One Time for 1 Occur rences starting 10/16/2019 until 10/16/2019 End: 10-14-2019 COVID-19 COVID-19 Lab Routine One Time for 1 Occurrences starting 10/14/2019 until 10/14/2019 [place] Comment on above: One Time for 1 Occur rences starting 10/14/2019 until 10/14/2019 Initiate Oxygen Ther apy Protocol Initiate Oxygen Therapy Protocol Respiratory Care Routine Daily until discontinued starting 10/16/2019 [place] Comment on above: Daily until disconti nued starting 10/16/2019 Phase I & II - meter ed glucose Phase I & II - metered glucose Point of Care Testing Routine As Needed until discontinued starting 10/16/2019 [place] Comment on above: As Needed until disc ontinued starting 10/16/2019 End: 10-16-2019 , urine POCT , urine POCT Point of Care Testing Routine One Time for 1 Occurrences starting 10/16/2019 until 10/16/2019 [place] Comment on above: One Time for 1 Occur rences starting 10/16/2019 until 10/16/2019 SPEECH PLAN OF CARE CERTIFICATION SPEECH PLAN OF CARE CERTIFICATION Procedures Routine 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) MYASTHENIA GRAVIS ERIS on CPAP Vascular dementia without behavioral disturbance, psychotic disturbance, mood disturbance, or anxiety, unspecified dementia severity (HCC) Cognitive communication deficit Ordered: 08/04/2022 [facility] Work Phone: Comment on above: Ordered: 08/04/2022 Surgical Pathology Surgical Path ology Lab Routine Release Upon Ordering for 1 Occurrences starting 10/16/2019 [facility], [place] Comment on above: Release Upon Orderin g for 1 Occurrences starting 10/16/2019 [facility] Immunizations Immunization Date Immunization Notes Care Provider Ulises fong 05-11-2022 SARS-CoV-2 (COVID-19 ) [id number] GELY BLAKE [facility] 03-21-2022 influenza virus vaccine, unspecified formulation GELY BLAKE [facility] 09-23-2021 SARS-CoV-2 mRNA (njyudzgbmzm-xasd-bhrvv se) vaccine GELY BLAKE [facility] 08-27-2021 SARS-CoV-2 (COVID-19 ) mRNA-1273 vaccine Tere Torres Jr. [facility] 03-14-2021 SARS-CoV-2 (COVID-19 ) mRNA BNT-162b2 vax GELY BLAKE [facility] 09-02-2020 SARS-CoV-2 (COVID-19 ) mRNA-1273 vaccine Tere Torres Jr. [facility] 08-05-2020 SARS-CoV-2 (COVID-19 ) mRNA-1273 vaccine Tere Torres Jr. [facility] 07-26-2020 SARS-CoV-2 (COVID-19 ) mRNA BNT-162b2 vax GELY BLAKE [facility] Comment on above: Result Comment: 2022: [id number] 07-04-2020 SARS-CoV-2 (COVID-19 ) mRNA BNT-162z3 vax GELY BLAKE [facility] Comment on above: Result Comment: 2022: [id number] 03-03-2020 influenza virus vaccine, unspecified formulation GELY BLAKE [facility] 02-27-2020 influenza virus vaccine, unspecified formulation Tere Torres Jr. [facility] 03-08-2017 influenza virus vaccine, unspecified formulation GELY BLAKE [facility] 03-07-2016 influenza, unspecifi ed formulation GELY BLAKE [facility] 05-10-2013 influenza virus vaccine, unspecified formulation [facility] 06-29-2012 pneumococcal polysaccharide vaccine, [address] [facility] 04-11-2012 influenza virus vaccine, unspecified formulation [facility] NEGATED: Highlighted row has not occurred!07-04-2023 influenza virus vaccine, unspecified formulation Cliff JESSICA [facility] Payers Date Payer Category Payer Medicare [id number] 2017 Private Health Insurance [facility] AARP SUPPLEMENT [id number] 2017-Present [phone] [address] [place] [address] Indemnity [id number] 2017 Private Health Insurance [facility] AARP SUPPLEMENT [id number] 2017-Present [phone] [address] [place] [address] Indemnity [id number] 2016 Medicare MEDICARE MEDICAR E A AND B [id number] 2016-Present [phone] [address] [address] [place] [address] Medicare [id number] 2016 Medicare MEDICARE MEDICAR E A AND B [id number] 2016-Present [phone] [place] [address] Medicare [id number] 1959 Medicare [id number] 1959 Private Health Insurance [id number] 1959 Self-pay 1950 Unknown [id number] 2.16.840.1.608266.3.579.2 .175 1951 Unknown [id number] 2.16.840.1.592510.3.579.2 .175 1951 Unknown [id number] 2.16.840.1.178446.3.579.2 .177 1951 Unknown [id number] 2.16.840.1.928061.3.579.2 .593 1951 Unknown [id number] 2.16.840.1.753637.3.579.2 .593 1951 Unknown [id number] 2.16.840.1.649398.3.579.2 .593 1951 Unknown [id number] 2.16.840.1.481724.3.579.2 .593 1951 Unknown [id number] 2.16.840.1.614216.3.579.2 .593 1951 Unknown [id number] 2.16.840.1.365864.3.579.2 .593 1951 Unknown [id number] 2.16.840.1.717949.3.579.2 .593 1951 Unknown [id number] 2.16.840.1.856170.3.579.2 .593 1951 Unknown [id number] 2.16.840.1.279216.3.579.2 .356 1951 Unknown [id number] 2.16.840.1.233778.3.579.2 .356 1951 Unknown [id number] 2.16.840.1.371870.3.579.2 .356 1951 Unknown [id number] 2.16.840.1.599439.3.579.2 .356 1951 Unknown [id number] 2.16.840.1.256968.3.579.2 .1259 1951 Unknown [id number] 2.16.840.1.389544.3.579.2 .1244 1951 Unknown [id number] 2.16.840.1.144225.3.579.2 .1244 1951 Unknown [id number] 2.16.840.1.940917.3.579.2 .1244 1951 Unknown [id number] 2.16.840.1.308456.3.579.2 .727 1951 Unknown [id number] 2.16.840.1.268854.3.579.2 .727 1951 Unknown [id number] 2.16.840.1.216948.3.579.2 .727 1951 Unknown [id number] 2.16.840.1.180953.3.579.2 .727 1951 Unknown [id number] 2.16.840.1.711969.3.579.2 .727 1950 Unknown [id number] 2.16.840.1.411839.3.579.2 .727 Medicare [id number] Unknown Unknown [id number] 2.16.840.1.831067.19 Social History Date Type Detail Facility Start: 07-31-2019 End: 07-04-2023 Tobacco smoking status NHIS Former smoker [facility] End: 05-29-1990 History of tobacco use Current smoker [place] End: 05-29-1990 History of tobacco use Cigar Sm[place] Start: 07-31-2019 End: 01-11-2023 Alcohol intake Current drinker of alcohol (finding) [place] Start: 07-17-2019 History SDOH Alcohol Frequency 3 [place] Start: 07-31-2019 Alcohol Comment Occas beer [place], [place] Start: 1950 Sex Assigned At Not on file [place], [place] Exposure to SARS-CoV -2 (event) Unable to assess [place] Start: 07-26-2019 End: 10-07-[address] [facility] Start: 10-01-2020 Tobacco smoking status Never s moked tobacco (finding) [facility] Tobacco smoking status Never [facility]ad Start: 07-26-2019 End: 10-07-2022 Sex Assigned At Male [facility] Baljinder Diaz Other Start: 10-11-2021 End: 04-29-2022 Exposure to SARS-CoV-2 (event) Not sure [facility] Start: 04-04-2012 End: 04-27-2022 Tobacco use and exposure Smokeless tobacco non-user [facility] Medical Equipment Procedure Code Equipment Code Equipment Origin al Text Equipment Identifier Dates Drug Cornelius Unilet Lancets 28G use to test BLOOD SUGAR DAILY Quantity: 100 Refills: 0 Start : 15-Mar-2016 Active Start: 03-15-2016 True Metrix Bloo d Glucose Test In Vitro Strip use to test BLOOD SUGAR EVERY DAY Quantity: 100 Refills: 0 Start : 31-Mar-2016 Active Start: 03-31-2016 Graft Bn Infs Rgbmp Lg Kt Cspn - [id number] Start: 04-10-2012 Wnb-Py-D-Kind Implant - [id number] Start: 04-10-2012 Comment on above: Description: taryn scr ew [id number] Michael Taryn 3 Ti - [id number] Start: 04-10-2012 Comment on above: Description: Michael s Mhw-Fa-C-Kind Implant - [id number] Start: 04-10-2012 Comment on above: Description: taryn maloney ew 8.5x50mm Jbm-Tz-I-Kind Implant - [id number] Start: 04-10-2012 Comment on above: Description: Emerson 5.5 x110mm Ofi-Oi-O-Kind Implant - [id number] Start: 04-10-2012 Comment on above: Description: Emerson 5.5 x120mm Duk-Wv-L-Kind Implant - [id number] Start: 04-10-2012 Comment on above: Description: screw 6 .[id number] Uls-Kc-F-Kind Implant - [id number] Start: 04-10-2012 Comment on above: Description: screw 7 .[id number] Nwu-Jk-Z-Kind Implant - [id number] Start: 04-10-2012 Comment on above: Description: neutral offset Screw Taryn 3 Ti P a 5.5x50 Mm - [id number] Start: 04-10-2012 Functional Status Date Assessment Result Facility 07-11-2023 Functional Status N/A [facility] 06-06-2023 Functional Status N/A [facility] 11-15-2022 Functional Status N/A [facility] 09-06-2022 Functional Status N/A [facility] 06-07-2022 Functional Status N/A [facility] NEGATED: Highlighted row Functional performance Functional status health issues are not documented Disease HI-Vjauikdhahbbk-Evi [address] [address] Work Phone: Mental Status Date Assessment Result Facility NEGATED: Highlighted row Cognitive function [Interpretation] Cognitive status health issues are not documented Disease VO-Nvmqpdckiwtex-Hc [place] [address] Work Phone: Clinical Notes 06-25-2012 to 07-11-2023 Patient InstructionsViky Carias LPN - 01/11/2023 12:53 PM Chandni Guerrero APRN.CNP - 01/11/2023 12:33 PM EDTTelephone Encounter - Daysi Uribe MD - 12/05/2022 12:13 PM EDT Note Date & Type Note Facility 07-11-2023 Note [id number] [facility] 07-11-2023 Hospital Discharge instructions Patient Education 07/11/2023 [...] [facility] [address] [place] [address]- Business (1) When:10/09/2023 11:42:33 Comments:With a PVR bladder scan [facility] 07-11-2023 Note Custom Cystoscopy ? Voiding after [...] you have a fever over 100 degrees. [facility] 07-04-2023 Note Chief Complaint consultation for positive [...] Low Risk, 06/25/2019 (more content not included)... [facility] Comment on above: Result Comment: Elec [...] including vitamins, herbs, eye drops, creams, and bwpb-lnm-jszqyfs medicines. Any problems you or family members [...] provider tells you to take them. Taking odcd-eoa-fkzeups medicines, vitamins, herbs, and supplements. Tests You [...] Follow these instructions at home: Medicines Take fgbt-ozi-qpqnvrf and prescription medicines only as told by [...] provider. Document Revised: 01/26/2022 Document Reviewed: 12/25/2020 Fibroblast Patient Education 2022 Dynamics. Follow Up Care 06/05/2023 15:22:42 With:ARACELY MARTINEZ, Cliff Manuel, URL Address: [address] [place] [address]- When: Unknown [facility] 06-06-2023 Note Urology Cystoscopy Cystoscopy is a [...] including vitamins, herbs, eye drops, creams, and dzmb-jem-yigmzbj medicines. ? Any problems you or family [...] tells you to take them. ? Taking gcwp-vyf-hulynfi medicines, vitamins, herbs, and supplements. Tests You [...] these instructions at home: Medicines ? Take bmwi-fzf-kwfzqbl and prescription medicines only as told by [...] the department th (more content not included)... [facility] 01-11-2023 Note HNO ID: [id number] Author: Chandni Metzger APRN.LUISITO Service: ? Author Type: Nurse Practitioner Type: Progress Notes Filed: 01/17/2023 1:01 PM Note Text: [facility] - Follow-up Visit [...] this [place]. 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 [facility] 01-11-2023 Instructions Chandni Metzger APRN.[facility] - 01/11/2023 1:38 PM EDT [...] cards Brain games or apps such as ProcessUnityosity Puzzles, word jumble games Hobbies Listening to [...] gardening, knitting, etc. documented in this encounter [facility] 01-11-2023 Nurse Note Ron Welch is a 72 year old year old man accompanied by: spouse. Do you have any changes or new concerns you would like to address at the visit today? No new issues or concerns. Vital Signs: BP 152/79 Pulse (!) 56 Wt 101.2 kg (223 lb) BMI 35.99 kg/m documented in this encounter [facility] 01-11-2023 History of Present illness Narrative Images from the original note were not included. [facility] - Follow-up Visit Date: January 11, 2023 Patient Name: oRn Welch Reason for Visit: follow-up visit Accompanied [...] this summer with going [place] Driving golf carts in controlled area, did [...] cards Brain games or apps such as ProcessUnityosity Puzzles, word Iglu.comle games Hobbies Listening to music, going to [...] which included preparing to see the patient, lksu-pz-umij patient care, obtaining and/or reviewing separately obtained history, and counseling and educating the patient/family/caregiver. Chandni Metzger APRN.[facility] 01/11/2023 12:33 PM CC: Referring Physician: MARJORIE PCP: Guevara Mackay [address] [place] [address] Patient Entered Data: Patient-Reported No flowsheet data [...] flowsheet data found. documented in this encounter [facility] 12-05-2022 Miscellaneous Notes The following approved medication requests have been transmitted electronically. Requested Prescriptions Signed Prescriptions Disp Refills azaTHIOprine (IMURAN) 50 mg tablet 180 tablet 3 Sig: Take 1 tablet by mouth twice daily. Authorizing Provider: DAYSI URIBE MD documented in this encounter [facility] 11-15-2022 Hospital Discharge instructions Patient Education [...] Follow these instructions at home: Medicines Take tsxf-hlz-dkgtvyr and prescription medicines only as told by [...] provider. Document Revised: 08/11/2021 Document Reviewed: 08/11/2021 Fibroblast Patient Education 2022 Dynamics. Follow Up Care 09/06/2022 13:43:11 With:REEMA CRUM, GELY Ch, URL Address: [place] [address] Business (1) When: only if needed [facility] [employer] 10-07-2022 Note HNO ID: [id number] Author: Chandni Metzger APRN.VOCATIONAL REHABILITATION TECHNICIAN Service: ? Author Type: Nurse Practitioner Type: Progress Notes Filed: 10/13/2022 12:33 PM Note Text: [facility] - Follow-up Visit Date: October [...] memory, processing spe (more content not included)... [facility] 10-07-2022 Instructions Chandni Metzegr APRN.[facility] - 10/07/2022 1:55 PM EDT [...] gardening, knitting, etc. documented in this encounter [facility] 10-07-2022 Nurse Note Ron Welch is [...] BMI 35.83 kg/m documented in this encounter [facility] 10-07-2022 History of Present illness Narrative Images from the original note were not included. [facility] - Follow-up [...] cards Brain games or apps such as ProcessUnityosity Puzzles, word Iglu.comle games Hobbies Listening to music, going to concerts (if able) Going to art [employer] and galleries -Get good sleep. Sleep is [...] which included preparing to see the patient, qzad-zv-vdef patient care, obtaining and/or reviewing separately obtained history, counseling and educating the patient/family/caregiver, and communicating results to the patient/family/caregiver. Chandni Metzger APRN.[facility] 10/07/2022 1:15 PM CC: Referring Physician: Chandni Metzger [address] [facility] [address] PCP: Guevara Mackay [address] [place] [id number] Patient Entered Data: Patient-Reported No flowsheet data [...] flowsheet data found. documented in this encounter [facility] 09-06-2022 Hospital Discharge instructions Patient Education [...] nerve stimulation). For women, using a medical secretary to prevent urine leaks. This is a [...] right after experiencing incontinence. General instructions Take rcgw-qrx-hlhtwtt and prescription medicines only as told by [...] 06/22/2005 Document Revised: 05/25/2018 Document Reviewed: 08/24/2017 Fibroblast Patient Education 2020 Dynamics. Follow Up Care 06/07/2022 10:48:01 With:REEMA CRUM, GELY Ch, URL Address: [facility] [place] [address] When: Unknown [facility] 08-04-2022 Note HNO ID: [id number] Author: Lauren Lamas MD Service: ? Author [...] He is to return to see our [facility] MARYANN as planned. [facility] 08-04-2022 Note HNO ID: [id number] Author: Love Toure CCC-CENTRAL SERVICE TECH Service: ? Author Type: Speech Language Pathologist Type: Progress Notes Filed: 08/04/2022 3:38 PM Note Text: Episode Visit Count: 1 Therapist That Will Accept/Oversee The Plan Of Care: Love Toure MA CCC-CENTRAL SERVICE TECH Start of Care Date: 08/04/22 Onset Date: 07/08/22 Plan of Care Certification Date: 08/04/22 Next Certification Due Date: 08/04/22 Patient Identified by Name and Date of : Yes [facility] COGNITIVE LINGUISTIC EVALUATION PLAN OF CARE: Impression: Communication deficits identified: Cognitive deficits RECOMMENDATION: 1.) Outpatient speech therapy recommended for cognitive-linguistic re-education. Patient plans to receive services closer to home. 2.) Initiate home exercise program: -implement external memory strategies, such as: use of sticky notes, calendar/log scaler, timer/alarm, etc. To facilitate improved recall of [...] and agreed upon by patient/family. 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 [facility] 08-04-2022 Note HNO ID: [id number] Author: YONATAN Frances Service: ? Author Type: It Analyst Type: Progress Notes Filed: 08/04/2022 2:05 PM Note Text: SOCIAL WORK NOTE Ron Welch [address] [place] [id number] INFORMATION/REFERRAL: Referral Source: Lauren Lamas MD Pt [...] communication and sundowning at length. INTERVENTION/PLAN: -Discussed FACTORY MANAGER supportive role/availability as member of [facility] care team. -Supportive counseling offered to [...] For assistance navigating local resources such as contact center assistant care/caregiver support contact The Area Office on Aging. -Private Duty Home Health Agencies can provide supportive services. These services may include companionship, assistance with meals, medication management, senior lead software engineer, transportation and personal care if needed. Services are typically an out of pocket expense. Some long-term care policies or VA benefits may offer reimbursement for services. Local resources provided. [facility] can assist with meals, transportation, home maintenance and activities. Tel: -Obtained copy of pt's healthcare advance directives, Will be faxed to HIM to add to EMR. IMPRESSION: Pleasant 72 year old year old patient. Pt and family appear able and motivated to follow up on recommendations as discussed. FACTORY MANAGER will remain available to address any questions/concerns. Contact information was provided. I spent a total of 40 minutes with the patient. Social work assessment/interventions rendered under the supervision of Dr. Hyacinth Bernal. YONATAN Frances [facility] 08-04-2022 History of Present illness Narrative Patient's [...] He is to return to see our [facility] MARYANN as planned. documented in this encounter [facility] 08-04-2022 History of Present illness Narrative Episode Visit Count: 1 Therapist That Will Accept/Oversee The Plan Of Care: Love Toure MA [facility]-CENTRAL SERVICE TECH Start of Care Date: 08/04/22 Onset Date: 07/08/22 Plan of Care Certification Date: 08/04/22 Next Certification Due Date: 08/04/22 Patient Identified by Name and Date of : Yes [facility] COGNITIVE LINGUISTIC EVALUATION PLAN OF CARE: Impression: Communication deficits identified: Cognitive deficits RECOMMENDATION: 1.) Outpatient speech therapy recommended for cognitive-linguistic re-education. Patient plans to receive services closer to home. 2.) Initiate home exercise program: -implement external memory strategies, such as: use of sticky notes, calendar/log scaler, timer/alarm, etc. To facilitate improved recall of [...] Sustained Memory Deficits: Functional, Short Term, Immediate, Conveyor System Operator Executive Function Deficits: Math Calculations, Time/Money Management, [...] Eval Sound Production with Language Expression and Comber Operator (44400) Speech/Language Therapy (40966): Skilled Intervention: reviewed results of evaluation with patient/spouse; provided recommendations related to treatment/plan of care, compensatory strategies, and home programming; assessed the type/frequency of supports required to facilitate accurate return demonstration of information. Current Home Program: see recommendations Billing: Eval Sound Production with Language Expression and Comber Operator (96972) and Speech Treatment (70713) Total time / Length of visit: 45 minutes Love Toure CCC-CENTRAL SERVICE TECH documented in this encounter [facility] 08-04-2022 Instructions YONATAN Frances - 08/04/2022 [...] hours a day, 7 days per week: [phone]. Call Help Line to learn of local options for support groups and to register. Family Caregiver [place] (web site: Caregiver.org) A Quisk- a secure online solution for quality information, [...] assisted living. The Veterans Service Commission of [facility] is an organization that can give information regarding this benefit. Their number is: [phone]. [facility] Service Commission [address] [place] [address] [place] [address] For assistance navigating local resources such as contact center assistant care/caregiver support: [facility] Office on Aging [address] [place] [address] Private Duty Home Health Agencies can provide supportive services. These services may include companionship, assistance with meals, medication management, senior lead software engineer, transportation and personal care if needed. Services [...] the minimum amount of hours they require. [facility] can assist with meals, transportation, home maintenance and activities. Tel: Please feel free to call or schedule a follow up visit with any questions or concerns. THOMAS Francse LISW Lou Ruvo [facility] [phone] documented in this encounter [facility] 08-04-2022 History of Present illness Narrative Images from the original note were not included. SOCIAL WORK NOTE Ron Welch [address] [place] [id number] INFORMATION/REFERRAL: Referral Source: Lauren Lamas MD Pt [...] communication and sundowning at length. INTERVENTION/PLAN: -Discussed FACTORY MANAGER supportive role/availability as member of [facility] care team. -Supportive counseling offered to [...] For assistance navigating local resources such as contact center assistant care/caregiver support contact The Area Office on Aging. -Private Duty Home Health Agencies can provide supportive services. These services may include companionship, assistance with meals, medication management, senior lead software engineer, transportation and personal care if needed. Services are typically an out of pocket expense. Some long-term care policies or VA benefits may offer reimbursement for services. Local resources provided. [facility] [place] [facility] can assist with meals, transportation, home maintenance and activities. Tel: -Obtained copy of pt's healthcare advance directives, Will be faxed to HIM to add to EMR. IMPRESSION: Pleasant 72 year old year old patient. Pt and family appear able and motivated to follow up on recommendations as discussed. FACTORY MANAGER will remain available to address any questions/concerns. Contact information was provided. I spent a total of 40 minutes with the patient. Social work assessment/interventions rendered under the supervision of Dr. Hyacinth Bernal. YONATAN Frances [facility] documented in this encounter [facility] 07-20-2022 Miscellaneous Notes RMK, Pt to saw Dr. Lauren Lamas at [facility] for cognitive issues. Was dx with [...] RN, BSN, BA documented in this encounter [facility] 07-08-2022 Note HNO ID: [id number] Author: Lauren Lamas MD Service: ? Author [...] request for BiPAP download; DME: Bettie Bone [phone] Encourage regular physical and mental activity His [...] have conveyed the information to patient via [employer], and recommended him to follow up with [...] 0 0 Tr (more content not included)... [facility] 06-17-2022 Note HNO ID: [id number] Author: RT Sara(R) Service: Radiology Author Type: [...] RT Sara(R) June 17, 2022 2:27 PM [facility] 06-17-2022 History of Present illness Narrative Radiology [...] 2022 2:27 PM documented in this encounter [facility] 06-17-2022 Note HNO ID: [id number] Author: Araseli Camacho, PhD Service: ? 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 The assessment consisted of a brief interview [...] has has put his clothes on backwards. Buffer Machine: Historically managed by his . He previously [...] WHOLE BRAIN VOLU (more content not included)... 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 The assessment consisted of a brief interview [...] has has put his clothes on backwards. Buffer Machine: Historically managed by his . 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 Family: The patient is and has 2 step-children. Living situation: Lives with his . BEHAVIORAL OBSERVATIONS: The patient was accompanied by his , Hyacinth. He was oriented to person, date, past/current president, and aspects of place. However, he incorrectly listed the day as Monday for Monday and the current city as [facility]; however, he listed the current location as [facility]. With glasses and hearing aids, vision [...] Ph.D. Staff Neuropsychologist Time testing and scoring (clerical order filler): 3 hours Time completing additional tests, analyzing, interpreting and incorporating other available medical information, clinical data review, and report writing (by neuropsychologist): 3 hours Tests Administered: Nash Anxiety Inventory Nash Depression Inventory Showell Naming Test Brief Visuospatial Memory Test-Revised DKEFS Subtests: Color-Word Interference, Verbal Fluency Rucker Verbal Learning Test Judgment of Line Orientation- Short Form Woody Complex Figure [place] Making Test WAIS-IV subtests: Coding, Digit Span, Matrix Reasoning, Similarities WMS-IV Logical Memory WRAT-IV Reading documented in this encounter [facility] 06-07-2022 Hospital Discharge instructions Patient Education [...] 05/01/2013 Document Revised: 01/02/2019 Document Reviewed: 01/02/2019 Fibroblast Patient Education 2020 Dynamics. Follow Up Care 09/28/2021 11:41:06 With:REEMA CRUM, GELY Ch, URL Address: [address] [place] [address] When:3 months Comments:Travis f/u [facility] 05-12-2022 History of Present illness Narrative We [...] We will send patient a message via IdeaString. documented in this encounter [facility] 05-03-2022 Miscellaneous Notes Images from the original note were not included. documented in this encounter [facility] 04-29-2022 Miscellaneous Notes Images from the original note were not included. Requested download from [email or web address] to be faxed to office. documented in this encounter [facility] 04-27-2022 Instructions Kaleigh Lance MD - 04/27/2022 4:27 PM EST Continue Mestinon and Azathioprine (Imuran) as prescribed. Referral placed for neuropsychology testing and [facility]. Follow up in 9 months. documented in this encounter [facility] 04-27-2022 History of Present illness Narrative [...] remember which friends have . He had [employer] testing in 2020, which showed 93% likelihood [...] 2+ 2+ Ankle 2+ 2+ Cerebellar testing: Bolaco-hh-Rczx: No dysmetria Vyln-bf-Qtek: Deferred Gait: Ability to rise from chair [...] Daysi Uribe MD documented in this encounter [facility] 04-15-2022 Miscellaneous Notes The following approved medication requests have been transmitted electronically. Requested Prescriptions Signed Prescriptions Disp Refills pyridostigmine (MESTINON) 60 mg tablet 90 tablet 11 Sig: Take 1 tablet by mouth three times daily. Authorizing Provider: DAYSI URIBE MD documented in this encounter [facility] 11-23-2021 Miscellaneous Notes ' documented in this encounter [facility] 10-21-2021 History of Present illness Narrative [...] Daysi Uribe MD documented in this encounter [facility] 10-21-2021 History of Present illness Narrative [...] applicable. Carol Pepe documented in this encounter [facility] 09-28-2021 Hospital Discharge instructions Patient Education [...] urethra. Follow these instructions at home: Take tyzk-ewd-ljtbjke and prescription medicines only as told by [...] 05/15/2006 Document Revised: 04/09/2019 Document Reviewed: 06/19/2017 Fibroblast Patient Education 2020 Dynamics. Follow Up Care 05/13/2021 15:40:48 With:Brian Claire MD, Tere Moyer [facility] Address: [facility] [address] [place] [address]- When:03/31/2022 Comments:with PSA [facility] 09-28-2021 Miscellaneous Notes Mailed patient letter requesting [...] G/J Tube?No Preferred phone number for contact: [phone] - Ting documented in this encounter [facility] 09-08-2021 Evaluation note Encounter Date Diagnosis Assessment Notes Aug, Gastroparesis (ICD-10 - K31.84) Aug, Gastroesophageal reflux disease with esophagitis without hemorrhage (ICD-10 - K21.00) Aug, Myasthenia gravis (ICD-10 - G70.00) Aug, Other START TRIAL OF CARAFATE 1 GRAM QID GASTRIC EMPTYING STUDY FU HERE AFTER [employer] Other 01-28-2013 History of Past illness Narrative* [...] of this encounter (statuses as of 10/21/2021) [facility] of [facility] illness Narrative* Problem [...] of this encounter (statuses as of 10/21/2021) [facility] Narrative* Problem [...] of this encounter (statuses as of 11/23/2021) [facility] Narrative* Problem [...] of this encounter (statuses as of 02/02/2022) [facility] Narrative* Problem [...] of this encounter (statuses as of 04/15/2022) [facility] Narrative* Problem [...] of this encounter (statuses as of 04/28/2022) [facility] Narrative* Problem [...] of this encounter (statuses as of 04/29/2022) [facility] Narrative* Problem [...] of this encounter (statuses as of 05/03/2022) [facility] Narrative* Problem [...] of this encounter (statuses as of 05/12/2022) [facility] Narrative* Problem [...] of this encounter (statuses as of 06/18/2022) [facility] Narrative* Problem [...] of this encounter (statuses as of 06/24/2022) [facility] Narrative* Problem [...] of this encounter (statuses as of 07/21/2022) [facility] Narrative* Problem [...] of this encounter (statuses as of 08/04/2022) [facility] Narrative* Problem [...] of this encounter (statuses as of 08/04/2022) [facility] Narrative* Problem [...] of this encounter (statuses as of 08/04/2022) [facility] Narrative* Problem [...] of this encounter (statuses as of 10/07/2022) [facility] Narrative* Problem [...] of this encounter (statuses as of 12/05/2022) [facility] History of Past illness Narrative* Problem [...] of this encounter (statuses as of 01/17/2023) [facility] History of Past illness Narrative* Problem [...] Future Appointments Appointment Date:04/12/2022 09:45:00 AM Scheduled Provider:Tree Torres Jr., MD Location:[facility] Appointment Type:URO Office Visit Diagnostic Tests Pending * PSA Total 09/28/21 [facility] evaluation + Plan note Future Appointments Appointment Date:09/06/2022 01:00:00 PM Scheduled Provider:GELY BLAKE PA-C Location:[facility] Appointment Type:URO Office Visit Diagnostic Tests Pending * PSA Total 06/07/22 [facility] evaluation + Plan note Future Appointments Appointment Date:11/15/2022 01:00:00 PM Scheduled Provider:GELY BLAKE PA-C Location:[facility] Appointment Type:URO Office Visit [facility] evaluation + Plan note Future Appointments Appointment Date:07/04/2023 01:20:00 PM Scheduled Provider:Leighton MARIE MD Location:[facility] Appointment Type:[place] [id number] [facility] evaluation + Plan note Future Appointments Appointment Date:10/09/2023 11:45:00 AM Scheduled Provider:Cliff JESSICA MD Location:[facility] Appointment Type:URO Office Visit [facility] note* Diagnosis [facility]astroparesis- [facility]aresis- Primary [facility] Diagnosis Disorder of autonomic nervous system- Primary Unspecified disorder of autonomic nervous system [facility] Diagnosis Myasthenia gravis (HCC) Myasthenia gravis without exacerbation [facility] Diagnosis Myasthenia gravis (HCC)- Primary Myasthenia gravis without exacerbation Memory loss 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 Diagnosis Major neurocognitive disorder (HCC)- Primary Unspecified persistent mental disorders due to conditions classified elsewhere Obstructive sleep apnea Obstructive sleep apnea (adult) (pediatric) MYASTHENIA GRAVIS Myasthenia gravis with exacerbation Depression, unspecified depression type 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 ERIS on CPAP Obstructive sleep apnea (adult) (pediatric) documented in this encounter [facility] Narrative - Reported* Type Description Date Medical History HTN (hypertension) Medical History Hypercholesteremia Medical History Seasonal allergies Medical History OAB (overactive bladder) Medical History Glaucoma Surgical History cancer Surgical History knee replacement Surgical History heart surgery due to cancer pérez or removal Hospitalization History see above [employer] Other Hospital course Narrative No data available for this section [facility] progress note No data available for this section [facility] Discharge Instructions * Instructions* Karen Murphy RN [...] Dr Fenton. [facility] stay in [facility].Report to [facility] Luis F johnson [facility] 7:00 AM on August 13. documented in [...] Fenton in 10-14 days after surgery, call [phone] to schedule an appointment. documented in this encounter Advance Directives No Advanced Directives Records FoundDocuments on File Type Date Recorded Patient Technical Sales Representative Expl anation Advance Directives and Living Will Power of Gas Charger Documents on File Type Date Recorded Patient Technical Sales Representative Expl anation Advance Directives and Living Will Power of Gas Charger History of Present Illness * Karen Murphy RN - 10/02/2019 12:48 PM EDT PAT interview done;old history reviewed & pt reports no changes.Instr on Covid swab testing at [facility] on 10-14-19 at 0915. Instr [...] W/INTERP&POSTPROC DIFF WORK STATION Lauren Lamas MD [address] [employer] [place] [id number] Mr Imaging Referral ID Status Reason Start Date Expiration Date V isits Requested Visits Authorized [id number] Closed Auto-Generate d Referral 04/29/2022 05/29/2023 1 1 Specialty Diagnoses / Procedures Referred By Contac t Referred To Contact MR IMAGING Diagnoses Myasthenia gravis with exacerbation (HCC) Cognitive dysfunction Obstructive sleep apnea Procedures MRI BRAIN W QUANT WO IVCON MRI BRAIN BRAIN STEM W/O CONTRAST MATERIAL Lauren Lamas MD [address] [place] [id number] Mr Imaging Referral ID Status Reason Start Date Expiration Date V isits Requested Visits Authorized [id number] Closed Auto-Generate d Referral 04/29/2022 05/29/2023 1 1 Specialty Diagnoses / Procedures Referred By Contac t Referred To Contact Neurology Diagnoses Memory loss Procedures CONSULT TO NEUROLOGY OFFICE/OUTPATIENT [facility] 60-74 MINUTES Daysi Uribe MD [address] [employer] [place] [address] Referral ID Status Reason Start Date Expiration Date Visits Requested Visits Authorized [id number] Authorized PCP Requested Referral 04/27/2023 1 1 Additional Source Comments Reason for Visit (unrecogniz ed section and content) Status Reason Specialty Diagnoses / Procedures Referre d By Contact Referred To Contact Diagnoses Basal cell carcinoma of skin of nose BASAL CELL - NOSE Procedures AL OFFICE/OUTPT VISIT,PROCEDURE ONLY AL ADJ TISS XFER LID,NOS,EAR <10SQCM NASAL LESION BIOPSY EXCISION - BASAL CELL NOSE WITH FLAP CLOSURE ADN FROZEN SECTION *PATHOLOGY REQUIRED* Ángel Fenton MD [address] [place] [address] [facility] Reason Comments Procedure Reason Comments Follow Up Reason Onset Date Comments Refill Request 11/19/2021 Reason Comments Appointment Reason Onset Date Comments Refill Request 04/14/2022 Reason Comments Established 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 - Other Download MSC Reason Comments PAP Therapy Follow Up DOWNLOAD Reason Comments Results BiPAP download 04/03- 05/02/2022 Specialty Diagnoses / Procedures Referred By Liliana jesus Referred To Contact MR IMAGING Diagnoses Myasthenia gravis with exacerbation (HCC) Cognitive dysfunction Obstructive sleep apnea Procedures MRI BRAIN W QUANT WO IVCON MRI BRAIN BRAIN STEM W/O CONTRAST MATERIAL Lauren Lamas MD [address] [address] Mr Imaging Referral ID Status Reason Start Date Expiration Date V isits Requested Visits Authorized [id number] Closed Auto-Generate d Referral 04/29/2022 05/29/2023 1 [...] (HCC) Procedures CONSULT TO SPEECH THERAPY OFFICE/OUTPATIENT [facility] 60-74 MINUTES Lauren Lamas MD [address] [address] [facility] [address] [place] [address] Referral ID Status Reason Start Date Expiration Date Visits Requested Visits Authorized [id number] Authorized Auto-Generat ed Referral 07/08/2022 07/08/2023 99 99 Reason Comments Established Patient Reason Onset Date Comments Refill Request 12/02/2022 (unrecognized sect ion and content) No Status Records FoundNo Status Records FoundNo Status Records FoundNo Status Records FoundNo Status Records FoundNo Status Records FoundNo Status Records FoundNo Status Records FoundNo Status Records Found INFORMATION SOURCE (unrecogn ized section and content) DATE CREATED AUTHOR [facility] DATE CREATED AUTHOR AUTHOR'S ORGANIZ ATION 10/19/2019 [facility] DATE CREATED AUTHOR AUTHOR'S ORGANIZ ATION 10/10/2022 [facility] DATE CREATED AUTHOR AUTHOR'S ORGANIZ ATION 11/06/2022 [employer] DATE CREATED AUTHOR AUTHOR'S ORGANIZ ATION 11/06/2022 [facility] DATE CREATED AUTHOR AUTHOR'S ORGANIZ ATION 05/13/2023 [facility] DATE CREATED AUTHOR AUTHOR'S ORGANIZ ATION 05/13/2023 [facility] DATE CREATED AUTHOR AUTHOR'S ORGANIZ ATION 05/20/2023 [facility] DATE CREATED AUTHOR AUTHOR'S ORGANIZ ATION 07/12/2023 [facility] Source Comments (unrecognize d section and content) In the event this informatio n is protected by the Federal Confidentiality of Alcohol and Drug Abuse Patient Records regulations: The Federal rules restrict any use of the information to criminally investigate or prosecute any alcohol or drug abuse patient.[facility] event this information is protected by the Federal Confidentiality of Alcohol and Drug Abuse Patient Records regulations: The Federal rules restrict any use of the information to criminally investigate or prosecute any alcohol or drug abuse patient.[facility] the event this information is protected by the Federal Confidentiality of Alcohol and Drug Abuse Patient Records regulations: The Federal rules restrict any use of the information to criminally investigate or prosecute any alcohol or drug abuse patient.[facility] the event this information is protected by the Federal Confidentiality of Alcohol and Drug Abuse Patient Records regulations: The Federal rules restrict any use of the information to criminally investigate or prosecute any alcohol or drug abuse patient.[facility] the event this information is protected by the Federal Confidentiality of Alcohol and Drug Abuse Patient Records regulations: The Federal rules restrict any use of the information to criminally investigate or prosecute any alcohol or drug abuse patient.[facility] the event this information is protected by the Federal Confidentiality of Alcohol and Drug Abuse Patient Records regulations: The Federal rules restrict any use of the information to criminally investigate or prosecute any alcohol or drug abuse patient.[facility] event this information is protected by the Federal Confidentiality of Alcohol and Drug Abuse Patient Records regulations: The Federal rules restrict any use of the information to criminally investigate or prosecute any alcohol or drug abuse patient.[facility] the event this information is protected by the Federal Confidentiality of Alcohol and Drug Abuse Patient Records regulations: The Federal rules restrict any use of the information to criminally investigate or prosecute any alcohol or drug abuse patient.[facility] the event this information is protected by the Federal Confidentiality of Alcohol and Drug Abuse Patient Records regulations: The Federal rules restrict any use of the information to criminally investigate or prosecute any alcohol or drug abuse patient.[facility] event this information is protected by the Federal Confidentiality of Alcohol and Drug Abuse Patient Records regulations: The Federal rules restrict any use of the information to criminally investigate or prosecute any alcohol or drug abuse patient.[facility] the event this information is protected by the Federal Confidentiality of Alcohol and Drug Abuse Patient Records regulations: The Federal rules restrict any use of the information to criminally investigate or prosecute any alcohol or drug abuse patient.[facility] the event this information is protected by the Federal Confidentiality of Alcohol and Drug Abuse Patient Records regulations: The Federal rules restrict any use of the information to criminally investigate or prosecute any alcohol or drug abuse patient.[facility] the event this information is protected by the Federal Confidentiality of Alcohol and Drug Abuse Patient Records regulations: The Federal rules restrict any use of the information to criminally investigate or prosecute any alcohol or drug abuse patient.[facility] the event this information is protected by the Federal Confidentiality of Alcohol and Drug Abuse Patient Records regulations: The Federal rules restrict any use of the information to criminally investigate or prosecute any alcohol or drug abuse patient.[facility] the event this information is protected by the Federal Confidentiality of Alcohol and Drug Abuse Patient Records regulations: The Federal rules restrict any use of the information to criminally investigate or prosecute any alcohol or drug abuse patient.[facility] the event this information is protected by the Federal Confidentiality of Alcohol and Drug Abuse Patient Records regulations: The Federal rules restrict any use of the information to criminally investigate or prosecute any alcohol or drug abuse patient.[facility] the event this information is protected by the Federal Confidentiality of Alcohol and Drug Abuse Patient Records regulations: The Federal rules restrict any use of the information to criminally investigate or prosecute any alcohol or drug abuse patient.[facility] the event this information is protected by the Federal Confidentiality of Alcohol and Drug Abuse Patient Records regulations: The Federal rules restrict any use of the information to criminally investigate or prosecute any alcohol or drug abuse patient.[facility] the event this information is protected by the Federal Confidentiality of Alcohol and Drug Abuse Patient Records regulations: The Federal rules restrict any use of the information to criminally investigate or prosecute any alcohol or drug abuse patient.[facility] the event this information is protected by the Federal Confidentiality of Alcohol and Drug Abuse Patient Records regulations: The Federal rules restrict any use of the information to criminally investigate or prosecute any alcohol or drug abuse patient.[facility] Care Teams (unrecognized sec tion and content) Photonics Engineer Relationship Specialty Start Date End Date Guevara Mackay MD [address] [place] [id number] PCP - General 09/07/00 Photonics Engineer Relationship Specialty Start Date End Date Guevara Mackay MD [address] [place] [address] PCP - General 09/07/00 Photonics Engineer Relationship Specialty Start Date End Date Guevara Mackay MD [address] [place] [address] PCP - General 09/07/00 Photonics Engineer Relationship Specialty Start Date End Date Guevara Mackay MD [address] [place] [address] PCP - General 09/07/00 Photonics Engineer Relationship Specialty Start Date End Date Guevara Mackay MD [address] [place] [address] PCP - General 09/07/00 Photonics Engineer Relationship Specialty Start Date End Date Guevara Mackay MD [address] [place] [address] PCP - General 09/07/00 Photonics Engineer Relationship Specialty Start Date End Date Guevara Mackay MD [address] [place] [address] PCP - General 09/07/00 Photonics Engineer Relationship Specialty Start Date End Date Guevara Mackay MD [address] [place] [address] PCP - General 09/07/00 Photonics Engineer Relationship Specialty Start Date End Date Guevara Mackay MD [address] [place] [address] PCP - General 09/07/00 Photonics Engineer Relationship Specialty Start Date End Date Guevara Mackay MD [address] [place] [address] PCP - General 09/07/00 FOR RECORDS PERTAINING [...] BE BASED ON THE PRIMARY CLINICAL RECORDS. [facility] [employer] [facility]. provides no warranty or guarantee of the accuracy or completeness of information in this document.
[2023-07-14 02:55] LABS: Lactate/Lactic Acid 1.7 mmol/L (0.4-2.0)
[2023-07-14] MEDS: 0.9 % SODIUM CHLORIDE 1,000 ML 100 ML IV ×2 (03:32→16:37)
[2023-07-14 05:11] LABS: Basophils Percent Auto 0.2 % (0.2-2.0); Hematocrit 38.7 % (42.0-54.0); Hemoglobin 12.7 g/dL (14.0-18.0); Immature Granulocytes Abs Auto 0.06 10^3/uL (0.00-0.03); Immature Granulocytes Pct Auto 0.5 % (0.0-0.5); Lymphocytes Absolute Auto 0.7 10^3/uL (1.2-3.8); Lymphocytes Percent Auto 5.6 % (20.5-60.0); Mean Corpuscular HGB Conc 32.8 g/dL (29.9-35.2); Mean Corpuscular Hemoglobin 36.9 pg (25.9-34.0); Mean Corpuscular Volume 112.5 fL (80.0-94.0); Monocytes Absolute Auto 0.8 10^3/uL (0.3-0.8); Monocytes Percent Auto 6.5 % (1.7-12.0); Neutrophils Absolute Auto 10.7 10^3/uL (1.4-6.5); Neutrophils Percent Auto 87.2 % (43.0-75.0); Platelet Count 146 10^3/uL (150-450); Red Blood Count 3.44 10^6/uL (4.70-6.10); Red Cell Distribution Width 15.3 % (11.0-15.0); White Blood Count 12.3 10^3/uL (4.0-11.0)
[2023-07-14] MEDS: OMEPRAZOLE 40 MG CAPSULE.DR PO ×2 (05:23→16:37)
[2023-07-14 05:52] LABS: PROCALCITONIN 0.23 ng/mL (0.00-0.50)
[2023-07-14 05:56] LABS: Alanine Aminotransferase 16 U/L (16-63); Albumin Globulin Ratio 0.7; Albumin Level 2.8 g/dL (3.4-5.0); Alkaline Phosphatase 53 U/L (46-116); Anion Gap 15.5; Aspartate Amino Transferase 27 U/L (15-37); BUN Creatinine Ratio 14.5; Bilirubin Total 0.8 mg/dL (0.2-1.0); Calcium 8.1 mg/dL (8.5-10.1); Carbon Dioxide 21.1 mmol/L (21.0-32.0); Chloride 110 mmol/L (98-107); Estimated GFR (African America 50 (>=60); Estimated GFR (Non-African Ame 41 (>=60); Globulin 3.9 g/dL; Glucose 108 mg/dL (74-106); Potassium 3.6 mmol/L (3.5-5.1); Sodium 143 mmol/L (136-145); Total Protein 6.7 g/dL (6.4-8.2)
--- NOTE | 2023-07-14 08:27 | P.HP_ITS ---
H&P: HPI History of Present Illness Chief complaint: fever, proc tues altered AMS UTI Narrative: She is seen and evaluated in the emergency room with fever postprocedure 2 days prior with cystoscopy. Found to have acute UTI. Fever. Patient mated for IV antibiotics Review of Systems ROS Status of ROS 10 or more systems reviewed and unremark able except as noted in history and below [facility] Medical History (Updated 07/14/23 @ 02:10 by Kellen Delong MD) Obstructive sleep apnea on CPAP ?G47.33 - Obstructive sleep apnea (adult) (pediatric) (ICD-10) Gastroenteritis ?K52.9 - Noninfective gastroenteritis and colitis, unspecified (ICD-10) Elevated PSA ?R97.20 - Elevated prostate specific antigen [PSA] (ICD-10) BPH with urinary obstruction ?N40.1 - Benign prostatic hyperplasia with lower urinary tract symptoms (ICD- 10) ?N13.8 - Other obstructive and reflux uropathy (ICD-10) Basal cell carcinoma ?C44.91 - Basal cell carcinoma of skin, unspecified (ICD-10) Cardiomegaly ?I51.7 - Cardiomegaly (ICD-10) Sleep apnea ?G47.30 - Sleep apnea, unspecified (ICD-10) Myasthenia gravis ?G70.00 - Myasthenia gravis without (acute) exacerbation (ICD-10) Melanoma ?C43.9 - Malignant melanoma of skin, unspecified (ICD-10) Leukopenia ?D72.819 - Decreased white blood cell count, unspecified (ICD-10) Hyperlipemia ?E78.5 - Hyperlipidemia, unspecified (ICD-10) Hypertension ?I10 - Essential (primary) hypertension (ICD-10) Eczema ?L30.9 - Dermatitis, unspecified (ICD-10) Dementia ?F03.90 - Unspecified dementia, unspecified severity, without behavioral disturbance, psychotic disturbance, mood disturbance, and anxiety (ICD-10) Diabetes ?E11.9 - Type 2 diabetes mellitus without complications (ICD-10) Glaucoma ?H40.9 - Unspecified glaucoma (ICD-10) Hx of colonic polyp ?Z86.010 - Personal history of colonic polyps (ICD-10) Seasonal allergies ?J30.2 - Other seasonal allergic rhinitis (ICD-10) History of anal fissures ?Z87.19 - Personal history of other diseases of the digestive system (ICD-10) Surgical History (Updated 07/11/23 @ 11:17 by Donna Evans) History of arthroscopy of knee ?Z98.890 - Other specified postprocedural states (ICD-10) History of cataract extraction ?Z98.49 - Cataract extraction status, unspecified eye (ICD-10) History of basal cell carcinoma (BCC) excision ?Z98.890 - Other specified postprocedural states (ICD-10) ?Z85.828 - Personal history of other malignant neoplasm of skin (ICD-10) History of knee replacement ?Z96.659 - Presence of unspecified artificial knee joint (ICD-10) History of laminectomy ?Z98.890 - Other specified postprocedural states (ICD-10) History of melanoma excision ?Z98.890 - Other specified postprocedural states (ICD-10) ?Z85.820 - Personal history of malignant melanoma of skin (ICD-10) History of transurethral resection of prostate ?Z98.890 - Other specified postprocedural states (ICD-10) ?Z90.79 - Acquired absence of other genital organ(s) (ICD-10) History of cystoscopy ?Z98.890 - Other specified postprocedural states (ICD-10) History of esophagogastroduodenoscopy (EGD) ?Z98.890 - Other specified postprocedural states (ICD-10) History of colonoscopy ?Z98.890 - Other specified postprocedural states (ICD-10) Family History (Updated 07/14/23 @ 02:55 by Radha Martinez RN) Father Family history of stroke Family history of hypertension Mother Family history of stroke Family history of hypertension Family history of diabetes mellitus Other Family history of myocardial infarction Social History (Updated 07/11/23 @ 13:17 by Page Birmingham) Within the past year, how often did you have a drink containing alcohol: 2-4 times a month Smoking status: Former smoker Non-prescribed substance use: denies use Highest level of school completed/degree received: high school graduate Meds Home Medications and Allergies Home Medications Medication Instructions Recorded Confirmed Type azathioprine 50 mg tablet 50 mg PO .twice daily 07/11/23 07/14/23 History carvedilol 12.5 mg tablet 12.5 mg PO Q12H 07/11/23 07/14/23 History donepezil 10 mg tablet 10 mg PO DAILY 07/11/23 07/14/23 History dorzolamide 22.3 mg-timolol 6.8 1 drp ophthalmic (eye) Q12H 07/11/23 07/14/23 History mg/mL eye drops ezetimibe 10 mg tablet 10 mg PO DAILY 07/11/23 07/14/23 History latanoprost 0.005 % eye drops 1 drp ophthalmic (eye) DAILY 07/11/23 07/14/23 History pantoprazole 40 mg tablet,delayed 40 mg PO Q12H 07/11/23 07/14/23 History release (Protonix) pyridostigmine bromide 60 mg tablet 60 mg PO Q8H PRN muscle strength 07/11/23 07/14/23 History Allergies Allergy/AdvReac Type Severity Reaction Status Date / Time ciprofloxacin [From Cipro] Allergy Severe Rash Verified 07/13/23 23:16 Penicillins Allergy Severe Rash Verified 07/13/23 23:16 Exam Constitutional Vital Signs, click to edit/add: Last Vital Signs Temp 98.8 F 07/14/23 02:52 Pulse 102 H 07/14/23 08:00 Resp 18 07/14/23 02:52 BP 126/73 07/14/23 02:52 Pulse Ox 90 L 07/14/23 02:52 O2 Del Method Room Air 07/14/23 02:52 Documenting provider has reviewed patient's vital signs: yes Common normals: no apparent distress Exam limitations: altered mental status HENMT Common normals: normocephalic and head/scalp atraumatic Respiratory Common normals: normal respiratory effort Cardio Common normals: regular rate and regular rhythm GI Common normals: Normal to inspection, nondistended, normoactive bowel sounds present Results Labs Labs: Short CBC 07/13/23 07/14/23 Range/Units 23:25 04:35 WBC 11.9 H 12.3 H (4.0-11.0) 10^3/uL Hgb 14.1 12.7 L (14.0-18.0) g/dL Hct 41.2 L 38.7 L (42.0-54.0) % Plt Count 176 146 L (150-450) 10^3/uL BMP 07/13/23 07/14/23 23:25 04:35 Sodium 142 143 Potassium 4.1 3.6 Chloride 108 H 110 H Carbon Dioxide 24.6 21.1 BUN 21.0 H 24.0 H Creatinine 1.54 H 1.65 H Glucose 211 H 108 H Calcium 8.7 8.1 L Liver Function 07/13/23 07/14/23 Range/Units 23:25 04:35 Total Bilirubin 0.7 0.8 (0.2-1.0) mg/dL AST 36 27 (15-37) U/L ALT 17 16 (16-63) U/L Alkaline Phosphatase 67 53 (46-116) U/L Albumin 3.3 L 2.8 L (3.4-5.0) g/dL Urine 07/13/23 Range/Units 23:51 Urine Color Lt. yellow (YELLOW) Urine Clarity Clear (CLEAR) Urine pH 7.0 (5.0-9.0) Ur Specific Bazine 1.025 (1.005-1.025) Urine Protein 100 A (NEG/TRACE) mg/dL Urine Glucose (UA) 100 A (NEGATIVE) mg/dL Assessment and Plan Assessment and Plan (1) Altered mental status: (2) Acute UTI: Plan All her medical status secondary to acute UTI secondary to recent cystoscopy. Continue with IV antibiotics. Plan of care discussed with urology, they are okay with patient's staying here. No reason for transfer. Leukocytosis has progressed. Awaiting cultures. Antibiotics were just darted to no further change in therapy. Thrombocytopenia-monitor daily likely as result of infection as outlined above and bone marrow suppression ' Iron deficiency anemia-check occult blood Chronic kidney disease stage ADZ-xyeyicffbhio-gfgctxih with fluid resuscitation. Hypertension-continue with home medications Dementia-likely to deteriorate while here, continue with current medications Patient admitted past midnight, may need to stay past the 2 midnight rule, about a 50% chance to be discharged home tomorrow so we will hold off on inpatient s tatus, maintain observation.
[2023-07-14] MEDS: DONEPEZIL HCL 10 MG TABLET PO (10:15)
[2023-07-14] MEDS: EZETIMIBE 10 MG TABLET PO (10:16)
[2023-07-14] MEDS: LINEZOLID IN DEXTROSE 5% 600 MG/300 ML PIGGYBACK 300 MG IV ×2 (10:16→22:35)
[2023-07-14 11:28] LABS: Glucometer 160 mg/dL (74-106)
[2023-07-14] MEDS: CEFTAZIDIME 2,000 MG in 0.9 % SODIUM CHLORIDE 100 ML 200 MG IV ×2 (11:38→23:52)
[2023-07-14 11:52] LABS: Adenovirus NOT DETECTED (NOT DETECTE); Bordetella parapertussis NOT DETECTED (NOT DETECTE); Coronavirus 229E NOT DETECTED (NOT DETECTE); Coronavirus HKU1 NOT DETECTED (NOT DETECTE); Coronavirus NL63 NOT DETECTED (NOT DETECTE); Coronavirus OC43 NOT DETECTED (NOT DETECTE); Human Metapneumovirus NOT DETECTED (NOT DETECTE); Human Rhinovirus/Enterovirus NOT DETECTED (NOT DETECTE); Influenza A NOT DETECTED (NOT DETECTE); Influenza B NOT DETECTED (NOT DETECTE); Mycoplasma pneumoniae NOT DETECTED (NOT DETECTE); Parainfluenza Virus 1 NOT DETECTED (NOT DETECTE); Parainfluenza Virus 2 NOT DETECTED (NOT DETECTE); Parainfluenza Virus 3 NOT DETECTED (NOT DETECTE); Parainfluenza Virus 4 NOT DETECTED (NOT DETECTE); Respiratory Syncytial Virus NOT DETECTED (NOT DETECTE); SARS-CoV-2 NOT DETECTED (NOT DETECTE)
[2023-07-14] MEDS: ACETAMINOPHEN 325 MG TABLET 650 MG PO (12:25)
[2023-07-14 13:10] LABS: Glucometer 134 mg/dL (74-106)
[2023-07-14 16:04] LABS: A. calcoaceticus-baumannii Cpx NOT DETECTED (NOT DETECTE); Bacteroides fragilis NOT DETECTED (NOT DETECTE); Candida albicans NOT DETECTED (NOT DETECTE); Candida auris NOT DETECTED (NOT DETECTE); Candida glabrata NOT DETECTED (NOT DETECTE); Candida krusei NOT DETECTED (NOT DETECTE); Candida parapsilosis NOT DETECTED (NOT DETECTE); Candida tropicalis NOT DETECTED (NOT DETECTE); Cryptococcus neoformans/gattii NOT DETECTED (NOT DETECTE); Enterobacter cloacae complex NOT DETECTED (NOT DETECTE); Enterococcus faecalis NOT DETECTED (NOT DETECTE); Enterococcus faecium NOT DETECTED (NOT DETECTE); Haemophilus influenzae NOT DETECTED (NOT DETECTE); Klebsiella aerogenes NOT DETECTED (NOT DETECTE); Klebsiella pneumoniae group NOT DETECTED (NOT DETECTE); Listeria monocytogenes NOT DETECTED (NOT DETECTE); Neisseria meningitidis NOT DETECTED (NOT DETECTE); Pseudomonas aeruginosa NOT DETECTED (NOT DETECTE); Salmonella spp. NOT DETECTED (NOT DETECTE); Serratia marcescens NOT DETECTED (NOT DETECTE); Staphylococcus epidermidis NOT DETECTED (NOT DETECTE); Staphylococcus lugdunensis NOT DETECTED (NOT DETECTE); Staphylococcus spp. NOT DETECTED (NOT DETECTE); Stenotrophomonas maltophilia NOT DETECTED (NOT DETECTE); Streptococcus agalactiae NOT DETECTED (NOT DETECTE); Streptococcus pneumoniae NOT DETECTED (NOT DETECTE); Streptococcus pyogenes NOT DETECTED (NOT DETECTE); Streptococcus spp. NOT DETECTED (NOT DETECTE)
[2023-07-14 16:20] LABS: Glucometer 98 mg/dL (74-106)
[2023-07-14] MEDS: CARVEDILOL 12.5 MG TABLET PO (16:37)
[2023-07-14 17:19] LABS: CTX-M NOT DETECTED (NOT DETECTE); IMP NOT DETECTED (NOT DETECTE); KPC NOT DETECTED (NOT DETECTE)
[2023-07-14 17:20] LABS: NDM NOT DETECTED (NOT DETECTE); OXA-48-like NOT DETECTED (NOT DETECTE); Source Blood; VIM NOT DETECTED (NOT DETECTE)
[2023-07-14 17:24] LABS: Enterobacterales DETECTED (NOT DETECTE); Proteus spp. DETECTED (NOT DETECTE)
[2023-07-14 20:39] LABS: Glucometer 183 mg/dL (74-106)
[2023-07-14] MEDS: DORZOLAMIDE HCL 2%/TIMOLOL MALEATE 0.5% 200 DROP/10 ML BOTTLE OP (22:34)
[2023-07-14] MEDS: AZATHIOPRINE 50 MG TABLET PO (22:34)
[2023-07-14] MEDS: LATANOPROST 0.005% 2.5 ML BOTTLE 1 DROP OP (22:35)
[2023-07-14] MEDS: INSULIN ASPART 300 UNIT/3 ML PEN SUBQ (22:36)
[2023-07-15] VITALS (16 sets, daily range): BP systolic 135–191; BP diastolic 69–90; PULSE 65–110; RESP 16–18; TEMP 36.3–37.7; O2SAT 92–94
[2023-07-15] MEDS: 0.9 % SODIUM CHLORIDE 1,000 ML 100 ML IV ×2 (04:30→16:41)
[2023-07-15 07:42] LABS: Hematocrit 39.5 % (42.0-54.0); Hemoglobin 13.5 g/dL (14.0-18.0); Mean Corpuscular HGB Conc 34.2 g/dL (29.9-35.2); Mean Corpuscular Hemoglobin 37.3 pg (25.9-34.0); Mean Corpuscular Volume 109.1 fL (80.0-94.0); Mean Platelet Volume 11.3 fL (9.5-13.5); Platelet Count 112 10^3/uL (150-450); Red Blood Count 3.62 10^6/uL (4.70-6.10); Red Cell Distribution Width 15.6 % (11.0-15.0); White Blood Count 14.2 10^3/uL (4.0-11.0)
[2023-07-15 07:59] LABS: Alanine Aminotransferase 16 U/L (16-63); Albumin Globulin Ratio 0.6; Albumin Level 2.5 g/dL (3.4-5.0); Alkaline Phosphatase 51 U/L (46-116); Anion Gap 12.6; Aspartate Amino Transferase 19 U/L (15-37); Bilirubin Total 1.1 mg/dL (0.2-1.0); Calcium 8.3 mg/dL (8.5-10.1); Carbon Dioxide 22.7 mmol/L (21.0-32.0); Chloride 106 mmol/L (98-107); Estimated GFR (African America 56 (>=60); Estimated GFR (Non-African Ame 46 (>=60); Globulin 3.9 g/dL; Glucose 103 mg/dL (74-106); Potassium 3.3 mmol/L (3.5-5.1); Sodium 138 mmol/L (136-145); Total Protein 6.4 g/dL (6.4-8.2)
[2023-07-15 08:25] LABS: Segmented Neut Absolute Manual 11.64 10^3/uL (1.4-6.5)
[2023-07-15 08:26] LABS: Macrocytosis 2+; Monocytes Absolute Manual 0.85 10^3/uL (0.30-0.80)
[2023-07-15] MEDS: OMEPRAZOLE 40 MG CAPSULE.DR PO ×2 (09:03→16:41)
[2023-07-15] MEDS: DONEPEZIL HCL 10 MG TABLET PO (09:03)
[2023-07-15] MEDS: EZETIMIBE 10 MG TABLET PO (09:03)
[2023-07-15] MEDS: AZATHIOPRINE 50 MG TABLET PO ×2 (09:04→21:35)
[2023-07-15] MEDS: DORZOLAMIDE HCL 2%/TIMOLOL MALEATE 0.5% 200 DROP/10 ML BOTTLE OP ×2 (09:04→21:35)
[2023-07-15] MEDS: LINEZOLID IN DEXTROSE 5% 600 MG/300 ML PIGGYBACK 300 MG IV (09:04)
[2023-07-15] MEDS: CARVEDILOL 12.5 MG TABLET PO ×2 (09:04→16:41)
[2023-07-15] MEDS: CEFTAZIDIME 2,000 MG in 0.9 % SODIUM CHLORIDE 100 ML 200 MG IV ×2 (11:00→23:00)
[2023-07-15 11:26] LABS: Glucometer 167 mg/dL (74-106)
--- NOTE | 2023-07-15 11:45 | P.PN_ITS ---
Progress Note: Subjective Subjective Interval history: Awake alert and talkative Exam Constitutional Vital Signs, click to edit/add: Last Vital Signs Temp 98.2 F 07/15/23 04:34 Pulse 74 07/15/23 10:00 Resp 18 07/15/23 04:34 BP 162/79 H 07/15/23 04:34 Pulse Ox 92 L 07/15/23 04:34 O2 Del Method Room Air 07/15/23 04:34 Documenting provider has reviewed patient's vital signs: yes Common normals: no apparent distress Exam limitations: altered mental status HENMT Common normals: normocephalic and head/scalp atraumatic Respiratory Common normals: normal respiratory effort Cardio Common normals: regular rate and regular rhythm GI Common normals: Normal to inspection, nondistended, normoactive bowel sounds present Progress Note: Objective Labs Labs: Short CBC 07/15/23 Range/Units 07:17 WBC 14.2 H (4.0-11.0) 10^3/uL Hgb 13.5 L (14.0-18.0) g/dL Hct 39.5 L (42.0-54.0) % Plt Count 112 L (150-450) 10^3/uL BMP 07/15/23 07:17 Sodium 138 Potassium 3.3 L Chloride 106 Carbon Dioxide 22.7 BUN 18.0 Creatinine 1.50 H Glucose 103 Calcium 8.3 L Liver Function 07/15/23 Range/Units 07:17 Total Bilirubin 1.1 H (0.2-1.0) mg/dL AST 19 (15-37) U/L ALT 16 (16-63) U/L Alkaline Phosphatase 51 (46-116) U/L Albumin 2.5 L (3.4-5.0) g/dL Progress Note: A&P Assessment and Plan (1) Altered mental status: (2) Acute UTI: Plan Altered medical status secondary to acute UTI secondary to recent cystoscopy. With positive blood cultures for Enterobacter and Proteus, sensitivities not likely back until tomorrow, current antibiotic coverage should be adequate, patient does have a penicillin allergy aggressive antibiotic regiment secondary to bilateral knee replacements, white blood cell count is elevated today, but no further fevers Thrombocytopenia-monitor daily likely as result of infection as outlined above and bone marrow suppression-Down somewhat today ' Iron deficiency anemia-check occult blood-improved Chronic kidney disease stage OKA-jnkipyhhayqc-nlnbftxy with fluid resuscitation.-Improved Hypertension-continue with home medications Dementia-likely to deteriorate while here, continue with current medications Hypokalemia-supplementation Patient admitted past midnight, may need to stay past the 2 midnight rule, about a 50% chance to be discharged home tomorrow so we will hold off on inpatient status, maintain observation. ?
[2023-07-15] MEDS: POTASSIUM CHLORIDE 10 MEQ ER TABLET 20 MEQ PO ×2 (13:38→21:35)
[2023-07-15 16:15] LABS: Glucometer 134 mg/dL (74-106)
[2023-07-15] MEDS: LINEZOLID IN DEXTROSE 5% 600 MG/300 ML PIGGYBACK 200 MG IV (21:34)
[2023-07-15] MEDS: LORAZEPAM 1 MG TABLET PO (21:35)
[2023-07-15] MEDS: LATANOPROST 0.005% 2.5 ML BOTTLE 1 DROP OP (21:35)
[2023-07-15 21:56] LABS: Glucometer 161 mg/dL (74-106)
[2023-07-15] MEDS: INSULIN ASPART 300 UNIT/3 ML PEN SUBQ (21:56)
[2023-07-15] MEDS: ACETAMINOPHEN 325 MG TABLET 650 MG PO (21:57)
[2023-07-16] VITALS (20 sets, daily range): BP systolic 124–227; BP diastolic 75–107; PULSE 68–127; RESP 16–24; TEMP 36.8–37.5; O2SAT 91–92
[2023-07-16 06:08] LABS: Basophils Percent Auto 0.1 % (0.2-2.0); Eosinophils Absolute Auto 0.1 10^3/uL (0.0-0.7); Eosinophils Percent Auto 0.6 % (0.9-7.0); Hematocrit 41.2 % (42.0-54.0); Hemoglobin 13.6 g/dL (14.0-18.0); Immature Granulocytes Abs Auto 0.08 10^3/uL (0.00-0.03); Immature Granulocytes Pct Auto 0.8 % (0.0-0.5); Lymphocytes Absolute Auto 0.6 10^3/uL (1.2-3.8); Lymphocytes Percent Auto 5.3 % (20.5-60.0); Mean Corpuscular Hemoglobin 36.4 pg (25.9-34.0); Mean Corpuscular Volume 110.2 fL (80.0-94.0); Mean Platelet Volume 11.3 fL (9.5-13.5); Monocytes Absolute Auto 0.6 10^3/uL (0.3-0.8); Monocytes Percent Auto 5.3 % (1.7-12.0); Neutrophils Absolute Auto 9.2 10^3/uL (1.4-6.5); Neutrophils Percent Auto 87.9 % (43.0-75.0); Platelet Count 116 10^3/uL (150-450); Red Blood Count 3.74 10^6/uL (4.70-6.10); Red Cell Distribution Width 15.5 % (11.0-15.0); White Blood Count 10.5 10^3/uL (4.0-11.0)
[2023-07-16 06:31] LABS: Alanine Aminotransferase 15 U/L (16-63); Albumin Globulin Ratio 0.6; Albumin Level 2.5 g/dL (3.4-5.0); Alkaline Phosphatase 58 U/L (46-116); Anion Gap 11.2; Aspartate Amino Transferase 18 U/L (15-37); BUN Creatinine Ratio 13.5; Bilirubin Total 0.7 mg/dL (0.2-1.0); Calcium 8.7 mg/dL (8.5-10.1); Carbon Dioxide 25.8 mmol/L (21.0-32.0); Chloride 106 mmol/L (98-107); Estimated GFR (African America 53 (>=60); Estimated GFR (Non-African Ame 44 (>=60); Globulin 4.4 g/dL; Glucose 120 mg/dL (74-106); Sodium 139 mmol/L (136-145); Total Protein 6.9 g/dL (6.4-8.2)
[2023-07-16] MEDS: DONEPEZIL HCL 10 MG TABLET PO (08:18)
[2023-07-16] MEDS: EZETIMIBE 10 MG TABLET PO (08:18)
[2023-07-16] MEDS: POTASSIUM CHLORIDE 10 MEQ ER TABLET 20 MEQ PO ×2 (08:18→21:55)
[2023-07-16] MEDS: CARVEDILOL 12.5 MG TABLET PO ×2 (08:18→16:44)
[2023-07-16] MEDS: AZATHIOPRINE 50 MG TABLET PO ×2 (08:18→21:55)
[2023-07-16] MEDS: OMEPRAZOLE 40 MG CAPSULE.DR PO ×2 (08:18→16:44)
[2023-07-16] MEDS: HYDRALAZINE HCL 20 MG/ML VIAL 10 MG IVP (08:47)
[2023-07-16] MEDS: DORZOLAMIDE HCL 2%/TIMOLOL MALEATE 0.5% 200 DROP/10 ML BOTTLE OP ×2 (08:52→22:04)
[2023-07-16] MEDS: LINEZOLID IN DEXTROSE 5% 600 MG/300 ML PIGGYBACK 300 MG IV (08:54)
--- NOTE | 2023-07-16 09:25 | P.PN_ITS ---
Progress Note: Subjective Subjective Interval history: Patient had an episode this morning of becoming less responsive and confused. He still somewhat confused to me but he knows where he is at and knows my name. Exam Constitutional Vital Signs, click to edit/add: Last Vital Signs Temp 98.2 F 07/16/23 03:57 Pulse 81 07/16/23 06:00 Resp 16 07/16/23 03:57 BP 210/100 H 07/16/23 08:47 Pulse Ox 91 L 07/16/23 03:57 O2 Del Method Room Air 07/16/23 03:57 Documenting provider has reviewed patient's vital signs: yes Common normals: no apparent distress Exam limitations: altered mental status HENMT Common normals: normocephalic and head/scalp atraumatic Respiratory Common normals: normal respiratory effort Cardio Common normals: regular rate and regular rhythm GI Common normals: Normal to inspection, nondistended, normoactive bowel sounds present Progress Note: Objective Labs Labs: Short CBC 07/16/23 Range/Units 05:40 WBC 10.5 (4.0-11.0) 10^3/uL Hgb 13.6 L (14.0-18.0) g/dL Hct 41.2 L (42.0-54.0) % Plt Count 116 L (150-450) 10^3/uL BMP 07/16/23 05:40 Sodium 139 Potassium 4.0 Chloride 106 Carbon Dioxide 25.8 BUN 21.0 H Creatinine 1.56 H Glucose 120 H Calcium 8.7 Liver Function 07/16/23 Range/Units 05:40 Total Bilirubin 0.7 (0.2-1.0) mg/dL AST 18 (15-37) U/L ALT 15 L (16-63) U/L Alkaline Phosphatase 58 (46-116) U/L Albumin 2.5 L (3.4-5.0) g/dL Progress Note: A&P Assessment and Plan (1) Altered mental status: (2) Acute UTI: Plan Patient with a history of dementia but altered medical status secondary to acute UTI secondary secondary to Proteus mirabilis to recent cystoscopy. With positive blood cultures for Proteus, white blood cell count returned to normal. Is sensitive to current antibiotics pill we will continue patient on Fortaz. With his bilateral knee replacements he does need long-term antibiotics. Patient will need a PICC line placed Thrombocytopenia-monitor daily likely as result of infection as outlined above and bone marrow suppression-better today ' Iron deficiency anemia-check occult blood-stable Chronic kidney disease stage QER-sqqnwqgpywgg-iiuzktmv with fluid resuscitation.-Improved Hypertension-continue with home medications-elevated today. Added clonidine and as needed hydralazine Dementia-likely to deteriorate while here, continue with current medications Mtnldcrhkzk-zlpcdvsbvlnucea-fuzihtjo With positive blood cultures in bilateral knee replacements patient will need long-term antibiotics. Maintain current inpatient status secondary to the severity of illness with medical treatment spanning well over 2 midnights ?
[2023-07-16] MEDS: CLONIDINE HCL 0.1 MG TABLET PO ×3 (09:48→22:00)
[2023-07-16] MEDS: CEFTAZIDIME 2,000 MG in 0.9 % SODIUM CHLORIDE 100 ML 200 MG IV (09:48)
[2023-07-16 11:11] LABS: Glucometer 144 mg/dL (74-106)
[2023-07-16] MEDS: 0.9 % SODIUM CHLORIDE 1,000 ML 100 ML IV (12:34)
--- NOTE | 2023-07-16 14:23 | CT_ITS ---
The [address] [address] Patient Name: RON LITTLE MRN: [id number] date: 1950 Sex: M Assigned Patient Location: [place] Current Patient Location: [place] Accession/Order Number: [id number] Exam Date: 07/16/2023 16:30 Report Date: 07/16/2023 17:04 At the request of: MIKE MACKAY Procedure: CT head/brain wo con EXAM: CT head/brain wo con HISTORY: Confusion COMPARISON: MRI the brain from 09/23/2021. TECHNIQUE: CT was obtained through the head without contrast. Dose reduction techniques were achieved by using automated exposure control and/or adjustment of mA and/or kV according to patient size and/or use of iterative reconstruction technique. FINDINGS: Diffuse ventricular and sulcal prominence consistent with age-related involutional change. No herniation or hydrocephalus. The kapadia matter/white matter differentiation is maintained throughout. Periventricular deep white matter foci of decreased attenuation. No CT evidence of contemporary infarction. No acute intracranial hemorrhage or parenchymal mass. The calvarium and skull base are intact. The pneumatized portions of the skull are clear. Postsurgical changes of the lenses. CT/CT head/brain wo con IMPRESSION: 1. No acute intracranial abnormality. 2. Age-related involutional change and moderate chronic microvascular ischemic white matter disease. Electronically authenticated by: VALENTINE ZAMARRIPA Date: 07/16/2023 17:04
[2023-07-16 16:18] LABS: Glucometer 145 mg/dL (74-106)
--- NOTE | 2023-07-16 16:53 | ECG_ITS ---
The [facility] Test Date: 2023-07-16 Pat Name: RON LITTLE Department: Room: [facility] Gender: Male Family Specialist: : 1950 Requested By: MIKE MACKAY Order Number: [id number] Reading MD: HONORIO CHAVEZ Measurements Intervals Ragland Rate: 124 P: NH: QRS: -1 QRSD: 109 T: -15 QT: 284 QTc: 409 Interpretive Statements ATRIAL FLUTTER/TACHYCARDIA WITH RAPID VENTRICULAR RESPONSE NONSPECIFIC ST & T-WAVE ABNORMALITY ABNORMAL RHYTHM ECG Compared to ECG 07/14/2023 02:21:24 Electronically Signed On 07-18-2023 23:10:55 EST by HONORIO CHAVEZ
[2023-07-16 21:24] LABS: Glucometer 157 mg/dL (74-106)
[2023-07-16] MEDS: LATANOPROST 0.005% 2.5 ML BOTTLE 1 DROP OP (22:05)
[2023-07-16] MEDS: CEFTAZIDIME 2,000 MG in 0.9 % SODIUM CHLORIDE 100 ML 100 MG IV (22:06)
[2023-07-16] MEDS: INSULIN ASPART 300 UNIT/3 ML PEN SUBQ (22:06)
[2023-07-17] VITALS (19 sets, daily range): BP systolic 144–181; BP diastolic 74–99; PULSE 55–110; RESP 16–20; TEMP 36.7–37.2; O2SAT 95
[2023-07-17] MEDS: 0.9 % SODIUM CHLORIDE 1,000 ML 100 ML IV (00:20)
[2023-07-17] MEDS: CLONIDINE HCL 0.1 MG TABLET PO ×3 (05:03→21:21)
[2023-07-17 05:11] LABS: Basophils Percent Auto 0.2 % (0.2-2.0); Eosinophils Percent Auto 0.8 % (0.9-7.0); Hematocrit 36.4 % (42.0-54.0); Hemoglobin 12.2 g/dL (14.0-18.0); Immature Granulocytes Abs Auto 0.03 10^3/uL (0.00-0.03); Immature Granulocytes Pct Auto 0.6 % (0.0-0.5); Lymphocytes Absolute Auto 0.6 10^3/uL (1.2-3.8); Lymphocytes Percent Auto 12.7 % (20.5-60.0); Mean Corpuscular HGB Conc 33.5 g/dL (29.9-35.2); Mean Corpuscular Hemoglobin 37.3 pg (25.9-34.0); Mean Corpuscular Volume 111.3 fL (80.0-94.0); Mean Platelet Volume 11.3 fL (9.5-13.5); Monocytes Absolute Auto 0.6 10^3/uL (0.3-0.8); Monocytes Percent Auto 11.4 % (1.7-12.0); Neutrophils Absolute Auto 3.6 10^3/uL (1.4-6.5); Neutrophils Percent Auto 74.3 % (43.0-75.0); Platelet Count 103 10^3/uL (150-450); Red Blood Count 3.27 10^6/uL (4.70-6.10); Red Cell Distribution Width 15.6 % (11.0-15.0); White Blood Count 4.9 10^3/uL (4.0-11.0)
[2023-07-17 05:25] LABS: Alanine Aminotransferase 12 U/L (16-63); Albumin Globulin Ratio 0.6; Albumin Level 2.2 g/dL (3.4-5.0); Alkaline Phosphatase 49 U/L (46-116); Anion Gap 11.3; Aspartate Amino Transferase 22 U/L (15-37); Bilirubin Total 0.5 mg/dL (0.2-1.0); Calcium 8.3 mg/dL (8.5-10.1); Carbon Dioxide 24.7 mmol/L (21.0-32.0); Chloride 111 mmol/L (98-107); Estimated GFR (African America 57 (>=60); Estimated GFR (Non-African Ame 47 (>=60); Glucose 104 mg/dL (74-106); Sodium 143 mmol/L (136-145); Total Protein 6.2 g/dL (6.4-8.2)
--- NOTE | 2023-07-17 07:49 | P.PN_ITS ---
Progress Note: Subjective Subjective Interval history: Patient much more awake and alert this morning. Joking more. Family agrees. He did not remember my name which she did the previous day. Very somnolent yesterday. So far this morning is awake Exam Constitutional Vital Signs, click to edit/add: Last Vital Signs Temp 98.1 F 07/17/23 05:02 Pulse 56 L 07/17/23 05:57 Resp 18 07/17/23 05:02 BP 172/86 H 07/17/23 05:03 Pulse Ox 92 L 07/16/23 21:25 O2 Del Method Room Air 07/16/23 21:25 Documenting provider has reviewed patient's vital signs: yes Common normals: no apparent distress Exam limitations: altered mental status HENMT Common normals: normocephalic and head/scalp atraumatic Respiratory Common normals: normal respiratory effort Cardio Common normals: regular rate and regular rhythm GI Common normals: Normal to inspection, nondistended, normoactive bowel sounds present Extremity Common normals: normal to inspection Progress Note: Objective Labs Labs: Short CBC 07/17/23 Range/Units 04:50 WBC 4.9 (4.0-11.0) 10^3/uL Hgb 12.2 L (14.0-18.0) g/dL Hct 36.4 L (42.0-54.0) % Plt Count 103 L (150-450) 10^3/uL BMP 07/17/23 04:50 Sodium 143 Potassium 4.0 Chloride 111 H Carbon Dioxide 24.7 BUN 22.0 H Creatinine 1.47 H Glucose 104 Calcium 8.3 L Liver Function 07/17/23 Range/Units 04:50 Total Bilirubin 0.5 (0.2-1.0) mg/dL AST 22 (15-37) U/L ALT 12 L (16-63) U/L Alkaline Phosphatase 49 (46-116) U/L Albumin 2.2 L (3.4-5.0) g/dL Progress Note: A&P Assessment and Plan (1) Altered mental status: (2) Acute UTI: Plan Patient with a history of dementia but altered mental status secondary to acute UTI secondary secondary to Proteus mirabilis to recent cystoscopy. With pos itive blood cultures for Proteus, white blood cell count returned to normal. Continues to Fortaz. With his bilateral knee replacements he needs at least 4 weeks of IV antibiotics due to positive blood cultures and risk for infected joint replacement Thrombocytopenia-monitor daily likely as result of infection as outlined above and bone marrow suppression-better today ' Iron deficiency anemia-check occult blood-stable Chronic kidney disease stage OGA-hldnvmcxzmnm-hjzlprob with fluid resuscitation.-Improved Hypertension-continue with home medications-elevated today. Added clonidine and as needed hydralazine Dementia-likely to deteriorate while here, hopefully yesterday was his worst day. Does appear to be somewhat better today. This will wax and wane. Yvfuhykvooi-xkumgiwknfoaois-gubksqkr Patient would be an excellent rehabilitation candidate. He is definitely weak secondary to the bacteremia. Will start process for placement. He is 4 weeks of IV antibiotics.
--- NOTE | 2023-07-17 09:07 | CM.NOTE ---
Addendum entered by Christine Gasca 07/17/23 09:17: IMM signed on 07/14 late entry Original Note: Important Message From Medicaid discussed with pt and , pt verbalizes understanding and signs paper. Original given to pt and copy placed on pt's chart.
[2023-07-17] MEDS: CARVEDILOL 12.5 MG TABLET 25 MG PO ×2 (09:39→18:54)
[2023-07-17] MEDS: EZETIMIBE 10 MG TABLET PO (09:39)
[2023-07-17] MEDS: OXYBUTYNIN chloride 5 MG TABLET 10 MG PO ×2 (09:39→21:21)
[2023-07-17] MEDS: POTASSIUM CHLORIDE 10 MEQ ER TABLET 20 MEQ PO ×2 (09:39→21:20)
[2023-07-17] MEDS: AZATHIOPRINE 50 MG TABLET PO ×2 (09:39→21:21)
[2023-07-17] MEDS: CEFTAZIDIME 2,000 MG in 0.9 % SODIUM CHLORIDE 100 ML 200 MG IV ×2 (09:39→21:20)
[2023-07-17] MEDS: DONEPEZIL HCL 10 MG TABLET PO (09:39)
[2023-07-17] MEDS: DORZOLAMIDE HCL 2%/TIMOLOL MALEATE 0.5% 200 DROP/10 ML BOTTLE OP ×2 (09:40→21:23)
[2023-07-17] MEDS: OMEPRAZOLE 40 MG CAPSULE.DR PO ×2 (09:40→16:18)
[2023-07-17] MEDS: PYRIDOSTIGMINE BROMIDE 60 MG TABLET 30 MG PO ×2 (10:29→21:21)
[2023-07-17 11:21] LABS: Glucometer 128 mg/dL (74-106)
--- NOTE | 2023-07-17 12:59 | SWNOTE1 ---
DOT spoke with pt and his in room. They do want pt to go to rehab. Pt's voiced she wants [facility] as first choice and [facility] as second. Family/pt voiced no need to review list from medicare.gov as they want the [facility]. Referral sent to [facility]. Referral included face sheet, ER note, physician notes, labs, diagnostic imaging, vitals, nursing notes, and med list. Pt has PICC line and will need IV antibiotics at discharge. DOT let [facility] know this as well. DNR, POA, and PICC line info sent.
--- NOTE | 2023-07-17 14:44 | CA_ITS ---
Patient Name: RON LITTLE MR#: [id number] : 1950 Exam Date: 07/17/2023 Ordering Doctor: DR Guevara Montoya . ECHOCARDIOGRAM REPORT PROCEDURE: CA ECHO DOPPLER COMPLETE INDICATIONS: intermittant a-fib COMPARISON: None. DESCRIPTION: COMPLETE ECHOCARDIOGRAM Real-time transthoracic echocardiography with 2D, M-mode, spectral and color flow Doppler performed. QUALITY: Technical quality was good. 67 , 237#, BSA 2.17 m2 LEFT VENTRICLE: Normal chamber size. Moderate concentric left ventricular hypertrophy. Normal systolic function. LV EF: Normal left ventricular ejection fraction, (>55%). DIASTOLIC: Diastolic function is indeterminate. ATRIAL SEPTUM: LEFT ATRIUM: Normal chamber size. RIGHT ATRIUM: Normal chamber size. RIGHT VENTRICLE: Normal chamber size. Normal right ventricular systolic function. TRICUSPID VALVE: Normal mobility and thickness. No stenosis with trivial regurgitation. Unable to assess right-sided pressures due to lack of measurable tricuspid regurgitation. MITRAL VALVE: Mildly thickened with normal mobility. No evidence of mitral valve stenosis. Mild mitral annular calcification. Mild mitral regurgitation. AORTIC VALVE: Normal trileaflet appearance. Mildly calcified aortic valve. Normal leaflet mobility. No evidence of aortic valve stenosis. Trivial aortic regurgitation. AORTIC ROOT: Normal diameter and appearance. PULMONIC VALVE: Normal thickness and mobility. No stenosis. Trivial regurgitation. PERICARDIUM: No evidence of pericardial effusion. IVC: Not well visualized. PLEURA: CONCLUSION: 1. Moderate concentric left ventricular hypertrophy with normal systolic function. LVEF is 55%. 2. Normal right ventricular size and systolic function. 3. No significant valvular dysfunction. Adult Echocardiography Procedure Report Left Ventricle LVEDD (3.7 - 5.6 cm): 4.56 cm LVESD (2.2 - 4.0 cm): 3.08 cm LVIVS thickness (0.6 - 1.2 cm): 1.69 cm LVPW thickness (0.5 - 1.0 cm): 1.22 cm LVOT Max Gradient: 2 mm[Hg] Peak Velocity (LVOT): 68.40 cm/s Mean Velocity (LVOT): 45.20 cm/s LVOT Diameter 2.60 cm Left Ventricular Ejection Fraction: 55 % Left Atrium LA Volume Index (2D A2C): 38201 mm3 Left Atrium Systolic Dimension: 5.10 cm Mitral Valve MV E to A Ratio: 1 Mitral Valve A-Wave Peak Velocity: 69.60 cm/s Mitral Valve E-Wave Peak Velocity: 72.10 cm/s Cardiovascular Orifice Area: 1.95 cm2 Right Ventricle Aorta AO Root Diam: 3.40 cm Aortic Valve AoV Area (Peak Jimbo): 2.54 cm2 AoV Area (VTI): 3.12 cm2 Peak Velocity(Antegrade Flow): 143.00 cm/s Peak Gradient(Antegrade Flow): 8 mm[Hg] Mean Velocity(Antegrade Flow): 99.00 cm/s Mean Gradient(Antegrade Flow): 5 mm[Hg] Velocity Time Integral: 26.70 cm Tricuspid Valve Peak Velocity (Regurgitant Flow): 231.00 cm/s Peak Velocity: 65.20 cm/s Pulmonic Valve Peak Velocity: 97.90 cm/s, 104.00 cm/s Peak Gradient: 4 mm[Hg] Right Atrium Dictated by: Shahzad Palacios M.D. on 07/17/2023 at 21:00 Approved by: Shahzad Palacios M.D. on 07/17/2023 at 21:03
--- NOTE | 2023-07-17 14:48 | SWNOTE1 ---
[facility] is able to accept when pt is medically stable. SW made doctor aware.
--- NOTE | 2023-07-17 15:07 | CM.NOTE ---
2nd Notice of Important Message From Medicare discussed with pt and family, denies any questions or concerns.
[2023-07-17] MEDS: APIXABAN 5 MG TABLET PO ×2 (16:18→21:20)
[2023-07-17 16:50] LABS: Glucometer 130 mg/dL (74-106)
[2023-07-17] MEDS: LATANOPROST 0.005% 2.5 ML BOTTLE 1 DROP OP (21:23)
[2023-07-17 21:49] LABS: Glucometer 154 mg/dL (74-106)
[2023-07-17] MEDS: HYDRALAZINE HCL 20 MG/ML VIAL 10 MG IVP (22:12)
--- NOTE | 2023-07-17 22:20 | PC.NURSE ---
Patient confused requesting to speak with Ting . Called and patient spoke on phone with . Patient more relaxed since speaking with .
[2023-07-18] VITALS (9 sets, daily range): BP systolic 148–168; BP diastolic 78–88; PULSE 55–73; RESP 20–22; TEMP 36.7–37.4; O2SAT 92–94
[2023-07-18] MEDS: CLONIDINE HCL 0.1 MG TABLET PO (04:37)
--- NOTE | 2023-07-18 04:49 | PC.NURSE ---
incontinent of extra large amount of urine
[2023-07-18 05:31] LABS: Basophils Percent Auto 0.4 % (0.2-2.0); Eosinophils Absolute Auto 0.1 10^3/uL (0.0-0.7); Eosinophils Percent Auto 1.3 % (0.9-7.0); Hematocrit 37.1 % (42.0-54.0); Hemoglobin 12.3 g/dL (14.0-18.0); Immature Granulocytes Abs Auto 0.02 10^3/uL (0.00-0.03); Immature Granulocytes Pct Auto 0.4 % (0.0-0.5); Lymphocytes Absolute Auto 0.6 10^3/uL (1.2-3.8); Lymphocytes Percent Auto 11.6 % (20.5-60.0); Mean Corpuscular HGB Conc 33.2 g/dL (29.9-35.2); Mean Corpuscular Hemoglobin 36.5 pg (25.9-34.0); Mean Corpuscular Volume 110.1 fL (80.0-94.0); Mean Platelet Volume 11.4 fL (9.5-13.5); Monocytes Absolute Auto 0.9 10^3/uL (0.3-0.8); Monocytes Percent Auto 16.7 % (1.7-12.0); Neutrophils Absolute Auto 3.7 10^3/uL (1.4-6.5); Neutrophils Percent Auto 69.6 % (43.0-75.0); Platelet Count 118 10^3/uL (150-450); Red Blood Count 3.37 10^6/uL (4.70-6.10); Red Cell Distribution Width 15.8 % (11.0-15.0); White Blood Count 5.3 10^3/uL (4.0-11.0)
[2023-07-18 06:04] LABS: Alanine Aminotransferase 21 U/L (16-63); Albumin Globulin Ratio 0.6; Albumin Level 2.4 g/dL (3.4-5.0); Alkaline Phosphatase 51 U/L (46-116); Anion Gap 13.6; Aspartate Amino Transferase 30 U/L (15-37); BUN Creatinine Ratio 18.1; Bilirubin Total 0.4 mg/dL (0.2-1.0); Calcium 8.4 mg/dL (8.5-10.1); Carbon Dioxide 22.7 mmol/L (21.0-32.0); Chloride 110 mmol/L (98-107); Estimated GFR (African America 58 (>=60); Estimated GFR (Non-African Ame 48 (>=60); Globulin 4.3 g/dL; Glucose 113 mg/dL (74-106); Potassium 4.3 mmol/L (3.5-5.1); Sodium 142 mmol/L (136-145); Total Protein 6.7 g/dL (6.4-8.2)
[2023-07-18] MEDS: IPRATROPIUM/ALBUTEROL SULFATE 3 ML AMPUL.NEB IH (06:37)
[2023-07-18] MEDS: CARVEDILOL 12.5 MG TABLET 25 MG PO (07:56)
[2023-07-18] MEDS: OMEPRAZOLE 40 MG CAPSULE.DR PO (07:56)
--- NOTE | 2023-07-18 08:30 | P.DS_ITS ---
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[employer] Has provider been notified: No 07/17/23 07:41 Consult to [place] Routine Reason for consult:: Care Home Other reason:: placement for rehab 07/17/23 07:45 Occupational Therapy Eval and Treat Routine Reason for consultation: Placement for rehab Has provider been notified: No Physical Therapy Eval and Treat Routine Reason for consultation: placement for rehab Has provider been notified: No DS: Diagnosis Discharge Diagnosis (1) Altered mental status: (2) Acute UTI: Plan Patient with a history of dementia but altered mental status secondary to acute UTI secondary secondary to Proteus mirabilis with the uremia Thrombocytopenia ' Iron deficiency anemia Chronic kidney disease stage III Atrial Fib Hypertension Dementia Hypokalemia DS: Summary Hospital Course Hospital Course: Patient admitted with fever and altered mental status status post cystoscopy procedure. Initial screening test for the blood cultures did turn positive for Proteus. Final blood cultures confirmed, urine culture same organism. The risk for him is high with his bacteremia and 2 artificial knee replacements. He is 1 month of IV antibiotics. His altered mental status still waxes and wanes. He has his baseline dementia. Much more alert this last couple days. Only other issue throughout his hospitalization with atrial fibrillation. He is i ntermittent. He was started on Eliquis. Echocardiogram does show slightly increased atrial size at 5.1 cm. Currently maintaining normal sinus rhythm. His thrombocytopenia is improving, his kidney function continues to improve, hemoglobin down somewhat monitor that as an outpatient. Blood pressure somewhat uncontrolled throughout the hospitalization. Medications were adjusted. Will see how he settles in at the rehabilitation facility. Medications see list. I will follow patient at rehab. Time Spent with Patient Time attestation: Total time spent providing and/or coordinating discharge services: Exam Constitutional Vital Signs, click to edit/add: Last Vital Signs Temp 99.4 F 07/18/23 04:48 Pulse 69 07/18/23 07:54 Resp 22 07/18/23 04:48 BP 168/88 H 07/18/23 04:48 Pulse Ox 93 L 07/18/23 06:40 O2 Del Method Room Air 07/18/23 06:40 Documenting provider has reviewed patient's vital signs: yes Common normals: no apparent distress Exam limitations: no altered mental status HENMT Common normals: normocephalic and head/scalp atraumatic Respiratory Common normals: normal respiratory effort Cardio Common normals: regular rate and regular rhythm GI Common normals: Normal to inspection, nondistended, normoactive bowel sounds present Extremity Common normals: normal to inspection DS: Data Data Completed and Pending Labs on day of discharge: Labs from last 24 hours 07/18/23 07/17/23 07/17/23 04:35 21:47 16:49 WBC 5.3 RBC 3.37 L Hgb 12.3 L Hct 37.1 L MCV 110.1 H MCH 36.5 H MCHC 33.2 RDW 15.8 H Plt Count 118 L MPV 11.4 Neut % (Auto) 69.6 Lymph % (Auto) 11.6 L [place] % (Auto) 16.7 H Eos % (Auto) 1.3 Baso % (Auto) 0.4 Neut # (Auto) 3.7 Lymph # (Auto) 0.6 L [place] # (Auto) 0.9 H Eos # (Auto) 0.1 Baso # (Auto) 0.0 Abs Immat Gran (auto) 0.02 Imm/Tot Granulo (auto) 0.4 Sodium 142 Potassium 4.3 Chloride 110 H Carbon Dioxide 22.7 Anion Gap 13.6 BUN 26.0 H Creatinine 1.44 H Est GFR ( Amer) 58 L Est GFR (Non-Af Amer) 48 L BUN/Creatinine Ratio 18.1 Glucose 113 H Calcium 8.4 L Total Bilirubin 0.4 AST 30 ALT 21 Alkaline Phosphatase 51 Total Protein 6.7 Albumin 2.4 L Globulin 4.3 Albumin/Globulin Ratio 0.6 POC Glucose 154 H 130 H 07/17/23 11:20 WBC RBC Hgb Hct MCV MCH MCHC RDW Plt Count MPV Neut % (Auto) Lymph % (Auto) [place] % (Auto) Eos % (Auto) Baso % (Auto) Neut # (Auto) Lymph # (Auto) [place] # (Auto) Eos # (Auto) Baso # (Auto) Abs Immat Gran (auto) Imm/Tot Granulo (auto) Sodium Potassium Chloride Carbon Dioxide Anion Gap BUN Creatinine Est GFR ( Amer) Est GFR (Non-Af Amer) BUN/Creatinine Ratio Glucose Calcium Total Bilirubin AST ALT Alkaline Phosphatase Total Protein Albumin Globulin Albumin/Globulin Ratio POC Glucose 128 H Preliminary micro results at discharge 07/13/23 23:57 - Preliminary Blood Proteus mirabilis 07/13/23 23:25 Blood Culture Result 1 - Preliminary Blood NO GROWTH AT 36-48 HOURS. FINAL TO FOLLOW. Discharge Plan Discharge Disposition: Xfer SNF Condition: Fair Discharge Medications: New carvedilol 12.5 mg Tablet 25 mg PO BIDWM Qty: 120 11RF pyridostigmine bromide 60 mg Tablet 30 mg PO BID Qty: 30 11RF Eliquis 5 mg Tablet 5 mg PO BID Qty: 60 11RF Ceftazidime [Fortaz] 2000 MG 0.9 % Sodium Chloride [Sodium Chloride 0.9% 100 ml] 100 ML 200 mls/hr IV Q12H Ordered By: Guevara Montoya MD Last Taken: 07/17/23 21:20 200 mls/hr Continued pantoprazole [Protonix] 40 mg tablet,delayed release (DR/EC) 40 mg PO Q12H latanoprost 0.005 % drops 1 drp OPHTHALMIC (EYE) DAILY ezetimibe 10 mg tablet 10 mg PO DAILY azathioprine 50 mg tablet 50 mg PO .twice daily donepezil 10 mg tablet 10 mg PO DAILY dorzolamide-timolol 22.3-6.8 mg/mL drops 1 drp OPHTHALMIC (EYE) Q12H Patient Comments: both eyes Discontinued carvedilol 12.5 mg tablet 12.5 mg PO Q12H pyridostigmine bromide 60 mg tablet 60 mg PO Q8H PRN (Reason: muscle strength) Forms: Portal Instructions Follow Up Appointments: @ 10:15am with Dr. Montoya [phone]
--- NOTE | 2023-07-18 09:25 | PT.DAILY ---
Physical Therapy Daily Note PT Daily Note/Assess Start: 07/17/23 08:58 Freq: Status: Active Protocol: Document 07/18/23 09:00 GUSTAVO (Rec: 07/18/23 09:25 GUSTAVO [id number]) Physical Therapy Daily Note/Assessment Time In/Time Out Time In 09:00 Time Out 09:15 Subjective Subjective Denies complaints. Feeling better. Therapeutic Exercise Time Therapeutic Exercise Minutes (minutes) 7 Therapeutic Exercise Units 0 Therapeutic Exercise Treatment Therapeutic Exercise Treatment Seated exercises as follows to promote improved strength: -HR/TR, Marches, LAQ, Hip adduction squeeze, Hip abduction with MRE, HS curl with MRE. Therapeutic Activity Time Therapeutic Activity Minutes (minutes) 8 Therapeutic Activity Units 1 Therapeutic Activity Treatment Chair Transfer Ability Standby Assistance Therapeutic Activity Comments Sit to stand at RW SBA. Static stand x 2 min without LOB or UE support SBA. Gait 50 ft. with RW CGA. No LOB, tends to shuffle feet verbal cues to pick feet up and take longer step. Total Physical Therapy Time Total Therapy Minutes 15 Total Physical Therapy Units 1 Summary Daily Note Summary Improved ability with gait and transfers. Continue to recommend SNF to assure safe ambulation and transfers due to history of multiple falls and continued weakness demonstrated.
--- NOTE | 2023-07-18 10:00 | SWNOTE1 ---
Pt is ready for dc today. [facility] sent dc med rec and dc summary to [facility]. [facility] is able to transport and they will be here at 2:00. DOT updated nursing and gave her CRF to complete.
[2023-07-18] MEDS: PYRIDOSTIGMINE BROMIDE 60 MG TABLET 30 MG PO (10:13)
[2023-07-18] MEDS: EZETIMIBE 10 MG TABLET PO (10:13)
[2023-07-18] MEDS: OXYBUTYNIN chloride 5 MG TABLET 10 MG PO (10:13)
[2023-07-18] MEDS: POTASSIUM CHLORIDE 10 MEQ ER TABLET 20 MEQ PO (10:13)
[2023-07-18] MEDS: APIXABAN 5 MG TABLET PO (10:13)
[2023-07-18] MEDS: AZATHIOPRINE 50 MG TABLET PO (10:13)
[2023-07-18] MEDS: DONEPEZIL HCL 10 MG TABLET PO (10:13)
[2023-07-18] MEDS: DORZOLAMIDE HCL 2%/TIMOLOL MALEATE 0.5% 200 DROP/10 ML BOTTLE OP (10:14)
[2023-07-18] MEDS: CEFTAZIDIME 2,000 MG in 0.9 % SODIUM CHLORIDE 100 ML 200 MG IV (12:09)
[2023-07-18 12:13] LABS: Glucometer 128 mg/dL (74-106)
== END 2023-07-18 14:29 | DRG 863 ==
LOC: ER 07-14 02:10 → MS 07-14 02:50
PROVIDERS: Nurse Practitioner Acute Care; Admitting Provider Family Medicine; Emergency Provider Emergency Medicine; PCP Family Medicine; Visit Provider Family Medicine
DX: T81.40XA Infection following a procedure, unspecified, initial encounter (principal); N39.0 Urinary tract infection, site not specified; R78.81 Bacteremia; B96.4 Proteus (mirabilis) (morganii) as the cause of diseases classified elsewhere; B96.89 Other specified bacterial agents as the cause of diseases classified elsewhere; D50.9 Iron deficiency anemia, unspecified; D69.6 Thrombocytopenia, unspecified; I12.9 Hypertensive chronic kidney disease with stage 1 through stage 4 chronic kidney disease, or unspecified chronic kidney disease; N18.30 Chronic kidney disease, stage 3 unspecified; I48.91 Unspecified atrial fibrillation; F03.90 Unspecified dementia, unspecified severity, without behavioral disturbance, psychotic disturbance, mood disturbance, and anxiety; E78.5 Hyperlipidemia, unspecified; E87.6 Hypokalemia; G70.00 Myasthenia gravis without (acute) exacerbation; H40.9 Unspecified glaucoma; R32 Unspecified urinary incontinence; Z87.891 Personal history of nicotine dependence; Z79.899 Other long term (current) drug therapy; Z88.0 Allergy status to penicillin; Z96.653 Presence of artificial knee joint, bilateral; Z98.49 Cataract extraction status, unspecified eye; Z85.828 Personal history of other malignant neoplasm of skin; Z85.820 Personal history of malignant melanoma of skin; Z82.3 Family history of stroke; Z83.3 Family history of diabetes mellitus; Z82.49 Family history of ischemic heart disease and other diseases of the circulatory system
CPT/HCPCS: 0202U; 36415; 36569; 36592; 70450; 71045; 80053; 81001; 82948; 83605; 84145; 85007; 85025; 85027; 87040; 87086; 87150; 87186; 93005; 93306; 94640; 96361; 96365; 96366; 96367; 96368; 96375; 96376; 97161; 97165; 97530; 97535; 99285; C1887; G0328; G0378; J0360; J0713; J2020